=== PATIENT | female | born 2000 | race American Indian/Alaskan Native ===

== ENCOUNTER 2020-09-23 02:30 | Emergency (ER) | payer MEDICAID, SELFPAY ==
--- NOTE | 2020-09-23 02:38 | ED_ITS ---
HPI - Allergic Reaction General Chief complaint: Allergic Reaction Stated complaint: Allergic reaction Time Seen by Provider: 09/23/20 02:37 Source: patient Mode of arrival: ambulatory Limitations: no limitations History of Present Illness HPI narrative: Patient with no history of allergic reactions noticed hives all over her face and upper body the last 1 hour getting worse feels lips tingling no difficulty in swallowing no shortness of breath complaint: allergic reaction, hives and facial swelling Onset (ago): hour(s) Symptoms: rash, itching and facial swelling Severity: moderate Treatment prior to arrival: none Related Data Previous Rx's Medication Instructions Recorded diphenhydramine HCl [Benadryl] 25 mg PO Q6H PRN #30 cap 09/23/20 epinephrine [EpiPen 2-Jorge] 0.3 mg IM Q20M PRN #2 ea 09/23/20 Allergies Allergy/AdvReac Type Severity Reaction Status Date / Time No Known Allergies Allergy Unverified 04/16/20 16:43 [No Known Allergies*] Review of Systems Review of Systems: Constitutional : No Weight loss, No Fever, No Chills ENT/Mouth : No sore throat, No Rhinorrhea Eyes: No Eye Pain, No Swelling Cardiovascular : No Chest Pain, no palpitations Respiratory : No Cough, No Sputum, no shortness of breath Gastrointestinal : no Nausea, No Vomiting, No Diarrhea, No abdominal Pain, no black stools Genitourinary : No Dysuria, No Urinary Frequency Musculoskeletal : No joint pain, No Myalgias, No Joint Swelling Skin : No Skin Lesions, No rash Neuro : No Weakness, No Numbness, No Dizziness, No Headache Psych : No Anxiety/Panic, No Depression Heme/Lymph: No Bruising, No Lymphadenopathy Endocrine : No Polyuria, No Polydipsia All other systems reviewed and are negative [facility] Social History Social History Alcohol intake: never Smoking Status: Never smoker Use of substances other than those prescribed or required for medical reasons: No Advance Directives: No Physical Exam Vital Signs: Vital Signs: Last Vital Signs Temp 97.9 F 09/23/20 02:51 Pulse 108 H 09/23/20 02:55 Resp 12 09/23/20 02:55 BP 108/43 L 09/23/20 02:55 Pulse Ox 100 09/23/20 02:55 Body Mass Index 27.4 Const: General: comfortable and no acute distress HENMT: Head: Yes normal to inspection Ears: hearing grossly normal bilaterally General nose exam: Normal external nose present Mouth: Normal oral and palatal mucosa present, lip normal, oropharynx normal, normal lip, no muffled voice and normal tongue Throat: No uvular edema Eyes: General: appearance normal, both eyes and all related structures Resp: Effort & Inspection: normal respiratory effort Auscultation: clear to auscultation bilaterally Cardio: Palpation: normal PMI Rate: regular rate Rhythm: regular rhythm Heart sounds: S1 normal heart sound present and S2 normal heart sound present Skin: Rashes: rashes noted (Hives on Face upper chest extremities) MDM - Allergic Reaction MDM Narrative Medical decision making narrative: Patient with severe allergic reaction from unknown agent responded to epinephrine and Decadron and Benadryl feeling much better now back to normal will discharge patient home on Benadryl and EpiPen adv ised to follow with PCP for allergy testing Differential Diagnosis Differential diagnosis: Likely anaphylaxis and allergic reaction Discharge Plan Discharge Clinical Impression: Allergic reaction Patient Disposition: Home, Self-Care Instructions: Allergies (ED) Additional Instructions: You had allergic reaction to unknown agent. Follow with PCP for allergy testing. Keep EpiPen with you Benadryl 1-2 tablet every 6 hours as needed for rash. Report to the ER if worsening of hives Prescriptions: New epinephrine [EpiPen 2-Jorge] 0.3 mg/0.3 mL auto-injector 0.3 mg IM Q20M PRN (Reason: anaphylaxis) Qty: 2 RF: 0 diphenhydramine HCl [Benadryl] 25 mg capsule 25 mg PO Q6H PRN (Reason: allergic reaction) Qty: 30 RF: 0 Stand Alone Forms: Work/School Release
[2020-09-23] MEDS: dexAMETHasone 2 MG TABLET 10 MG PO (02:46)
[2020-09-23] MEDS: EPINEPHrine 1 MG/ML VIAL 0.3 MG IM (02:47)
[2020-09-23] MEDS: diphenhydrAMINE HCL 25 MG TABLET 50 MG PO (02:47)
[2020-09-23 02:51] VITALS: BP 108/42; PULSE 97; RESP 19; TEMP 36.6; O2SAT 100; BMI 27.4
[2020-09-23 02:55] VITALS: BP 108/43; PULSE 108; RESP 12; O2SAT 100
== END 2020-09-23 04:49 | disposition home or self-care (01) ==
PROVIDERS: Emergency Provider Internal Medicine; PCP Pediatrics
DX: L50.0 Allergic urticaria (principal)
CPT/HCPCS: 96372; 99284; J0171; J8540; Q0163

== ENCOUNTER 2020-09-24 13:20 | Emergency (ER) | payer MEDICAID, SELFPAY ==
[2020-09-24 13:25] VITALS: BP 108/90; PULSE 95; RESP 16; TEMP 36.8; O2SAT 98; BMI 27.8
[2020-09-24 14:03] VITALS: PULSE 130; RESP 22; O2SAT 100
[2020-09-24 15:03] VITALS: PULSE 102; RESP 18; O2SAT 100
[2020-09-24 15:53] LABS: MANUAL DIFF FLAG NO
[2020-09-24 16:02] LABS: Basophils Percent Auto 0.2 % (0-2); Eosinophils Absolute Auto 0.1 X10*3/uL (0.0-0.4); Eosinophils Percent Auto 0.6 % (0-4); Hematocrit 37.9 % (37-47); Hemoglobin 12.3 g/dl (12.0-16.0); Imm Gran Abs Auto 0.02 X10*3/uL (0.00-0.03); Imm Gran Pct Auto 0.2 % (0.0-0.4); Lymphocytes Absolute Auto 2.6 X10*3/uL (1.2-4.9); Lymphocytes Percent Auto 27.8 % (20-40); Mean Corpuscular HGB Conc 32.5 g/dl (31.0-35.0); Mean Corpuscular Hemoglobin 27.4 pg (27.0-33.0); Mean Corpuscular Volume 84.4 fL (80-98); Mean Platelet Volume 11.9 fL (9.4-12.3); Monocytes Absolute Auto 0.5 X10*3/uL (0.1-1.2); Monocytes Percent Auto 5.6 % (2-11); Neutrophils Absolute Auto 6.2 X10*3/uL (2.0-8.3); Neutrophils Percent Auto 65.6 % (45-73); Platelet Count 210 X10*3/uL (160-400); Red Blood Count 4.49 X10*6/uL (4.20-5.50); Red Cell Distribution Width 14.8 % (11.0-16.0); White Blood Count 9.4 X10*3/uL (4.8-10.8)
[2020-09-24 16:20] LABS: Anion Gap 13 (12-20); Blood Urea Nitrogen 13 mg/dL (9-16); Calcium 8.9 mg/dL (8.4-10.2); Carbon Dioxide 23 mmol/L (22-29); Chloride 108 mmol/L (96-108); Creatinine Clr Calc Pharmacy 119.7; Estimated Glomerular Filt Rate > 60; Glucose Random 124 mg/dL (60-115); Potassium 3.5 mmol/L (3.3-5.1); Sodium 140 mmol/L (135-145)
--- NOTE | 2020-09-24 17:34 | ED.ALLEREA ---
HPI - Allergic Reaction General Chief complaint: Allergic Reaction Stated complaint: allergic reaction Time Seen by Provider: 09/24/20 17:27 Source: patient Mode of arrival: ambulatory Limitations: no limitations History of Present Illness HPI narrative: 19-year-old female who denies significant medical or surgical history rib presents today with complaint of allergic reaction states she was seen here about 36 hours ago at which time she developed hives after eating some [facility] fried chicken she was seen and treated emergency room with EpiPen and IV medication she got significantly better her rash resolved and today she had a feeling of having that rash again and she had chicken with breathing that she prepared and couple hours prior to arrival developed hives like rash again to her face around her neck and gradually spreading. Does report having slight sensation of scratches in back of throat otherwise no difficulty breathing, no cough or wheezing. There has been no recent travel, sick contacts, new medications, or ADL products. MD complaint: allergic reaction Onset (ago): day(s) Exposure: unknown and food (Possibly checking preparation) Symptoms: rash and itching Severity: severe Treatment prior to arrival: steroids (States on her previous visit she was given prednisone which she took this morning) Previous Allergic Reaction History: prior ED visit(s) Related Data Previous Rx's Medication Instructions Recorded diphenhydramine HCl [Benadryl] 25 mg PO Q6H PRN #30 cap 09/23/20 epinephrine [EpiPen 2-Jorge] 0.3 mg IM Q20M PRN #2 ea 09/23/20 prednisone 40 mg PO DAILY #10 tab 09/23/20 famotidine [Pepcid] 20 mg PO DAILY #14 tab 09/24/20 montelukast [Singulair] 10 mg PO BEDTIME #7 tab 09/24/20 Allergies Allergy/AdvReac Type Severity Reaction Status Date / Time No Known Allergies Allergy Unverified 04/16/20 16:43 [No Known Allergies*] Review of Systems Review of Systems: Constitutional: No Weight loss, No Fever, No Chills, No Night Sweats, No Fatigue, No Malaise ENT/Mouth: No Hearing loss, No Ear Pain, No Nasal Congestion, No Sinus Pain, No Hoarseness, No sore throat, No Rhinorrhea, No Swallowing Difficulty Eyes: No Eye Pain, No Swelling, No Redness, No Foreign Body, No Discharge, No Vision Changes Cardiovascular: No Chest Pain, No SOB, No Dyspnea on Exertion, No Orthopnea, No Edema, No Palpitations Respiratory: No Cough, No Sputum, No Wheezing, No Smoke Exposure, No Dyspnea Gastrointestinal: No Nausea, No Vomiting, No Diarrhea, No Constipation, No abdominal Pain, No Hematochezia, No Melena Genitourinary: no irregular bleeding, No Dysuria, No Urinary Frequency, No Hematuria, No Urinary Incontinence, No Urgency, No Flank Pain, No Urinary Flow Changes, No Hesitancy Musculoskeletal: No joint pain, No Myalgias, No Joint Swelling Skin: No Skin Lesions, as noted per HPI Neuro: No Weakness, No Numbness, No Paresthesias, No Loss of Consciousness, No Dizziness, No Headache Psych: No Anxiety/Panic, No Depression, No SI/HI/AH/VH, No Social Issues Heme/Lymph: No Bruising, No Bleeding,No Lymphadenopathy Endocrine: No Polyuria, No Polydipsia, No Temperature Intolerance Yes all other systems are reviewed and are negative [facility] Social History Social History Alcohol intake: never Smoking Status: Never smoker Smoked in Last 30 Days: No Use of substances other than those prescribed or required for medical reasons: No Advance Directives: No Advance Directives Information Provided: Yes Physical Exam Vital Signs: Vital Signs: Last Vital Signs Temp 98.2 F 09/24/20 13:25 Pulse 111 H 09/24/20 17:52 Resp 18 09/24/20 15:03 BP 105/60 09/24/20 17:52 Pulse Ox 100 09/24/20 15:03 Body Mass Index 27.8 Reviewed Const: Other: Appears uncomfortable as she feels itchy. General: cooperative; No acute distress or intoxicated appearing Nutritional Appearance: average body habitus Orientation/consciousness: patient oriented x3 HENMT: Other: There is no angioedema, posterior pharynx within normal limits. Head: Yes normal to inspection Ears: hearing grossly normal bilaterally Eyes: General: appearance normal, both eyes and all related structures Visual Ingram: normal visual ingram by confrontation Neck: Neck: Yes normal visual inspection, No positive Brudzinski's sign, No positive Kernig's sign and No tender Thyroid: Thyroid normal Chest: Chest palpation & inspection: normal inspection of the chest Resp: Effort & Inspection: normal respiratory effort Auscultation: clear to auscultation bilaterally Cardio: Jugular venous distension: no JVD Rhythm: regular rhythm Heart sounds: S1 normal heart sound present and S2 normal heart sound present GI: Inspection: Yes normal to inspection Percussion: Yes normal to percussion Auscultation: normal bowel sounds : General: Yes no CVA tenderness Back/Spine/Pelvis: Back: no CVA tenderness Skin: Other: There is no angioedema General skin exam: other (Diffuse hives to the cheeks, posterior scalp, neck and dispersed over torso) Rashes: rashes noted (Hives with welts) Neuro: General: patient oriented x3 Extrem: General: Yes normal to inspection Course Course Course Narrative: Hives with welts of unclear etiology could be related to check in with burning that she from [facility] and then subsequently made at home however significant high as well as requiring IV Benadryl and Pepcid as well as subq epipen. She was observed in the ED for 4 hours her hives fully resolves she has been resting comfortably. Eating chips and drinking soda. Unclear etiology of this hives she will continue taking prednisone and regular Benadryl will add on Pepcid. Will refer to grader tender she in fact has an appointment tomorrow at 10:00 with her primary care doctor. Proper use of EpiPen reviewed with her she does have EpiPen given to her on previous visit. Clear return instruction follow instructions provided. She feels comfortable plan. Stable for discharge. Consultations Consultation #1: Case discussed with attending Dr. Baker who evaluated patient at bedside with me In addition to treatment highlighted above recommend given her 1 dose of Decadron IV 10 mg and starting on Pepcid outpatient basis. MDM - Allergic Reaction Lab Data Result diagrams: 09/24/20 15:48 09/24/20 15:48 Labs: Lab Results 09/24/20 09/24/20 09/24/20 Range/Units 15:48 15:48 15:48 WBC 9.4 (4.8-10.8) X10*3/uL RBC 4.49 (4.20-5.50) X10*6/uL Hgb 12.3 (12.0-16.0) g/dl Hct 37.9 (37-47) % MCV 84.4 (80-98) fL MCH 27.4 (27.0-33.0) pg MCHC 32.5 (31.0-35.0) g/dl RDW 14.8 (11.0-16.0) % Plt Count 210 (160-400) X10*3/uL MPV 11.9 (9.4-12.3) fL Immature Gran % (Auto) 0.2 (0.0-0.4) % Neut % (Auto) 65.6 (45-73) % Lymph % (Auto) 27.8 (20-40) % [place] % (Auto) 5.6 (2-11) % Eos % (Auto) 0.6 (0-4) % Baso % (Auto) 0.2 (0-2) % Lymph # (Auto) 2.6 (1.2-4.9) X10*3/uL [place] # (Auto) 0.5 (0.1-1.2) X10*3/uL Eos # (Auto) 0.1 (0.0-0.4) X10*3/uL Baso # (Auto) 0.0 (0.0-0.2) X10*3/uL Abs Immat Gran (auto) 0.02 (0.00-0.03) X10*3/uL Absolute Neuts (auto) 6.2 (2.0-8.3) X10*3/uL Absolute Nucleated RBC 0.000 (0.0-0.012) X10*3/uL Nucleated RBC % (auto) 0.0 (0.0-0.2) /100WBC Hold Blue Top SEE NOTE Sodium 140 (135-145) mmol/L Potassium 3.5 (3.3-5.1) mmol/L Chloride 108 (96-108) mmol/L Carbon Dioxide 23 (22-29) mmol/L Anion Gap 13 (12-20) BUN 13 (9-16) mg/dL Creatinine 0.73 (0.5-1.4) mg/dL Estim Creat Clear Calc 119.7 Estimated GFR > 60 Random Glucose 124 H (60-115) mg/dL Calcium 8.9 (8.4-10.2) mg/dL Discharge Plan Discharge Clinical Impression: Allergic reaction Qualifiers: Encounter type: subsequent encounter Qualified Code(s): T78.40XD - Allergy, unspecified, subsequent encounter Patient Disposition: Home, Self-Care Instructions: Urticaria (ED) Additional Instructions: Keep a food log Do not try any new foods Avoid chicken with the previous perforation Continue take her prednisone Take Benadryl as previously prescribed Start taking Pepcid Use your EpiPen only as needed emergencies if you have any worsening or use instructions as reviewed you. Return to emergency room right away if there is any concerns or worsening symptoms Follow with primary doctor as scheduled tomorrow at 10:00 Thank you Prescriptions: New famotidine [Pepcid] 20 mg tablet 20 mg PO DAILY Qty: 14 RF: 0 montelukast [Singulair] 10 mg tablet 10 mg PO BEDTIME Qty: 7 RF: 0 No Action epinephrine [EpiPen 2-Jorge] 0.3 mg/0.3 mL auto-injector 0.3 mg IM Q20M PRN (Reason: anaphylaxis) Qty: 2 RF: 0 diphenhydramine HCl [Benadryl] 25 mg capsule 25 mg PO Q6H PRN (Reason: allergic reaction) Qty: 30 RF: 0 prednisone 20 mg tablet 40 mg PO DAILY Qty: 10 RF: 0 Referrals: Shayne Christina MD [Primary Care Provider] - 1 day Stand Alone Forms: Work/School Release
[2020-09-24 17:52] VITALS: BP 105/60; PULSE 111
[2020-09-24] MEDS: 0.9 % Sodium Chloride 1,000 ML 999 ML IV (17:52)
[2020-09-24] MEDS: Famotidine/PF 20 MG/2 ML VIAL IVPUSH (17:52)
[2020-09-24] MEDS: EPINEPHrine 1 MG/ML VIAL 0.3 MG SUBCUT (17:52)
[2020-09-24] MEDS: diphenhydrAMINE HCL 50 MG/ML VIAL IVPUSH (17:52)
== END 2020-09-24 20:38 | disposition home or self-care (01) ==
PROVIDERS: Emergency Provider Internal Medicine; PCP Pediatrics
DX: T78.40XD Allergy, unspecified, subsequent encounter (principal); L50.9 Urticaria, unspecified; X58.XXXD Exposure to other specified factors, subsequent encounter; J45.909 Unspecified asthma, uncomplicated
CPT/HCPCS: 36415; 80048; 85025; 96360; 96372; 96374; 96375; 99284; 99285; J0171; J1100; J1200

== ENCOUNTER 2020-09-26 11:15 | Emergency (ER) | payer MEDICAID, SELFPAY ==
[2020-09-26 11:20] VITALS: BP 110/78; PULSE 95; RESP 18; TEMP 36.8; O2SAT 95; BMI 28.8
--- NOTE | 2020-09-26 13:04 | ED_ITS ---
HPI - Allergic Reaction General Chief complaint: Allergic Reaction Stated complaint: Rash Time Seen by Provider: 09/26/20 12:43 History of Present Illness HPI narrative: Patient presents complaining of hives to face neck and chest and upper back, she has been here twice before over the last week with similar complaint she has been treated with EpiPen which she used last night as the hives are very itchy but it did not help, from prior visit she is already taking prednisone 50 mg once a day as well as Benadryl 3 times a day but the last time she took the Benadryl was last night, she says it makes her drowsy and does not like, she has no difficulty breathing no shortness of breath no throat swell Related Data Previous Rx's Medication Instructions Recorded diphenhydramine HCl [Benadryl] 25 mg PO Q6H PRN #30 cap 09/23/20 epinephrine [EpiPen 2-Jorge] 0.3 mg IM Q20M PRN #2 ea 09/23/20 prednisone 40 mg PO DAILY #10 tab 09/23/20 famotidine [Pepcid] 20 mg PO DAILY #14 tab 09/24/20 montelukast [Singulair] 10 mg PO BEDTIME #7 tab 09/24/20 cetirizine 10 mg PO DAILY PRN #14 cap 09/26/20 hydroxyzine HCl 25 mg PO TID PRN #20 tab 09/26/20 Allergies Allergy/AdvReac Type Severity Reaction Status Date / Time No Known Allergies Allergy Unverified 04/16/20 16:43 [No Known Allergies*] Review of Systems Review of Systems: Positive for itchy hives Negative is fever chills dizziness weakness, no swelling in the throat no difficulty breathing or swallowing, no chest pain no shortness of breath, no nausea no vomiting, no pain, no numbness or weakness Yes all other systems are reviewed and are negative PMFSH Past Medical History Source: nursing notes reviewed Medical History (Updated 09/26/20 @ 14:09 by PATRICIA Lu) Asthma Social History Social History Alcohol intake: never Smoking Status: Never smoker Advance Directives: No Advance Directives Information Provided: No Physical Exam Vital Signs: Vital Signs: Last Vital Signs Temp 98.3 F 09/26/20 11:20 Pulse 90 09/26/20 13:57 Resp 16 09/26/20 13:57 BP 98/51 L 09/26/20 13:57 Pulse Ox 100 09/26/20 13:57 Body Mass Index 28.8 General appearance no acute distress cooperative, a and O x3 The facial exam there multiple order cardial lesions on the cheeks forehead scalp neck The eyes are not red, no discharge The pharynx is clear without swelling of mucosa or tongue or uvula, mucous membranes are moist, patient is managing secretions, voice is normal The neck is supple The chest is clear to auscultation with full symmetric equal breath sounds The heart rate and rhythm regular no murmur Abdomen soft nontender Skin there is order cardial rash on the face neck chest and upper back Neuro no focal deficit Course Course Course Narrative: ER course patient complains of recurrent hives, she is already currently in the midst of treatment with Benadryl at home which was last used over 12 hours ago, prednisone 50 mg a day which she has several days left, Pepcid 20 mg twice a day, and she used her EpiPen last night for the hives but it did not reduce the hives She came here with hives on face chest and neck and was given some IV Benadryl and Claritin tablet in addition the hives on the face and neck improved, but upon leaving she noticed that were fresh hives developing on her abdomen She had no difficulty breathing or swallowing there is no swelling in her throat and she was discharged with the addition of a daily cetirizine and possibility of trying hydroxyzine in place of Benadryl and she already has a referral from her primary doctor to an nuclear engineering technician Discharge Plan Discharge Clinical Impression: Urticaria Patient Disposition: Home, Self-Care Additional Instructions: Your hives have so far been resistant to treatment and keep coming back We are adding a daily non drowsy antihistamine, which is cetirizine, As an alternative to Benadryl you can try the medication hydroxyzine, but it may also cause drowsiness You can try 25 mg which may help with itch and rash and at night you can take 50 mg but it will usually make people drowsy, and you can decide if it works better for you than the Benadryl USE EITHER HYDROXYZINE OR BENADRYL BUT DO NOT USE BOTH TOGETHER Follow with her nuclear engineering technician Return any time to the ER for any worse condition or any concerns Prescriptions: New cetirizine 10 mg capsule 10 mg PO DAILY PRN (Reason: allergy symptoms) Qty: 14 RF: 0 hydroxyzine HCl 25 mg tablet 25 mg PO TID PRN (Reason: itching) Qty: 20 RF: 0 No Action epinephrine [EpiPen 2-Jorge] 0.3 mg/0.3 mL auto-injector 0.3 mg IM Q20M PRN (Reason: anaphylaxis) Qty: 2 RF: 0 diphenhydramine HCl [Benadryl] 25 mg capsule 25 mg PO Q6H PRN (Reason: allergic reaction) Qty: 30 RF: 0 prednisone 20 mg tablet 40 mg PO DAILY Qty: 10 RF: 0 famotidine [Pepcid] 20 mg tablet 20 mg PO DAILY Qty: 14 RF: 0 montelukast [Singulair] 10 mg tablet 10 mg PO BEDTIME Qty: 7 RF: 0 Stand Alone Forms: Work/School Release Interventions: ED Discharge Assessment Last Done: 09/26/20 14:42 Discharge Date/Time: 09/26/20 14:43
[2020-09-26] MEDS: diphenhydrAMINE HCL 50 MG/ML VIAL IVPUSH (13:30)
[2020-09-26] MEDS: Loratadine 10 MG TABLET PO (13:30)
[2020-09-26 13:57] VITALS: BP 98/51; PULSE 90; RESP 16; O2SAT 100
== END 2020-09-26 14:43 | disposition home or self-care (01) ==
PROVIDERS: Emergency Provider Emergency Medicine Emergency Medical Services; PCP Pediatrics
DX: L50.9 Urticaria, unspecified (principal); J45.909 Unspecified asthma, uncomplicated
CPT/HCPCS: 96374; 99284; J1200

== ENCOUNTER 2022-07-09 13:31 | Emergency (ER) | payer MEDICAID, SELFPAY ==
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
[2022-07-09 13:36] VITALS: BP 107/68; PULSE 66; RESP 18; O2SAT 99; BMI 32.8
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
[2022-07-09 15:07] LABS: UPreg QC Valid YES; Urine Pregnancy NEGATIVE (NEGATIVE)
== END 2022-07-09 16:30 | disposition home or self-care (01) ==
PROVIDERS: Nurse Practitioner Family; Emergency Provider Emergency Medicine
DX: Z04.1 Encounter for examination and observation following transport accident (principal); M25.561 Pain in right knee; R51.9 Headache, unspecified
CPT/HCPCS: 70450; 73562; 81025; 99282; 99284

== ENCOUNTER 2024-04-22 02:45 | Emergency (ER) | payer MEDICAID, SELFPAY ==
--- NOTE | ~2024-04-22 | XR_ITS ---
EXAMINATION: XR CHEST CLINICAL INFORMATION: Cough. COMPARISON: March 13, 2018. TECHNIQUE: Frontal view of the chest was obtained. FINDINGS: No significant abnormality is noted involving the heart, lungs, mediastinum, bony thorax or soft tissues. XR/XR chest 1V IMPRESSION: Unremarkable examination. Electronically signed by: Juan Jose Rosales MD 04/22/2024 03:36 AM EDT
[2024-04-22 02:56] VITALS: BP 116/55; PULSE 84; RESP 18; TEMP 37.1; O2SAT 99; BMI 38.6
--- NOTE | 2024-04-22 02:59 | ED.URI ---
HPI - URI/Sore Throat General Chief Complaint: Upper Respiratory Symptoms Stated Complaint: cough/can't sleep from coughing Time Seen by Provider: 04/22/24 02:59 Source: patient Mode of arrival: ambulatory Limitations: no limitations History of Present Illness ED Provider: loulou HANDY Narrative: Patient's history of asthma been sick for last 1 week coughing with mucopurulent phlegm no fever no chills feels chest tight patient does not get sick very often in the past Related Data Previous Rx's ?Medication ?Instructions ?Recorded diphenhydramine HCl 25 mg capsule 25 mg PO Q6H PRN allergic reaction 09/23/20 (Benadryl) #30 caps epinephrine 0.3 mg/0.3 mL 0.3 mg (0.3 mL) IM Q20M PRN 09/23/20 injection, auto-injector (EpiPen anaphylaxis #2 ea 2-Jorge) prednisone 20 mg tablet 40 mg (2 x 20 mg) PO DAILY #10 tabs 09/23/20 famotidine 20 mg tablet (Pepcid) 20 mg PO DAILY #14 tabs 09/24/20 montelukast 10 mg tablet 10 mg PO BEDTIME #7 tabs 09/24/20 (Singulair) cetirizine 10 mg capsule 10 mg PO DAILY PRN allergy 09/26/20 symptoms #14 caps hydroxyzine HCl 25 mg tablet 25 mg PO TID PRN itching #20 tabs 09/26/20 naproxen 500 mg tablet 500 mg PO BID PRN pain #30 tabs 07/09/22 albuterol sulfate 90 mcg/actuation 2 puff inhalation Q6H PRN 04/22/24 aerosol inhaler shortness of breath or wheezing #8.5 grams benzonatate 200 mg capsule 200 mg PO TID PRN cough #20 caps 04/22/24 cefuroxime axetil 500 mg tablet 500 mg PO BID 7 days #14 tabs 04/22/24 prednisone 20 mg tablet 40 mg (2 x 20 mg) PO DAILY #10 tabs 04/22/24 Allergies Allergy/AdvReac Type Severity Reaction Status Date / Time No Known Allergies Allergy Unverified 04/22/24 02:56 [No Known Allergies*] Review of Systems Review of Systems: Yes all other systems are reviewed and are negative PMFSH Past Medical History Medical History Asthma Social History Social History Alcohol intake: never Smoked in Last 30 Days: No Use of substances other than those prescribed or required for medical reasons: No Advance Directives: No Advance Directives Information Provided: Yes Patient : No Physical Exam Vital Signs: Vital Signs: Last Vital Signs Temp 97.9 F 04/22/24 05:23 Pulse 102 H 04/22/24 05:23 Resp 18 04/22/24 05:23 BP 102/55 L 04/22/24 05:23 Pulse Ox 99 04/22/24 05:23 O2 Del Method Room Air 04/22/24 05:19 BMI result Body Mass Index 38.6 Appearance: Alert. Oriented X3. No acute distress. Eyes: PERRLA, No Nystagmus ENT: Pharynx normal. Oral Mucosa moist Neck: Normal inspection. Neck supple. CVS: Normal heart rate and rhythm. Pulses normal. Respiratory: No respiratory distress. Equal air entry bilateral, bilateral prolonged expiration frequent cough Abdomen: Soft and nontender. Bowel sounds are present, no mass palpable, no CVA tenderness Skin: Skin warm and dry. Normal skin color. Normal skin turgor. Extremities: No lower extremity edema. No calf tenderness Neuro: Oriented X 3. Medications Administered Discontinued Medications Generic Name Dose Route Start Last Admin Trade Name Freq PRN Reason Stop Dose Admin Cefuroxime Axetil 500 mg 04/22/24 03:11 04/22/24 03:34 Cefuroxime Axetil 500 Mg Tablet PO 04/22/24 03:12 500 mg ONCE ONE Administration Albuterol Sulfate 2.5 mg/ 0 mg 04/22/24 03:13 04/22/24 04:14 Albuterol/Ipratropium 3 ml INHALE 04/22/24 03:14 1 dose ONCE ONE Administration Prednisone 40 mg 04/22/24 03:11 04/22/24 03:34 Prednisone 20 Mg Tablet PO 04/22/24 03:12 40 mg ONCE ONE Administration Medical Decision Making Medical Decision Making MDM Narrative: Bronchitis/pneumonia/COVID Differential Diagnosis Differential Diagnoses: The differential diagnosis associated with the presentation includes Lab Data MDM Lab Attestation statement: I reviewed the patient's lab results. Labs: Lab Results 04/22/24 Range/Units 03:21 COVID-19 (JACKELYN) Negative (Negative) COVID-19 Clin Com See Note Independent Interpretation I performed an independent interpretation of an: Plain X-Ray Radiology Impression Discussion of test interpretation with radiology: I have reviewed the radiologist's reading. Discharge Plan Discharge Clinical Impression: Bronchitis Patient Disposition: Home, Self-Care Instructions: Acute Bronchitis (ED) Additional Instructions: Take inhaler and antibiotics as prescribed Prednisone as prescribed Follow with PCP if not better Prescriptions: New prednisone 20 mg tablet 40 mg PO DAILY Qty: 10 0RF cefuroxime axetil 500 mg tablet 500 mg PO BID 7 Days Qty: 14 0RF albuterol sulfate 90 mcg/actuation HFA aerosol inhaler 2 puff inhalation Q6H PRN (Reason: shortness of breath or wheezing) Qty: 8.5 0RF benzonatate 200 mg capsule 200 mg PO TID PRN (Reason: cough) Qty: 20 0RF No Action epinephrine [EpiPen 2-Jorge] 0.3 mg/0.3 mL auto-injector 0.3 mg IM Q20M PRN (Reason: anaphylaxis) Qty: 2 0RF Rx Instructions: for 3 doses diphenhydramine HCl [Benadryl] 25 mg capsule 25 mg PO Q6H PRN (Reason: allergic reaction) Qty: 30 0RF prednisone 20 mg tablet 40 mg PO DAILY Qty: 10 0RF famotidine [Pepcid] 20 mg tablet 20 mg PO DAILY Qty: 14 0RF montelukast [Singulair] 10 mg tablet 10 mg PO BEDTIME Qty: 7 0RF cetirizine 10 mg capsule 10 mg PO DAILY PRN (Reason: allergy symptoms) Qty: 14 0RF hydroxyzine HCl 25 mg tablet 25 mg PO TID PRN (Reason: itching) Qty: 20 0RF naproxen 500 mg tablet 500 mg PO BID PRN (Reason: pain) Qty: 30 0RF Stand Alone Forms: Work/School Release Interventions: ED Discharge Assessment Last Done: 04/22/24 05:23 Discharge Date/Time: 04/22/24 05:26 Print Language: Lithuanian
--- OUTSIDE RECORDS SUMMARY | 2024-04-22 03:02 | XMS_ITS | Continuity of Care Document ---
[facility] Address [address] [address]- Care Team Providers Care Assistive Technology Trainer Name Role Phone Jihan Sierra NP Primary Care Physician Encounter [facility] Date(s): 07/21/23 - 08/20/23 [facility] [address] [address]- Allergies, Adverse Reactions, Alerts No Known Allergies Immunizations Given and Recorded Vaccine Date Status Refusal Reason tetanus/diphtheria/pertussis, acel(Tdap) 07/20/23 Given tetanus/diphtheria/pertussis, acel(Tdap) 11/13/19 Given tetanus/diphtheria/pertussis, acel(Tdap) 04/29/10 Recorded [id number] 12y+ bivalent booster vax 08/10/22 Recorded SARS-CoV-2 (COVID-19) mRNA BNT-162b2 vac 12/19/20 Recorded SARS-CoV-2 (COVID-19) mRNA BNT-162b2 vac 11/27/20 Recorded influenza virus vaccine, inactivated 08/09/19 Give n influenza virus vaccine, inactivated 10/13/15 Amandeep rded influenza virus vaccine, inactivated 04/29/10 Amandeep rded influenza virus vaccine, inactivated 04/23/07 Amandeep rded influenza virus vaccine, inactivated 08/13/02 Amandeep rded influenza virus vaccine, inactivated 07/09/02 Amandeep rded influenza virus vaccine, inactivated 06/15/01 Amandeep rded tetanus-diphtheria toxoids (Td) 04/12/17 Recorded Meningococcal Conjugate Vaccine 12/30/14 Recorded Hepatitis A Pediatric Vaccine 12/30/14 Recorded Hepatitis A Pediatric Vaccine 04/29/10 Recorded Human Papillomavirus Vaccine 12/28/12 Recorded Human Papillomavirus Vaccine 04/29/10 Recorded Human Papillomavirus Vaccine 01/29/09 Recorded Varicella Virus Vaccine 01/29/09 Recorded Varicella Virus Vaccine 03/28/00 Recorded Poliovirus Vaccine, Inactivated 04/08/03 Recorded Poliovirus Vaccine, Inactivated 12/24/99 Recorded Poliovirus Vaccine, Inactivated 04/08/99 Recorded Poliovirus Vaccine, Inactivated 02/04/99 Recorded Measles/Mumps/Rubella Virus Vaccine 04/08/03 Recor ded Measles/Mumps/Rubella Virus Vaccine 12/24/99 Recor ded diphtheria/tetanus/pertussis, acel(DTaP) 04/08/03 Recorded diphtheria/tetanus/pertussis, acel(DTaP) 03/28/00 Recorded diphtheria/tetanus/pertussis, acel(DTaP) 05/27/99 Recorded diphtheria/tetanus/pertussis, acel(DTaP) 04/08/99 Recorded diphtheria/tetanus/pertussis, acel(DTaP) 02/04/99 Recorded hepatitis B pediatric vaccine 09/23/99 Recorded hepatitis B pediatric vaccine 01/07/99 Recorded hepatitis B pediatric vaccine 98 Recorded Medications acetaminophen/butalbital/caffeine 325 mg-50 mg-40 mg oral tablet 1 tablet, By Mouth, Every 4 hours, PRN NEEDED FOR MIGRAINE HEADACHES, # 30 tablet, 0 Refills, Maintenance, 07/20/23 20:15:00 EST, [id number], 5, TAKE 1 TABLET BY MOUTH EVERY 4 HOURS NEEDEDFOR MIGRAINE HEADACHES, 162, cm, 07/20/23 11:32:00... Start Date: 07/20/23 Status: Ordered escitalopram 10 mg oral tablet 1 tablet, By Mouth, Daily, # 30 tablet, 0 Refills, Maintenance, 08/17/23 16:18:00 EST, [id number], 162, cm, 08/03/23 11:00:00 EST, Height, 97.63, kg, 08/03/23 11:00:00 EST, Dry Weight Start Date: 08/17/23 Status: Ordered Flovent HFA 44 mcg/inh inhalation aerosol See Instructions, INHALE 2 PUFFS TWICE A DAY, # 10.6 each, 0 Refills, Maintenance, 07/12/23 18:32:00 EST, [id number], 162, cm, 05/25/23 11:20:00 EDT, Height, 91.4, kg, 05/25/23 11:20:00 EDT, DryWeight Start Date: 07/12/23 Status: Ordered Pepcid 20 mg oral tablet 1 tablet = 20 mg, By Mouth, 2 times a day, PRN Dyspepsia, 0 Refills, Maintenance, 03/14/23 12:00:00EDT, Partial fill upon patient request if the prescription is for a schedule II opioid drug. Start Date: 03/14/23 Status: Ordered PNV Plus oral tablet 1 tablet, By Mouth, Daily, # 90 tablet, 1 Refills, Maintenance, 05/20/23 13:08:00 EDT, [id number], Partial fill upon patient request if the prescription is for a schedule II opioid drug., 1 tablet By Mouth Daily, 162, cm, 03/29/23 13:33:00 EDT... Start Date: 05/20/23 Status: Ordered Protonix 40 mg oral delayed release tablet 1 tablet = 40 mg, By Mouth, Daily, # 30 tablet, 2 Refills, Maintenance, 08/03/23 11:32:00 EST, [facility] Tablet, 162, cm, 08/03/23 11:00:00 EST, Height, 97.63, kg, 08/03/23 11:00:00 EST, Dry Weight Start Date: 08/03/23 Status: Ordered Problem List Condition Confirmation Course Effective Dates Status Health St atus Informant Asthma 1 Confirmed Active GERD (gastroesophageal reflux disease) Confirmed Active History of recurrent UTIs 2, 3 Confirmed Active Low-lying placenta Confirmed Active Migraine with aura Confirmed Active Depression with anxiety Confirmed Active Obesity in Confirmed Active Persistent cough Confirmed Active Confirmed Active 1Albuterol prn (acts up mainly in winter time). 2None in current as of yet per pt. 3Most recent uti couple months ago , cannot remember when. Seen in ED. Social History Social History Type Response Smoking Status Never (less than 100 in lifetime); Tobacco user in household: Yes entered on: 06/21/19 Sex Patient Care team information Care Team Personnel Name: Jihan Sierra NP Position: Reference Physician Member Role: PCP Address: Address: [address] [place] [address]- Care Team Related Persons Name: BING CARTER Address: home [address] [place] [address] Name: ROSALVA CLAIRE Address: [address] Address: home [address] [address] Name: SANTO CLAIRE Address: [address] [place] [address] Name: VALENTE WANG
--- OUTSIDE RECORDS SUMMARY | 2024-04-22 03:02 | XMS_ITS | Continuity of Care Document ---
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 Name Role Phone Jihan Sierra NP Primary Care Physician [phone] [facility] Date[facility]): 11[facility]07[facility]23 - 12/07/23 [facility] [address] [address] Allergies, Adverse Reactions, Alerts No Known Allergies Immunizations Given and Recorded Vaccine Date Status Refusal Reason tetanus/diphtheria/pertussis, acel(Tdap) 07/20/23 Given tetanus/diphtheria/pertussis, acel(Tdap) 11/13/19 Given tetanus/diphtheria/pertussis, acel(Tdap) 04/29/10 Recorded [id number] 12y+ bivalent booster vax 08/10/22 Recorded SARS-CoV-2 [...] hepatitis B pediatric vaccine 98 Recorded Medications albuterol CFC free 90 mcg/inh inhalation aerosol 180 mcg, 2, puffs, Inhalation, Every 4 hours, PRN, # 6.7 Gm, Refills 2, Tot. Refills 2, Maintenance, 10/16/23 9:28:00 EDT, Inhaler, Route to Pharmacy Electronically, [id number], [facility]/pharmacy #[id number], 163, cm, 10/16/23 9:08:00 E... Start Date: 10/16/23 Status: Ordered escitalopram 10 mg oral tablet 1 tablet = 10 mg, By Mouth, Daily, # 30 tablet, 5 Refills, Maintenance, 11/27/23 16:39:00 EDT, Tablet, [facility]/pharmacy #[id number], Partial fill upon patient request if the prescription is for a schedule II opioid drug., 163, cm, 10/16/23 9:08:00 EDT, Height,... Start Date: 11/27/23 Status: Ordered Flovent HFA 44 mcg/inh inhalation aerosol See Instructions, INHALE 2 PUFFS TWICE A DAY, # 10.6 each, 0 Refills, Maintenance, 07/12/23 18:32:00 EST, [id number], 162, cm, 05/25/23 11:20:00 EDT, Height, 91.4, kg, 05/25/23 11:20:00 EDT, DryWeight Start Date: 07/12/23 Status: Ordered multivitamin, Multivitamins oral tablet, chewable 1 tablet, By Mouth, Daily, # 30 tablet, 3 Refills, Maintenance, 10/16/23 9:30:00 EDT, Chew Tablet, [id number], Partial fill upon patient request if the prescription is for a schedule II opioid drug., 1 tablet By Mouth Daily, 163, cm, 10/16/23... Start Date: 10/16/23 Status: Ordered PNV Plus oral tablet 1 tablet, By Mouth, Daily, # 90 tablet, 1 Refills, Maintenance, 10/16/23 9:29:00 EDT, [id number], Partial fill upon patient request if the prescription is for a schedule II opioid drug., 1 tablet By Mouth Daily, 163, cm, 10/16/23 9:08:00 EDT,... Start Date: 10/16/23 Status: Ordered Ventolin HFA 108 mcg/inh inhalation aerosol with adapter 2 puffs, Inhalation, 4 times a day, PRN NEEDED FOR WHEEZING, # 18 each, 2 Refills, Maintenance, 10/16/23 9:28:00 EDT, [id number], 163, cm, 10/16/23 9:08:00 EDT, Height, 100.3, kg, 247:58:00 EDT, Dry Weight Start Date: 10/16/23 Status: Ordered Problem List Condition Confirmation Course Effective Dates Status Health St atus Informant Asthma 1 Confirmed Active GERD (gastroesophageal reflux disease) Confirmed Active History of recurrent UTIs 2, 3 Confirmed Active Migraine with aura Confirmed Active Depression with anxiety Confirmed Active Nexplanon insertion Confirmed 10/15/23 Active Persistent cough Confirmed Active Severe obesity (BMI 35.0-39.9) with comorbidity Confirmed Active 1Albuterol prn (acts up mainly [...] Reference Physician Member Role: PCP Address: Address: [address] [place] [address]- Care Team Related Persons Name: BING CARTER Address: home [address] [place] [address] Name: ROSALVA CLAIRE Address: [address] Address: [address] [address] [place] Name: ALEXANDER CLAIRE Address: [address] Address: home [address] [place] [address] [place] Name: SANTO CLAIRE Address: home [address] [place] [address] Name: VALENTE WANG
--- OUTSIDE RECORDS SUMMARY | 2024-04-22 03:02 | XMS_ITS | Continuity of Care Document ---
Author Organization [facility] Address [address] [address]- Care Team Providers Care Ferryboat Pilot Name Role Phone Jihan Sierra NP Primary Care Physician [phone] [facility]counter [facility] Date(s): 11/07/23 - 12/07/23 [facility] [address] [address] Allergies, Adverse Reactions, Alerts No Known Allergies Immunizations Given and Recorded Vaccine Date Status Refusal Reason tetanus/diphtheria/pertussis, acel(Tdap) 07/20/23 Given tetanus/diphtheria/pertussis, acel(Tdap) 11/13/19 Given tetanus/diphtheria/pertussis, acel(Tdap) 04/29/10 Recorded [id number] 12y+ bivalent booster vax 08/10/22 Recorded SARS-CoV-2 [...] 9:28:00 EDT, Inhaler, Route to Pharmacy Electronically, [id number], [facility]/pharmacy #[id number], 163, cm, 10/16/23 9:08:00 E... Start Date: 10/16/23 Status: Ordered escitalopram 10 mg oral tablet 1 tablet = 10 mg, By Mouth, Daily, # 30 tablet, 5 Refills, Maintenance, 11/27/23 16:39:00 EDT, Tablet, [facility]/pharmacy #[id number], Partial fill upon patient request if the prescription is for a schedule II opioid drug., 163, cm, 10/16/23 9:08:00 EDT, Height,... Start Date: 11/27/23 Status: Ordered Flovent HFA 44 mcg/inh inhalation aerosol See Instructions, INHALE 2 PUFFS TWICE A DAY, # 10.6 each, 0 Refills, Maintenance, 07/12/23 18:32:00 EST, [id number], 162, cm, 05/25/23 11:20:00 EDT, Height, 91.4, [...] Reference Physician Member Role: PCP Address: Address: [address] [place] [address]- Care Team Related Persons Name: BING CARTER Address: home [address] [place] [address] Name: ROSALVA CLAIRE Address: [address] Address: [address] [address] [place] Name: ALEXANDER CLAIRE Address: [address] Address: home [address] [place] [address] [place] Name: SANTO CLAIRE Address: [address] [place] [address] Name: VALENTE WANG
--- OUTSIDE RECORDS SUMMARY | 2024-04-22 03:02 | XMS_ITS | Continuity of Care Document ---
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 Mechanic Name Role Phone Sanford YIP, Shayne Hall Primary Care Physician Encounter [facility] Date(s): 02/10/20 - 03/11/20 [facility] [address] [address] [place] Allergies, Adverse Reactions, Alerts Substance Reaction Severity Status NKA Active Immunizations Given and Recorded Vaccine Date Status Refusal Reason tetanus/diphtheria/pertussis, acel(Tdap) 11/13/19 Given influenza virus vaccine, inactivated 08/09/19 Give n Medications acetaminophen/butalbital/caffeine 325 mg-50 mg-40 mg oral tablet 1 tablet, By Mouth, Every 4 hours, May repeat dose in 4 hours if needed. Do not exceed 2 tabs in 24hours., # 15 tablet, 2 Refills, Maintenance, 02/06/20 13:40:00 EDT, [facility]/pharmacy #[id number], 1 tablet ByMouth Every 4 hours,Instr:May repeat dose in 4 hour... Start Date: 02/06/20 Status: Ordered Aerochamber See Instructions, # 1 kit, Refills 0, Tot. Refills 0, Maintenance, To use with flovent, 12/02/19 0:59:00 EDT, Supply, 163, cm, 11/27/19 15:36:00 EDT, Height, 78.1, kg, 11/13/19 16:13:00 EDT, Dry Weight Start Date: 12/02/19 Status: Ordered albuterol CFC free 90 mcg/inh inhalation aerosol 1, puffs, Inhalation, 4 times a day, PRN, # 2 each, Refills 4, Tot. Refills 4, Maintenance, 11/25/19 11:34:00 EDT, Aerosol, Route to Pharmacy Electronically, [id number], [facility]/pharmacy #[id number], 163, cm, 11/13/19 16:13:00 EDT, Hei... Start Date: 11/25/19 Stop Date: 04/23/20 Status: Ordered ferrous sulfate 325 mg oral tablet 1 tablet = 325 mg, By Mouth, Daily, # 30 tablet, 2 Refills, Maintenance, 11/14/19 13:10:00 EDT, [facility]/pharmacy #[id number], 163, cm, 11/13/19 16:13:00 EDT, Height, 78.1, kg, 11/13/19 16:13:00 EDT, Dry Weight Start Date: 11/14/19 Stop Date: 02/12/20 Status: Ordered Flovent HFA 110 mcg/inh inhalation aerosol 2 puffs, Inhalation, 2 times a day, # 12 Gm, 1 Refills, Maintenance, 12/02/19 0:58:00 EDT, Aerosol,[facility][id number], 163, cm, 11/27/19 15:36:00 EDT, Height, 78.1, kg, 11/13/19 16:13:00 EDT, Dry Weight Start Date: 12/02/19 Stop Date: 12/16/19 Status: Ordered ibuprofen 200 mg oral tablet 400 mg, 2, tablet, By Mouth, Every 4 hours, PRN, # 100 tablet, Refills 0, Tot. Refills 0, Maintenance, for pain, 01/31/20 10:59:00 EDT, Route to Pharmacy Electronically, [facility]/pharmacy #[id number], 163, cm, 01/31/20 0:18:00 EDT, Height, 81.4, kg, 01/29/20 8:5... Start Date: 01/31/20 Status: Ordered lanolin topical - ointment See Instructions, PRN as needed for dry skin, 1 application Topically to bilateral nipples after ., # 60 Gm, 0 Refills, Maintenance, 02/05/20 12:20:00 EDT, Ointment, [facility]/pharmacy #[id number], 1 application Topically to bilateral nipples after b... Start Date: 02/05/20 Status: Ordered Methergine 0.2 mg oral tablet 1 tablet = 0.2 mg, By Mouth, 3 times a day, for 3 days, # 9 tablet, 0 Refills, Acute 03/13/20 14:05:00 EDT, 03/10/20 14:05:00 EDT, Tablet, [facility]/pharmacy #[id number], 163, cm, 03/10/20 13:34:00 EDT, Height, 75.02, kg, 03/10/20 13:34:00 EDT, Dry Weight Start Date: 03/10/20 Stop Date: 03/13/20 Status: Ordered Mirena 52 mg intrauterine device See Instructions, 1 each Once, # 1 each, 0 Refills, Soft Stop, 03/10/20 14:06:00 EDT, [facility], 163, cm, 03/10/20 13:34:00 EDT, Height, 75.02, kg, 03/10/20 13:34:00 EDT, Dry Weight Start Date: 03/10/20 Status: Ordered ParaGard intrauterine device See Instructions, bring to cook apprentice appointment for insertion, # 1 each, 0 Refills, Maintenance, 02/17/20 14:03:00 EDT, [facility], bring to cook apprentice appointment for insertion, 163, cm, 01/31/20 0:18:00 EDT, Height, 81.4, kg, 01/29/20 8... Start Date: 02/17/20 Status: Ordered AD oral tablet 1 tablet, By Mouth, Daily, # 90 tablet, 0 Refills, Maintenance, 12/10/19 17:10:00 EDT, Tablet, [facility]/pharmacy #[id number], 1 tablet By Mouth Daily, 163, cm, 11/27/19 15:36:00 EDT, Height, 78.1, kg, 11/13/19 16:13:00 EDT, Dry Weight Start Date: 12/10/19 Status: Ordered Problem List Condition Effective Dates Status Health Status Inform ant Asthma(Confirmed) 1 Active COVID-19 virus infection(Confirmed) 11/22/19 Active History of depression(Confirmed) 2 Active History of recurrent UTIs(Confirmed) 3 Active Migraine(Confirmed) 4, 5 Active 1Albuterol prn (acts up mainly in winter time). 2As child, saw therapist (no meds) but improved/went away. Now in feeling down and a little depressed. 3Most recent uti couple months ago , cannot remember when. Seen in ED. 4says she has a neurologist in [place] for migraines. 5Taking fioricet prn for this, reports typically about 1-2x/week. 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 Referred to neuro but unable to see d/t insurance issues, so was just seeing pcp for this for now. Social History Social History Type Response Smoking Status Never (less than 100 in lifetime); Tobacco user in household: Yes entered on: 06/21/19 Sex
--- OUTSIDE RECORDS SUMMARY | 2024-04-22 03:02 | XMS_ITS | Continuity of Care Document ---
Author Organization [facility] Address [address] [facility], [address] [address]- Care Team Providers Care Lining Stamper Name Role Phone Rigo DICKSON, Jihan Primary Care Physician [phone] Encounter [facility] Date(s): 11/27/23 - 03/09/24 [facility] [address] [facility], [address] [place] [address]- Attending Physician: Kurt Harrington MD Referring Physician: Lloyd Jones CNM Allergies, Adverse Reactions, Alerts No Known Allergies Immunizations Given and Recorded Vaccine Date Status Refusal Reason tetanus/diphtheria/pertussis, acel(Tdap) 07/20/23 Given tetanus/diphtheria/pertussis, acel(Tdap) 11/13/19 Given tetanus/diphtheria/pertussis, acel(Tdap) 04/29/10 Recorded [id number] 12y+ bivalent booster vax 08/10/22 Recorded SARS-CoV-2 [...] acetaminophen/butalbital/caffeine 325 mg-50 mg-40 mg oral tablet 20 each, 0 Refill(s), TAKE 1 TABLET BY MOUTH EVERY 4 HOURS NEEDED, 0 Refills, 12/11/23 11:35:00 EDT, Partial fill upon patient request if the prescription is for a schedule II opioid drug. Start Date: 12/11/23 Status: Ordered albuterol CFC free 90 mcg/inh inhalation aerosol 180 mcg, 2, puffs, Inhalation, Every 4 hours, PRN, # 6.7 Gm, Refills 2, Tot. Refills 2, Maintenance, 10/16/23 9:28:00 EDT, Inhaler, Route to Pharmacy Electronically, [id number], [facility]/pharmacy #[id number], 163, cm, 10/16/23 9:08:00 E... Start Date: 10/16/23 Status: Ordered escitalopram 10 mg oral tablet 1.5 tablet = 15 mg, By Mouth, Daily, # 45 tablet, 3 Refills, Maintenance, 12/11/23 11:36:00 EDT, Tablet, [id number], Partial fill upon patient request if the prescription is for a schedule IIopioid drug., 163, cm, 12/11/23 11:34:00 EDT, Heigh... Start Date: 12/11/23 Status: Ordered Flovent HFA 44 mcg/inh inhalation aerosol See Instructions, INHALE 2 PUFFS TWICE A DAY, # 10.6 each, 0 Refills, Maintenance, 07/12/23 18:32:00 EST, [facility], 162, cm, 05/25/23 11:20:00 EDT, Height, 91.4, [...] cm, 10/16/23 9:08:00 EDT, Height, 100.3, kg, :58:00 EDT, Dry Weight Start Date: 10/16/23 Status: [...] Reference Physician Member Role: PCP Address: Address: [address] [place] [address]- Care Team Related Persons Name: BING CARTER Address: home [address] [place] [address] Name: ROSALVA CLAIRE Address: [address] Address: [address] [address] [place] Name: ALEXANDER CLAIRE Address: [address] Address: [address] [place] [address] [place] Name: SANTO CLAIRE Address: [address] [place] [address] Name: VALENTE WANG
--- OUTSIDE RECORDS SUMMARY | 2024-04-22 03:02 | XMS_ITS | Continuity of Care Document ---
Author Organization [facility] Address [address] [place] [address]- Care Team Providers Care Automotive Product Engineer Name Role Phone Jihan Sierra NP Primary Care Physician [phone] [facility]counter [facility] Date(s): 11/06/23 - 12/06/23 [facility] [address] [place] [address]- Allergies, Adverse Reactions, Alerts No Known Allergies Immunizations Given and Recorded Vaccine Date Status Refusal Reason tetanus/diphtheria/pertussis, acel(Tdap) 07/20/23 Given tetanus/diphtheria/pertussis, acel(Tdap) 11/13/19 Given tetanus/diphtheria/pertussis, acel(Tdap) 04/29/10 Recorded [id number] 12y+ bivalent booster vax 08/10/22 Recorded SARS-CoV-2 [...] Pediatric Vaccine 04/29/10 Recorded Human Papillomavirus Vaccine 5/31/13 Recorded Human Papillomavirus Vaccine 04/29/10 Recorded Human [...] tablet, By Mouth, Every 4 hours, PRN as needed, # 30 tablet, 0 Refills, Acute 12/07/23 14:15:00 EDT, 11/07/23 14:14:00 EDT, Tablet, [facility]/pharmacy #[id number], Partial fill upon patient request if the prescription is for a schedule II opioid drug., 1 tablet... Start Date: 11/07/23 Stop Date: 12/07/23 Status: Ordered albuterol CFC free 90 mcg/inh inhalation aerosol 180 mcg, 2, puffs, Inhalation, Every 4 hours, PRN, # 6.7 Gm, Refills 2, Tot. Refills 2, Maintenance, 10/16/23 9:28:00 EDT, Inhaler, Route to Pharmacy Electronically, [id number], [facility]/pharmacy #[id number], 163, cm, 10/16/23 9:08:00 E... Start Date: 10/16/23 Status: Ordered escitalopram 10 mg oral tablet 1 tablet = 10 mg, By Mouth, Daily, # 30 tablet, 5 Refills, Maintenance, 11/27/23 16:39:00 EDT, Tablet, [id number], Partial fill upon patient request if the prescription is for a schedule II opioid drug., 163, cm, 10/16/23 9:08:00 EDT, Height,... Start Date: 11/27/23 Status: Ordered Flovent HFA 44 mcg/inh inhalation aerosol See Instructions, INHALE 2 PUFFS TWICE A DAY, # 10.6 each, 0 Refills, Maintenance, 07/12/23 18:32:00 EST, [facility], 162, cm, 05/25/23 11:20:00 EDT, Height, 91.4, [...] Reference Physician Member Role: PCP Address: Address: [address] [place] [address]- Care Team Related Persons Name: BING CARTER Address: home [address] [place] [address] Name: ROSALVA CLAIRE Address: [address] Address: [address] [address] [place] Name: ALEXANDER CLAIRE Address: [address] Address: home [address] [place] [address] [place] Name: SANTO CLAIRE Address: [address] [place] [address] Name: VALENTE WANG
--- OUTSIDE RECORDS SUMMARY | 2024-04-22 03:02 | XMS_ITS | Continuity of Care Document ---
Author Organization [facility] Address [address] [address]- Care Team Providers Care School Psychology Professor Name Role Phone Sanford YIP, Shayne Hall Primary Care Physician [place] [facility] [place] 12/22/22 - 01/28/23 [facility] [address] [address]- Attending Physician: Not on Staff, Attending MD Referring Physician: Conrad VALLEJO HVAC JOURNEYMAN, Yunior Fuller Allergies, Adverse Reactions, Alerts No Known Allergies [...] tablet, 2 Refills, Maintenance, 02/06/20 13:40:00 EDT, [facility]/pharmacy #[id number], 1 tablet ByMouth Every 4 hours,Instr:May repeat dose in 4 hour... Start Date: 02/06/20 Status: Ordered Aerochamber See Instructions, # 1 kit, Refills 0, Tot. Refills 0, Maintenance, To use with flovent, 12/02/19 0:59:00 EDT, Supply, 163, cm, 11/27/19 15:36:00 EDT, Height, 78.1, kg, 11/13/19 16:13:00 EDT, Dry Weight Start Date: 12/02/19 Status: Ordered albuterol CFC free 90 mcg/inh inhalation aerosol 2, puffs, Inhalation, 4 times a day, PRN, # 75 Gm, Refills 0, Maintenance, 12/23/22 19:49:00 EDT, Aerosol Start Date: 12/23/22 Status: Ordered fluconazole 150 mg oral tablet 1 tablet = 150 mg, By Mouth, Once, repeat dose if still having symptoms in 72 hours, # 2 tablet, 0 Refills, Soft Stop, 08/23/22 16:16:00 EST, Tablet, [id number], Partial fill upon patient request if the prescription is for a schedule II opioid... Start Date: 08/23/22 Status: Ordered PNV Select oral tablet 1 tablet, By Mouth, Daily, Please prescribe PNVs that are covered by pt's insurance., # 30 tablet, 11 Refills, Maintenance, 12/07/22 10:40:00 EDT, [id number], Partial fill upon patient request if the prescription is for a schedule II opioid drMilana. Start Date: 12/07/22 Stop Date: 12/02/23 Status: Ordered Multivitamins with Folic Acid 0.8 mg oral tablet 1 tablet, By Mouth, Daily, # 90 tablet, 3 Refills, Maintenance, 08/23/22 18:03:00 EST, [id number], Partial fill upon patient request if the prescription is for a schedule II opioid drug., 1 tablet By Mouth Daily, 163, cm, 08/23/22 15:44:00 EST... Start Date: 08/23/22 Status: Ordered Problem List Condition Confirmation Course Effective Dates Status Health St atus Informant Asthma 1 Confirmed Active History of depression 2 Confirmed Active History of recurrent UTIs 3 Confirmed Active Migraine 4, 5 Confirmed Active Obese class II Confirmed Active 1Albuterol prn (acts up mainly in winter time). 2As child, saw therapist (no meds) but improved/went away. Now in feeling down and a little depressed. 3Most recent uti couple months ago , cannot remember when. Seen in ED. 4says she has a neurologist in [place] for [place]ra[place]. 5Taking fioricet prn for this, [...] Care team information Care Team Personnel Name: Sanford YIP, Shayne Hall Position: [facility] Outreach Member Role: PCP Address: Address: [address] [place] [address]- Care Team Related Persons Name: BING CARTER Address: home [address] [place] [address] Name: ROSALVA CLAIRE Address: [address] Address: [address] [address] [place] Name: SANTO CLAIRE Address: home [address] [place] [address] Name: VALENTE WANG
--- OUTSIDE RECORDS SUMMARY | 2024-04-22 03:02 | XMS_ITS | Continuity of Care Document ---
Author Organization [facility] Address [address] [place] [address]- Care Team Providers Care Marker Hand Name Role Phone Sanford YIP, Shayne Hall Primary Care Physician En[facility] Date(s): 01/27/20 - 02/28/20 [facility] [address] [address]- [facility] Attending Physician: Not on Staff, Attending MD Referring Physician: Yennifer Cassidy CNM Allergies, Adverse Reactions, Alerts Substance Reaction Severity [...] tablet, 2 Refills, Maintenance, 02/06/20 13:40:00 EDT, [facility]/pharmacy #[id number], 1 tablet ByMouth Every 4 hours,Instr:May [...] 11:34:00 EDT, Aerosol, Route to Pharmacy Electronically, [id number], [facility]/pharmacy #[id number], 163, cm, 11/13/19 16:13:00 EDT, Hei... Start Date: 11/25/19 Stop Date: 04/23/20 Status: Ordered ferrous sulfate 325 mg oral tablet 1 tablet = 325 mg, By Mouth, Daily, # 30 tablet, 2 Refills, Maintenance, 11/14/19 13:10:00 EDT, [facility]/pharmacy #[id number], 163, cm, 11/13/19 16:13:00 EDT, Height, 78.1, kg, 11/13/19 16:13:00 EDT, Dry Weight Start Date: 11/14/19 Stop Date: 02/12/20 Status: Ordered Flovent HFA 110 mcg/inh inhalation aerosol 2 puffs, Inhalation, 2 times a day, # 12 Gm, 1 Refills, Maintenance, 12/02/19 0:58:00 EDT, Aerosol,[facility]/pharmacy #[id number], 163, cm, 11/27/19 15:36:00 EDT, Height, 78.1, kg, 11/13/19 16:13:00 EDT, Dry Weight Start Date: 12/02/19 Stop Date: 12/16/19 Status: Ordered ibuprofen 200 mg oral tablet 400 mg, 2, tablet, By Mouth, Every 4 hours, PRN, # 100 tablet, Refills 0, Tot. Refills 0, Maintenance, for pain, 01/31/20 10:59:00 EDT, Route to Pharmacy Electronically, [facility]/pharmacy #1, 163, cm, 01/31/20 0:18:00 EDT, Height, 81.4, kg, 01/29/20 8:5... Start Date: 01/31/20 Status: Ordered lanolin topical - ointment See Instructions, PRN as needed for dry skin, 1 application Topically to bilateral nipples after ., # 60 Gm, 0 Refills, Maintenance, 02/05/20 12:20:00 EDT, [facility]int[facility], [id number], 1 application Topically to bilateral nipples after b... Start Date: 02/05/20 Status: Ordered ParaGard intrauterine device See Instructions, bring to filters assembler appointment for insertion, # 1 each, 0 Refills, Maintenance, 02/17/20 14:03:00 EDT, [facility], bring to filters assembler appointment for insertion, 163, cm, 01/31/20 0:18:00 EDT, Height, 81.4, kg, 01/29/20 8... Start Date: 02/17/20 Status: Ordered AD oral tablet 1 tablet, By Mouth, Daily, # 90 tablet, 0 Refills, Maintenance, 12/10/19 17:10:00 EDT, Tablet, [id number], 1 tablet By Mouth Daily, 163, cm, [...] ED. 4says she has a neurologist in [place] for migraines. 5Taking fioricet prn for this, [...]
--- OUTSIDE RECORDS SUMMARY | 2024-04-22 03:02 | XMS_ITS | Continuity of Care Document ---
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 Name Role Phone Jihan Sierra NP Primary Care Physician Encounter [facility] Date(s): 05/24/23 - 06/23/23 [facility] [address] [address]- Allergies, Adverse Reactions, Alerts No Known Allergies Immunizations Given and Recorded Vaccine Date Status Refusal Reason [id number] 12y+ bivalent booster vax 08/10/22 Recorded SARS-CoV-2 (COVID-19) mRNA BNT-162b2 vac 12/19/20 Recorded SARS-CoV-2 (COVID-19) mRNA BNT-162b2 vac 11/27/20 Recorded tetanus/diphtheria/pertussis, acel(Tdap) 11/13/19 Given tetanus/diphtheria/pertussis, acel(Tdap) 04/29/10 Recorded influenza virus vaccine, inactivated 08/09/19 Give [...] Mouth, Every 4 hours, PRN as needed, To be used sparingly for migraine HAs, # 30 tablet, 0 Refills, Acute 12/21/23 11:08:00 EDT, 06/21/23 11:08:00 EST, Tablet, [facility]/pharmacy #[id number], Partial fill upon patient request if the prescription is f... Start Date: 06/21/23 Stop Date: 12/21/23 Status: Ordered albuterol CFC free 90 mcg/inh inhalation aerosol 180 mcg, 2, puffs, Inhalation, 4 times a day, PRN, # 6.7 Gm, Refills 2, Tot. Refills 2, Maintenance, 04/03/23 13:59:00 EDT, Inhaler, Route to Pharmacy Electronically, [id number], [facility]/pharmacy #[id number], 162, cm, 03/29/23 13:33:00... Start Date: 04/03/23 Status: Ordered Benadryl 25 mg oral tablet 25 mg, By Mouth, Every 4 hours, # 24 tablet, 3 Refills, Maintenance Start Date: 03/02/23 Status: Ordered doxylamine 25 mg oral tablet 1 tablet = 25 mg, By Mouth, Daily, Take one tablet before bed. May take additional tablet in the morning if nausea still persistent, # 60 tablet, 8 Refills, Maintenance, 03/02/23 7:51:00 EDT, [facility]/pharmacy #[id number], Partial fill upon patient request if th... Start Date: 03/02/23 Status: Ordered escitalopram 5 mg oral tablet 1 tablet, By Mouth, Daily, INSTR:1 DAILY FOR TWO WEEKS AND THEN REASSESSMENT FOR DOSE ADJUSTMENT, #30 tablet, 0 Refills, Maintenance, 06/21/23 11:05:00 EST, [id number], 162, cm, 05/25/23 11:20:00 EDT, Height, 91.4, kg, 05/25/23 11:20:00 EDT, Dry... Start Date: 06/21/23 Status: Ordered Flovent HFA 44 mcg/inh inhalation aerosol 2 puffs, Inhalation, 2 times a day, # 10.6 each, 0 Refills, Maintenance, 06/21/23 11:06:00 EST[id number] 162, cm, 05/25/23 11:20:00 EDT, Height, 91.4, kg, 05/25/23 11:20:00 EDT, Dry Weight Start Date: 06/21/23 Status: Ordered ondansetron 8 mg oral tablet 1 tablet = 8 mg, By Mouth, 3 times a day, # 30 tablet, 5 Refills, Maintenance, 03/09/23 19:12:00 EDT, Tablet, [facility]/pharmacy #[id number], Partial fill upon patient request if the prescription is for a schedule II opioid drug., 162, cm, 03/07/23 18:07:00 EDT,... Start Date: 03/09/23 Status: Ordered pantoprazole 40 mg oral delayed release tablet 1 tablet, By Mouth, 2 times a day, # 180 tablet, 1 Refills, Maintenance, 05/29/23 10:30:00 EDT, 162, cm, 05/25/23 11:20:00 EDT, Height, 91.4, kg, 05/25/23 11:20:00 EDT, Dry Weight Start Date: 05/29/23 Status: Ordered Pepcid 20 mg oral tablet 1 tablet = 20 mg, By Mouth, 2 times a day, PRN Dyspepsia, 0 Refills, Maintenance, 03/14/23 12:00:00EDT, Partial fill upon patient request if the prescription is for a schedule II opioid drug. Start Date: 03/14/23 Status: Ordered PNV Plus oral tablet 1 tablet, By Mouth, Daily, # 90 tablet, 1 Refills, Maintenance, 05/20/23 13:08:00 EDT, [facility]/pharmacy#[id number], Partial fill upon patient request if the prescription is for a schedule II opioid drug., 1 tablet By Mouth Daily, 162, cm, 03/29/23 13:33:00 EDT... Start Date: 05/20/23 Status: Ordered PNV Select oral tablet 1 tablet, By Mouth, Daily, Please prescribe PNVs that are covered by pt's insurance., # 30 tablet, 11 Refills, Maintenance, 12/07/22 10:40:00 EDT, [facility]/pharmacy #[id number], Partial fill upon patient request if the prescription is for a schedule II opioid . Start Date: 12/07/22 Stop Date: 12/02/23 Status: Ordered Reglan 10 mg oral tablet 1 tablet = 10 mg, By Mouth, 3 times a day, PRN Nausea & Vomiting, Do NOT take at same time as Phenergan 30 minutes before meals and at bedtime, # 12 tablet, 5 Refills, Maintenance, 03/02/23 7:51:00 EDT, [id number], Partial fill upon patient r... Start Date: 03/02/23 Status: Ordered Problem List Condition Confirmation Course Effective Dates Status [facility] Informant Asthma 1 Confirmed Active History of recurrent UTIs 2, 3 Confirmed Active Hyperemesis gravidarum Confirmed Active Low-lying placenta Confirmed Active Migraine with aura Confirmed Active Depression with anxiety Confirmed Active Obesity in Confirmed Active Confirmed Active 1Albuterol prn (acts [...] Reference Physician Member Role: PCP Address: Address: [address] [place] [id number]- [place] Care Team Related Persons Name: BING CARTER Address: home [address] [place] [address] Name: ROSALVA CLAIRE Address: [id number] Address: home [address] [address] Name: SANTO CLAIRE Address: [address] [place] [address] Name: VALENTE WANG
--- OUTSIDE RECORDS SUMMARY | 2024-04-22 03:02 | XMS_ITS | Continuity of Care Document ---
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 Name Role Phone Shayne Christina MD Primary Care Physician Encounter [facility] [place] Date(s): 11/06/19 - 11/13/19 [facility] [address] [address]- [facility] Attending Physician: Naila Guevara MD Referring Physician: Shayne Christina MD Allergies, Adverse Reactions, Alerts Substance Reaction Severity Status NKA Active Immunizations Given and Recorded Vaccine Date Status Refusal Reason tetanus/diphtheria/pertussis, acel(Tdap) 11/13/19 Given influenza virus vaccine, inactivated 08/09/19 Give n Medications acetaminophen/butalbital/caffeine 325 mg-50 mg-40 mg oral tablet 1 tablet, By Mouth, 2 times a day, PRN Migraine Headache, 325/40/50 take no more than twice per dayas needed for migraines, # 30 tablet, 1 Refills, Maintenance, 11/13/19 15:33:00 EDT, [id number], 1 tablet By Mouth 2 times a day,PRN:Migraine H... Start Date: 11/13/19 Status: Ordered Multivitamin, By Mouth, 0 Refills, Maintenance, 11/01/19 14:35:00 EDT Start Date: 11/01/19 Status: Ordered oseltamivir 30 mg oral capsule 1 capsule = 30 mg, By Mouth, 2 times a day, take with 75mg capsule for total dose of 105mg 2x per day, # 10 capsule, 0 Refills, Maintenance, 10/07/19 23:26:00 EDT, Capsule, [id number], 163, cm, 10/04/19 16:43:00 EST, Height Start Date: 10/07/19 Status: Ordered 19 ([employer]ationwide) oral tablet, chewable 1 tablet, By Mouth, Daily, # 60 tablet, 5 Refills, Maintenance, 11/06/19 16:09:00 EDT, [id number], 1 tablet By Mouth Daily, 163, cm, 10/04/19 16:43:00 EST, Height Start Date: 11/06/19 Status: Ordered ProAir HFA 90 mcg/inh inhalation aerosol with adapter 2, puffs, Inhalation, 4 times a day, Refills 0, Maintenance, 06/26/19 14:13:29 EST Start Date: 06/26/19 Status: Ordered Problem List Condition Effective Dates Status Health Status Inform ant Asthma(Confirmed) 1 Active History of depression(Confirmed) 2 Active History of recurrent UTIs(Confirmed) 3 Active Migraine(Confirmed) 4, 5 Active 1Albuterol prn (acts up mainly in winter time). 2As child, saw therapist (no meds) but improved/went away. Now in feeling down and a little depressed. 3Most recent uti couple months ago , cannot remember when. Seen in ED. 4says she has a neurologist in [place] for migraines. 5Taking fioricet prn for this, reports typically about 1-2x/week. 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 Referred to neuro but unable to see d/t insurance issues, so was just seeing pcp for this for now. Vital Signs Most recent to oldest [Reference Range]: 1 Height 163 cm (11/06/19 5:40 PM) Weight 76.81 kg (11/06/19 5:40 PM) Body Mass Index [18.5-24.99] 28.91 *H* (11/06/19 5:40 PM) Dry Weight 76.81 kg (11/06/19 5:40 PM) Weight Obtained Via Standing scale (11/06/19 5:40 PM) Dry Weight Obtained Via Standing scale (11/06/19 5:40 PM) Social History Social History Type Response Smoking Status Never (less than 100 in lifetime); Tobacco user in household: Yes entered on: 06/21/19 Sex
--- OUTSIDE RECORDS SUMMARY | 2024-04-22 03:02 | XMS_ITS | Continuity of Care Document ---
Author Organization [facility] ter Address [address] [place] [id number] Care Team Providers Care Sand Hauler Name Role Phone Jihan Sierra NP Primary Care Physician [phone] Encounter [facility] Date(s): 10/14/23 - 10/16/[address] [id number] Discharge Disposition: A-D/C Home Attending Physician: Adry France DO Admitting Physician: Adry France DO Referring Physician: Adry France DO Allergies, Adverse Reactions, Alerts No Known Allergies Immunizations Given and Recorded Vaccine Date Status Refusal Reason tetanus/diphtheria/pertussis, acel(Tdap) 07/20/23 Given tetanus/diphtheria/pertussis, acel(Tdap) 11/13/19 Given tetanus/diphtheria/pertussis, acel(Tdap) 04/29/10 Recorded [id number] 12y+ bivalent booster vax 08/10/22 Recorded SARS-CoV-2 [...] hepatitis B pediatric vaccine 98 Recorded Medications acetaminophen 325 mg oral tablet 650 mg, By Mouth, Every 4 hours, PRN, (1-3), may give 325mg per patient preference and re-dose [id number] within 4 hours, if needed. Patient should only receive a total of 650mg of Acetaminophen every 4 hours., # 30 tablet, Refills 0, Tot. Refills 0... Start Date: 10/16/23 Status: Ordered acetaminophen 500 mg oral tablet 2 tablet = 1,000 mg, By Mouth, Every 6 hours, PRN Pain , Moderate, for 10 days, not to exceed 4000 mg/day including Fioricet (acetaminophen, butalbitol, caffeine), # 50 tablet, 0 Refills, Acute 10/25/23 13:07:00 EDT, 10/15/23 13:07:00 EDT, Tablet, CV... Start Date: 10/15/23 Stop Date: 10/25/23 Status: Ordered Acetaminophen/Butalbital/Caffeine Tablet 2 tablet, Tablet, By Mouth, Every 4 hours, PRN for Headache, Routine, 10/14/23 5:07:00 EDT Notes: acetaminophen/butalbital/caffeine 325 mg-50 mg-40 mg oral tablet Start Date: 10/14/23 Stop Date: 10/16/23 Status: Discontinued albuterol CFC free 90 mcg/inh inhalation aerosol 180 mcg, 2, puffs, Inhalation, Every 4 hours, PRN, # 6.7 Gm, Refills 2, Tot. Refills 2, Maintenance, 10/16/23 9:28:00 EDT, Inhaler, Route to Pharmacy Electronically, [id number], [facility]/pharmacy #[id number], 163, cm, 10/16/23 9:08:00 E... Start Date: 10/16/23 Status: Ordered escitalopram 10 mg oral tablet 1 tablet, By Mouth, Daily, # 30 tablet, 0 Refills, Maintenance, 10/16/23 9:28:00 EDT, [facility]/pharmacy #[id number], 163, cm, 10/16/23 9:08:00 EDT, Height, 100.3, kg, 10/14/23 7:58:00 EDT, Dry Weight Start Date: 10/16/23 Status: Ordered Flovent HFA 44 mcg/inh inhalation aerosol See Instructions, INHALE 2 PUFFS TWICE A DAY, # 10.6 each, 0 Refills, Maintenance, 07/12/23 18:32:00 EST, [id number], 162, cm, 05/25/23 11:20:00 EDT, Height, 91.4, kg, 05/25/23 11:20:00 EDT, DryWeight Start Date: 07/12/23 Status: Ordered ibuprofen 800 mg oral tablet 800 mg, 1, tablet, By Mouth, 4 times a day, for 7 days, # 28 tablet, Refills 0, Tot. Refills 0, Acute 10/23/23 9:29:00 EDT, 10/16/23 9:29:00 EDT, Route to Pharmacy Electronically, [facility]/pharmacy #[id number],Partial fill upon patient request if the prescripti... Start Date: 10/16/23 Stop Date: 10/23/23 Status: Ordered multivitamin, Multivitamins oral tablet, chewable [...] 9:08:00 EDT,... Start Date: 10/16/23 Status: Ordered Protonix 40 mg oral delayed release tablet 1 tablet = 40 mg, By Mouth, Daily, # 30 tablet, 2 Refills, Maintenance, 10/16/23 9:30:00 EDT, EC Tablet, 163, cm, 10/16/23 9:08:00 EDT, Height, 100.3, kg, 10/14/23 7:58:00 EDT, Dry Weight Start Date: 10/16/23 Status: Ordered Ventolin HFA [...] anxiety Confirmed Active Obesity in Confirmed Active Nexplanon insertion Confirmed 10/15/23 Active Persistent cough Confirmed Active Confirmed Active 1Albuterol prn (acts up mainly in winter time). 2None in current as of yet per pt. 3Most recent uti couple months ago , cannot remember when. Seen in ED. Vital Signs Most recent to oldest [Reference Range]: 1 2 3 Height 163 cm (10/16/23 8:55 AM) 163 cm (10/16/23 12:02 AM) 163 cm (10/15/23 4:09 PM) Weight 100.3 kg (10/14/23 7:58 AM) 100.3 kg (10/14/23 4:00 AM) Oxygen Saturation [94-100 %] 99 % (10/16/23 8:55 AM) 96 % (10/16/23 12:02 AM) 100 % (10/15/23 8:30 AM) Pulse Rate [55-90 bpm] 98 bpm *H* (10/16/23 8:55 AM) 94 bpm *H* (10/16/23 12:02 AM) 90 bpm (10/15/23 5:18 PM) Body Mass Index [18.5-24.99 kg/m2] 37.75 kg/m2 *>HHI* (10/14/23 7:58 AM) Blood Pressure [90-138/55-84 mm Hg] 123/68mm Hg (10/16/23 8:55 AM) 114/66mm Hg (10/16/23 12:02 AM) 102/62mm Hg (10/15/23 5:18 PM) Respiratory Rate [16-30 br/min] 18 br/min (10/16/23 8:55 AM) 18 br/min (10/16/23 8:50 AM) 19 br/min (10/16/23 12:02 AM) Temperature [96.8-100.4 DegF] 97.9 DegF (10/16/23 8:55 AM) 97.7 DegF (10/16/23 12:02 AM) 97.9 DegF (10/15/23 4:09 PM) Mode of Delivery (Oxygen) Room air (10/16/23 12:02 AM) Room air (10/14/23 7:58 AM) Room air (10/14/23 4:13 AM) Blood pressure sites Arm, left (10/16/23 8:55 AM) Arm, right (10/15/23 4:09 PM) Arm, right (10/15/23 8:30 AM) Temperature Route Oral (10/16/23 8:55 AM) Oral (10/16/23 12:02 AM) Oral (10/15/23 4:09 PM) Dry Weight 100.3 kg (10/14/23 7:58 AM) 100.3 kg (10/14/23 4:00 AM) Weight Obtained Via Standing scale (10/14/23 4:00 AM) Dry Weight Obtained Via Standing scale (10/14/23 4:00 AM) Social History Social History Type Response Smoking Status Never (less than 100 in lifetime); Tobacco user in household: Yes entered on: 06/21/19 Sex History and physical note * Yesenia Corral CNM: PERFORM Event Display: History and Physical Hospital Authored Date: [id number] Patient: ??RUSTY DIEZ ? Age:??22 Years?Sex:??Female?:??2000?? OB Reason for Admission OB Reason for Admission Reason for admission: Labor LMP/EGA/KELLY Gestational Age (EGA) and KELLY? * Note: EGA calculated as of 10/14/2023 ?? KELLY:??10/10/2023?EGA*:??40 weeks 4 days ? History?(1,0,1,1)?Method:??Ultrasound??(02/15/2023) History of Present Illness Rusty??presents to [facility] this morning with reports of feeling a pop and gushing fluid from vagina ever since. Has been having irregular contractions for a few days, but these picked up this evening and have been worsening since her water broke. Fluid is greenish with a little blood in it. Baby is moving well. Having a baby boy. Planning epidural in labor.?? Review of Systems Constitutional??- neg Resp??- Neg Cardio??- Neg Urinary??- no dysuria, frequency, odor, hematuria Shank Taper??- no vaginal discharge, no itching, no odor, no lesions,?? GI??- no nausea, diarrhea, vomiting, pain Neuro??- neg, no headaches Psych??- neg OB-+LOF, +FM, no bleeding, +contractions Physical Exam Vitals & Measurements T:??97.9?F?? HR:??90??(Monitored)?? RR:??18?? BP:??125/72?? SpO2:??100%?? WT:??100.3??kg?Constitutional Appearance:??Normal affect.??No acute distress. Respiratory:??WNL, clear to auscultation Cardiovascular:??WNL, RRR, no murmurs auscultated?? Abdomen/GI:??Normal Exam.?Gravid, soft ?Not Tender.?No Masses.?? Skin:??Normal exam.?? Neurological/Psychiatric:??Normal Exam ?Orientation: Time, Place, Person.?Affect: Normal.? OB/Pelvic Exam? presentation:??Vertex ?Confirmed by vaginal exam ? Est Weight: 3400g ?Pelvis size: WNL, adequate ?Pelvic Exm: WNL ?Vulva: WNL, no lesions ?Vagina: WNL, no lesions, no discharge ?Cervix: WNL ?Uterus: WNL ?cervical dilation/effacement/station: 5/80/-2 ?cervical position:??mid ?cervical consistency:??soft ?membrane status: SROM ?pooling: + ?Ferning: + ?nitrizine: + ?Fundal height:?Wet prep: N/A ? NST ?Baseline: 120 ?Variability:moderate ?Accels: Present ?Decels: Absent ?Contractions irregular, 2 in 10, moderate ?Category 1 ?Reactive NST?? 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 GERD (gastroesophageal reflux disease) (K21.9):??On protonix 40mg PO daily Home dose ordered on admission ?? Depression with anxiety (F41.8):??On escitalopram 10mg daily Home dose ordered on admission ?? Asthma (J45.909):??prn albuterol inhaler ordered Cautious use of hemabate ?? Normal labor (O80):?? at term, presenting in early labor s/p SROM GBS- Cat 1 FHR tracing with early decelerations Michaela 2 in 10 Reassuring maternal/ status Plan: Admit to L&D, IV, labs. Intermittent EFM. Epidural for pain relief prn per patient preference. Expectant management. Reassess in 2-3hrs, sooner prn. PGY notified of admission ?? Thin meconium stained amniotic fluid (P96.83):??Plan for NICU presence at Patient & partner aware ?? OB History History?(1,0,1,1)? # 1 ?Baby 1 ?Outcome Date:??01/29/2020?Outcome or Result:??Vaginal ?Gest Age:??39 weeks 6 days ? Outcome:??Live ? Sex:??Female?Wt:?3119 g ? Complications:??None ?Anesthesia Type:??Epidural ?Álvaro Labor:??5 hr 43 min ?Hospital:??[facility] ?? # 2 ?Baby 1 ?Outcome Date:??12/28/2022?Outcome or Result:??Spontaneous with D&C ?Gest Age:??-- ? Outcome:? Sex:??-- Labs Labs Labs & Tests Antibody Screen: Negative (03/16/23) Chlamydia Trachomatis Amplified Probe: NEGATIVE (09/20/23) Creatinine-Blood: 0.6 mg/dL (02/28/23) Glucose 50 Gm, +60 Minutes: 106 mg/dL (07/20/23) Hct:??34.7 %??Low (07/20/23) Hepatitis B Surface Antigen: NEGATIVE (03/16/23) Hepatitis C Ab: NEGATIVE (03/16/23) Hgb:??11.6 Gm/dL??Low (07/20/23) HIV 4th Generation Ab-Ag Result: NEGATIVE (03/16/23) RPR Titer Result: NOT INDICATED (07/20/23) Rubella IgG Ab: POSITIVE (03/16/23) Syphilis Screen by JAMI: NEGATIVE (07/20/23) Urine Culture: Urine Culture (09/25/23) Problem List Active Active Problem List Asthma: (Medical) Albuterol prn (acts up mainly in winter time). Depression with anxiety: (Medical) GERD (gastroesophageal reflux disease): (Medical) History of recurrent UTIs: (Medical) Most recent uti couple months ago , cannot remember when. ??Seen in ED. None in current as of yet per pt. Migraine with aura: (Medical) Obesity in : (Medical) Persistent cough: (Medical) : (Obstetric) (01/28/23) : (Medical) Procedure/Surgical History No qualifying data available. Home Medications Acetaminophen/Butalbital/Caffeine: 1 tablet, By Mouth, Every 4 hours, PRN ( NEEDED FOR MIGRAINE HEADACHES) Albuterol: 2 puffs, Inhalation, 4 times a day, PRN ( NEEDED FOR WHEEZING) Escitalopram: 1 tablet, By Mouth, Daily Fluticasone: See Instructions, INHALE 2 PUFFS TWICE A DAY Multivitamin, : 1 tablet, By Mouth, Daily Pantoprazole: 40 mg = 1 tablet, By Mouth, Daily Allergies NKA Social History Alcohol Use: Never. Electronic Cigarette/Vaping Electronic Cigarette Use: Never. Substance Abuse Use: Past. Type: Marijuana. Other: Stopped with .. Tobacco Use: Never (less than 100 in lifetime). Tobacco user in household: Yes. Family History Mother: Anemia; GI tract disease monitoring status Father: Unknown Sister: Cancer of colon; Cancer of stomach Mat. Grandmother: Diabetes mellitus type II; Heart disease Sister: Colitis Plan OB Plan Circumcision Plan: Before discharge (10/14/23) Contraceptives: Nexplanon (10/14/23) Infant Feeding Plan: Breast milk & Formula (10/14/23) Labor Coping Mechanisms: Epidural (10/14/23) Patient Requests: Having a boy - MateoUnsure about coping, had epidural with last and she had a good experience w/ itNexplanon in hospital (10/14/23) Hospital Progress note * Tongue RN, Bernice: PERFORM, SIGN, VERIFY Event Display: Progress Note Hospital Authored Date: [id number] Patient: RUSTY DIEZ Age: 22 years Sex: Female : 2000 Associated Diagnoses: None Author: Bernice Hernández RN Findings Pt OB stable. Lung sounds clear. Funds firm below umbilicus. Bleeding mild. Voiding without difficulty. BM on 10/13. Breast feeding well. Reviewed plan of care with pt and fob. All questions answered.Will continue to monitor. Discharge Information Case Management Discharge Plan : Case Management Discharge Plan Data 10/10/2023 3:33 EDT Discharge Level of Care at Discharge Home/[facility] * Natalee Llanos CNM: PERFORM Event Display: Progress Note Hospital Authored Date: [id number] Patient: ??RUSTY DIEZ ? Age:??22 Years?Sex:??Female?:??2000?? Subjective Rusty is doing well this morning. With her partner in the room, just had breakfast. Just heard partner has 3 month's leave!?? Ambulating, tolerating PO, voiding. Pain well controlled. Bleeding is min to moderate. Feels she is doing well on current antidepressant dose; this experience is different from her daughter, at which time she was depressed during and after .?? , but also giving formula-- feels baby becomes too frantic/screaming while waiting to latch. Excellent teachback about how to compress the breast for a deep latch, states it works! Butnot feeling confident. Committed to as 3 yo daughter has allergies.?? Review of Systems General: No fevers or chills Neuro: No headache, changes in vision CV: No chest pain Pulmonary: no shortness of breath GI: No N/V. : Lochia??< menses Ext: No swelling, or redness of the legs Physical Exam Vitals & Measurements T:??97.9?F?? HR:??98??(Peripheral)?? RR:??18?? BP:??123/68?? SpO2:??99%?? HT:??163??cm?? WT:??100.3??kg?? BMI:??37.75?? General: Awake, alert HEENT: Within normal limits Breast: Not engorged, nipples intact and everted Abdomen: Fundus is firm??@ umbilicus -1 Perineum: Intact, no erythema, no edema Ext: No edema of bilateral lower ext. Assessment/Plan Migraine with aura (G43.109):?? Has fioriciet scripts; explained 4000 mg max dose daily between tyelnol analgesia and fioricet if used for migraine ?? GERD (gastroesophageal reflux disease) (K21.9):?? On protonix. Reinforced potential effect (bleeding) of NSAID. Pt will use sparingly. ?? Depression with anxiety (F41.8):?? Mood stable on escitalopram ?? Asthma (J45.909):?? Mild, intermittent. No inhalers use since delivery ?? Insertion of Nexplanon (Z30.017):?? Uncomplicated insertion Information given to patient ?? care following vaginal delivery (Z39.2): Meeting milestones Nursing with belen formula supplementation. Teaching and encouragement provided; also discussed with this morning. Will have WIC homevisiting LC as well. contraception: Nexplanon in place, sore today, no problems. Warnings reviewed, written and verbal,??including pp depression Ready for discharge ?? OB Summary : 3 . Baby A - Weight: 3.644 kg Baby A - Date, Time of : 10/14/23 15:58:00 Baby A - Gender: Male Baby A - Complications: Meconium stained fluid EGA at Documented Date, Time: 40W 4D Weight at Delivery Baby A - Delivery Type: Vaginal OB History History?(1,0,1,1)? # 1 ?Baby 1 ?Outcome Date:??01/29/2020?Outcome or Result:??Vaginal ?Gest Age:??39 weeks 6 days ? Outcome:??Live ? Sex:??Female?Wt:?3119 g ? Complications:??None ?Anesthesia Type:??Epidural ?Álvaro Labor:??5 hr 43 min ?Hospital:??[facility] ?? # 2 ?Baby 1 ?Outcome Date:??12/28/2022?Outcome or Result:??Spontaneous with D&C ?Gest Age:??-- ? Outcome:? Sex:??-- Active Problem List Active Problem List Asthma: (Medical) Albuterol prn (acts up mainly in winter time). Depression with anxiety: (Medical) GERD (gastroesophageal reflux disease): (Medical) History of recurrent UTIs: (Medical) Most recent uti couple months ago , cannot remember when. ??Seen in ED. None in current as of yet per pt. Migraine with aura: (Medical) Nexplanon insertion: (Medical) (10/15/23) Obesity in : (Medical) Persistent cough: (Medical) : (Obstetric) (01/28/23) : (Medical) Home Medications Acetaminophen: 1,000 mg = 2 tablet, By Mouth, Every 6 hours, PRN (Pain , Moderate), not to exceed 4000 mg/day including ??Fioricet (acetaminophen, butalbitol, caffeine) Acetaminophen: 650 mg, By Mouth, Every 4 hours, PRN (Pain , Mild), (1-3), may give 325mg per patient preference and re-dose with 325mg within 4 hours, if needed. ?? Patient should only receive a total of 650mg of Acetaminophen every 4 hours. Albuterol: 180 mcg = 2 puffs, Inhalation, Every 4 hours, PRN (Wheezing/Shortness of Breath) Albuterol: 2 puffs, Inhalation, 4 times a day, PRN ( NEEDED FOR WHEEZING) Escitalopram: 1 tablet, By Mouth, Daily Fluticasone: See Instructions, INHALE 2 PUFFS TWICE A DAY Ibuprofen: 800 mg = 1 tablet, By Mouth, 4 times a day Multivitamin, : 1 tablet, By Mouth, Daily Multivitamin, : 1 tablet, By Mouth, Daily Pantoprazole: 40 mg = 1 tablet, By Mouth, Daily Medications Medications (9) Active SCHEDULED: (3) Escitalopram 10 mg Tablet (escitalopram 10 mg oral tablet) ??10 mg, By Mouth, Daily Multivitamin Tablet ( Multivitamin Tablet) ??1 tablet, By Mouth, Daily Pantoprazole 40 mg EC Tablet (Protonix 40 mg oral delayed release tablet) ??40 mg, By Mouth, Daily CONTINUOUS: (2) Lactated Ringers (1000 mL) Cont IV 1,000 mL (LR 1,000 mL) ??1,000 mL, IV Infusion, 125 mL/hr Oxytocin 30 units / 500 mL IV Premix 30 units (Oxytocin 30 units in 500 mL Premix IV 30 units) ??30units 500 mL, IV Infusion, 2 mL/hr PRN: (4) Acetaminophen 325 mg Tablet (Acetaminophen Tablet) ??650 mg, By Mouth, Every 4 hours Acetaminophen/Butalbital/Caffeine Tablet ??2 tablet, By Mouth, Every 4 hours Albuterol 90mcg/Inhalation Inhaler HFA (albuterol CFC free 90 mcg/inh inhalation aerosol) ??180 mcg2 puffs, Inhalation, Every 4 hours Ibuprofen 800 mg Tablet (Ibuprofen Tablet) ??800 mg, By Mouth, Every 8 hours * Nory Green CNM: PERFORM Event Display: Progress Note Hospital Authored Date: Patient: ??RUSTY DIEZ ? Age:??22 Years?Sex:??Female?:??2000?? Subjective Pt is doing well this morning. PP pain well controlled with tylenol and??ibuprofen, would like prescriptions of home use Tolerating PO, No N/V. Voiding with no difficulty. + Passing flatus Ambulating without difficult Breast feeding, and this is going well.?? This baby had easy and immed latch, with was not the experience with her daughter Contraception plan: Nexplanon prior to disch.?? Partner considering vasectomy, urology info given Home support: has preps and supports. Review of Systems Constitutional:??No fever or chills HEENT:??No blurred vision or changes in vision Cardiovascular:??No chest pain Respiratory:??No shortness of breath.?? No inhaler use since delivery Gastrointestinal:??No nausea or vomiting, no abdominal pain, endorses cramping which is more significant with . EQUINE BREEDER: No vaginal pain Neurologic:??No headache?? Physical Exam Vitals & Measurements T:??98.1?F?? HR:??72??(Peripheral)?? RR:??18?? BP:??106/61?? SpO2:??100%?? HT:??163??cm?? WT:??100.3??kg?? BMI:??37.75?? affect: normal, no acute distress Alert and oriented x 3 breasts: soft, nipples intact bilaterally Fundus: midline, firm @ U-1 perineum: no swelling, no echy Lochia: scant rubra LE: trace edema, non tender?? Assessment/Plan Migraine with aura (G43.109):??Has fioriciet scripts; explained 4000 mg max dose daily between tyelnol analgesia and fioricet if used for migraine ?? GERD (gastroesophageal reflux disease) (K21.9):??On protonix. Explained potential effect of NSAID. Pt will use sparingly, one week script of ibuprofen sent ?? Depression with anxiety (F41.8):??mood stable on escitalopram ? Asthma (J45.909):??mild, intermittent. No inhalers use since delivery ?? Insertion of Nexplanon (Z30.017):??Uncomplicated insertion Information given to patient ?? care following vaginal delivery (Z39.2):??Normal involution disch tomorrow Scripts for ibuprofen and tylenol sent to pt pharmacy ?? OB Summary : 3 . Baby A - Weight: 3.644 kg Baby A - Date, Time of : 10/14/23 15:58:00 Baby A - Gender: Male Baby A - Complications: Meconium stained fluid EGA at Documented Date, Time: 40W 4D Weight at Delivery Baby A - Delivery Type: Vaginal OB History History?(1,0,1,1)? # 1 ?Baby 1 ?Outcome Date:??01/29/2020?Outcome or Result:??Vaginal ?Gest Age:??39 weeks 6 days ? Outcome:??Live ? Sex:??Female?Wt:?3119 g ? Complications:??None ?Anesthesia Type:??Epidural ?Álvaro Labor:??5 hr 43 min ?Hospital:??[facility] ?? # 2 ?Baby 1 ?Outcome Date:??12/28/2022?Outcome or Result:??Spontaneous with D&C ?Gest Age:??-- ? Outcome:? Sex:??-- Active Problem List Active Problem List Asthma: (Medical) Albuterol prn (acts up mainly in winter time). Depression with anxiety: (Medical) GERD (gastroesophageal reflux disease): (Medical) History of recurrent UTIs: (Medical) Most recent uti couple months ago , cannot remember when. ??Seen in ED. None in current as of yet per pt. Migraine with aura: (Medical) Nexplanon insertion: (Medical) (10/15/23) Obesity in : (Medical) Persistent cough: (Medical) : (Obstetric) (01/28/23) : (Medical) Home Medications Acetaminophen: 1,000 mg = 2 tablet, By Mouth, Every 6 hours, PRN (Pain , Moderate), not to exceed 4000 mg/day including ??Fioricet (acetaminophen, butalbitol, caffeine) Acetaminophen/Butalbital/Caffeine: 1 tablet, By Mouth, Every 4 hours, PRN ( NEEDED FOR MIGRAINE HEADACHES) Albuterol: 2 puffs, Inhalation, 4 times a day, PRN ( NEEDED FOR WHEEZING) Escitalopram: 1 tablet, By Mouth, Daily Fluticasone: See Instructions, INHALE 2 PUFFS TWICE A DAY Ibuprofen: 800 mg = 1 tablet, By Mouth, 4 times a day Multivitamin, : 1 tablet, By Mouth, Daily Pantoprazole: 40 mg = 1 tablet, By Mouth, Daily Medications Medications (10) Active SCHEDULED: (4) Escitalopram 10 mg Tablet (escitalopram 10 mg oral tablet) ??10 mg, By Mouth, Daily Etonogestrel 68 mg Implant (Nexplanon 68mg SQ Implant) ??68 mg 1 each, Intradermal, inbound call center agent to Procedure Multivitamin Tablet ( Multivitamin Tablet) ??1 tablet, By Mouth, Daily Pantoprazole 40 mg EC Tablet (Protonix 40 mg oral delayed release tablet) ??40 mg, By Mouth, Daily CONTINUOUS: (2) Lactated Ringers (1000 mL) Cont IV 1,000 mL (LR 1,000 mL) ??1,000 mL, IV Infusion, 125 mL/hr Oxytocin 30 units / 500 mL IV Premix 30 units (Oxytocin 30 units in 500 mL Premix IV 30 units) ??30units 500 mL, IV Infusion, 2 mL/hr PRN: (4) Acetaminophen 325 mg Tablet (Acetaminophen Tablet) ??650 mg, By Mouth, Every 4 hours Acetaminophen/Butalbital/Caffeine Tablet ??2 tablet, By Mouth, Every 4 hours Albuterol 90mcg/Inhalation Inhaler HFA (albuterol CFC free 90 mcg/inh inhalation aerosol) ??180 mcg2 puffs, Inhalation, Every 4 hours Ibuprofen 800 mg Tablet (Ibuprofen Tablet) ??800 mg, By Mouth, Every 8 hours Note * Bibiana Guevara: PERFORM Event Display: Care Team Progress Note Authored Date: Patient: ??RUSTY DIEZ ? Age:??22 Years?Sex:??Female?:??2000?? Subjective same day follow up visit for feeding assistance Assessment/Plan assisted with feed on left breast- Rusty has been using her right side more than her left and her right nipple has a positional bruise- toddler visiting and snuggled into right side of bed- positioned 2 pillows to support baby weight- education on baby hunger cues- pointed out tongue coming out of mouth- easier to feed when catching early hunger cues vs waiting until baby is crying and frantic at breast. encouraged doing sts and offering at 2 hours vs three but to pay attention to Savage's cues. Baby easily latched in FB- rolled blanket to support hand- encouraged keeping baby tucked in close and nose touching nipple. baby fed for >15 minutes with deep nutritive sucks and swallows noted. baby unlatched himself and nipple was stimulated and round. reviewed hand expression and application of lanolin cream. offered baby other side in CC- baby was sleepy- hands loose/ arms loose- assisted with application of lanolin after HE on sore side as well. gave Rusty ice packs as she is feeling very heavy in her breasts- she works at [employer] and plans to stop and get the reusable ice packs on her way home today as she is already feeling uncomfortable. she reports feeling more comfortable with understanding his cues and the positioning. She feels very dedicated to . Encouraged discontinuing formula use at this time as supplementing will sabotage her start and stimulation. Baby is the best pump for managing engorgement and she is feeling much more comfortable in her left breast since the feed. she understands that she can use the pump to relive pressure but not to completely empty the breast during the first two weeks- just manage her comfort. all resources reiterated forcontinued support post dc as she is getting ready to go home. OB Summary : 3 . Baby A - Weight: 3.644 kg Baby A - Date, Time of : 10/14/23 15:58:00 Baby A - Gender: Male Baby A - Complications: Meconium stained fluid EGA at Documented Date, Time: 40W 4D Weight at Delivery Baby A - Delivery Type: Vaginal OB History History?(1,0,1,1)? # 1 ?Baby 1 ?Outcome Date:??01/29/2020?Outcome or Result:??Vaginal ?Gest Age:??39 weeks 6 days ? Outcome:??Live ? Sex:??Female?Wt:?3119 g ? Complications:??None ?Anesthesia Type:??Epidural ?Álvaro Labor:??5 hr 43 min ?Hospital:??[facility] ?? # 2 ?Baby 1 ?Outcome Date:??12/28/2022?Outcome or Result:??Spontaneous with D&C ?Gest Age:??-- ? Outcome:? Sex:??-- Active Problem List Active Problem List Asthma: (Medical) Albuterol prn (acts up mainly in winter time). Depression with anxiety: (Medical) GERD (gastroesophageal reflux disease): (Medical) History of recurrent UTIs: (Medical) Most recent uti couple months ago , cannot remember when. ??Seen in ED. None in current as of yet per pt. Migraine with aura: (Medical) Nexplanon insertion: (Medical) (10/15/23) Obesity in : (Medical) Persistent cough: (Medical) : (Obstetric) (01/28/23) : (Medical) Home Medications Acetaminophen: 1,000 mg = 2 tablet, By Mouth, Every 6 hours, PRN (Pain , Moderate), not to exceed 4000 mg/day including ??Fioricet (acetaminophen, butalbitol, caffeine) Acetaminophen: 650 mg, By Mouth, Every 4 hours, PRN (Pain , Mild), (1-3), may give 325mg per patient preference and re-dose with 325mg within 4 hours, if needed. ?? Patient should only receive a total of 650mg of Acetaminophen every 4 hours. Albuterol: 180 mcg = 2 puffs, Inhalation, Every 4 hours, PRN (Wheezing/Shortness of Breath) Albuterol: 2 puffs, Inhalation, 4 times a day, PRN ( NEEDED FOR WHEEZING) Escitalopram: 1 tablet, By Mouth, Daily Fluticasone: See Instructions, INHALE 2 PUFFS TWICE A DAY Ibuprofen: 800 mg = 1 tablet, By Mouth, 4 times a day Multivitamin, : 1 tablet, By Mouth, Daily Multivitamin, : 1 tablet, By Mouth, Daily Pantoprazole: 40 mg = 1 tablet, By Mouth, Daily Medications Medications (9) Active SCHEDULED: (3) Escitalopram 10 mg Tablet (escitalopram 10 mg oral tablet) ??10 mg, By Mouth, Daily Multivitamin Tablet ( Multivitamin Tablet) ??1 tablet, By Mouth, Daily Pantoprazole 40 mg EC Tablet (Protonix 40 mg oral delayed release tablet) ??40 mg, By Mouth, Daily CONTINUOUS: (2) Lactated Ringers (1000 mL) Cont IV 1,000 mL (LR 1,000 mL) ??1,000 mL, IV Infusion, 125 mL/hr Oxytocin 30 units / 500 mL IV Premix 30 units (Oxytocin 30 units in 500 mL Premix IV 30 units) ??30units 500 mL, IV Infusion, 2 mL/hr PRN: (4) Acetaminophen 325 mg Tablet (Acetaminophen Tablet) ??650 mg, By Mouth, Every 4 hours Acetaminophen/Butalbital/Caffeine Tablet ??2 tablet, By Mouth, Every 4 hours Albuterol 90mcg/Inhalation Inhaler HFA (albuterol CFC free 90 mcg/inh inhalation aerosol) ??180 mcg2 puffs, Inhalation, Every 4 hours Ibuprofen 800 mg Tablet (Ibuprofen Tablet) ??800 mg, By Mouth, Every 8 hours * Bibiana Guevara: PERFORM Event Display: Care Team Progress Note Authored Date: Patient: ??RUSTY DIEZ ? Age:??22 Years?Sex:??Female?:??2000?? Subjective cart rounds day??2 assessment for assistance follow up visit weight loss 5.4% Patient??little previous experience Patient?? obtained personal pump Assessment/Plan Rusty only nursed baby 2x in the night and last 3 feeds were formula. she had a hard time conveying the supplementation amount - she got nervous and gave formula when baby was awake more and fussyat the breast. education on giving a tiny amount of formula to calm baby if desired and have him finish feed at breast to ensure proper stimulation. Rusty reports feeling sanchez in her breasts- today- no sign of engorgement observed. reviewed engorgement recommendations as she may begin experiencing this tonight into tomorrow. positional bruising observed on nipple on right side. Mother reports that she is aware that baby did slide to just the nipple and it felt wrong vs how it felt yesterday. reviewed sore nipple care Sore nipple care provided to mother including: Applying colostrum/milk at end of feeding Air drying nipples Use of Lanolin cream Deep asymmetric latch Breaking oral??suction at end of feeding to prevent further soreness ?will return for next feed to assess. OB Summary : 3 . Baby A - Weight: 3.644 kg Baby A - Date, Time of : 10/14/23 15:58:00 Baby A - Gender: Male Baby A - Complications: Meconium stained fluid EGA at Documented Date, Time: 40W 4D Weight at Delivery Baby A - Delivery Type: Vaginal OB History History?(1,0,1,1)? # 1 ?Baby 1 ?Outcome Date:??01/29/2020?Outcome or Result:??Vaginal ?Gest Age:??39 weeks 6 days ? Outcome:??Live ? Sex:??Female?Wt:?3119 g ? Complications:??None ?Anesthesia Type:??Epidural ?Álvaro Labor:??5 hr 43 min ?Hospital:??[facility] ?? # 2 ?Baby 1 ?Outcome Date:??12/28/2022?Outcome or Result:??Spontaneous with D&C ?Gest Age:??-- ? Outcome:? Sex:??-- Active Problem List Active Problem List Asthma: (Medical) Albuterol prn (acts up mainly in winter time). Depression with anxiety: (Medical) GERD (gastroesophageal reflux disease): (Medical) History of recurrent UTIs: (Medical) Most recent uti couple months ago , cannot remember when. ??Seen in ED. None in current as of yet per pt. Migraine with aura: (Medical) Nexplanon insertion: (Medical) (10/15/23) Obesity in : (Medical) Persistent cough: (Medical) : (Obstetric) (01/28/23) : (Medical) Home Medications Acetaminophen: 1,000 mg = 2 tablet, By Mouth, Every 6 hours, PRN (Pain , Moderate), not to exceed 4000 mg/day including ??Fioricet (acetaminophen, butalbitol, caffeine) Acetaminophen: 650 mg, By Mouth, Every 4 hours, PRN (Pain , Mild), (1-3), may give 325mg per patient preference and re-dose with 325mg within 4 hours, if needed. ?? Patient should only receive a total of 650mg of Acetaminophen every 4 hours. Albuterol: 180 mcg = 2 puffs, Inhalation, Every 4 hours, PRN (Wheezing/Shortness of Breath) Albuterol: 2 puffs, Inhalation, 4 times a day, PRN ( NEEDED FOR WHEEZING) Escitalopram: 1 tablet, By Mouth, Daily Fluticasone: See Instructions, INHALE 2 PUFFS TWICE A DAY Ibuprofen: 800 mg = 1 tablet, By Mouth, 4 times a day Multivitamin, : 1 tablet, By Mouth, Daily Multivitamin, : 1 tablet, By Mouth, Daily Pantoprazole: 40 mg = 1 tablet, By Mouth, Daily Medications Medications (9) Active SCHEDULED: (3) Escitalopram 10 mg Tablet (escitalopram 10 mg oral tablet) ??10 mg, By Mouth, Daily Multivitamin Tablet ( Multivitamin Tablet) ??1 tablet, By Mouth, Daily Pantoprazole 40 mg EC Tablet (Protonix 40 mg oral delayed release tablet) ??40 mg, By Mouth, Daily CONTINUOUS: (2) Lactated Ringers (1000 mL) Cont IV 1,000 mL (LR 1,000 mL) ??1,000 mL, IV Infusion, 125 mL/hr Oxytocin 30 units / 500 mL IV Premix 30 units (Oxytocin 30 units in 500 mL Premix IV 30 units) ??30units 500 mL, IV Infusion, 2 mL/hr PRN: (4) Acetaminophen 325 mg Tablet (Acetaminophen Tablet) ??650 mg, By Mouth, Every 4 hours Acetaminophen/Butalbital/Caffeine Tablet ??2 tablet, By Mouth, Every 4 hours Albuterol 90mcg/Inhalation Inhaler HFA (albuterol CFC free 90 mcg/inh inhalation aerosol) ??180 mcg2 puffs, Inhalation, Every 4 hours Ibuprofen 800 mg Tablet (Ibuprofen Tablet) ??800 mg, By Mouth, Every 8 hours * Tongue Benrice HONEYCUTT: PERFORM Event Display: Discharge/Transfer Note Hospital Authored Date: [id number] Nursing Discharge Note Entered On: 10/16/2023 13:46 EDT Performed On: 10/16/2023 13:45 EDT by Bernice Hernández RN Nursing Discharge Note 2 Discharge Time : 10/16/2023 13:45 EDT Discharge Level of Care at Discharge : Home/Usp/Foster Care Patient Left Unit Via : Ambulatory Patient Accompanied Off Unit with : Significant other DC Instructions Provided & Signed by Pt : Yes Patient Understands D/C Instructions : Yes Patient Instructions Discharge Signed : Yes Did Pt have Specialty Bed or Wound Vac : No Bernice Hernández RN - 10/16/2023 13:45 EDT * Natalee Llanos CNM: PERFORM Event Display: Discharge/Transfer Note Hospital Authored Date: [id number] Patient: ??RUSTY DIEZ ? Age:??22 Years?Sex:??Female?:??2000?? Admit Date Admission Date: 10/14/2023 Discharge Date 10/16/23 OB Reason for Admission OB Reason for Admission Reason for admission: Labor OBN Hospital Course Rusty was admitted 10/13 with SROM and onset of spontaneous labor. She received an epidural for pain management and progressed to vaginal delivery of her son, Crow, later that day. Following delivery, third stage proceeded without incident. Perineum intact. with some formula supplem entation. On PP day 2 she was physically and emotionally stable and requested discharge home with her family. Objective/Physical Exam on Day of Discharge Vitals & Measurements T:??97.9?F?? HR:??98??(Peripheral)?? RR:??18?? BP:??123/68?? SpO2:??99%?? HT:??163??cm?? WT:??100.3??kg?? BMI:??37.75?? Assessment/Plan/Discharge Diagnosis Migraine with aura (G43.109):?? Has fioriciet scripts; explained 4000 mg max dose daily between tyelnol analgesia and fioricet if used for migraine ?? GERD (gastroesophageal reflux disease) (K21.9):?? On protonix. Reinforced potential effect (bleeding) of NSAID. Pt will use sparingly. ?? Depression with anxiety (F41.8):?? Mood stable on escitalopram ?? Asthma (J45.909):?? Mild, intermittent. No inhalers use since delivery ?? Insertion of Nexplanon (Z30.017):?? Uncomplicated insertion Information given to patient ?? care following vaginal delivery (Z39.2):?? Meeting milestones Nursing with belen formula supplementation. Teaching and encouragement provided; also discussed with this morning. Will have WIC homevisiting LC as well. contraception: Nexplanon in place, sore today, no problems. Warnings reviewed, written and verbal,??including pp depression Ready for discharge ?? Future Appointments Monday. 2023 3:50 PM EDT ?? With: Cierra Gibson CNM Where: [facility] [employer] [address] [place] [id number]- Status: Pending Delivery Summary Delivery Summary Maternal Information ??Labor Information ?Baby A ?Labor Onset Methods: ??Spontaneous ??Delivery Information ?Gestational Age at Delivery: ??40W 4D ?Anesthesia OB: ??Epidural ??10/14/23 18:40:22, Epidural ??10/14/23 08:14:21, Epidural ??10/14/23 07:53:49 ?Obstetrical Laceration: ??Perineum intact ?Blood Loss(ml): ??600 mL ? Baby A ??Delivery Information ?Delivery Type: ??Vaginal ?Date, Time of : ??10/14/23 15:58:00 ? Position: ??Supine ?Foot of bed removed: ??No ?Delayed Cord Clamping: ??Yes ?Placenta Delivery Date/Time: ??10/14/23 16:13:00 ?Placenta Delivery Method: ??Assisted ?Placenta Appearance: ??Normal ?Placenta to Pathology: ??No ??Care Team ?Delivery CNM: ??Cierra Gibson CNM ?clarifier #1: ??Mattie RN, Aisha ?clarifier #2: ??Myah HONEYCUTT, Liz ?Seismic Interpreter: ??Oskar Tirado MD ?Anesthesiology Attending: ??Shi Cale YIP ?Other Delivery Clinicians: ??Will Joy ?Time NICU Team Called: ??10/14/23 15:55:00 ??Labor Information ?ROM Date, Time: ??10/14/23 02:55:00 ?ROM to Delivery Total Time: ??783 min ?3rd Stage, Length of Labor: ??15 min ? monitoring: ??External monitor ?? Information ? Outcome: ??Live ? Position: ??Occiput anterior ? Weight: ??3.644 kg ? Score 1 minute: ??8 ? Score 5 minute: ??9 ? Score 10 minute: ??9 ?Transferred To: ?? Care area with Family ?Umbilical Cord Description: ??3 vessel cord ? Complications: ??None ?Gender: ??Male ? Discharge Medications ???Acetaminophen (acetaminophen 325 mg oral tablet)???Acetaminophen (acetaminophen 500 mg oral tablet)???Albuterol (Ventolin HFA 108 mcg/inh inhalation aerosol with adapter)???Albuterol (albuterol CFC free 90 mcg/inh inhalation aerosol)???Escitalopram (escitalopram 10 mg oral tablet)???Fluticasone (Flovent HFA 44 mcg/inh inhalation aerosol)???Ibuprofen (ibuprofen 800 mg oral tablet)???Multivitamin, (PNV Plus oral tablet)???Multivitamin, (multivitamin, Multivitamins oral tablet, chewable)???Pantoprazole (Protonix 40 mg oral delayed release tablet) Stop taking these medications ???Acetaminophen/Butalbital/Caffeine (acetaminophen/butalbital/caffeine 325 mg-50 mg-40 mg oral tablet) Immunizations during Hospitalization Vaccine Date Status tetanus/diphtheria/pertussis, acel(Tdap) 07/20/2023 Given [id number] 12y+ bivalent booster vax 08/10/2022 Recorded SARS-CoV-2 (COVID-19) mRNA BNT-162b2 vac 12/19/2020 Recorded SARS-CoV-2 (COVID-19) mRNA BNT-162b2 vac 11/27/2020 Recorded tetanus/diphtheria/pertussis, acel(Tdap) 11/13/2019 Given influenza virus vaccine, inactivated 08/09/2019 Given tetanus-diphtheria toxoids (Td) 04/12/2017 Recorded influenza virus vaccine, inactivated 10/13/2015 Recorded Meningococcal Conjugate Vaccine 12/30/2014 Recorded Hepatitis A Pediatric Vaccine 12/30/2014 Recorded Human Papillomavirus Vaccine 12/28/2012 Recorded influenza virus vaccine, inactivated 04/29/2010 Recorded Human Papillomavirus Vaccine 04/29/2010 Recorded Hepatitis A Pediatric Vaccine 04/29/2010 Recorded tetanus/diphtheria/pertussis, acel(Tdap) 04/29/2010 Recorded Varicella Virus Vaccine 01/29/2009 Recorded Human Papillomavirus Vaccine 01/29/2009 Recorded influenza virus vaccine, inactivated 04/23/2007 Recorded Poliovirus Vaccine, Inactivated 04/08/2003 Recorded Measles/Mumps/Rubella Virus Vaccine 04/08/2003 Recorded diphtheria/tetanus/pertussis, acel(DTaP) 04/08/2003 Recorded influenza virus vaccine, inactivated 08/13/2002 Recorded influenza virus vaccine, inactivated 07/09/2002 Recorded influenza virus vaccine, inactivated 06/15/2001 Recorded Varicella Virus Vaccine 03/28/2000 Recorded diphtheria/tetanus/pertussis, acel(DTaP) 03/28/2000 Recorded Poliovirus Vaccine, Inactivated 12/24/1999 Recorded Measles/Mumps/Rubella Virus Vaccine 12/24/1999 Recorded hepatitis B pediatric vaccine 09/23/1999 Recorded diphtheria/tetanus/pertussis, acel(DTaP) 05/27/1999 Recorded Poliovirus Vaccine, Inactivated 04/08/1999 Recorded diphtheria/tetanus/pertussis, acel(DTaP) 04/08/1999 Recorded Poliovirus Vaccine, Inactivated 02/04/1999 Recorded diphtheria/tetanus/pertussis, acel(DTaP) 02/04/1999 Recorded hepatitis B pediatric vaccine 01/07/1999 Recorded hepatitis B pediatric vaccine 2000 Recorded Infant Feeding Method No Results * Tongue RN, Bernice: PERFORM Event Display: Patient Education/Instruction Authored Date: [id number] Inpatient Adult Discharge Instructions. [address] [address] Name: RUSTY DIEZ : 2000?? Visit: 10/14/2023 04:31?? Current Date: 10/16/2023 10:22 ?? Account: [id number]?? Inpatient Adult Discharge Instructions We would like to thank you for allowing us to assist you with your healthcare needs. The following includes patient education materials and information regarding your injury/illness. Our entire staffstrives to provide an excellent experience for our patients and their families. PLEASE ENSURE YOU FOLLOW-UP PER THE INSTRUCTIONS BELOW! ?? YOUR OPINION IS IMPORTANT TO US! Please complete the survey you may receive by mail or email. Your feedback will be used to make improvements to the healthcare experiences of our patients and their families. Surveys are administered by [employer] ?? If further treatment with your primary care physician or another doctor is recommended, it is important for you to keep the appointment. Call your primary care physician or return to the Emergency Department immediately if your condition worsens, fails to improve, or new symptoms develop. If you need to find a doctor, you can call [facility] Link for a referral at [phone] or toll free at [phone]) or log in to [email or web address].. ?? [facility], in keeping with [facility] guidance, no longer requires face masks for staff, patientsor visitors in most situations. Similiar to time spent indoors at other locations, there is the chance that you were exposed to repiratory viruses during your time with us (such as flu or COVID-19). If you develop symptoms concerning for a viral respiratory infection, please seek testing (and treatment if indicated) from your medical provider or home test kit. ?? You can view and manage your care through the patient portal or by using a health care dorian of your choosing. [employer] is a website that allows you to securely view your medical information including your hospital discharge summary, office visit summaries, medications and follow-up visits. You can also request appointments, renew medications, and request access to your medical information using a health care dorian of your choosing, or just ask a question. You can enroll at [email or web address] or register during your next office visit. You have been discharged from [facility], Patient Care Unit: [facility]??. If you have any questions regarding these instructions, including results of studies pending, afteryou leave, please call us and we will be happy to assist you 20/02. [facility] Your Care Team Attending Physician Adry France DO?? Consulting Providers Adry France DO?? Discharging Providers Natalee Llanos CNM Your Diagnosis Migraine with aura GERD (gastroesophageal reflux disease) Depression with anxiety Asthma Insertion of Nexplanon Normal labor care following vaginal delivery care following vaginal delivery Thin meconium stained amniotic fluid Tests Performed Below is a partial list of the tests performed during your hospitalization. You may have had other tests and procedures not included in this list. Please discuss all test results with your provider. CBC Type and Screen No tests performed during this visit.?? Primary Care Provider Jihan Sierra NP? Advance Directive Health Care Proxy on File Yes - Health Care Proxy Discharge Vitals Temperature: 97.9 DegF Height: 163 cm Pulse Rate:??98 bpm??High Weight: 100.3 kg Respiratory Rate: 18 br/min Body Mass Index:??37.75 kg/m2??Critical Systolic Blood Pressure: 123 mm Hg Body surface area: 2.13 Diastolic Blood Pressure: 68 mm Hg ?? Oxygen Saturation: 99 % ?? Studies Pending All studies ordered during this hospital stay have been completed unless listed below. Please discuss all pending results with your provider listed above in these instructions. ?? No incomplete studies found?? What to do next Instructions From Your Doctor ?? Orders? 10/16/23 9:26:00 EDT?? Instructions from your Care Team Discharge Care Instructions for the New Mom?? Please take a few moments to read through these helpful instructions before you leave the hospital.??Your nurse will be glad to answer any questions you may have. ??You can also find this and more information throughout the purple??Becoming a Family??booklet,??[facility]s New Beginnings Guide??and the?? Consultation Services Guide??given to you after the of your baby. ??You may also phone our nurses stations if you have further questions. ??[facility]???s: ??First Floor ([phone]), Second Floor ([phone]). ?? Please call your provider if you have any questions or concerns ??before your next appointment. For ongoing support??please?Like?us on our Facebook page?[facility]???s New Beginnings?and sign up for our email newsletter at??[email or web address]. ??News and information will be sent to you??until your baby???s third birthday. Instructions for the New Mother Activity:?? For the next 2 weeks at home?no heavy lifting, avoid unnecessary stair climbing, and no driving (especially if you are taking medicine that may make you sleepy or feel that you are sleep deprived). ?? For the next 4-6 weeks - no tampons, no douches, no sexual intercourse. Use your jeremy bottle to rinse your perineum until your vaginal flow stops. ??If you have stitches in your bottom, they generally dissolve within 7-10 days. ??Apply Tucks/witch lisseth pads until your soreness subsides. ??Use your bathroom at home every 3 to 4 hours, rinse, and change your pads. Warm showers feel great on achy muscles, sore backs and sore bottoms. Exercise: Walking is the best form of exercise. ??Wait until your follow up appointment with your provider in4-6 weeks before engaging in more strenuous activity. Diet: Drink plenty of fluids to avoid constipation and to help support your recovery. Eat plenty of iron rich foods such as red meat, iron fortified cereals like Total and Cream of Wheat, raisins, prunes, greens and spinach. ??These will help to build your blood count back up as all women lose some blood after delivery. ??Also add foods rich in Vitamin C such as strawberries, oranges, papayas, kale and chavez peppers. Continue to take your vitamins if you are . ??If you are not follow the instructions of your provider. ??If you were prescribed iron supplements such as ferrous sulfate, it is important to continue these until your doctor or general superintendent tells you to stop. Breast Care for Nursing Mothers: Wear a comfortable fitting, supportive nursing bra. ??An underwire bra is not recommended. Express drops of breast milk and rub over your nipples and areola (brown area) before and after each feeding to protect and heal sensitive skin and then air dry your nipples. ??If you are experiencing any soreness, you may purchase nipple cream such as TenderCare or Lansinoh. ??Use it in the following manner: ??finish your feeding or pumping session, self-express colostrum onto your nipple and air dry, apply the nipple cream to the nipple and areola. ??Use only small amounts for best results. If you are having difficulty getting the baby to latch onto the breast due to swelling of the areola, try applying pressure with your fingers for a couple of minutes above and below your nipple and walk your fingers outward softening the area and pushing the swelling away. ??This technique is knownas reverse pressure softening. ??For demonstrations of this and other techniques such as the [place] Hand Expression technique, please refer to the resources section of the Consultation Services Guide that you received from services.?? When your milk first comes in, usually within 3 to 5 days after delivery, you may experience engorgement. ??Your breasts may become swollen and very tender. ??Cold compresses work great to help with discomfort and reduce swelling. It will get better in a couple of days. ??Continue to nurse your baby frequently. ?? Call [facility]???s Consultation Service at [phone], press 1 to schedule an outpatient appointment or press 3??and a [employer] consultant will return your call that day or the next if you call after 3pm. Breast Care for Bottle Feeding Mothers: Engorgement may occur within the first week after delivery. ??Your breasts may become hard and verytender. ??A cool compress of cleaned raw green cabbage leaves applied to the breast and changed as leaves wilt has been proven helpful for many women. ??Ice packs or frozen bags of peas also work nicely to ease the discomfort. ??The soreness will only last a couple of days. Keep your back turned to the water while showering to decrease breast stimulation. Wear a snug fitting bra such as a sports bra. Pain Management: Cramping after is common and increases in strength with each baby you have. ??If you experience painful cramps, and have no allergies to acetaminophen (Tylenol) or ibuprofen (Motrin), you may continue to take these medications as you did in the hospital. ??Ibuprofen is also helpful with back aches following epidurals, perineal pain following a vaginal delivery, and moderate incisional pain after a section or a tubal ligation. ?? If you experience gas distention, especially after surgery, you may take an over the counter medication called simethicone. ??Take these chewable tablets 4 times a day as needed and directed on the package. ??Keep moving. ??Walking or rocking in a chair, will help to move the gas along. ??Elli tea made with heated elli dano (instead of water) and a tea bag, stirred to dissolve carbonation (bubbles) is a helpful drink to soothe a gassy stomach. Warning Signs of a Problem to Notify Your Doctor or Lead Welder of: Heavy vaginal bleeding?which is??soaking a pad every hour??with bright red blood. Passing blood clots the size of an egg or larger. An incision that is not healing. A temperature greater than or equal to 100.4 especially if accompanied by any of the following symptoms?painful, frequent urination; extreme back or flank pain; lower belly pain with a foul smell to your vaginal flow; a red hard hot area on your breast. ?? Severe headache that does not go away after taking acetaminophen or ibuprofen. ?? A headache that changes your vision, including seeing spots or blurring. Right sided upper abdominal pain along the rib cage area. Pain in your legs that is warm and tender to the touch. depression signs may include?loss of interest in your baby, weepiness, difficulty focusing, weight loss with no appetite, exhaustion, feeling overwhelmed or anxious, feelings??of despair, or thoughts of harming yourself or your baby. ??These symptoms are important and should be discussed with your doctor or general superintendent. depression may develop over a period of time and needs prompt medical attention. ??Do not suffer in silence. ??In both the??Becoming a Family??booklet and the??[facility]??New Beginnings Guide??there is a screening tool used to identify women at risk, called the Fleming Scale which you have taken in the office prior to delivery and again during your ho spital stay. ??Three to four weeks after your delivery, and before your check with your provider, take this test and share your results with your provider. ??Be sure to mention any score of 10 or more. ?? Many women, and even some partners, may experience the?baby blues?? . ??This is a state of feeling overwhelmed and weepy. ??Discomfort from childbirth, hormonal changes, exhaustion, changes to your body and lifestyle are a few of the things that contribute to the highs and lows new parents go through. ??Don???t be afraid to ask your partner or family and friends for some help at home so you can get some rest and a few minutes to yourself. ??The blues will quickly pass. Personal Safety: Every person has the right to feel safe at home and live free from physical or emotional harm. ??Ifyou have suffered mental or physical abuse at home, you are not alone. ??There is help. ??Please call HOTLINE or the [facility] Program at [phone].?? Scheduled Follow-Up Appointments Monday 3:50 PM EDT ?? With: Cierra Gibson CNM Where: [facility] [employer] [address] [place] [address]- Status: Pending You Need to Schedule the Following Appointments Follow Up with??Follow up, 6 weeks Why: Please follow up in 6 weeks for visit. Follow Up with??Follow up, 2 weeks Why: Please follow up via telehalth N Discharge Medications DIEZRUSTY Tirado :2000 Visit Date:10/14/2023 Medications: Please continue your medications until treatment is completed or stopped by your provider. Medications not listed below should be discontinued. Discuss any questions related to medications with your provider. What How Much When Instructions Next Dose New Acetaminophen (acetaminophen 325 mg oral tablet) 650 Milligram Oral Every 4 hours as needed for Pain , Mild (1-3), may give 325mg per patient preference and re-dose with 325mg within 4 hours, if needed. ?? Patient should only receive a total of 650mg of Acetaminophen every 4 hours. ?? Pickup at [facility]/pharmacy #2070 1 pm New Acetaminophen (acetaminophen 500 mg oral tablet) 2 tab(s) Oral Every 6 hours as needed for Pain , Moderate Duration: 10 Days not to exceed 4000 mg/ day including ??Fioricet (acetaminophen, butalbitol, caffeine) ?? [facility] New Ibuprofen (ibuprofen 800 mg oral tablet) 1 tab(s) Oral 4 times a day Duration: 7 Days [facility] pm Changed Albuterol (albuterol CFC free 90 mcg/ inh inhalation aerosol) 2 puff(s) Inhalation Every 4 hours as needed for Wheezing/Shortness of Breath [facility] Changed Albuterol (Ventolin HFA 108 mcg/ inh inhalation aerosol with adapter) 2 puff(s) Inhalation 4 times a day as needed for NEEDED FOR WHEEZING [facility] Changed Multivitamin, (multivitamin, Multivitamins oral tablet, chewable) 1 tab(s) Oral Daily [facility] Changed Multivitamin, (PNV Plus oral tablet) 1 tab(s) Oral Daily [facility] Unchanged Escitalopram (escitalopram 10 mg oral tablet) 1 tab(s) Oral Daily [facility] 9 am Unchanged Fluticasone (Flovent HFA 44 mcg/ inh inhalation aerosol) See instructions INHALE 2 PUFFS TWICE A DAY ?? Unchanged Pantoprazole (Protonix 40 mg oral delayed release tablet) 1 tab(s) Oral Daily [facility] 9 am Pharmacy Information [facility] #[id number]: [address] [place], [place] [phone] ?? What How Much When Comments Stop Taking Acetaminophen/ Butalbital/ Caffeine (acetaminophen/ butalbital/ caffeine 325 mg-50 mg-40 mg oral tablet) 1 tab(s) Oral Every 4 hours as needed for NEEDED FOR MIGRAINE HEADACHES Prescription Given During Visit Acetaminophen (acetaminophen 325 mg oral tablet) - 650 mg, By Mouth, Every 4 hours, # 30 tablet, 0 Refills, (1-3), may give 325mg per patient preference and re-dose with 325mg within 4 hours, if needed. ?? Patient should only receive a total of 650mg of Acetaminophen every 4 hours., [facility], [address] [place] [address] [phone]?? Acetaminophen (acetaminophen 500 mg oral tablet) - 2 tablet = 1,000 mg, By Mouth, Every 6 hours, # 50 tablet, 0 Refills, not to exceed 4000 mg/day including ??Fioricet (acetaminophen, butalbitol, caffeine), [facility], [address] [place] [address] [phone]?? Albuterol (Ventolin HFA 108 mcg/inh inhalation aerosol with adapter) - 2 puffs, Inhalation, 4 timesa day, # 18 each, 2 Refills, [facility], [address] [place] [address] [id number]?? Albuterol (albuterol CFC free 90 mcg/inh inhalation aerosol) - 2 puffs = 180 mcg, Inhalation, Every4 hours, # 6.7 Gm, 2 Refills, [facility], [address] [place] [address] [id number]?? Escitalopram (escitalopram 10 mg oral tablet) - 1 tablet, By Mouth, Daily, # 30 tablet, 0 Refills, [facility], [place] [address] [phone]?? Ibuprofen (ibuprofen 800 mg oral tablet) - 1 tablet = 800 mg, By Mouth, 4 times a day, # 28 tablet,0 Refills, [facility], [place] [address] [phone]?? Multivitamin, (multivitamin, Multivitamins oral tablet, chewable) - 1 tablet, By Mouth, Daily, # 30 tablet, 3 Refills, [facility], [address] [place] [address] [phone]?? Multivitamin, (PNV Plus oral tablet) - 1 tablet, By Mouth, Daily, # 90 tablet, 1 Refills, [facility]/pharmacy #2070, [address] [place] [address] [phone]?? Pantoprazole (Protonix 40 mg oral delayed release tablet) - 1 tablet = 40 mg, By Mouth, Daily, # 30tablet, 2 Refills, [facility]/pharmacy #207, [address] [place] [address] [phone]?? Laboratory Results Below is a partial list of the most recent Laboratory test results done prior to this discharge. You may have had other tests and procedures not included in this list. Please discuss all test resultswith your provider. CBC (10/14/2023) ???WBC - 10.4 k/mm3???RBC - 4.33 m/mm3???Hgb - 11.3 Gm/dL???Hct - 34.7 %???MCV - 80.1 femtoliters???MCH - 26.1 pg???MCHC - 32.6 g/dL???Platelet Count - 200 k/mm3???RDW-SD - 43.5 femtoliters???MPV - 11.6 femtoliters???Nucleated RBC (Automated) - 0.0 #/100 WBC'S???Abs. NRBC - 0.0 k/mm3 Type and Screen (10/14/2023) ???Blood Type - O Positive???Antibody Screen - Negative Allergies (NKA means No Known Allergies) NKA Problems Active Problems??(10) Asthma?? Depression with anxiety?? GERD (gastroesophageal reflux disease)?? History of recurrent UTIs?? Migraine with aura?? Nexplanon insertion?? Obesity in ?? Persistent cough? Education Materials Below is the list of Educational Leaflet Providered with your Discharge Instructions. Valuables and Belongings I fully understand and agree that [facility] accepts no responsibility for all my personal property including clothing, toilet articles, radios, jewelry, dentures, hearing aids, rings, money, or any other property that is in my possession or is brought to me after admission. I understand certain valuables may be placed in a hospital safe for a short period of time. I understand that the hospital is not liable for loss or damage due to accident, fire, or other natural occurrence while said property is in the safe. I accept full responsibility for any personal property that I keep with me, and will not hold the hospital responsible in case of loss or disappearance. I acknowledge that i have been encouraged to send valuables and belongings home. ?? Review of Valuable and Belonging List: With family Date for Pt to Sign Valuables/Belongings: 10/14/23 08:15:00 ?? Other Discharge Information ? Pulmonary Rehab Status?? Pulmonary Rehab Discharge Status?? Respiratory Rate: 18 br/min ? Common Emergency Awareness Tips IS IT A STROKE? Act FAST and Check for these signs: FACE Does the face look uneven? ARM Does one arm drift down? SPEECH Does their speech sound strange? TIME Call at any sign of stroke ?? Heart Attack Signs Chest discomfort: Most heart attacks involve discomfort in the center of the chest and lasts more than a few minutes, or goes away and comes back. It can feel like uncomfortable pressure, squeezing, fullness or pain. Discomfort in upper body: Symptoms can include pain or discomfort in one or both arms, back, neck, jaw or stomach. Shortness of breath: With or without discomfort. Other signs: Breaking out in a cold sweat, nausea, or lightheaded. Remember, MINUTES DO MATTER. If you experience any of these heart attack warning signs, call to get immediate medical attention! ?? Smoking can increase your chances of developing chronic health problems and can cause harmful effects to other family members in your house. If you smoke, you are strongly encouraged to quit. Please call [facility]ve Link at [phone] or [phone] ([phone]) or log in to [email or web address] for referrals to smoking cessation programs. ?? 632 Suicide & Crisis Lifeline is available 20/02 if you or someone you know needs to find a reason to keep living. By calling 812 you'll be connected to a skilled, trained counselor at a crisis center in your area. INPATIENT DISCHARGE INSTRUCTIONS SIGNATURE PAGE RUSTY DIEZ Location:[facility] Registration Date and Time:10/14/2023 04:31 EDT Primary Care Physician: Jihan Sierra NP, Attending Physician: Adry France DO, I RUSTY DIEZ, have received the above patient education materials/instructions and have verbalized understanding. If ambulance or transport services are being used I further acknowledge being given a choice of service. ?? If you need to contact me, please call me at this number: . Patient/Cashier Or Checker Stock Clerk Name: Patient/Cashier Or Checker Stock Clerk Signature: Relationship to Patient: Witness Name/Signature: Date: * Bernice Hernández RN: SIGN, PERFORM, SIGN, VERIFY Event Display: Patient Education Handout Authored Date: [id number] * Bibiana Guevara: PERFORM Event Display: Care Team Progress Note Authored Date: [id number] Patient: ??RUSTY DIEZ ? Age:??22 Years?Sex:??Female?:??2000?? Subjective cart rounds day??1 assessment for assistance Patient??no previous experience- exclusive pumping Feeding sheet adequately filled out- WN Patient obtained personal pump Feeding plan: breast and Formula Assessment/Plan Rusty??was unsuccessful in?? her daughter due to painful latch. She had her at the beginning of [facility] and did not get the support and feels that is the reason- she exclusively pumped and also found that slightly uncomfortable. She says she has sensitive nipples. She had just attempted to give 10ml of F before this visit because she is worried she doesn't have enough milk. Taught HE- large drops very easily expressed- she explained that she has been pumping every night since 37 weeks and saved the colostrum (the yellow milk) and discarded the milk when it turned white. Education on benefits of colostrum and using the frozen colostrum during these first few weeks. Assisted with a feeding- Right side/ FB hold- baby Savage easily latched- taught to look for wide mouth- nipple high in the mouth- how to roll out lips if discomfort felt. Rusty reports latch felt very good and she can see how the baby is enjoying the feeding. Baby nursed 15 minutes with deep nutritive sucksand swallows. all information given and resources for support post dc. DC planned tomorrow- mom knows she can page if she would like to be visited by again. Basic education discussed with mother/family including:? Positioning for optimal feeding Asymmetric latch technique Frequent breast stimulation for initiation and maintenance of milk supply Breast compressions during a feeding to offer stimulation to a sleepy baby Engorgement prevention and management (page 12 guide) How to know your baby is getting enough (page 14 guide) Trouble shooting guide (pg 26-27 guide) Reputable websites (pg 28 guide) support Zoom group Wednesdays at 1pm Hand expression When to use a breast pump Consultation reference guide given to mother with contact information for services and ongoing support as needed.?? OB Summary : 3 . Baby A - Weight: 3.644 kg Baby A - Date, Time of : 10/14/23 15:58:00 Baby A - Gender: Male Baby A - Complications: Meconium stained fluid EGA at Documented Date, Time: 40W 4D Weight at Delivery Baby A - Delivery Type: Vaginal OB History History?(1,0,1,1)? # 1 ?Baby 1 ?Outcome Date:??01/29/2020?Outcome or Result:??Vaginal ?Gest Age:??39 weeks 6 days ? Outcome:??Live ? Sex:??Female?Wt:?3119 g ? Complications:??None ?Anesthesia Type:??Epidural ?Álvaro Labor:??5 hr 43 min ?Hospital:??[facility] ?? # 2 ?Baby 1 ?Outcome Date:??12/28/2022?Outcome or Result:??Spontaneous with D&C ?Gest Age:??-- ? Outcome:? Sex:??-- Active Problem List Active Problem List Asthma: (Medical) Albuterol prn (acts up mainly in winter time). Depression with anxiety: (Medical) GERD (gastroesophageal reflux disease): (Medical) History of recurrent UTIs: (Medical) Most recent uti couple months ago , cannot remember when. ??Seen in ED. None in current as of yet per pt. Migraine with aura: (Medical) Obesity in : (Medical) Persistent cough: (Medical) : (Obstetric) (01/28/23) : (Medical) Home Medications Acetaminophen/Butalbital/Caffeine: 1 tablet, By Mouth, Every 4 hours, PRN ( NEEDED FOR MIGRAINE HEADACHES) Albuterol: 2 puffs, Inhalation, 4 times a day, PRN ( NEEDED FOR WHEEZING) Escitalopram: 1 tablet, By Mouth, Daily Fluticasone: See Instructions, INHALE 2 PUFFS TWICE A DAY Multivitamin, : 1 tablet, By Mouth, Daily Pantoprazole: 40 mg = 1 tablet, By Mouth, Daily Medications Medications (9) Active SCHEDULED: (3) Escitalopram 10 mg Tablet (escitalopram 10 mg oral tablet) ??10 mg, By Mouth, Daily Multivitamin Tablet ( Multivitamin Tablet) ??1 tablet, By Mouth, Daily Pantoprazole 40 mg EC Tablet (Protonix 40 mg oral delayed release tablet) ??40 mg, By Mouth, Daily CONTINUOUS: (2) Lactated Ringers (1000 mL) Cont IV 1,000 mL (LR 1,000 mL) ??1,000 mL, IV Infusion, 125 mL/hr Oxytocin 30 units / 500 mL IV Premix 30 units (Oxytocin 30 units in 500 mL Premix IV 30 units) ??30units 500 mL, IV Infusion, 2 mL/hr PRN: (4) Acetaminophen 325 mg Tablet (Acetaminophen Tablet) ??650 mg, By Mouth, Every 4 hours Acetaminophen/Butalbital/Caffeine Tablet ??2 tablet, By Mouth, Every 4 hours Albuterol 90mcg/Inhalation Inhaler HFA (albuterol CFC free 90 mcg/inh inhalation aerosol) ??180 mcg2 puffs, Inhalation, Every 4 hours Ibuprofen 800 mg Tablet (Ibuprofen Tablet) ??800 mg, By Mouth, Every 8 hours Patient Care team information Care Team Personnel Name: Jihan Sierra NP Position: Reference Physician Member Role: PCP Address: Address: [address] [place] [id number]- Name: Sabrina Kim RN Position: S OB RN Member Role: Patient Care Provider Name: Carol Shay LPN Position: S OB RN Member Role: OB RN Care Team Related Persons Name: MALIA CARTERLIAN Address: home [address] [place] [address] Name: ROSALVA CLAIRE Address: [address] Address: home [address] [address] [place] Name: SANTO CLAIRE Address: [address] [place] [address] Name: RUSTY DIEZ Address: [address] Address: home [address] [place] [address] [place] Name: VALENTE WANG
--- OUTSIDE RECORDS SUMMARY | 2024-04-22 03:02 | XMS_ITS | Continuity of Care Document ---
Author Organization [facility] Address Unknown Care Team Providers Care Certified Professional Ergonomist Name Role Phone [place] YIP, Shayne Hall Primary Care Physician Encounter [facility] Date(s): 01/14/22 - 02/13/22 [facility] Allergies, Adverse Reactions, Alerts No Known Allergies [...] tablet, 2 Refills, Maintenance, 02/06/20 13:40:00 EDT, [facility]/pharmacy #[id number], 1 tablet ByMouth Every [...] 11:34:00 EDT, Aerosol, Route to Pharmacy Electronically, [id number], [facility]/pharmacy #[id number], 163, cm, 11/13/19 16:13:00 EDT, Hei... Start Date: 11/25/19 Stop Date: 04/23/20 Status: Ordered Flovent HFA 110 mcg/inh inhalation aerosol 2 puffs, Inhalation, 2 times a day, # 12 Gm, 1 Refills, Maintenance, 12/02/19 0:58:00 EDT, Aerosol,[facility]/pharmacy #[id number], 163, cm, 11/27/19 15:36:00 EDT, Height, 78.1, kg, 11/13/19 16:13:00 EDT, Dry Weight Start Date: 12/02/19 Stop Date: 12/16/19 Status: Ordered fluconazole 150 mg oral tablet 1 tablet = 150 mg, By Mouth, Once, repeat dose if still having symptoms in 72 hours, # 2 tablet, 0 Refills, Soft Stop, 09/14/20 9:53:00 EST, Tablet, [facility]/pharmacy #[id number], Partial fill upon patient request if the prescription is for a schedule II opioid... Start Date: 09/14/20 Status: Ordered ibuprofen 200 mg oral tablet 400 mg, 2, tablet, By Mouth, Every 4 hours, PRN, # 100 tablet, Refills 0, Tot. Refills 0, Maintenance, for pain, 01/31/20 10:59:00 EDT, [id number], cm, 01/31/20 0:18:00 EDT, Height, 81.4, kg, 01/29/20 8:5... Start Date: 01/31/20 Status: Ordered Mirena 52 mg intrauterine device See Instructions, 1 each Once, # 1 each, 0 Refills, Soft Stop, 03/10/20 14:06:00 EDT, [facility], 163, cm, 03/10/20 13:34:00 EDT, Height, 75.02, kg, 03/10/20 13:34:00 EDT, Dry Weight Start Date: 03/10/20 Status: Ordered Zofran 4 mg oral tablet 1 tablet = 4 mg, By Mouth, Every 8 hours, PRN Vomiting, # 20 tablet, 0 Refills, Maintenance, 08/07/21 3:25:00 EST, Tablet, [id number], Partial fill upon patient request if the prescription isfor a schedule II opioid drug., 163, cm, 09/07/20 8... Start Date: 08/07/21 Status: Ordered Problem List Condition Effective Dates Status Health Status Inform ant Asthma(Confirmed) 1 Active History of depression(Confirmed) 2 Active History of recurrent UTIs(Confirmed) 3 Active Migraine(Confirmed) 4, 5 Active Obese class I(Confirmed) Active Encounter for insertion of m ciara IUD(Confirmed) 02/2020 Active Encounter for IUD insertion(Confirmed) 03/19/20 Active 1Albuterol prn (acts up mainly in winter time). 2As child, saw therapist (no meds) but improved/went away. Now in feeling down and a little depressed. 3Most recent uti couple months ago , cannot remember when. Seen in ED. 4says she has a neurologist in [place] for migraines. 5Taking fioricet prn for this, [...]
--- OUTSIDE RECORDS SUMMARY | 2024-04-22 03:02 | XMS_ITS | Continuity of Care Document ---
Author Organization [facility] ter Address [address] [place] [address]- Care Team Providers Care Assistant Kitchen Manager Name Role Phone Jihan Sierra NP Primary Care Physician [phone] Encounter [facility] Date(s): 03/08/23 - 04/19/[address] [address]- Attending Physician: Nory Green CNM Admitting Physician: Nory Green CNM Referring Physician: Nory Green CNM Allergies, Adverse Reactions, Alerts No Known Allergies Immunizations Given and Recorded Vaccine Date Status Refusal Reason [id number] 12y+ bivalent booster vax 08/10/22 Recorded SARS-CoV-2 [...] hepatitis B pediatric vaccine 98 Recorded Medications acetaminophen-butalbital 300 mg-50 mg oral tablet 1 tablet, By Mouth, Every 4 hours, PRN as needed, Use sparingly for breakthrough migraine pain, # 30 tablet, 0 Refills, Maintenance, 04/03/23 13:59:00 EDT, Tablet, [facility]/pharmacy #0373, Partial fill upon patient request if the prescription is for a sche... Start Date: 04/03/23 Status: Ordered albuterol CFC free 90 mcg/inh inhalation aerosol 180 mcg, 2, puffs, Inhalation, 4 times a day, PRN, # 6.7 Gm, Refills 2, Tot. Refills 2, Maintenance, 04/03/23 13:59:00 EDT, Inhaler, Route to Pharmacy Electronically, [id number], [facility]/pharmacy #0373, 162, cm, 03/29/23 13:33:00... Start [...] tablet, 8 Refills, Maintenance, 03/02/23 7:51:00 EDT, [facility]/pharmacy #0373, Partial fill upon patient request if th... Start Date: 03/02/23 Status: Ordered ondansetron 8 mg oral tablet 1 tablet = 8 mg, By Mouth, 3 times a day, # 30 tablet, 5 Refills, Maintenance, 03/09/23 19:12:00 EDT, Tablet, [facility]/pharmacy #[id number], Partial fill upon patient request if the prescription is for a schedule II opioid drug., 162, cm, 03/07/23 18:07:00 EDT,... Start Date: 03/09/23 Status: Ordered Pepcid 20 mg oral tablet 1 tablet = 20 mg, By Mouth, 2 times a day, PRN Dyspepsia, 0 Refills, Maintenance, 03/14/23 12:00:00EDT, Partial fill upon patient request if the prescription is for a schedule II opioid drug. Start Date: 03/14/23 Status: Ordered PNV Select oral tablet 1 tablet, By Mouth, Daily, Please prescribe PNVs that are covered by pt's insurance., # 30 tablet, 11 Refills, Maintenance, 12/07/22 10:40:00 EDT, [facility]/pharmacy #0373, Partial fill upon patient request if the prescription is for a schedule II opioid dr... Start Date: 12/07/22 Stop Date: 12/02/23 Status: [...] 3 Confirmed Active Hyperemesis gravidarum Confirmed Active Migraine with aura Confirmed Active Mild intermittent asthma Confirmed Active Depression with anxiety Confirmed Active [...] Reference Physician Member Role: PCP Address: Address: [address] [place] [address]- [place] Care Team Related Persons Name: BING CARTER Address: home [address] [place] [address] Name: ROSALVA CLAIRE Address: [address] Address: [address] [address] [place] Name: SANTO CLAIRE Address: home [address] [place] [address] Name: VALENTE WANG
--- OUTSIDE RECORDS SUMMARY | 2024-04-22 03:03 | XMS_ITS | Continuity of Care Document ---
Author Organization [facility] Address Unknown Care Team Providers Care Command And Control Name Role Phone Shayne Christina MD Primary Care Physician Encounter [facility] [id number] Date(s): 06/10/21 - 07/14/21 [facility] Attending Physician: Not on Staff, Attending Referring Physician: Shayne Christina MD Allergies, Adverse [...] 2 Refills, Maintenance, 02/06/20 13:40:00 EDT, [facility]/pharmacy #[id number], 1 tablet ByMouth Every 4 [...] 11:34:00 EDT, Aerosol, Route to Pharmacy Electronically, [id number], [facility]/pharmacy #[id number], 163, cm, 11/13/19 16:13:00 EDT, Hei... Start Date: 11/25/19 Stop Date: 04/23/20 Status: Ordered Flovent HFA 110 mcg/inh inhalation aerosol 2 puffs, Inhalation, 2 times a day, # 12 Gm, 1 Refills, Maintenance, 12/02/19 0:58:00 EDT, [id number] 163, cm, 11/27/19 15:36:00 EDT, Height, 78.1, kg, 11/13/19 16:13:00 EDT, Dry Weight Start Date: 12/02/19 Stop Date: 12/16/19 Status: Ordered fluconazole 150 mg oral tablet 1 tablet = 150 mg, By Mouth, Once, repeat dose if still having symptoms in 72 hours, # 2 tablet, 0 Refills, Soft Stop, 09/14/20 9:53:00 EST, Tablet, [facility]/pharmacy #[id number], Partial fill upon patient request if the prescription is for a schedule II opioid... Start Date: 09/14/20 Status: Ordered ibuprofen 200 mg oral tablet 400 mg, 2, tablet, By Mouth, Every 4 hours, PRN, # 100 tablet, Refills 0, Tot. Refills 0, Maintenance, for pain, 01/31/20 10:59:00 EDT, Route to Pharmacy Electronically, [facility]/pharmacy #[id number], 163, cm, 01/31/20 0:18:00 EDT, Height, 81.4, kg, 01/29/20 8:5... Start Date: 01/31/20 Status: Ordered Mirena 52 mg intrauterine device See Instructions, 1 each Once, # 1 each, 0 Refills, Soft Stop, 03/10/20 14:06:00 EDT, [facility], 163, cm, 03/10/20 13:34:00 EDT, Height, 75.02, kg, 03/10/20 13:34:00 EDT, Dry Weight Start Date: 03/10/20 Status: Ordered Problem List Condition Effective Dates Status Health Status Inform ant Asthma(Confirmed) 1 Active History of depression(Confirmed) 2 Active History of recurrent UTIs(Confirmed) 3 Active Migraine(Confirmed) 4, 5 Active Encounter for insertion of m ciara IUD(Confirmed) 02/2020 Active 1Albuterol prn (acts up mainly in winter time). 2As child, saw therapist (no meds) but improved/went away. Now in feeling down and a little depressed. 3Most recent uti couple months ago , cannot remember when. Seen in ED. 4says she has a neurologist in [place] for migraines. 5Taking fioricet prn for this, [...]
--- OUTSIDE RECORDS SUMMARY | 2024-04-22 03:03 | XMS_ITS | Continuity of Care Document ---
Author Organization [facility] Address [address] [address]- Care Team Providers Care Fruit Sprayer Name Role Phone Sanford YIP, Shayne Hall Primary Care Physician Encounter [facility] Date(s): 01/27/20 - 02/26/20 [facility] [address] [address]- [facility] Attending Physician: Not on Staff, Attending MD Referring Physician: Carol Flynn CNM Allergies, Adverse Reactions, Alerts Substance Reaction [...] tablet, 2 Refills, Maintenance, 02/06/20 13:40:00 EDT, [facility]/pharmacy #[id number], 1 tablet ByMouth Every [...] 11:34:00 EDT, Aerosol, Route to Pharmacy Electronically, [id number], [facility]/pharmacy #[id number], 163, cm, 11/13/19 16:13:00 EDT, Hei... Start Date: 11/25/19 Stop Date: 04/23/20 Status: Ordered ferrous sulfate 325 mg oral tablet 1 tablet = 325 mg, By Mouth, Daily, # 30 tablet, 2 Refills, Maintenance, 11/14/19 13:10:00 EDT, [facility]/pharmacy #1, 163, cm, 11/13/19 16:13:00 EDT, Height, 78.1, kg, 11/13/19 16:13:00 EDT, Dry Weight Start Date: 11/14/19 Stop Date: 02/12/20 Status: Ordered Flovent HFA 110 mcg/inh inhalation aerosol 2 puffs, Inhalation, 2 times a day, # 12 Gm, 1 Refills, Maintenance, 12/02/19 0:58:00 EDT, Aerosol,[facility]/pharmacy #[id number], 163, cm, 11/27/19 15:36:00 EDT, Height, 78.1, kg, 11/13/19 16:13:00 EDT, Dry Weight Start Date: 12/02/19 Stop Date: 12/16/19 Status: Ordered ibuprofen 200 mg oral tablet 400 mg, 2, tablet, By Mouth, Every 4 hours, PRN, # 100 tablet, Refills 0, Tot. Refills 0, Maintenance, for pain, 01/31/20 10:59:00 EDT, Route to Pharmacy Electronically, [facility]/pharmacy #[id number], 163, cm, 01/31/20 0:18:00 EDT, Height, 81.4, kg, 01/29/20 8:5... Start Date: 01/31/20 Status: Ordered lanolin topical - ointment See Instructions, PRN as needed for dry skin, 1 application Topically to bilateral nipples after ., # 60 Gm, 0 Refills, Maintenance, 02/05/20 12:20:00 EDT, Ointment, [facility]/pharmacy #[id number], 1 application Topically to bilateral nipples after b... Start Date: 02/05/20 Status: Ordered ParaGard intrauterine device See Instructions, bring to fire patroller appointment for insertion, # 1 each, 0 Refills, Maintenance, 02/17/20 14:03:00 EDT, [facility], bring to fire patroller appointment for insertion, 163, cm, 01/31/20 0:18:00 EDT, Height, 81.4, kg, 01/29/20 8... Start Date: 02/17/20 Status: Ordered AD oral tablet 1 tablet, By Mouth, Daily, # 90 tablet, 0 Refills, Maintenance, 12/10/19 17:10:00 EDT, Tablet, [facility]/pharmacy #[id number], 1 tablet By Mouth Daily, 163, cm, [...] ED. 4says she has a neurologist in [place] for migraines. 5Taking fioricet prn for this, [...]
--- OUTSIDE RECORDS SUMMARY | 2024-04-22 03:03 | XMS_ITS | Continuity of Care Document ---
Author Organization [facility] [employer] Address [address] [facility] [address], [address] [place] [address]- Care Team Providers Care Finish Mender Name Role Phone Sanford YIP, Shayne Hall Primary Care Physician Encounter [facility] Date(s): 09/12/19 - 09/22/19 [facility] [address] [place] [address]- Attending Physician: Seun Castaneda Admitting Physician: AdmSeun lane Referring Physician: AdmtrSeun Allergies, Adverse Reactions, Alerts Substance Reaction Severity Status NKA Active Immunizations Given and Recorded Vaccine Date Status Refusal Reason influenza virus vaccine, inactivated 08/09/19 Give n Medications acetaminophen/butalbital/caffeine 325 mg-50 mg-40 mg oral tablet 1 tablet, By Mouth, 2 times a day, PRN Migraine Headache, 325/40/50 take no more than twice per dayas needed for migraines, # 30 tablet, 1 Refills, Maintenance, 09/17/19 10:42:00 EST, [id number], 1 tablet By Mouth 2 times a day,PRN:Migraine H... Start Date: 09/17/19 Status: Ordered ProAir HFA 90 mcg/inh inhalation aerosol with adapter 2, puffs, Inhalation, 4 times a day, Refills 0, Maintenance, 06/26/19 14:13:29 EST Start Date: 06/26/19 Status: Ordered Zofran ODT 4 mg oral tablet, disintegrating 1 tablet = 4 mg, By Mouth, Every 12 hours, PRN as needed for nausea/vomiting, allow tablet to dissolve on tongue use sparingly, # 10 tablet, 0 Refills, Maintenance, 06/26/19 17:01:39 EST, DIS Tablet Start Date: 06/26/19 Stop Date: 07/06/19 Status: Ordered Problem List Condition Effective Dates [...] ED. 4says she has a neurologist in [place] for migraines. 5Taking fioricet prn for this, [...]
--- OUTSIDE RECORDS SUMMARY | 2024-04-22 03:03 | XMS_ITS | Continuity of Care Document ---
Author Organization [facility] Address [address] [address]- Care Team Providers Care Raking Machine Operator Name Role Phone Jihan Sierra NP Primary Care Physician [phone] Encounter [facility] Date(s): 05/25/23 - 07/21/23 [facility] [address] [address]- Attending Physician: Not on Staff, Attending MD Admitting Physician: Cierra Gibson CNM Referring Physician: Pamela Mckeon CNM Allergies, Adverse Reactions, Alerts No Known Allergies Immunizations Given and Recorded Vaccine Date Status Refusal Reason tetanus/diphtheria/pertussis, acel(Tdap) 07/20/23 Given tetanus/diphtheria/pertussis, acel(Tdap) 11/13/19 Given tetanus/diphtheria/pertussis, acel(Tdap) 04/29/10 Recorded [id number] 12y+ bivalent booster vax 08/10/22 Recorded SARS-CoV-2 [...] tablet, 0 Refills, Maintenance, 07/20/23 20:15:00 EST, [id number], 5, TAKE 1 TABLET BY MOUTH EVERY 4 HOURS NEEDEDFOR MIGRAINE HEADACHES, 162, cm, 07/20/23 11:32:00... Start Date: 07/20/23 Status: Ordered escitalopram 5 mg oral tablet 1 tablet, By Mouth, Daily, INSTR:1 DAILY FOR TWO WEEKS AND THEN REASSESSMENT FOR DOSE ADJUSTMENT, #30 tablet, 0 Refills, Maintenance, 06/21/23 11:05:00 EST, [facility], 162, cm, 05/25/23 11:20:00 EDT, Height, 91.4, kg, 05/25/23 11:20:00 EDT, Dry... Start Date: 06/21/23 Status: Ordered Flovent HFA 44 mcg/inh inhalation aerosol See Instructions, INHALE 2 PUFFS TWICE A DAY, # 10.6 each, 0 Refills, Maintenance, 07/12/23 18:32:00 EST, [facility], 162, cm, 05/25/23 11:20:00 EDT, Height, 91.4, kg, 05/25/23 11:20:00 EDT, DryWeight Start Date: 07/12/23 Status: Ordered Lexapro 10 mg oral tablet 1 tablet = 10 mg, By Mouth, Daily, # 30 tablet, 0 Refills, Maintenance, 07/20/23 11:35:00 EST, Tablet, [facility]/pharmacy #[id number], Partial fill upon patient request if the prescription is for a schedule II opioid drug., 162, cm, 07/20/23 11:32:00 EST, Height,... Start Date: 07/20/23 Stop Date: 08/19/23 Status: Ordered Pepcid 20 mg oral tablet 1 tablet = 20 mg, By Mouth, 2 times a day, PRN Dyspepsia, 0 Refills, Maintenance, 03/14/23 12:00:00EDT, Partial fill upon patient request if the prescription is for a schedule II opioid drug. Start Date: 03/14/23 Status: Ordered PNV Plus oral tablet 1 tablet, By Mouth, Daily, # 90 tablet, 1 Refills, Maintenance, 05/20/23 13:08:00 EDT, [facility]/pharmacy#0373, Partial fill upon patient request if the prescription is for a schedule II opioid drug., 1 tablet By Mouth Daily, 162, cm, 03/29/23 13:33:00 EDT... Start Date: 05/20/23 Status: Ordered Protonix 20 mg oral delayed release tablet 1 tablet = 20 mg, By Mouth, Daily, # 30 tablet, 2 Refills, Maintenance, 07/20/23 11:35:00 EST, CR Tablet, 162, cm, 07/20/23 11:32:00 EST, Height, 96.4, kg, 07/20/23 11:32:00 EST, Dry Weight Start Date: 07/20/23 Stop Date: 10/18/23 Status: Ordered Problem List Condition Confirmation Course [...] Reference Physician Member Role: PCP Address: Address: [address] [place] [address]- Care Team Related Persons Name: BING CARTER Address: home [address] [place] [address] Name: ROSALVA CLAIRE Address: [address] Address: [address] [address] Name: SANTO CLAIRE Address: home [address] [place] [address] Name: VALENTE WANG
--- OUTSIDE RECORDS SUMMARY | 2024-04-22 03:03 | XMS_ITS | Continuity of Care Document ---
Author Organization [facility] Address [address] [facility], [address] [place] [address]- Care Team Providers Care Learning And Development Intern Name Role Phone Rigo DICKSON, Jihan Primary Care Physician Encounter [facility] Date(s): 05/25/23 - 06/01/23 [facility] [address] [facility], [address]th [place] [address]- Attending Physician: Nelida Khoury MD Referring Physician: Ainsley Torres CNM Head Allergies, Adverse Reactions, Alerts No Known Allergies Immunizations Given and Recorded Vaccine Date Status Refusal Reason [id number] 12y+ bivalent booster vax 08/10/22 Recorded SARS-CoV-2 [...] B pediatric vaccine 98 Recorded Medications acetaminophen/butalbital/caffeine 300 mg-50 mg-40 mg oral capsule 1 capsule, By Mouth, Every 4 hours, PRN as needed, Use sparingly in for breakthrough migraine pain, # 30 capsule, 0 Refills, Maintenance, 05/25/23 17:54:00 EDT, Capsule, [facility]/pharmacy #[id number],Partial fill upon patient request if the prescripti... Start Date: 05/25/23 Status: Ordered albuterol CFC free 90 mcg/inh inhalation aerosol 180 mcg, 2, puffs, Inhalation, 4 times a day, PRN, # 6.7 Gm, Refills 2, Tot. Refills 2, Maintenance, 04/03/23 13:59:00 EDT, Inhaler, Route to Pharmacy Electronically, [id number], [facility]/pharmacy #[id number], 162, cm, 03/29/23 13:33:00... Start Date: [...] tablet, 8 Refills, Maintenance, 03/02/23 7:51:00 EDT, [id number], Partial fill upon patient request if th... Start Date: 03/02/23 Status: Ordered Flovent HFA 44 mcg/inh inhalation aerosol 2 puffs, Inhalation, 2 times a day, # 11 Gm, 0 Refills, Maintenance, 05/25/23 11:41:00 EDT, Aerosol, [id number], Partial fill upon patient request if the prescription is for a schedule II opioid drug., 162, cm, 05/25/23 11:20:00 EDT, Height, 9... Start Date: 05/25/23 Status: Ordered Lexapro 5 mg oral tablet 1 tablet = 5 mg, By Mouth, Daily, 1 daily for two weeks and then reassessment for dose adjustment, # 30 tablet, 0 Refills, Maintenance, 05/25/23 11:42:00 EDT, Tablet, [id number], Partial fillupon patient request if the prescription is for a s... Start Date: 05/25/23 Status: Ordered ondansetron 8 mg oral tablet 1 tablet = 8 mg, By Mouth, 3 times a day, # 30 tablet, 5 Refills, Maintenance, 03/09/23 19:12:00 EDT, Tablet, [id number], Partial fill upon patient request if the [...] in household: Yes entered on: 06/21/19 Sex Radiology * Event Display: PDC Detailed Anatomy Survey, Lvl 2 * Event Display: PDC Detailed Anatomy Survey, Lvl 2 Authored Date: [id number] OBSTETRICS REPORT PATIENT INFO: CMRN: [id number] BMRN: [id number] : [birth year] (22 yrs)(F) Name: RUSTY DIEZ Visit Date: 05/25/2023 10:49 am PERFORMED BY: Performed By: Jenna Pelletier RDMS Attending: Nelida Khoury MD Resident: ` Referred By: Ainsley Torres CNM Location: [address] INDICATIONS: M - BMI O99.21_ E66.01 Cervical length screening Z36.86 VITAL SIGNS: Weight (lb): 182 Height: 5'4 BMI: 31.24 EVALUATION: Num Of Fetuses: 1 Heart Rate(bpm): 141 Cardiac Activity: Present Presentation: Breech Placenta: Anterior Low-lying P. Cord Insertion: Normal Amniotic Fluid FRANCESCA FV: Within normal limits BIOMETRY: BPD: 47.3 mm G.Age: 20w 2d HC: 183.3 mm G.Age: 20w 5d AC: 152 mm G.Age: 20w 3d FL: 31.3 mm G.Age: 19w 5d HUM: 30.9 mm G.Age: 20w 2d CER: 21 mm G.Age: 20w 0d NFT: 4.8 mm LV: 5.7 mm CM: 6.4 mm CI: 68.1 % 70 - 86 FL/HC: 17.1 % 16.8 - 19.8 HC/AC: 1.21 1.09 - 1.39 FL/BPD: 66.2 % FL/AC: 20.6 % 20 - 24 Est. FW: 336 gm 0 lb 12 oz OB HISTORY: : 3 Term: 1 SAB: 1 Livin GESTATIONAL AGE: U/S Today: 20w 2d KELLY: 10/10/23 Best: 20w 2d Det. By: U/S Rani Goodrich KELLY: 10/10/23 (02/15/23) TARGETED ANATOMY: Central Nervous System Calvarium/Cranial V.: No anomalies seen Intracranial Floridalma: No anomalies seen Cavum: No anomalies seen Lateral Ventricles: No anomalies seen Choroid Plexus: No anomalies seen Cereb./Vermis: No anomalies seen Cisterna Magna: No anomalies seen Midline Falx: No anomalies seen Spine Cervical: No anomalies seen Thoracic: No anomalies seen Lumbar: No anomalies seen Sacral: No anomalies seen Head/Neck Lips: Intact upper lip Neck: No anomalies seen Nuchal Fold: No anomalies seen Palate: No anomalies seen Profile: No anomalies seen Orbits/Eyes: Both lenses seen Thorax Lungs: No anomalies seen 4 Chamber View: No anomalies seen Cardiac Rhythm: No anomalies seen Rt Outflow Tract: No anomalies seen Lt Outflow Tract: No anomalies seen Aortic Arch: No anomalies seen Ductal Arch: No anomalies seen SVC: No anomalies seen Cardiac Clifton: No anomalies seen Diaphragm: No anomalies seen 3 Vessel View: No anomalies seen IVC: No anomalies seen Abdomen Ventral Wall: No anomalies seen Cord Insertion: No anomalies seen (into placenta) Stomach: No anomalies seen Liver: No anomalies seen Lt Kidney: No anomalies seen Rt Kidney: No anomalies seen Bladder: No anomalies seen Bowel: No anomalies seen Extremities Lt Humerus: No anomalies seen Rt Humerus: No anomalies seen Lt Forearm: No anomalies seen Rt Forearm: No anomalies seen Lt Hand: No anomalies seen Rt Hand: No anomalies seen Lt Femur: No anomalies seen Rt Femur: No anomalies seen Lt Lower Leg: No anomalies seen Rt Lower Leg: No anomalies seen Lt Foot: No anomalies seen Rt Foot: No anomalies seen Other Umbilical Cord: 3-vessel Genitalia: Male CERVIX UTERUS ADNEXA: Cervix Length: 4.7 cm. Appears closed Left Ovary Appears normal Right Ovary Appears normal Cul De Sac No fluid seen Adnexa No anomalies noted Comment Vaginal scanning was done. COMMENTS: The detailed anatomy survey was unremarkable. The placenta is low-lying and 8.2mm from the internal os. Resolution is frequently seen in the 3rd trimester. delivery is recommended when the placental edge is <11 mm from the internal os. Conversely, if the distance is 11 mm or greater from the cervix a trial of labor can be attempted with increased surveillance for potential bleeding in labor. For placentas that are between 0-10 mm from the internal os, is recommended at 38 0/7 and 6/7 weeks. Delivery timing at 11 mm and greater is after 39 0/7 weeks in the absence of other indication for earlier delivery. RECOMMENDATIONS: Repeat placenta evaluation at 32 weeks. A transvaginal scan is recommended by [facility] guidelines in the setting of previous previa or low-lying placenta to ensure a vasa previa is not present, as this can be missed on abdominal imaging. Please schedule in the PDC so live scanning may be done with the [facility] if needed. Nelida Khoury MD Electronically Signed Final Report 05/25/2023 03:00 pm * Event Display: PDC Detailed Anatomy Survey, Lvl 2 Authored Date: Please click on pdf link to open report Patient Care team information Care Team Personnel Name: Jihan Sierra NP Position: Reference Physician Member Role: PCP Address: Address: [address] [place] [address]- Care Team Related Persons Name: BING CARTER Address: home [address] [place] [address] Name: ROSALVA CLAIRE Address: [address] Address: [address] Name: SANTO CLAIRE Address: home [address] [place] [address] Name: VALENTE WANG
--- OUTSIDE RECORDS SUMMARY | 2024-04-22 03:03 | XMS_ITS | Continuity of Care Document ---
Author Organization [facility] Address [address] [place] [address]- Care Team Providers Care Artificial Flowers Dyer Name Role Phone Shayne Christina MD Primary Care Physician Encounter [facility] Date(s): 07/23/19 - 07/23/[address] [address]- [facility] Attending Physician: Not on Staff, Attending MD Allergies, Adverse Reactions, Alerts Substance Reaction Severity Status NKA Active Medications ProAir HFA 90 mcg/inh inhalation aerosol with adapter 2, puffs, Inhalation, 4 times a day, Refills 0, Maintenance, 06/26/19 14:13:29 EST Start Date: 06/26/19 Status: Ordered promethazine 25 mg rectal suppository 1 supp = 25 mg, Rectally, Daily at bedtime, PRN as needed for nausea/vomiting, # 10 supp, 1 Refills, Maintenance, 06/26/19 17:02:26 EST, Suppository Start Date: 06/26/19 Stop Date: 07/16/19 Status: Ordered Unisom 25 mg oral tablet 1 tablet = 25 mg, By Mouth, Daily at bedtime, # 30 tablet, 0 Refills, Maintenance, 06/21/19 17:13:00 EST Start Date: 06/21/19 Status: Ordered Vitamin B6 25 mg oral tablet 1 tablet = 25 mg, By Mouth, 3 times a day, # 100 tablet, 0 Refills, Maintenance, 06/21/19 17:13:00 EST Start Date: 06/21/19 Status: Ordered Zofran ODT 4 mg oral [...] ED. 4says she has a neurologist in [place] for migraines. 5Taking fioricet prn for this, [...]
--- OUTSIDE RECORDS SUMMARY | 2024-04-22 03:03 | XMS_ITS | Continuity of Care Document ---
Author Organization [facility] Address [address] [place] [address]- Care Team Providers Care Cook'S Assistant Name Role Phone Jihan Sierra NP Primary Care Physician [phone] Encounter [facility] Date(s): 08/31/23 - 11/15/23 [facility] [address] [address] Attending Physician: Cierra Gibson CNM Admitting Physician: Cierra Gibson CNM Referring Physician: Lloyd Jones CNM Allergies, Adverse Reactions, Alerts No Known Allergies Immunizations Given and Recorded Vaccine Date Status Refusal Reason tetanus/diphtheria/pertussis, acel(Tdap) 07/20/23 Given tetanus/diphtheria/pertussis, acel(Tdap) 11/13/19 Given tetanus/diphtheria/pertussis, acel(Tdap) 04/29/10 Recorded [id number] 12y+ bivalent booster vax 08/10/22 Recorded SARS-CoV-2 [...] give 325mg per patient preference and re-dose [id number] within 4 hours, if needed. Patient should only receive a total of 650mg of Acetaminophen every 4 hours., # 30 tablet, Refills 0, Tot. Refills 0... Start Date: 10/16/23 Status: Ordered acetaminophen/butalbital/caffeine 325 mg-50 mg-40 mg oral tablet 1 tablet, By Mouth, Every 4 hours, PRN as needed, # 30 tablet, 0 Refills, Acute 12/07/23 14:15:00 EDT, 11/07/23 14:14:00 EDT, Tablet, [facility]/pharmacy #[id number], Partial fill upon patient request if the prescription is for a schedule II opioid drug., 1 tablet... Start Date: 11/07/23 Stop Date: 12/07/23 Status: Ordered albuterol CFC free 90 mcg/inh inhalation aerosol 180 mcg, 2, puffs, Inhalation, Every 4 hours, PRN, # 6.7 Gm, Refills 2, Tot. Refills 2, Maintenance, 10/16/23 9:28:00 EDT, Inhaler, Route to Pharmacy Electronically, [id number], [facility]/pharmacy #[id number], 163, cm, 10/16/23 9:08:00 E... Start Date: 10/16/23 Status: Ordered escitalopram 10 mg oral tablet 1 tablet, By Mouth, Daily, # 30 tablet, 0 Refills, Maintenance, 10/16/23 9:28:00 EDT, [facility]/pharmacy #207, 163, cm, 10/16/23 9:08:00 EDT, Height, 100.3, kg, 10/14/23 7:58:00 EDT, Dry Weight Start Date: 10/16/23 Status: Ordered Flovent HFA 44 mcg/inh inhalation aerosol See Instructions, INHALE 2 PUFFS TWICE A DAY, # 10.6 each, 0 Refills, Maintenance, 07/12/23 18:32:00 EST, [facility], 162, cm, 05/25/23 11:20:00 EDT, Height, 91.4, kg, 05/25/23 11:20:00 EDT, DryWeight Start Date: 07/12/23 Status: Ordered multivitamin, Multivitamins oral tablet, chewable 1 tablet, By Mouth, Daily, # 30 tablet, 3 Refills, Maintenance, 10/16/23 9:30:00 EDT, Chew Tablet, [facility]/pharmacy #[id number], Partial fill upon patient request if the prescription is for a schedule II opioid drug., 1 tablet By Mouth Daily, 163, cm, 10/16/23... Start Date: 10/16/23 Status: Ordered PNV Plus oral tablet 1 tablet, By Mouth, Daily, # 90 tablet, 1 Refills, Maintenance, 10/16/23 9:29:00 EDT, [facility]/pharmacy #[id number], Partial fill upon patient request if [...] Reference Physician Member Role: PCP Address: Address: [address] [place] [address]- Care Team Related Persons Name: BING CARTER Address: home [address] [place] [address] Name: ROSALVA CLAIRE Address: [address] Address: [address] [address] [place] Name: ALEXANDER CLAIRE Address: [address] Address: home [address] [place] [address] [place] Name: SANTO CLAIRE Address: home [address] [place] [address] Name: VALENTE WANG
--- OUTSIDE RECORDS SUMMARY | 2024-04-22 03:03 | XMS_ITS | Continuity of Care Document ---
Author Organization [facility] ter Address [address] [place] [address]- Care Team Providers Care Customer Technical Services Manager Name Role Phone Jhian Sierra NP Primary Care Physician [phone] Encounter [facility] [place] Date(s): 03/08/23 - 04/22/[address] [address]- Attending Physician: Nory Green CNM Admitting Physician: Nory Green CNM Referring Physician: Nory Green CNM Allergies, Adverse Reactions, Alerts No Known Allergies Immunizations Given and Recorded Vaccine Date Status Refusal Reason [id number] 12y+ bivalent booster vax 08/10/22 Recorded SARS-CoV-2 [...] 0 Refills, Maintenance, 04/03/23 13:59:00 EDT, Tablet, [facility]/pharmacy #[id number], Partial fill upon patient request if the prescription is for a sche... Start Date: 04/03/23 Status: Ordered albuterol CFC free 90 mcg/inh inhalation aerosol 180 mcg, 2, puffs, Inhalation, 4 times a day, PRN, # 6.7 Gm, Refills 2, Tot. Refills 2, Maintenance, 04/03/23 13:59:00 EDT, Inhaler, Route to Pharmacy Electronically, [id number], [facility]/pharmacy #[id number], 162, cm, 03/29/23 13:33:00... Start [...] tablet, 8 Refills, Maintenance, 03/02/23 7:51:00 EDT, [facility]/pharmacy #[id number], Partial fill upon patient request if th... Start Date: 03/02/23 Status: Ordered ondansetron 8 mg oral tablet 1 tablet = 8 mg, By Mouth, 3 times a day, # 30 tablet, 5 Refills, Maintenance, 03/09/23 19:12:00 EDT, Tablet, [facility]/pharmacy #[id number], Partial fill upon patient request if the [...] tablet, 11 Refills, Maintenance, 12/07/22 10:40:00 EDT, [facility]/pharmacy #[id number], Partial fill upon patient request [...] Reference Physician Member Role: PCP Address: Address: [address] [place] [address]- [place] Care Team Related Persons Name: BING CARTER Address: home [address] [place] [address] Name: ROSALVA CLAIRE Address: [id number] Address: [address] [address] [place] Name: SANTO CLAIRE Address: [address] [place] [address] Name: VALENTE WANG
--- OUTSIDE RECORDS SUMMARY | 2024-04-22 03:03 | XMS_ITS | Continuity of Care Document ---
Author Organization [facility] Address Unknown Care Team Providers Care Tape Calender Name Role Phone Sanford YIP, Shayne Hall Primary Care Physician [place] [facility] [place]/23/21 - 04/22/21 [facility] Allergies, Adverse Reactions, Alerts Substance Reaction Severity [...] tablet, 2 Refills, Maintenance, 02/06/20 13:40:00 EDT, [id number], 1 tablet ByMouth Every 4 hours,Instr:May [...] 11:34:00 EDT, Aerosol, Route to Pharmacy Electronically, [id number], [facility]/pharmacy #[id number], 163, cm, 11/13/19 16:13:00 EDT, Hei... Start Date: 11/25/19 Stop Date: 04/23/20 Status: Ordered Flovent HFA 110 mcg/inh inhalation aerosol 2 puffs, Inhalation, 2 times a day, # 12 Gm, 1 Refills, Maintenance, 12/02/19 0:58:00 EDT, Aerosol,[facility]/pharmacy #[id number], 163, cm, 11/27/19 15:36:00 EDT, Height, 78.1, kg, 11/13/19 16:13:00 EDT, Dry Weight Start Date: 12/02/19 Stop Date: 12/16/19 Status: Ordered fluconazole 150 mg oral tablet 1 tablet = 150 mg, By Mouth, Once, repeat dose if still having symptoms in 72 hours, # 2 tablet, 0 Refills, Soft Stop, 09/14/20 9:53:00 EST, Tablet, [facility]/pharmacy #[id number], Partial fill upon patient request if the prescription is for a schedule II opioid... Start Date: 09/14/20 Status: Ordered ibuprofen 200 mg oral tablet 400 mg, 2, tablet, By Mouth, Every 4 hours, PRN, # 100 tablet, Refills 0, Tot. Refills 0, Maintenance, for pain, 01/31/20 10:59:00 EDT, [id number] 163, cm, 01/31/20 0:18:00 EDT, Height, 81.4, kg, 01/29/20 8:5... Start Date: 01/31/20 Status: Ordered Mirena 52 mg intrauterine device See Instructions, 1 each Once, # 1 each, 0 Refills, Soft Stop, 03/10/20 14:06:00 EDT, [facility], 163, cm, 03/10/20 13:34:00 [...] ED. 4says she has a neurologist in [place] for migraines. 5Taking fioricet prn for this, [...]
--- OUTSIDE RECORDS SUMMARY | 2024-04-22 03:03 | XMS_ITS | Continuity of Care Document ---
Author Organization [facility] Address [address] [address]- Care Team Providers Care Sales Representative Business Courses Name Role Phone Jihan Sierra NP Primary Care Physician [phone] Encounter [facility] Date(s): 03/09/23 - 04/08/23 [facility] [address] [address]- Allergies, Adverse Reactions, Alerts No Known Allergies Immunizations Given and Recorded Vaccine Date Status Refusal Reason [id number] 12y+ bivalent booster vax 08/10/22 Recorded SARS-CoV-2 [...] 0 Refills, Maintenance, 04/03/23 13:59:00 EDT, Tablet, [facility]/pharmacy #[id number], Partial fill upon patient request if the prescription is for a sche... Start Date: 04/03/23 Status: Ordered albuterol CFC free 90 mcg/inh inhalation aerosol 180 mcg, 2, puffs, Inhalation, 4 times a day, PRN, # 6.7 Gm, Refills 2, Tot. Refills 2, Maintenance, 04/03/23 13:59:00 EDT, Inhaler, Route to Pharmacy Electronically, [id number], [facility]/pharmacy #[id number], 162, cm, 03/29/23 13:33:00... Start Date: [...] Refills, Maintenance, 03/09/23 19:12:00 EDT, Tablet, [id number], Partial fill upon patient request if the [...] Reference Physician Member Role: PCP Address: Address: [address] [place] [address]- [place] Care Team Related Persons Name: BING CARTER Address: home [address] [place] [address] Name: ROSALVA CLAIRE Address: Address: [address] [address] Name: SANTO CLAIRE Address: [address] [place] [address] Name: VALENTE WANG
--- OUTSIDE RECORDS SUMMARY | 2024-04-22 03:03 | XMS_ITS | Continuity of Care Document ---
Author Organization [facility] ter Address [address] [place] [address]- Care Team Providers Care Starter Mechanic Name Role Phone Sanford YIP, Shayne Hall Primary Care Physician [place] [facility] [place] - 08/07/[address] [address]- Encounter Diagnosis COVID-19(Final) - 08/07/21 Discharge Disposition: A-D/C Home Attending Physician: Antwan Slaughter MD Admitting Physician: Antwan Slaughter MD Referring Physician: Not on Staff, Referring MD Allergies, Adverse Reactions, Alerts Substance Reaction [...] tablet, 2 Refills, Maintenance, 02/06/20 13:40:00 EDT, [facility]/pharmacy #[id number], 1 tablet ByMouth Every 4 [...] 11:34:00 EDT, Aerosol, Route to Pharmacy Electronically, [id number], [id number] 163, cm, 11/13/19 16:13:00 EDT, Hei... Start Date: 11/25/19 Stop Date: 04/23/20 Status: Ordered Flovent HFA 110 mcg/inh inhalation aerosol 2 puffs, Inhalation, 2 times a day, # 12 Gm, 1 Refills, Maintenance, 12/02/19 0:58:00 EDT, [id number] 163, cm, 11/27/19 15:36:00 EDT, Height, 78.1, kg, 11/13/19 16:13:00 EDT, Dry Weight Start Date: 12/02/19 Stop Date: 12/16/19 Status: Ordered fluconazole 150 mg oral tablet 1 tablet = 150 mg, By Mouth, Once, repeat dose if still having symptoms in 72 hours, # 2 tablet, 0 Refills, Soft Stop, 09/14/20 9:53:00 EST, Tablet, [facility]/pharmacy #[id number], Partial fill upon patient request if the prescription is for a schedule II opioid... Start Date: 09/14/20 Status: Ordered ibuprofen 200 mg oral tablet 400 mg, 2, tablet, By Mouth, Every 4 hours, PRN, # 100 tablet, Refills 0, Tot. Refills 0, Maintenance, for pain, 01/31/20 10:59:00 EDT, Route to Pharmacy Electronically, [facility]/pharmacy #[id number], 163, cm, 01/31/20 0:18:00 EDT, Height, 81.4, kg, 01/29/20 8:5... Start Date: 01/31/20 Status: Ordered Mirena 52 mg intrauterine device See Instructions, 1 each Once, # 1 each, 0 Refills, Soft Stop, 03/10/20 14:06:00 EDT, [facility], 163, cm, 03/10/20 13:34:00 EDT, Height, 75.02, kg, 03/10/20 13:34:00 EDT, Dry Weight Start Date: 03/10/20 Status: Ordered Zofran 4 mg oral tablet 1 tablet = 4 mg, By Mouth, Every 8 hours, PRN Vomiting, # 20 tablet, 0 Refills, Maintenance, 08/07/21 3:25:00 EST, Tablet, [id number], Partial fill upon patient request if the [...] ED. 4says she has a neurologist in [place] for migraines. 5Taking fioricet prn for this, reports typically about 1-2x/week. 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 Referred to neuro but unable to see d/t insurance issues, so was just seeing pcp for this for now. Vital Signs Most recent to oldest [Reference Range]: 1 2 3 Oxygen Saturation [94-100 %] 99 % (08/07/21 3:38 AM) 99 % (08/07/21 1:22 AM) 96 % (08/06/21 10:54 PM) Pulse Rate [55-90 bpm] 108 bpm *H* (08/07/21 3:38 AM) 93 bpm *H* (08/07/21 1:22 AM) 109 bpm *H* (08/06/21 10:54 PM) Blood Pressure [90-138/55-84 mm Hg] 108/64mm Hg (08/07/21 3:38 AM) 103/49mm Hg (08/07/21 1:22 AM) 101/61mm Hg (08/06/21 10:54 PM) Respiratory Rate [16-30 br/min] 20 br/min (08/06/21 9:39 PM) Temperature [96.8-100.4 DegF] 98.2 DegF (08/07/21 3:38 AM) 98.3 DegF (08/07/21 1:22 AM) 99.2 DegF (08/06/21 10:54 PM) Mode of Delivery (Oxygen) Room air (08/07/21 3:38 AM) Room air (08/07/21 1:22 AM) Room air (08/06/21 10:54 PM) Blood pressure sites Arm, left (08/07/21 3:38 AM) Arm, right (08/07/21 1:22 AM) Arm, right (08/06/21 10:54 PM) Temperature Route Oral (08/07/21 3:38 AM) Oral (08/06/21 10:54 PM) Oral (08/06/21 9:39 PM) Social History Social History Type Response Smoking Status Never (less than 100 in lifetime); Tobacco user in household: Yes entered on: 06/21/19 Sex
--- OUTSIDE RECORDS SUMMARY | 2024-04-22 03:03 | XMS_ITS | Continuity of Care Document ---
Author Organization [facility] Address [address] [address]- Care Team Providers Care Key Carrier Name Role Phone Jihan Sierra NP Primary Care Physician [phone] Encounter [facility] Date(s): 03/31/23 - 04/30/23 [facility] [address] [address]- Allergies, Adverse Reactions, Alerts No Known Allergies Immunizations Given and Recorded Vaccine Date Status Refusal Reason [id number] 12y+ bivalent booster vax 08/10/22 Recorded SARS-CoV-2 [...] 0 Refills, Maintenance, 04/03/23 13:59:00 EDT, Tablet, [facility]/pharmacy #[id number], Partial fill upon patient request if the prescription is for a sche... Start Date: 04/03/23 Status: Ordered albuterol CFC free 90 mcg/inh inhalation aerosol 180 mcg, 2, puffs, Inhalation, 4 times a day, PRN, # 6.7 Gm, Refills 2, Tot. Refills 2, Maintenance, 04/03/23 13:59:00 EDT, Inhaler, Route to Pharmacy Electronically, [id number], [facility]/pharmacy #[id number], 162, cm, 03/29/23 13:33:00... Start Date: [...] Refills, Maintenance, 03/09/23 19:12:00 EDT, Tablet, [id number], Partial fill upon patient request if the [...] Reference Physician Member Role: PCP Address: Address: [address] [place] [address]- [place] Care Team Related Persons Name: BING CARTER Address: home [address] [place] [address] Name: ROSALVA CLAIRE Address: Address: [address] [address] Name: SANTO CLAIRE Address: [address] [place] [address] Name: VALENTE WANG
--- OUTSIDE RECORDS SUMMARY | 2024-04-22 03:03 | XMS_ITS | Continuity of Care Document ---
Author Organization [facility] Address [address] [place] [address]- Care Team Providers Care Break Up Worker Name Role Phone Sanford YIP, Shayne Hall Primary Care Physician Encounter [facility] [place] Date(s): 02/04/20 - 03/05/20 [facility] [address] [place] [address]- [facility] Allergies, Adverse Reactions, Alerts Substance Reaction Severity [...] 11:34:00 EDT, Aerosol, Route to Pharmacy Electronically, [id number], [facility]/pharmacy #1, 163, cm, 11/13/19 16:13:00 EDT, Hei... Start Date: 11/25/19 Stop Date: 04/23/20 Status: Ordered ferrous sulfate 325 mg oral tablet 1 tablet = 325 mg, By Mouth, Daily, # 30 tablet, 2 Refills, Maintenance, 11/14/19 13:10:00 EDT, [facility]/pharmacy #1, 163, cm, 11/13/19 16:13:00 EDT, Height, 78.1, kg, 11/13/19 16:13:00 EDT, Dry Weight Start Date: 11/14/19 Stop Date: 02/12/20 Status: Ordered Flovent HFA 110 mcg/inh inhalation aerosol 2 puffs, Inhalation, 2 times a day, # 12 Gm, 1 Refills, Maintenance, 12/02/19 0:58:00 EDT, Aerosol,[facility]/pharmacy #[id number], 163, cm, 11/27/19 15:36:00 EDT, Height, 78.1, kg, 11/13/19 16:13:00 EDT, Dry Weight Start Date: 12/02/19 Stop Date: 12/16/19 Status: Ordered ibuprofen 200 mg oral tablet 400 mg, 2, tablet, By Mouth, Every 4 hours, PRN, # 100 tablet, Refills 0, Tot. Refills 0, Maintenance, for pain, 01/31/20 10:59:00 EDT, Route to Pharmacy Electronically, [facility]/pharmacy #1, 163, cm, 01/31/20 0:18:00 EDT, Height, 81.4, kg, 01/29/20 8:5... Start Date: 01/31/20 Status: Ordered lanolin topical - ointment See Instructions, PRN as needed for dry skin, 1 application Topically to bilateral nipples after ., # 60 Gm, 0 Refills, Maintenance, 02/05/20 12:20:00 EDT, Ointment, [facility]/pharmacy #[id number], 1 application Topically to bilateral nipples after b... Start Date: 02/05/20 Status: Ordered ParaGard intrauterine device See Instructions, bring to director of digital marketing appointment for insertion, # 1 each, 0 Refills, Maintenance, 02/17/20 14:03:00 EDT, [facility], bring to director of digital marketing appointment for insertion, 163, cm, 01/31/20 0:18:00 EDT, Height, 81.4, kg, 01/29/20 8... Start Date: 02/17/20 Status: Ordered AD oral tablet 1 tablet, By Mouth, Daily, # 90 tablet, 0 Refills, Maintenance, 12/10/19 17:10:00 EDT, Tablet, [id number], 1 tablet By Mouth Daily, 163, [...] ED. 4says she has a neurologist in [place] for migraines. 5Taking fioricet prn for this, [...]
--- OUTSIDE RECORDS SUMMARY | 2024-04-22 03:03 | XMS_ITS | Continuity of Care Document ---
Author Organization [facility] [place] [address] Address [address] [place] [address]- Care Team Providers Care Clinical Medical Assistant Name Role Phone Jihan Sierra NP Primary Care Physician [phone] Encounter [facility] Date(s): 10/03/23 - 10/03/[address] [address] Discharge Disposition: A-D/C Home Attending Physician: Marion Alston MD Admitting Physician: Marion Alston MD Referring Physician: Marion Alston MD Allergies, Adverse Reactions, Alerts No Known Allergies Immunizations Given and Recorded Vaccine Date Status Refusal Reason tetanus/diphtheria/pertussis, acel(Tdap) 07/20/23 Given tetanus/diphtheria/pertussis, acel(Tdap) 11/13/19 Given tetanus/diphtheria/pertussis, acel(Tdap) 04/29/10 Recorded [id number] 12y+ bivalent booster vax 08/10/22 Recorded SARS-CoV-2 [...] HEADACHES, # 30 tablet, 0 Refills, Maintenance, 09/29/23 9:45:00 EST, [facility]/pharmacy #[id number], 1 tablet By Mouth Every 4 hours,PRN: NEEDED FOR MIGRAINE HEADACHES, 162, cm, 09/25/23 15:23:00 ES... Start Date: 09/29/23 Status: Ordered escitalopram 10 mg oral tablet 1 tablet, By Mouth, Daily, # 30 tablet, 0 Refills, Maintenance, 08/17/23 16:18:00 EST, [facility] STORE [id number], 162, cm, 08/03/23 11:00:00 EST, Height, 97.63, kg, 08/03/23 11:00:00 EST, Dry Weight Start Date: 08/17/23 Status: Ordered Flovent HFA 44 mcg/inh inhalation aerosol See Instructions, INHALE 2 PUFFS TWICE A DAY, # 10.6 each, 0 Refills, Maintenance, 07/12/23 18:32:00 EST, [id number], 162, cm, 05/25/23 11:20:00 EDT, Height, 91.4, kg, 05/25/23 11:20:00 EDT, DryWeight Start Date: 07/12/23 Status: Ordered PNV Plus oral tablet 1 tablet, By Mouth, Daily, # 90 tablet, 1 Refills, Maintenance, 05/20/23 13:08:00 EDT, [facility]/pharmacy#[id number], Partial fill upon patient request if [...] recent to oldest [Reference Range]: 1 2 Weight 99 kg (10/03/23 2:12 PM) 99 kg (10/03/23 2:10 PM) Oxygen Saturation [94-100 %] 99 % (10/03/23 2:39 PM) Blood Pressure [90-138/55-84 mm Hg] 113/ 64mm Hg (10/03/23 2:39 PM) Respiratory Rate [16-30 br/min] 18 br/mi n (10/03/23 2:39 PM) Temperature [96.8-100.4 DegF] 98.1 DegF (10/03/23 2:12 PM) 98.1 DegF (10/03/23 2:10 PM) Blood pressure sites Arm, left (10/03/23 2:39 PM) Temperature Route Oral (10/03/23 2:12 PM) Oral (10/03/23 2:10 PM) Dry Weight 99 kg (10/03/23 2:12 PM) 99 kg (10/03/23 2:10 PM) Weight Obtained Via Standing scale (10/03/23 2:12 PM) Standing scale (10/03/23 2:10 PM) Dry Weight Obtained Via Standing scale (10/03/23 2:10 PM) Social History Social History Type Response Smoking Status Never (less than 100 in lifetime); Tobacco user in household: Yes entered on: 06/21/19 Sex Note * Ana Layne RN: PERFORM Event Display: Discharge/Transfer Note Hospital Authored Date: [id number] Nursing Discharge Note Entered On: 10/03/2023 15:33 EST Performed On: 10/03/2023 15:33 EST by Ana Layne RN Nursing Discharge Note 2 Discharge Time : 10/03/2023 15:33 EST Discharge Level of Care at Discharge : Home/Custodial/Foster Care Patient Left Unit Via : Ambulatory Patient Accompanied Off Unit with : Significant other DC Instructions Provided & Signed by Pt : Yes Patient Understands D/C Instructions : Yes Patient Instructions Discharge Signed : Yes Did Pt have Specialty Bed or Wound Vac : No Ana Layne RN - 10/03/2023 15:33 EST * Ana Layne RN: PERFORM Event Display: Patient Education/Instruction Authored Date: [id number] Inpatient Adult Discharge Instructions. [address] [address] Name: RUSTY DEIZ : 2000?? Visit: 10/03/2023 13:56?? Current Date: 10/03/2023 15:22 ?? Account: [id number]?? Inpatient Adult Discharge Instructions We would like [...] and their families. Surveys are administered by [employer] ?? If further treatment with your primary care physician or another doctor is recommended, it is important for you to keep the appointment. Call your primary care physician or return to the Emergency Department immediately if your condition worsens, fails to improve, or new symptoms develop. If you need to find a doctor, you can call [facility] [employer] for a referral at [phone] or toll free at [phone]) or log in to [email or web address].. ?? [facility], in keeping with [facility] guidance, no longer requires face masks for [...] a health care dorian of your choosing. [employer] is a website that allows you to securely view your medical information including your hospital discharge summary, office visit summaries, medications and follow-up visits. You can also request appointments, renew medications, and request access to your medical information using a health care dorian of your choosing, or just ask a question. You can enroll at [email or web address] or register during your next office visit. You have been discharged from [facility], Patient Care Unit: [id number]??. If you have any questions regarding these instructions, including results of studies pending, afteryou leave, please call us and we will be happy to assist you 20/02. [facility] Your Care Team Attending Physician Marion Alston MD?? Consulting Providers Marion Alston MD?? Tests Performed Below is a partial list of the tests performed during your hospitalization. You may have had other tests and procedures not included in this list. Please discuss all test results with your provider. No tests performed during this visit.?? Primary Care Provider Jihan Sierra NP? Advance Directive Health Care Proxy on File Yes - Health Care Proxy Discharge Vitals Temperature: 98.1 DegF Weight: 99 kg Respiratory Rate: 18 br/min ?? Systolic Blood Pressure: 113 mm Hg ?? Diastolic Blood Pressure: 64 mm Hg ?? Oxygen Saturation: 99 % ?? Studies Pending All studies ordered during this hospital stay have been completed unless listed below. Please discuss all pending results with your provider listed above in these instructions. ?? No incomplete studies found?? What to do next Instructions From Your Doctor ?? Orders?? Scheduled Follow-Up Appointments Monday 3:50 PM EDT ?? With: Sosa Orona CNM Where: [facility] Non [address] [address]- Status: Pending Monday 3:50 PM EDT ?? With: Cierra Gibson CNM Where: [facility] Non [address] [address]- Status: Pending Discharge Medications RUSTY DIEZ :2000 Visit Date:10/03/2023 Medications: Please continue your medications until treatment is completed or stopped by your provider. Medications not listed below should be discontinued. Discuss any questions related to medications with your provider. What How Much When Instructions Next Dose Unchanged Acetaminophen/ Butalbital/ Caffeine (acetaminophen/ butalbital/ caffeine 325 mg-50 mg-40 mg oral tablet) 1 tab(s) Oral Every 4 hours as needed for NEEDED FOR MIGRAINE HEADACHES Unchanged Escitalopram (escitalopram 10 mg oral tablet) 1 tab(s) Oral Daily Unchanged Fluticasone (Flovent HFA 44 mcg/ inh inhalation aerosol) See instructions INHALE 2 PUFFS TWICE A DAY ?? Unchanged Multivitamin, (PNV Plus oral tablet) 1 tab(s) Oral Daily Unchanged Pantoprazole (Protonix 40 mg oral delayed release tablet) 1 tab(s) Oral Daily Prescription Given During Visit No new medications prescribed at time of discharge.?? Laboratory Results Below is a partial list of the most recent Laboratory test results done prior to this discharge. You may have had other tests and procedures not included in this list. Please discuss all test resultswith your provider. Allergies (NKA means No Known Allergies) NKA Problems Active Problems??(9) Asthma?? Depression with anxiety?? GERD (gastroesophageal reflux disease)?? History of recurrent UTIs?? Migraine with aura?? Obesity in ?? Persistent cough? Education Materials Below is the list of Educational Leaflet Providered with your Discharge Instructions. [employer] Patient Education - Kick Counts?? [employer] Patient Education - Recognizing Labor?? Valuables and Belongings I fully understand and agree that [facility] accepts no responsibility for all my personal [...] encouraged to send valuables and belongings home. ? Other Discharge Information ? Pulmonary Rehab Status?? [...] are strongly encouraged to quit. Please call [facility] [employer] Link at [phone] or [phone] ([phone]) or log in to [email or web address] for referrals to smoking cessation programs. ?? 290 Suicide & Crisis Lifeline is available 20/02 if you or someone you know needs to find a reason to keep living. By calling 496 you'll be connected to a skilled, trained counselor at a crisis center in your area. INPATIENT DISCHARGE INSTRUCTIONS SIGNATURE RUSTY CHU Location:[facility] Registration Date and Time:10/03/2023 13:56 EST Primary Care Physician: Jihan Sierra NP, Attending Physician: Marion Alston MD, I DIEZRUSTY, have received the above patient education materials/instructions and have verbalized understanding. If ambulance or transport services are being used I further acknowledge being given a choice of service. ?? If you need to contact me, please call me at this number: . Patient/Stationary Engineer Apprentice Name: Patient/Stationary Engineer Apprentice Signature: Relationship to Patient: Witness Name/Signature: Date: * Ana Layne RN: PERFORM Event Display: Patient Education Leaflets Authored Date: [id number] Kick Counts ?? [address] Kick Counts It???s normal to worry about your baby???s health. Generally, you will feel your baby start to movein your 2nd trimester at around 16 to 24 weeks. Getting to know the pattern of your baby's movements is one way to know what's normal for you and baby. This is called a kick count. Talk with your healthcare provider about kick counts and your specific situation. Always follow your provider's instructions. How to count kicks Here is just one way to do kick counts. Always follow your healthcare provider's instructions. Starting at 28 weeks, count your baby's movements daily. Time how long it takes you to feel 10 kicks, flutters, swishes, or rolls. Ideally, you want to feel at least 10 movements in 2 hours. You will likely feel 10 movements in less time than that. Here are tips for counting kicks: ??? Choose a time when the baby is active, such as after a meal.? Sit comfortably or lie on your side.? The first time the baby moves,??write down??the time.? Count each movement until the baby has moved?? 10??times. This can take from 20 minutes to 2??hours.? If you haven't felt 10 kicks by the end of the second hour, wait a few hours. Then try again. ??? Try to do it at the same time each day. ?? When to call your healthcare provider Follow your provider's instructions about when to call about your baby's movements. Don't hesitate to call if you have concerns. Call your healthcare provider?? right away??if: ??? You do a couple sets of kick counts during the day and your baby moves fewer than 10??times in??2??hours. ??? Your baby moves much less often than on the??days before. ??? You haven't felt your baby move all day. ?? Last Reviewed Date: 2022 ?? 5341-1291 [employer]. All rights reserved. This information is not intended as a substitute for professional medical care. Always follow your healthcare professional's instructions. ?? * Ana Layne RN: PERFORM Event Display: Patient Education Leaflets Authored Date: [id number] Recognizing Labor ?? [address] Recognizing Labor The beginning of labor is the beginning of . You???ll start to feel strong contractions. That???s when the muscles of your uterus tighten up to help push your baby out during . Yes, labor has likely started?? Signs of labor include: ??? Your contractions are getting stronger and more painful instead of weaker. You???ll likely feel them throughout your whole uterus. ??? Your contractions are regular. This means that you feel them about every 5 to 10 minutes. And they are getting closer together. ??? You have pink- colored or blood-streaked fluid from your vagina. ??? You feel that the baby has dropped lower in your pelvis? Your water breaks. It may be a gush or a slow trickle of clear fluid from your vagina. ?? No, it???s likely not real labor?? Signs of false labor include: ??? Your contractions aren???t regular or strong. ??? You feel the contractions only in your lower uterus. ??? Your contractions go away when you walk or change position. ??? Your contractions go away after drinking fluids. ?? When to call your healthcare provider Call your healthcare provider or clinic right away if you notice any of these signs: ??? Fluid fromyour vagina, with or without contractions. ??? Bleeding heavy enough that you need a sanitary pad. ??? You don???t feel your baby moving as much as before. ?? Note Contractions are timed by both of these measures: ??? The length of each contraction from its startto its finish. ??? How far apart the contractions are ???the time between the start of one contraction and the start of the next contraction. ?? Last Reviewed Date: 2022 ?? 9760-3949 [employer]. All rights reserved. This information is not intended as a substitute for professional medical care. Always follow your healthcare professional's instructions. ?? Patient Care team information Care Team Personnel Name: Jihan Sierra NP Position: Reference Physician Member Role: PCP Address: Address: [address] [place] [address]- Name: Ana Layne RN Position: [facility] OB RN Member Role: OB RN Care Team Related Persons Name: BING CARTER Address: home [address] [place] [address] Name: ROSALVA CLAIRE Address: [address] Address: home [address] [address] [place] Name: SANTO CLAIRE Address: home [address] [place] [address] Name: VALENTE WANG
--- OUTSIDE RECORDS SUMMARY | 2024-04-22 03:03 | XMS_ITS | Continuity of Care Document ---
[facility] Organization [facility] Address [address] [address]- Care Team Providers Care Tire Tester Name Role Phone Jihan Sierra NP Primary Care Physician Encounter [facility] Date(s): 08/18/23 - 09/17/23 [facility] [address] [address]- Allergies, Adverse Reactions, Alerts No Known Allergies Immunizations Given and Recorded Vaccine Date Status Refusal Reason tetanus/diphtheria/pertussis, acel(Tdap) 07/20/23 Given tetanus/diphtheria/pertussis, acel(Tdap) 11/13/19 Given tetanus/diphtheria/pertussis, acel(Tdap) 04/29/10 Recorded [id number] 12y+ bivalent booster vax 08/10/22 Recorded SARS-CoV-2 [...] HEADACHES, # 30 tablet, 0 Refills, Maintenance, 09/01/23 9:12:00 EST, [facility], 5, TAKE 1 TABLET BY MOUTH EVERY 4 HOURS NEEDED FOR MIGRAINE HEADACHES, 162, cm, 08/31/23 10:40:00 E... Start Date: 09/01/23 Status: Ordered clotrimazole 1% vaginal cream with applicator 1 application, Vaginally, Daily at bedtime, for 7 days, # 45 Gm, 0 Refills, Acute 09/22/23 23:09:00EST, 09/15/23 23:09:00 EST, Cream, [facility]/pharmacy #6363, Partial fill upon patient request if the prescription is for a schedule II opioid drug., 1 appli... Start Date: 09/15/23 Stop Date: 09/22/23 Status: Ordered escitalopram 10 mg oral tablet 1 tablet, By Mouth, Daily, # 30 tablet, 0 Refills, Maintenance, 08/17/23 16:18:00 EST, [facility], 162, cm, 08/03/23 11:00:00 EST, Height, 97.63, kg, 08/03/23 11:00:00 EST, Dry Weight Start Date: 08/17/23 Status: Ordered Flovent HFA 44 mcg/inh inhalation aerosol See Instructions, INHALE 2 PUFFS TWICE A DAY, # 10.6 each, 0 Refills, Maintenance, 07/12/23 18:32:00 EST, [facility], 162, cm, 05/25/23 11:20:00 EDT, Height, 91.4, [...] tablet, 1 Refills, Maintenance, 05/20/23 13:08:00 EDT, [facility]/pharmacy#0373, Partial fill upon patient request if [...] Physician Member Role: PCP Address: Address: [address] [place] [address]- Care Team Related Persons Name: BING CARTER Address: home [address] [place] [address] Name: ROSALVA CLAIRE Address: [address] Address: home [address] [address] [place] Name: SANTO CLAIRE Address: home [address] [place] [address] Name: VALENTE WANG
--- OUTSIDE RECORDS SUMMARY | 2024-04-22 03:03 | XMS_ITS | Continuity of Care Document ---
Author Organization [facility] Address [address] [place] [address]- Care Team Providers Care Parts Product Analyst Name Role Phone Shayne Christina MD Primary Care Physician Encounter [facility] [place] Date(s): 02/20/23 - 03/22/23 [facility] and [address] [email or web address]] Allergies, Adverse Reactions, Alerts No Known Allergies Immunizations Given and Recorded Vaccine Date Status Refusal Reason tetanus/diphtheria/pertussis, acel(Tdap) 11/13/19 Given influenza virus vaccine, inactivated 08/09/19 Give n Medications albuterol CFC free 90 mcg/inh inhalation aerosol 2, puffs, Inhalation, 4 times a day, PRN, # 75 Gm, Refills 0, Maintenance, 12/23/22 19:49:00 EDT, Aerosol Start Date: 12/23/22 Status: Ordered Benadryl 25 mg oral tablet 25 mg, By Mouth, Every 4 hours, # 24 tablet, 3 Refills, Maintenance Start Date: 03/02/23 Status: Ordered Butalbital PRN Headache, 0 Refills, Maintenance, 03/14/23 12:03:00 EDT, Partial fill upon patient request if the prescription is for a schedule II opioid drug. Start Date: 03/14/23 Status: Ordered doxylamine 25 mg oral tablet 1 tablet = 25 mg, By Mouth, Daily, Take one tablet before bed. May take additional tablet in the morning if nausea still persistent, # 60 tablet, 8 Refills, Maintenance, 03/02/23 7:51:00 EDT, [facility]/pharmacy #[id number], Partial fill upon patient request if th... Start Date: 03/02/23 Status: Ordered ondansetron 8 mg oral tablet 1 tablet = 8 mg, By Mouth, 3 times a day, # 30 tablet, 5 Refills, Maintenance, 03/09/23 19:12:00 EDT, Tablet, [facility]/pharmacy #[id number], Partial fill upon patient request if the [...] tablet, 11 Refills, Maintenance, 12/07/22 10:40:00 EDT, [facility]/pharmacy #[id number], Partial fill upon patient request if the prescription is for a schedule II opioid dr... Start Date: 12/07/22 Stop Date: 12/02/23 Status: Ordered promethazine 25 mg rectal suppository 1 supp = 25 mg, Rectally, Every 4 hours, PRN for nausea/vomiting, # 12 supp, 1 Refills, Maintenance, 02/18/23 0:41:00 EDT, Suppository, [facility]/pharmacy #[id number], Partial fill upon patient request if the prescription is for a schedule II opioid drug., 163, c... Start Date: 02/18/23 Status: Ordered promethazine 25 mg rectal suppository 1 supp = 25 mg, Rectally, Every 4 hours, PRN for nausea/vomiting, # 12 supp, 0 Refills, Maintenance, 02/20/23 21:40:00 EDT, Suppository, [facility]/pharmacy #[id number], Partial fill upon patient request if the prescription is for a schedule II opioid drug., 163,... Start Date: 02/20/23 Status: Ordered pyridoxine 25 mg oral tablet 1 tablet = 25 mg, By Mouth, 3 times a day, PRN Nausea & Vomiting, # 100 tablet, 8 Refills, Maintenance, 03/02/23 7:51:00 EDT, [facility]/pharmacy #[id number], Partial fill upon patient request if the prescription is for a schedule II opioid drug., 162, cm, 2... Start Date: 03/02/23 Status: Ordered Reglan 10 mg oral tablet 1 tablet = 10 mg, By Mouth, 3 times a day, PRN Nausea & Vomiting, Do NOT take at same time as Phenergan 30 minutes before meals and at bedtime, # 12 tablet, 5 Refills, Maintenance, 03/02/23 7:51:00 EDT, [facility]/pharmacy #[id number], Partial fill upon patient r... Start Date: 03/02/23 Status: Ordered Problem List Condition Confirmation Course Effective Dates Status Health St atus Informant Asthma 1 Confirmed Active History of depression 2, 3 Confirmed Active History of recurrent UTIs 4, 5 Confirmed Active Hyperemesis gravidarum Confirmed Active Migraine 6, 7 Confirmed Active BMI 37.0, pre- - obese Confirmed Active 1Albuterol prn (acts up mainly in winter time). 2Hx of PTSD, took sertraline in past but states I'm better now . 3As child, saw therapist (no meds) but improved/went away. Now in feeling down and a little depressed. 4None in current as of yet per pt. 5Most recent uti couple months ago , cannot remember when. Seen in ED. 6says she has a neurologist in [place] for migraines. 7Taking fioricet prn for this, reports typically about [...] Care team information Care Team Personnel Name: Shayne Christina MD Position: S Outreach Member Role: PCP Address: Address: [address] [place] [address]- Care Team Related Persons Name: RAULBING Address: home [address] [place] [address] Name: ROSALVA CLAIRE Address: [address] Address: [address] [address] Name: SANTO CLAIRE Address: [address] [place] [address] Name: VALENTE WANG
--- OUTSIDE RECORDS SUMMARY | 2024-04-22 03:03 | XMS_ITS | Continuity of Care Document ---
Author Organization [facility] [employer] Address [address] [place] [address], [address]t [place] [address]- Care Team Providers Care Telescope Operator Name Role Phone Shayne Christina MD Primary Care Physician [id number] Date[facility]s): [facility]22 - 03/01/23 [facility] [employer] [address] [facility], [address]th [place], [place] [address] Attending Physician: Nelida Khoury MD Referring Physician: Shayne Christina MD Allergies, Adverse Reactions, Alerts No Known [...] 24hours., # 15 tablet, 2 Refills, Maintenance, 02/21/23 14:04:00 EDT, [facility]/pharmacy #[id number], 1 tablet ByMouth Every 4 hours,Instr:May repeat dose in 4 hour... Start Date: 02/21/23 Status: Ordered albuterol CFC free 90 mcg/inh inhalation aerosol 2, puffs, Inhalation, 4 times a day, PRN, # 75 Gm, Refills 0, Maintenance, 12/23/22 19:49:00 EDT, Aerosol Start Date: 12/23/22 Status: Ordered doxylamine 25 mg oral tablet 1 tablet = 25 mg, By Mouth, Daily, Take one tablet before bed. May take additional tablet in the morning if nausea still persistent, # 60 tablet, 8 Refills, Maintenance, 02/13/23 9:10:00 EDT, [facility]/pharmacy #[id number], Partial fill upon patient request if th... Start Date: 02/13/23 Status: Ordered ondansetron 4 mg oral tablet, disintegrating 1 tablet = 4 mg, By Mouth, 2 times a day, PRN Nausea & Vomiting, # 12 tablet, 3 Refills, Maintenance, 02/13/23 9:10:00 EDT, Tablet, [facility]/pharmacy #[id number], Partial fill upon patient request if the prescription is for a schedule II opioid drug., 163, cm, 0... Start Date: 02/13/23 Status: Ordered PNV Select oral tablet 1 tablet, By Mouth, Daily, Please prescribe PNVs that are covered by pt's insurance., # 30 tablet, 11 Refills, Maintenance, 12/07/22 10:40:00 EDT, [facility]/pharmacy #[id number], Partial fill upon patient request if the prescription is for a schedule II opioid dr... Start Date: 12/07/22 Stop Date: 12/02/23 Status: Ordered promethazine 25 mg rectal suppository 1 supp = 25 mg, Rectally, Every 4 hours, PRN for nausea/vomiting, # 12 supp, 1 Refills, Maintenance, 02/18/23 0:41:00 EDT, Suppository, [facility]/pharmacy #[id number], Partial fill upon patient request if the prescription is for a schedule II opioid drug., 163, c... Start Date: 02/18/23 Status: Ordered promethazine 25 mg rectal suppository 1 supp = 25 mg, Rectally, Every 4 hours, PRN for nausea/vomiting, # 12 supp, 0 Refills, Maintenance, 02/20/23 21:40:00 EDT, Suppository, [facility]/pharmacy #[id number], Partial fill upon patient request if the prescription is for a schedule II opioid drug., 163,... Start Date: 02/20/23 Status: Ordered pyridoxine 25 mg oral tablet 1 tablet = 25 mg, By Mouth, 3 times a day, PRN Nausea & Vomiting, # 100 tablet, 8 Refills, Maintenance, 02/13/23 9:10:00 EDT, [facility]/pharmacy #[id number], Partial fill upon patient request if the prescription is for a schedule II opioid drug., 163, cm, 05/26/2... Start Date: 02/13/23 Status: Ordered Reglan 10 mg oral tablet 1 tablet = 10 mg, By Mouth, 3 times a day, PRN Nausea & Vomiting, Do NOT take at same time as Phenergan 30 minutes before meals and at bedtime, # 12 tablet, 5 Refills, Acute 03/14/23 0:44:00 EDT,02/18/23 0:43:00 EDT, [facility]/pharmacy #[id number], Partial fill... Start Date: 02/18/23 Stop Date: 03/14/23 Status: Ordered Problem List Condition Confirmation Course Effective Dates Status Health St atus Informant Asthma 1 Confirmed Active History of depression 2 Confirmed Active History of recurrent UTIs 3 Confirmed Active Hyperemesis gravidarum Confirmed Active Migraine 4, 5 Confirmed Active Nausea/vomiting in Confirmed Active Obese class I Confirmed Active Confirmed Active 1Albuterol prn (acts up mainly in winter time). 2As child, saw therapist (no meds) but improved/went away. Now in feeling down and a little depressed. 3Most recent uti couple months ago , cannot remember when. Seen in ED. 4says she has a neurologist in [place] for migraines. 5Taking fioricet prn for this, [...] Team Personnel Name: Shayne Christina MD Position: [facility] Outreach Member Role: PCP Address: Address: [address] [place] [address]- [place] Care Team Related Persons Name: BING CARTER Address: home [address] [place] [address] Name: ROSALVA CLAIRE Address: Address: [address] [address] [place] Name: SANTO CLAIRE Address: home [address] [place] [address] Name: VALENTE WANG
--- OUTSIDE RECORDS SUMMARY | 2024-04-22 03:03 | XMS_ITS | Continuity of Care Document ---
Author Organization [facility] Address Unknown Care Team Providers Care Director Business Systems Name Role Phone Shayne Christina MD Primary Care Physician Encounter [facility] Date(s): 06/14/21 - 07/14/21 [facility] Attending Physician: AdmSeun lane Admitting Physician: Admtr, Dieter8 Referring Physician: Admtr, Ar8 Allergies, Adverse Reactions, Alerts Substance Reaction Severity [...] tablet, 2 Refills, Maintenance, 02/06/20 13:40:00 EDT, [facility]/pharmacy #[id number], 1 tablet ByMouth Every 4 [...] 11:34:00 EDT, Aerosol, Route to Pharmacy Electronically, [id number], [facility]/pharmacy #[id number], 163, cm, 11/13/19 16:13:00 EDT, Hei... Start Date: 11/25/19 Stop Date: 04/23/20 Status: Ordered Flovent HFA 110 mcg/inh inhalation aerosol 2 puffs, Inhalation, 2 times a day, # 12 Gm, 1 Refills, Maintenance, 12/02/19 0:58:00 EDT, [id number] 163, cm, 11/27/19 15:36:00 EDT, Height, 78.1, kg, 11/13/19 16:13:00 EDT, Dry Weight Start Date: 12/02/19 Stop Date: 12/16/19 Status: Ordered fluconazole 150 mg oral tablet 1 tablet = 150 mg, By Mouth, Once, repeat dose if still having symptoms in 72 hours, # 2 tablet, 0 Refills, Soft Stop, 09/14/20 9:53:00 EST, Tablet, [facility]/pharmacy #[id number], Partial fill upon patient request if the prescription is for a schedule II opioid... Start Date: 09/14/20 Status: Ordered ibuprofen 200 mg oral tablet 400 mg, 2, tablet, By Mouth, Every 4 hours, PRN, # 100 tablet, Refills 0, Tot. Refills 0, Maintenance, for pain, 01/31/20 10:59:00 EDT, Route to Pharmacy Electronically, [facility]/pharmacy #1, 163, cm, 01/31/20 0:18:00 EDT, Height, 81.4, kg, 01/29/20 8:5... Start Date: 01/31/20 Status: Ordered Mirena 52 mg intrauterine device See Instructions, 1 each Once, # 1 each, 0 Refills, Soft Stop, 03/10/20 14:06:00 EDT, [facility], 163, cm, 03/10/20 13:34:00 EDT, [...] ED. 4says she has a neurologist in [place] for migraines. 5Taking fioricet prn for this, [...]
--- OUTSIDE RECORDS SUMMARY | 2024-04-22 03:03 | XMS_ITS | Continuity of Care Document ---
Author Organization [facility] Address [address] [place] [address]- Care Team Providers Care Medication Care Manager Name Role Phone Jihan Sierra NP Primary Care Physician [phone] Encounter [facility] Date(s): 12/28/23 - 01/27/24 [facility] [address] [address] Attending Physician: Seun Castaneda Admitting Physician: Seun Castaneda Referring Physician: AdmtrSeun Allergies, Adverse Reactions, Alerts No Known Allergies Immunizations Given and Recorded Vaccine Date Status Refusal Reason tetanus/diphtheria/pertussis, acel(Tdap) 07/20/23 Given tetanus/diphtheria/pertussis, acel(Tdap) 11/13/19 Given tetanus/diphtheria/pertussis, acel(Tdap) 04/29/10 Recorded [id number] 12y+ bivalent booster vax 08/10/22 Recorded SARS-CoV-2 [...] 9:28:00 EDT, Inhaler, Route to Pharmacy Electronically, [id number], [facility]/pharmacy #[id number], 163, cm, 10/16/23 9:08:00 [...] each, 0 Refills, Maintenance, 07/12/23 18:32:00 EST, [facility] STORE [id number], 162, cm, 05/25/23 11:20:00 EDT, Height, 91.4, [...] Reference Physician Member Role: PCP Address: Address: [address] [place] [address]- Care Team Related Persons Name: BING CARTER Address: home [address] [place] [address] Name: ROSALVA CLAIRE Address: [address] Address: [address] [address] [place] Name: ALEXANDER CLAIRE Address: [address] Address: home [address] [place] [address] [place] Name: SANTO CLAIRE Address: [address] [place] [address] Name: VALENTE WANG
--- OUTSIDE RECORDS SUMMARY | 2024-04-22 03:03 | XMS_ITS | Continuity of Care Document ---
Author Organization [facility] Address [address] [address]- Care Team Providers Care Detasseling Crew Supervisor Name Role Phone Shayne Christina MD Primary Care Physician Encounter [facility] Date(s): 11/13/19 - 01/09/20 [facility] [address] [address]- [facility] Attending Physician: Not on Staff, Attending MD Admitting Physician: Coty Acevedo MD Referring Physician: Yanely Haque CNM Allergies, Adverse Reactions, Alerts Substance Reaction Severity Status NKA Active Immunizations Given and Recorded Vaccine Date Status Refusal Reason tetanus/diphtheria/pertussis, acel(Tdap) 11/13/19 Given influenza virus vaccine, inactivated 08/09/19 Give n Medications acetaminophen/butalbital/caffeine 325 mg-50 mg-40 mg oral tablet See Instructions, TAKE 1 TABLET 2 TIMES A DAY, NEEDED :MIGRAINE TAKE NO MORE THAN TWICE PER DAY, # 30 tablet, 1 Refills, Acute, [facility] STORE [id number], 45, TAKE 1 TABLET 2 TIMES A DAY, NEEDED :MIGRAINE TAKE NO MORE THAN TWICE PER DAY, 163, cm, 11/27/19 1... Start Date: 12/17/19 Status: Ordered Aerochamber See Instructions, # 1 [...] 11:34:00 EDT, Aerosol, Route to Pharmacy Electronically, [id number], [facility]/pharmacy #[id number], 163, cm, 11/13/19 16:13:00 EDT, Hei... Start Date: 11/25/19 Stop Date: 04/23/20 Status: Ordered ferrous sulfate 325 mg oral tablet 1 tablet = 325 mg, By Mouth, Daily, # 30 tablet, 2 Refills, Maintenance, 11/14/19 13:10:00 EDT, [facility]/pharmacy #[id number], 163, cm, 11/13/19 16:13:00 EDT, Height, 78.1, kg, 11/13/19 16:13:00 EDT, Dry Weight Start Date: 11/14/19 Stop Date: 02/12/20 Status: Ordered Flovent HFA 110 mcg/inh inhalation aerosol 2 puffs, Inhalation, 2 times a day, # 12 Gm, 1 Refills, Maintenance, 12/02/19 0:58:00 EDT, Aerosol,[facility]/pharmacy #1, 163, cm, 11/27/19 15:36:00 EDT, Height, 78.1, kg, 11/13/19 16:13:00 EDT, Dry Weight Start Date: 12/02/19 Stop Date: 12/16/19 Status: Ordered Pepcid 20 mg oral tablet 1 tablet = 20 mg, By Mouth, Daily, # 30 tablet, 5 Refills, Maintenance, 12/25/19 14:05:00 EDT, Tablet, [facility]/pharmacy #[id number], 163, cm, 12/25/19 13:49:00 EDT, Height, 79, kg, 12/25/19 13:49:00 EDT, Dry Weight Start Date: 12/25/19 Status: Ordered AD oral tablet 1 tablet, By Mouth, Daily, # 90 tablet, 0 Refills, Maintenance, 12/10/19 17:10:00 EDT, Tablet, [facility]/pharmacy #207, 1 tablet By Mouth Daily, 163, cm, 11/27/19 15:36:00 EDT, Height, 78.1, kg, 11/13/19 16:13:00 EDT, Dry Weight Start Date: 12/10/19 Status: Ordered promethazine 25 mg rectal suppository 1 supp = 25 mg, Rectally, Daily at bedtime, PRN as needed for nausea/vomiting, # 12 supp, 1 Refills, Maintenance, 11/21/19 19:51:00 EDT, Suppository, [facility]/pharmacy #[id number], 163, cm, 11/13/19 16:13:00 EDT, Height, 78.1, kg, 11/13/19 16:13:00 EDT, Dry Weight Start Date: 11/21/19 Status: Ordered Zantac 150 oral tablet 1 tablet = 150 mg, By Mouth, Daily at bedtime, # 90 tablet, 0 Refills, Maintenance, 12/10/19 17:08:00 EDT, Tablet, [facility]/pharmacy #[id number], 163, cm, 11/27/19 15:36:00 EDT, Height, 78.1, kg, 11/13/19 16:13:00 EDT, Dry Weight Start Date: 12/10/19 Status: Ordered Zofran 4 mg oral tablet 1 tablet = 4 mg, By Mouth, Every 8 hours, PRN Nausea & Vomiting, # 10 tablet, 0 Refills, Maintenance, 12/02/19 0:55:00 EDT, Tablet, [facility]/pharmacy #[id number], 163, cm, 11/27/19 15:36:00 EDT, Height, 78.1, kg, 11/13/19 16:13:00 EDT, Dry Weight Start Date: 12/02/19 Stop Date: 12/05/19 Status: Ordered Problem List Condition Effective Dates [...] ED. 4says she has a neurologist in [place] for migraines. 5Taking fioricet prn for this, [...]
--- OUTSIDE RECORDS SUMMARY | 2024-04-22 03:03 | XMS_ITS | Continuity of Care Document ---
Author Organization [facility] Address [address] [place] [address]- Care Team Providers Care Customer Service Receptionist Name Role Phone Sanford YIP, Shayne Hall Primary Care Physician Encounter [facility] Date(s): 08/24/20 - 09/23/20 [facility] [address] [address]- Allergies, Adverse Reactions, Alerts Substance Reaction Severity [...] tablet, 2 Refills, Maintenance, 02/06/20 13:40:00 EDT, [facility]/pharmacy #[id number], 1 tablet ByMouth Every 4 hours,Instr:May [...] 11:34:00 EDT, Aerosol, Route to Pharmacy Electronically, [id number], [facility]/pharmacy #[id number], 163, cm, 11/13/19 16:13:00 EDT, Hei... Start Date: 11/25/19 Stop Date: 04/23/20 Status: Ordered Flovent HFA 110 mcg/inh inhalation aerosol 2 puffs, Inhalation, 2 times a day, # 12 Gm, 1 Refills, Maintenance, 12/02/19 0:58:00 EDT, [id number] 163, cm, 11/27/19 15:36:00 EDT, Height, 78.1, kg, 11/13/19 16:13:00 EDT, Dry Weight Start Date: 12/02/19 Stop Date: 12/16/19 Status: Ordered fluconazole 150 mg oral tablet 1 tablet = 150 mg, By Mouth, Once, repeat dose if still having symptoms in 72 hours, # 2 tablet, 0 Refills, Soft Stop, 09/14/20 9:53:00 EST, Tablet, [facility]/pharmacy #[id number], Partial fill upon patient request if the prescription is for a schedule II opioid... Start Date: 09/14/20 Status: Ordered ibuprofen 200 mg oral tablet 400 mg, 2, tablet, By Mouth, Every 4 hours, PRN, # 100 tablet, Refills 0, Tot. Refills 0, Maintenance, for pain, 01/31/20 10:59:00 EDT, Route to Pharmacy Electronically, [facility]/pharmacy #[id number], 163, cm, 01/31/20 0:18:00 EDT, Height, 81.4, kg, 01/29/20 8:5... Start Date: 01/31/20 Status: Ordered Mirena 52 mg intrauterine device See Instructions, 1 each Once, # 1 each, 0 Refills, Soft Stop, 03/10/20 14:06:00 EDT, [facility], 163, cm, 03/10/20 13:34:00 [...] ED. 4says she has a neurologist in [place] for migraines. 5Taking fioricet prn for this, [...]
--- OUTSIDE RECORDS SUMMARY | 2024-04-22 03:03 | XMS_ITS | Continuity of Care Document ---
Author Organization [facility] Address [address] [address]- Care Team Providers Care Head Sawyer Name Role Phone Shayne Christina MD Primary Care Physician Encounter [facility] Date(s): 08/23/22 - 09/22/22 [facility] [address] [address]- Attending Physician: Seun Castaneda Admitting Physician: Seun [...] tablet, 2 Refills, Maintenance, 02/06/20 13:40:00 EDT, [facility]/pharmacy #[id number], 1 tablet ByMouth Every 4 hours,Instr:May repeat dose in 4 hour... Start Date: 02/06/20 Status: Ordered Aerochamber See Instructions, # 1 kit, Refills 0, Tot. Refills 0, Maintenance, To use with flovent, 12/02/19 0:59:00 EDT, Supply, 163, cm, 11/27/19 15:36:00 EDT, Height, 78.1, kg, 11/13/19 16:13:00 EDT, Dry Weight Start Date: 12/02/19 Status: Ordered fluconazole 150 mg oral tablet 1 tablet = 150 mg, By Mouth, Once, repeat dose if still having symptoms in 72 hours, # 2 tablet, 0 Refills, Soft Stop, 08/23/22 16:16:00 EST, Tablet, [facility]/pharmacy #[id number], Partial fill upon patient request if the prescription is for a schedule II opioid... Start Date: 08/23/22 Status: Ordered Multivitamins with Folic Acid 0.8 mg oral tablet 1 tablet, By Mouth, Daily, # 90 tablet, 3 Refills, Maintenance, 08/23/22 18:03:00 EST, [facility]/pharmacy#0373, Partial fill upon patient [...] ED. 4says she has a neurologist in [place] for migraines. 5Taking fioricet prn for this, [...] Outreach Member Role: PCP Address: Address: [address] [place] [address]- Care Team Related Persons Name: RAULMALIABING Address: home [address] [place] [address] Name: ROSALVA CLAIRE Address: [address] Address: [address] [place] [address] Name: SANTO CLAIRE Address: home [address] [place] [address] Name: VALENTE WANG
--- OUTSIDE RECORDS SUMMARY | 2024-04-22 03:03 | XMS_ITS | Continuity of Care Document ---
Author Organization [facility] Address [address] [address]- Care Team Providers Care Deck And Hull Assembler Name Role Phone Shayne Christina MD Primary Care Physician [facility] Date(s): 04/30/20 - 05/30/20 [facility] [address] [address]- [facility] Attending Physician: Seun Castaneda Admitting Physician: Seun [...] tablet, 2 Refills, Maintenance, 02/06/20 13:40:00 EDT, [facility]/pharmacy #[id number], 1 tablet ByMouth Every [...] 11:34:00 EDT, Aerosol, Route to Pharmacy Electronically, [id number], [facility]/pharmacy #1, 163, cm, 11/13/19 16:13:00 EDT, Hei... Start Date: 11/25/19 Stop Date: 04/23/20 Status: Ordered ferrous sulfate 325 mg oral tablet 1 tablet = 325 mg, By Mouth, Daily, # 30 tablet, 2 Refills, Maintenance, 11/14/19 13:10:00 EDT, [facility]/pharmacy #[id number], 163, cm, 11/13/19 16:13:00 EDT, Height, 78.1, kg, 11/13/19 16:13:00 EDT, Dry Weight Start Date: 11/14/19 Stop Date: 02/12/20 Status: Ordered Flovent HFA 110 mcg/inh inhalation aerosol 2 puffs, Inhalation, 2 times a day, # 12 Gm, 1 Refills, Maintenance, 12/02/19 0:58:00 EDT, Aerosol,[facility]/pharmacy #[id number], 163, cm, 11/27/19 15:36:00 EDT, Height, 78.1, kg, 11/13/19 16:13:00 EDT, Dry Weight Start Date: 12/02/19 Stop Date: 12/16/19 Status: Ordered ibuprofen 200 mg oral tablet 400 mg, 2, tablet, By Mouth, Every 4 hours, PRN, # 100 tablet, Refills 0, Tot. Refills 0, Maintenance, for pain, 01/31/20 10:59:00 EDT, Route to Pharmacy Electronically, [facility]/pharmacy #1, 163, cm, 01/31/20 0:18:00 EDT, Height, 81.4, kg, 01/29/20 8:5... Start Date: 01/31/20 Status: Ordered lanolin topical - ointment See Instructions, PRN as needed for dry skin, 1 application Topically to bilateral nipples after ., # 60 Gm, 0 Refills, Maintenance, 02/05/20 12:20:00 EDT, Ointment, [facility]/pharmacy #[id number], 1 application Topically to bilateral nipples after b... Start Date: 02/05/20 Status: Ordered Mirena 52 mg intrauterine device See Instructions, 1 each Once, # 1 each, 0 Refills, Soft Stop, 03/10/20 14:06:00 EDT, [facility], 163, cm, 03/10/20 13:34:00 EDT, Height, 75.02, kg, 03/10/20 13:34:00 EDT, Dry Weight Start Date: 03/10/20 Status: Ordered ParaGard intrauterine device See Instructions, bring to modeling analyst appointment for insertion, # 1 each, 0 Refills, Maintenance, 02/17/20 14:03:00 EDT, [facility], bring to modeling analyst appointment for insertion, 163, cm, 01/31/20 0:18:00 EDT, Height, 81.4, kg, 01/29/20 8... Start Date: 02/17/20 Status: Ordered AD oral tablet 1 tablet, By Mouth, Daily, # 90 tablet, 0 Refills, Maintenance, 12/10/19 17:10:00 EDT, Tablet, [facility]/pharmacy #[id number], 1 tablet By Mouth Daily, 163, cm, [...] ED. 4says she has a neurologist in [place] for migraines. 5Taking fioricet prn for this, [...]
--- OUTSIDE RECORDS SUMMARY | 2024-04-22 03:03 | XMS_ITS | Continuity of Care Document ---
Author Organization [facility] Address [address] [address]- Care Team Providers Care Licensed Physical Therapy Assistant Name Role Phone Jihan Sierra NP Primary Care Physician Encounter [facility] Date(s): 03/30/23 - 05/12/23 [facility] [address] [address]- Attending Physician: Cierra Gibson CNM Admitting Physician: Cierra Gibson CNM Referring Physician: Brian VALLEJO, Ainsley Nina Head Allergies, Adverse Reactions, Alerts No Known Allergies Immunizations Given and Recorded Vaccine Date Status Refusal Reason [id number] 12y+ bivalent booster vax 08/10/22 Recorded SARS-CoV-2 [...] 0 Refills, Maintenance, 04/03/23 13:59:00 EDT, Tablet, [facility]/pharmacy #[id number], Partial fill upon patient request if the prescription is for a sche... Start Date: 04/03/23 Status: Ordered albuterol CFC free 90 mcg/inh inhalation aerosol 180 mcg, 2, puffs, Inhalation, 4 times a day, PRN, # 6.7 Gm, Refills 2, Tot. Refills 2, Maintenance, 04/03/23 13:59:00 EDT, Inhaler, Route to Pharmacy Electronically, [id number], [facility]/pharmacy #[id number], 162, cm, 03/29/23 13:33:00... Start [...] Refills, Maintenance, 03/09/23 19:12:00 EDT, Tablet, [id number], Partial fill upon patient request if the [...] Reference Physician Member Role: PCP Address: Address: [address] [place] [address]- Care Team Related Persons Name: BING CARTER Address: home [address] [place] [address] Name: ROSALVA CLAIRE Address: [address] Address: [address] [address] Name: SANTO CLAIRE Address: [address] [place] [address] Name: VALENTE WANG
--- OUTSIDE RECORDS SUMMARY | 2024-04-22 03:03 | XMS_ITS | Continuity of Care Document ---
Author Organization [facility] Address Unknown Care Team Providers Care Pool Finisher Name Role Phone Sanford YIP, Shayne Hall Primary Care Physician [place] [facility] [place]): 06/10/21 - 07/10/21 [facility] Allergies, Adverse Reactions, Alerts Substance Reaction Severity [...] 11:34:00 EDT, Aerosol, Route to Pharmacy Electronically, [id number], [facility]/pharmacy #[id number], 163, cm, 11/13/19 16:13:00 EDT, Hei... Start Date: 11/25/19 Stop Date: 04/23/20 Status: Ordered Flovent HFA 110 mcg/inh inhalation aerosol 2 puffs, Inhalation, 2 times a day, # 12 Gm, 1 Refills, Maintenance, 12/02/19 0:58:00 EDT, Aerosol,[facility]/pharmacy #[id number], 163, cm, 11/27/19 15:36:00 EDT, Height, 78.1, kg, 11/13/19 16:13:00 EDT, Dry Weight Start Date: 12/02/19 Stop Date: 12/16/19 Status: Ordered fluconazole 150 mg oral tablet 1 tablet = 150 mg, By Mouth, Once, repeat dose if still having symptoms in 72 hours, # 2 tablet, 0 Refills, Soft Stop, 09/14/20 9:53:00 EST, Tablet, [facility]/pharmacy #[id number], Partial fill upon patient request if the prescription is for a schedule II opioid... Start Date: 09/14/20 Status: Ordered ibuprofen 200 mg oral tablet 400 mg, 2, tablet, By Mouth, Every 4 hours, PRN, # 100 tablet, Refills 0, Tot. Refills 0, Maintenance, for pain, 01/31/20 10:59:00 EDT, [id number], cm, 01/31/20 0:18:00 EDT, Height, 81.4, kg, 01/29/20 8:5... Start Date: 01/31/20 Status: Ordered Mirena 52 mg intrauterine device See Instructions, 1 each Once, # 1 each, 0 Refills, Soft Stop, 03/10/20 14:06:00 EDT, [facility], 163, cm, 03/10/20 13:34:00 [...] ED. 4says she has a neurologist in [place] for migraines. 5Taking fioricet prn for this, [...]
--- OUTSIDE RECORDS SUMMARY | 2024-04-22 03:03 | XMS_ITS | Continuity of Care Document ---
Author Organization [facility] Address [address] [place] [address]- Care Team Providers Care Hotel Front Desk Clerk Name Role Phone Jihan Sierra NP Primary Care Physician En[place] [facility] [place] Date(s): 10/11/23 - 11/16/[address] [address]- Attending Physician: Ana Miranda DO Referring Physician: Yennifer Cassidy CNM Allergies, Adverse Reactions, Alerts No Known Allergies Immunizations Given and Recorded Vaccine Date Status Refusal Reason tetanus/diphtheria/pertussis, acel(Tdap) 07/20/23 Given tetanus/diphtheria/pertussis, acel(Tdap) 11/13/19 Given tetanus/diphtheria/pertussis, acel(Tdap) 04/29/10 Recorded [id number] 12y+ bivalent booster vax 08/10/22 Recorded SARS-CoV-2 [...] give 325mg per patient preference and re-dose [id number] within 4 hours, if needed. Patient should only receive a total of 650mg of Acetaminophen every 4 hours., # 30 tablet, Refills 0, Tot. Refills 0... Start Date: 10/16/23 Status: Ordered acetaminophen/butalbital/caffeine 325 mg-50 mg-40 mg oral tablet 1 tablet, By Mouth, Every 4 hours, PRN as needed, # 30 tablet, 0 Refills, Acute 12/07/23 14:15:00 EDT, 11/07/23 14:14:00 EDT, Tablet, [facility]/pharmacy #[id number], Partial fill upon patient request if the prescription is for a schedule II opioid drug., 1 tablet... Start Date: 11/07/23 Stop Date: 12/07/23 Status: Ordered albuterol CFC free 90 mcg/inh inhalation aerosol 180 mcg, 2, puffs, Inhalation, Every 4 hours, PRN, # 6.7 Gm, Refills 2, Tot. Refills 2, Maintenance, 10/16/23 9:28:00 EDT, Inhaler, Route to Pharmacy Electronically, [id number], [facility]/pharmacy #[id number], 163, cm, 10/16/23 9:08:00 E... Start Date: 10/16/23 Status: Ordered escitalopram 10 mg oral tablet 1 tablet, By Mouth, Daily, # 30 tablet, 0 Refills, Maintenance, 10/16/23 9:28:00 EDT, [facility]/pharmacy #[id number], 163, cm, 10/16/23 9:08:00 EDT, Height, 100.3, kg, 10/14/23 7:58:00 EDT, Dry Weight Start Date: 10/16/23 Status: Ordered Flovent HFA 44 mcg/inh inhalation aerosol See Instructions, INHALE 2 PUFFS TWICE A DAY, # 10.6 each, 0 Refills, Maintenance, 07/12/23 18:32:00 EST, [facility] STORE [id number], 162, cm, 05/25/23 11:20:00 EDT, Height, 91.4, kg, 05/25/23 11:20:00 EDT, DryWeight Start Date: 07/12/23 Status: Ordered multivitamin, Multivitamins oral tablet, chewable 1 tablet, By Mouth, Daily, # 30 tablet, 3 Refills, Maintenance, 10/16/23 9:30:00 EDT, Chew Tablet, [facility]/pharmacy #[id number], Partial fill upon patient request if the prescription is for a schedule II opioid drug., 1 tablet By Mouth Daily, 163, cm, 10/16/23... Start Date: 10/16/23 Status: Ordered PNV Plus oral tablet 1 tablet, By Mouth, Daily, # 90 tablet, 1 Refills, Maintenance, 10/16/23 9:29:00 EDT, [facility]/pharmacy #[id number], Partial fill upon patient request if [...] Reference Physician Member Role: PCP Address: Address: [address] [place] [address]- Care Team Related Persons Name: BING CARTER Address: home [address] [place] [address] Name: ROSALVA CLARIE Address: [address] Address: home [address] [address] [place] Name: ALEXANDER CLAIRE Address: [id number] Address: home [address] [place] [address] [place] Name: SANTO CLAIRE Address: home [address] [place] [address] Name: VALENTE WANG
--- OUTSIDE RECORDS SUMMARY | 2024-04-22 03:03 | XMS_ITS | Continuity of Care Document ---
Author Organization [facility] Address [address] [facility], [address] Floor, [address] [place] [address]- Care Team Providers Care Stenciling Machine Tender Name Role Phone Shayne Christina MD Primary Care Physician [place] [facility] [place] [id number] Date(s): 09/17/19 - 09/27/19 [facility] [address], [address], [address] [place] [address]- [facility] Attending Physician: Seun Castaneda Admitting Physician: AdmtrSeun Referring Physician: Admtr, Ar8 Allergies, Adverse Reactions, [...] 1 Refills, Maintenance, 09/17/19 10:42:00 EST, [id number], 1 tablet By Mouth 2 times a [...] ED. 4says she has a neurologist in [place] for migraines. 5Taking fioricet prn for this, [...]
--- OUTSIDE RECORDS SUMMARY | 2024-04-22 03:03 | XMS_ITS | Continuity of Care Document ---
Author Organization [facility] Address [address] [place] [address]- Care Team Providers Care Automatic Beading Lathe Operator Name Role Phone Jihan Sierra NP Primary Care Physician [phone] Encounter [facility] Date(s): 10/10/23 - 11/09/23 [facility] [address] [place] [address]- Allergies, Adverse Reactions, Alerts No Known Allergies Immunizations Given and Recorded Vaccine Date Status Refusal Reason tetanus/diphtheria/pertussis, acel(Tdap) 07/20/23 Given tetanus/diphtheria/pertussis, acel(Tdap) 11/13/19 Given tetanus/diphtheria/pertussis, acel(Tdap) 04/29/10 Recorded [id number] 12y+ bivalent booster vax 08/10/22 Recorded SARS-CoV-2 [...] give 325mg per patient preference and re-dose [id number] within 4 hours, if needed. Patient should only receive a total of 650mg of Acetaminophen every 4 hours., # 30 tablet, Refills 0, Tot. Refills 0... Start Date: 10/16/23 Status: Ordered acetaminophen/butalbital/caffeine 325 mg-50 mg-40 mg oral tablet 1 tablet, By Mouth, Every 4 hours, PRN as needed, # 30 tablet, 0 Refills, Acute 12/07/23 14:15:00 EDT, 11/07/23 14:14:00 EDT, Tablet, [facility]/pharmacy #[id number], Partial fill upon patient request if the prescription is for a schedule II opioid drug., 1 tablet... Start Date: 11/07/23 Stop Date: 12/07/23 Status: Ordered albuterol CFC free 90 mcg/inh inhalation aerosol 180 mcg, 2, puffs, Inhalation, Every 4 hours, PRN, # 6.7 Gm, Refills 2, Tot. Refills 2, Maintenance, 10/16/23 9:28:00 EDT, Inhaler, Route to Pharmacy Electronically, [id number], [facility]/pharmacy #[id number], 163, cm, 10/16/23 9:08:00 E... Start Date: 10/16/23 Status: Ordered escitalopram 10 mg oral tablet 1 tablet, By Mouth, Daily, # 30 tablet, 0 Refills, Maintenance, 10/16/23 9:28:00 EDT, [id number], 163, cm, 10/16/23 9:08:00 EDT, Height, 100.3, kg, 10/14/23 7:58:00 EDT, Dry Weight Start Date: 10/16/23 Status: Ordered Flovent HFA 44 mcg/inh inhalation aerosol See Instructions, INHALE 2 PUFFS TWICE A DAY, # 10.6 each, 0 Refills, Maintenance, 07/12/23 18:32:00 EST, [facility] STORE 62066, 162, cm, 05/25/23 11:20:00 EDT, Height, 91.4, kg, 05/25/23 11:20:00 EDT, DryWeight Start Date: 07/12/23 Status: Ordered multivitamin, Multivitamins oral tablet, chewable 1 tablet, By Mouth, Daily, # 30 tablet, 3 Refills, Maintenance, 10/16/23 9:30:00 EDT, Chew Tablet, [facility]/pharmacy #[id number], Partial fill upon patient request if [...] Physician Member Role: PCP Address: Address: [address] [place] [address]- Care Team Related Persons Name: BING CARTER Address: home [address] [place] [address] Name: ROSALVA CLAIRE Address: [address] Address: home [address] [address] [place] Name: ALEXANDER CLAIRE Address: [address] Address: home [address] [place] [address] [place] Name: SANTO CLAIRE Address: [address] [place] [address] Name: VALENTE WANG
--- OUTSIDE RECORDS SUMMARY | 2024-04-22 03:03 | XMS_ITS | Continuity of Care Document ---
Author Organization [facility] Address [address] [facility], [address] [address]- Care Team Providers Care Brass Wind Instrument Maker Name Role Phone Jihan Sierra NP Primary Care Physician [place] [facility] [place] 02/08/24 - 03/09/24 [facility] [address] [facility] [place], [place] [address] Attending Physician: AdmSeun lane Admitting Physician: AdmtrSeun Referring Physician: Admtr, Ar8 Allergies, Adverse Reactions, Alerts No Known Allergies Immunizations Given and Recorded Vaccine Date Status Refusal Reason tetanus/diphtheria/pertussis, acel(Tdap) 07/20/23 Given tetanus/diphtheria/pertussis, acel(Tdap) 11/13/19 Given tetanus/diphtheria/pertussis, acel(Tdap) 04/29/10 Recorded [id number] 12y+ bivalent booster vax 08/10/22 Recorded SARS-CoV-2 [...] 9:28:00 EDT, Inhaler, Route to Pharmacy Electronically, [id number], [facility]/pharmacy #[id number], 163, cm, 10/16/23 9:08:00 E... Start [...] Refills, Maintenance, 07/12/23 18:32:00 EST, [facility], 162, cm, 05/25/23 11:20:00 EDT, Height, 91.4, [...] Reference Physician Member Role: PCP Address: Address: [address] [place] [address]- Care Team Related Persons Name: RAUL BING Address: home [address] [place] [address] Name: ROSALVA CLAIRE Address: [address] Address: [address] [address] [place] Name: ALEXANDER CLAIRE Address: [address] Address: home [address] [place] [address] [place] Name: SANTO CLAIRE Address: [address] [place] [address] Name: VALENTE WANG
--- OUTSIDE RECORDS SUMMARY | 2024-04-22 03:03 | XMS_ITS | Continuity of Care Document ---
Author Organization [facility] Address [address] [address]- Care Team Providers Care Paper Sales Manager Name Role Phone Shayne Christina MD Primary Care Physician Encounter [facility] [place] Date(s): 12/07/22 - 02/03/23 [facility] [address] [address]- Attending Physician: Not on Staff, Attending MD Referring Physician: Shayne Christina MD Allergies, [...] tablet, 2 Refills, Maintenance, 02/06/20 13:40:00 EDT, [facility]/pharmacy #[id number], 1 tablet ByMouth Every [...] prescription is for a schedule II opioid drJúnior Start Date: 12/07/22 Stop Date: 12/02/23 Status: [...] ED. 4says she has a neurologist in [place] for migraines. 5Taking fioricet prn for this, [...] Personnel Name: Sanford YIP, Shayne Hall Position: [facility] Outreach Member Role: PCP Address: Address: [address] [place] [address]- Care Team Related Persons Name: BING CARTER Address: home [address] [place] [address] Name: ROSALVA CLAIRE Address: [address] Address: [address] [address] [place] Name: SANTO CLAIRE Address: [address] [place] [address] Name: VALENTE WANG
--- OUTSIDE RECORDS SUMMARY | 2024-04-22 03:03 | XMS_ITS | Continuity of Care Document ---
Author Organization [facility] ter Address [address] [place] [id number]- Care Team Providers Care Manufacturing Planner Name Role Phone Sanford YIP, Shayne Hall Primary Care Physician Encounter [facility] Date(s): 02/20/23 - 02/21/[address] [address] Discharge Disposition: A-D/C Home Attending Physician: Ion Gonzalez MD Admitting Physician: Ion Gonzalez MD Referring Physician: Ion Gonzalez MD Allergies, Adverse Reactions, Alerts No Known [...] tablet, 2 Refills, Maintenance, 02/21/23 14:04:00 EDT, [facility]/pharmacy #[id number], 1 tablet ByMouth Every 4 hours,Instr:May repeat [...] tablet, 8 Refills, Maintenance, 02/13/23 9:10:00 EDT, [facility]/pharmacy #[id number], Partial fill upon patient request if th... Start Date: 02/13/23 Status: Ordered ondansetron 4 mg oral tablet, disintegrating 1 tablet = 4 mg, By Mouth, 2 times a day, PRN Nausea & Vomiting, # 12 tablet, 3 Refills, Maintenance, 02/13/23 9:10:00 EDT, Tablet, [facility]/pharmacy #[id number], Partial fill upon patient request if the prescription is for a schedule II opioid drug., 163, cm, 0... Start Date: 02/13/23 Status: Ordered PNV Select oral tablet 1 tablet, By Mouth, Daily, Please prescribe PNVs that are covered by pt's insurance., # 30 tablet, 11 Refills, Maintenance, 12/07/22 10:40:00 EDT, [facility]/pharmacy #[id number], Partial fill upon patient request if the prescription is for a schedule II opioid dr... Start Date: 12/07/22 Stop Date: 12/02/23 Status: Ordered promethazine 25 mg rectal suppository 1 supp = 25 mg, Rectally, Every 4 hours, PRN for nausea/vomiting, # 12 supp, 1 Refills, Maintenance, 02/18/23 0:41:00 EDT, Suppository, [facility]/pharmacy #[id number], Partial fill upon patient request if the prescription is for a schedule II opioid drug., 163, c... Start Date: 02/18/23 Status: Ordered promethazine 25 mg rectal suppository 1 supp = 25 mg, Rectally, Every 4 hours, PRN for nausea/vomiting, # 12 supp, 0 Refills, Maintenance, 02/20/23 21:40:00 EDT, Suppository, [facility]/pharmacy #[id number], Partial fill upon patient request if the prescription is for a schedule II opioid drug., 163,... Start Date: 02/20/23 Status: Ordered pyridoxine 25 mg oral tablet 1 tablet = 25 mg, By Mouth, 3 times a day, PRN Nausea & Vomiting, # 100 tablet, 8 Refills, Maintenance, 02/13/23 9:10:00 EDT, [facility]/pharmacy #[id number], Partial fill upon patient request [...] Refills, Acute 03/14/23 0:44:00 EDT,02/18/23 0:43:00 EDT, [facility]/pharmacy #[id number], Partial fill... Start Date: 02/18/23 Stop Date: 03/14/23 Status: Ordered Tylenol 325 mg oral tablet 975 mg, Tablet, By Mouth, On Discharge, PRN for Pain , Moderate, Routine, 02/20/23 22:26:00 EDT Start Date: 02/20/23 Stop Date: 02/21/23 Status: Discontinued Problem List Condition Confirmation Course Effective Dates Status Health St atus Informant Asthma 1 Confirmed Active History of depression 2 Confirmed Active History of recurrent UTIs 3 Confirmed Active Migraine 4, 5 Confirmed Active Nausea/vomiting in Confirmed Active Obese class II Confirmed Active Confirmed Active 1Albuterol prn (acts up mainly in winter time). 2As child, saw therapist (no meds) but improved/went away. Now in feeling down and a little depressed. 3Most recent uti couple months ago , cannot remember when. Seen in ED. 4says she has a neurologist in [place] for migraines. 5Taking fioricet prn for this, reports typically about 1-2x/week. 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 Referred to neuro but unable to see d/t insurance issues, so was just seeing pcp for this for now. Vital Signs Most recent to oldest [Reference Range]: 1 2 Weight 94.1 kg (02/20/23 5:34 PM) Oxygen Saturation [94-100 %] 100 % (02/20/23 5:34 PM) Pulse Rate [55-90 bpm] 81 bpm (02/20/23 5:34 PM) Blood Pressure [90-138/55-84 mm Hg] 99/6 1mm Hg (02/20/23 5:34 PM) Respiratory Rate [16-30 br/min] 16 br/mi n (02/21/23 12:10 AM) 18 br/min (02/20/23 5:34 PM) Temperature [96.8-100.4 DegF] 98.1 DegF (02/20/23 5:34 PM) Mode of Delivery (Oxygen) Room air (02/20/23 5:34 PM) Blood pressure sites Arm, right (02/20/23 5:34 PM) Temperature Route Oral (02/20/23 5:34 PM) Weight Obtained Via Standing scale (02/20/23 5:34 PM) Social History Social History Type Response Smoking Status Never (less than 100 in lifetime); Tobacco user in household: Yes entered on: 06/21/19 Sex Note * Xuan Foster RN: PERFORM Event Display: Discharge/Transfer Note Hospital Authored Date: [id number] Nursing Discharge Note Entered On: 02/21/2023 0:52 EDT Performed On: 02/21/2023 0:51 EDT by Xuan Foster RN Nursing Discharge Note 2 Discharge Time : 02/21/2023 0:36 EDT Discharge Level of Care at Discharge : Home/Senior Care/Foster Care Patient Left Unit Via : Ambulatory Patient Accompanied Off Unit with : Significant other DC Instructions Provided & Signed by Pt : Yes Patient Understands D/C Instructions : Yes Verbalized Understanding of D/C Plan By : Patient Patient Instructions Discharge Signed : Yes Did Pt have Specialty Bed or Wound Vac : No Xuan Foster RN - 02/21/2023 0:51 EDT * Event Display: Discharge/Transfer Note Hospital Authored Date: * Xuan Foster RN: PERFORM Event Display: Patient Education/Instruction Authored Date: [id number] Inpatient Adult Discharge Instructions [address] [address] Name: RUSTY DIEZ : 2000 Visit: 02/20/2023 16:08:00 Current Date: 02/21/2023 00:18 Account: [id number] Inpatient Adult Discharge Instructions We would like [...] and their families. Surveys are administered by [employer] ?? If further treatment with your primary care physician or another doctor is recommended, it is important for you to keep the appointment. Call your primary care physician or return to the Emergency Department immediately if your condition worsens, fails to improve, or new symptoms develop. If you need to find a doctor, you can call [facility] for a referral at [phone] or toll free at [phone] or log in to [email or web address] ?? You can view and manage your care through the patient portal or by using a health care dorian of your choosing. [employer] is a website that allows you to securely view your medical information including your hospital discharge summary, office visit summaries, medications and follow-up visits. You can also request appointments, renew medications, and request access to your medical information using a health care dorian of your choosing, or just ask a question. You can enroll at [email or web address] or register during your next office visit. You have been discharged from [facility], Patient Care Unit: [id number]. If you have any questions regarding these instructions after you leave, please call us and we will be happy to assist you. [facility] Your Care Team Attending Physician Ion Gonzalez MD Tests Performed Below is a partial list of the tests performed during your hospitalization. You may have had other tests and procedures not included in this list. Please discuss all test results with your provider. Primary Care Provider Shayne Christina MD Advance Directive Health Care Proxy on File Yes - Health Care Proxy Discharge Vitals Temperature: 98.1 DegF Weight: 94.1 kg Pulse Rate: 81 bpm ?? Respiratory Rate: 16 br/min ?? Systolic Blood Pressure: 99 mm Hg ?? Diastolic Blood Pressure: 61 mm Hg ?? Oxygen Saturation: 100 % ?? Studies Pending All tests and labs ordered during this hospital stay have been completed unless listed below. Please discuss all pending results with your provider listed above in these instructions. ?? No incomplete studies found What to do next Instructions From Your Doctor Discharge Orders Scheduled Follow-Up Appointments Monday 1:10 PM EDT ?? With: Yesenia Corral CNM Where: [facility] [employer] ATT[employer] [employer] [address] [place] [address]- Status: Pending You Need to Schedule the Following Appointments Follow Up with??Yesenia Corral CNM Why: please keep all upcoming manager card appts Where: [address] [place] [address] [place] [address]- Discharge Medications RUSTY DIEZ :2000 Visit Date:02/20/2023 Medications: Please continue your medications until treatment is completed or stopped by your provider. Medications not listed below should be discontinued. Discuss any questions related to medications with your provider. What How Much When Instructions Next Dose Changed Promethazine (promethazine 25 mg rectal suppository) 1 suppository(ies) Per rectum Every 4 hours as needed for for nausea/vomiting Changed Promethazine (promethazine 25 mg rectal suppository) 1 suppository(ies) Per rectum Every 4 hours as needed for for nausea/vomiting Pickup at [facility]/pharmacy #[id number] Unchanged Acetaminophen/ Butalbital/ Caffeine (acetaminophen/ butalbital/ caffeine 325 mg-50 mg-40 mg oral tablet) 1 tab(s) Oral Every 4 hours May repeat dose in 4 hours if needed. Do not exceed 2 tabs in 24 hours. ?? Unchanged Albuterol (albuterol CFC free 90 mcg/ inh inhalation aerosol) 2 puff(s) Inhalation 4 times a day as needed for for wheezing Unchanged Doxylamine (doxylamine 25 mg oral tablet) 1 tab(s) Oral Daily Take one tablet before bed. May take additional tablet in the morning if nausea still persistent ?? Unchanged Metoclopramide (Reglan 10 mg oral tablet) 1 tab(s) Oral 3 times a day as needed for Nausea & Vomiting Do NOT take at same time as Phenergan 30 minutes before meals and at bedtime ?? Unchanged Multivitamin, (PNV Select oral tablet) 1 tab(s) Oral Daily Duration: 30 Days Please prescribe PNVs that are covered by pt's insurance. ?? Unchanged Ondansetron (ondansetron 4 mg oral tablet, disintegrating) 1 tab(s) Oral Twice a day as needed for Nausea & Vomiting Unchanged Pyridoxine (pyridoxine 25 mg oral tablet) 1 tab(s) Oral 3 times a day as needed for Nausea & Vomiting Pharmacy Information [facility]/pharmacy #[id number]: [address], [place] [id number] [phone] Test Results Below is a partial list of the most recent Laboratory test results done prior to this discharge. You may have had other tests and procedures not included in this list. Please discuss all test resultswith your provider. Allergies (NKA means No Known Allergies) NKA Problems Active Problems??(8) Asthma?? History of depression?? History of recurrent UTIs?? Migraine?? Nausea/vomiting in ?? Obese class II? Education Materials Below is the list of Educational Leaflet Providered with your Discharge Instructions. Nutrition During ?? Hyperemesis Gravidarum?? Adapting to : First Trimester?? Valuables and Belongings I fully understand and agree that [facility] accepts no responsibility for all my personal [...] Status?? Pulmonary Rehab Discharge Status?? Respiratory Rate: 16 br/min ? Common Emergency Awareness Tips IS [...] are strongly encouraged to quit. Please call [facility] at [phone] or [phone]) or log in to [email or web address] for referrals to smoking cessation programs. ?? 128 Suicide & Crisis Lifeline is available 20/02 if you or someone you know needs to find a reason to keep living. By calling 219 you'll be connected to a skilled, trained counselor at a crisis center in your area. INPATIENT DISCHARGE INSTRUCTIONS SIGNATURE RUSTY CHU Location:[facility] Registration Date and Time:02/20/2023 16:08 EDT Primary Care Physician: Sanford YIP, Shayne Hall, Attending Physician: Ion Gonzalez MD, Honey RUSTY DIEZ, have received the above patient education materials/instructions and have verbalized understanding. If ambulance or transport services are being used I further acknowledge being given a choice of service. ?? If you need to contact me, please call me at this number: . Patient/Automotive Worker Name: Patient/Automotive Worker Signature: Relationship to Patient: Witness Name/Signature: Date: * Xuan Foster RN: PERFORM Event Display: Patient Education Leaflets Authored Date: [id number] Nutrition During ?? [address] Nutrition During Having a healthy baby depends mostly on you. What you eat matters to your baby and your health. During , you will likely need about 300 more calories per day than??before you became . Each day, try to eat the number of servings listed here for each food group. In addition, cut downon salt and caffeine. Limit the amount of sweets and high-fat foods you eat.??Don???t smoke or drink alcohol. Important: See your healthcare provider as often as asked. If you have any questions, be sure to ask them. Fruits Vegetables Grains & Cereals* Fats & Oils 2 cups Examples of 1-cup??servings: 1 medium apple 1 medium orange 1 medium banana 1??cup chopped fruit 1 cup 100% fruit juice (pasteurized) 1/2 cup dried fruit 2-1/2 to 3 cups?? Examples of 1 servin??cups raw,??leafy greens 1??cup raw or cooked cut-up vegetables 1??cup 100% vegetable juice (pasteurized) 6 to 8 ounces Examples of 1-ounce servings: 1 slice bread 1/2 cup cooked rice 1/2 cup cooked cereal 1/2 cup pasta 1??ounce cold cereal 6 to 8 teaspoons Dairy Protein Fluids ?? 3 cups Examples of 1-cup servings: 1 cup milk 1 cup yogurt 1-1/2 ounces natural cheese 2 ounces processed cheese 5 to??6-1/2 ounces Examples of 1-ounce servings: 1 egg 1??ounce of lean meat, poultry, or fish 1/4 cup cooked??beans 1??tablespoon peanut butter 1/2 ounce nuts 8 or more 8-ounce glasses Examples: Water Mineral water Clear soups, broth ?? *Note: Choose whole grains whenever possible. Note:??Try to choose low-fat foods; stay away from soft cheeses and unpasteurized milk. Notes:??Don't eat raw or undercooked meats, eggs, seafood, fish, or shellfish.??Some types of fish, such as shark, swordfish, and kiki mackerel, should not be eaten during .??Don't eat hot dogs, lunch meats, or cold cuts unless heated to steaming just before being served.??Ask your healthcare provider about safe choices. supplements A supplement is a pill that you take daily during . It helps make sure you???re getting the right amount of certain nutrients that are important to your baby. Ask your healthcare provider to help you choose the best one for you. Important nutrients during include: ??? Folic acid.??It's best to start taking this supplement 1 month before you start trying to get . Folic acid helps prevent certain problems in your baby. During , you need to take 400 micrograms (mcg) of folic acid every day for the first 2 to 3 months after conception. After that, 600 mcg is needed for a growing baby and placenta. ??? Iron, calcium, and vitamin D.??You may also be advised to take these supplements during . They help keep you and your baby healthy. Take them at different times because calcium makes it hard for the body to absorb iron. Taking iron with orange juice helps to increase its absorption. ?? Last Reviewed Date: 2022 ?? [employer]. All rights reserved. This information is not intended as a substitute for professional medical care. Always follow your healthcare professional's instructions. ?? * Cristian HONEYCUTT, Xuan Wong: PERFORM Event Display: Patient Education Leaflets Authored Date: [id number] Hyperemesis Gravidarum ?? [id number] Hyperemesis Gravidarum Upset stomach (nausea) and vomiting are common in . It is often called morning sickness. But it can happen at any time of day. Severe nausea and vomiting that doesn???t let up is not normal.This is known as hyperemesis gravidarum. It may develop around the 5th week and last until the 16thweek of . In some women, it may last longer. It can cause too much fluid loss (dehydration). And it can cause weight loss. This can be dangerous for the mother and baby.?? Morning sickness may be caused by an increase in some hormone levels. It is not clear why it???s more severe in some people. It may be more likely if you are carrying twins or more. You may need sometests. These are to check for other health conditions that can cause severe nausea and vomiting. The focus of treatment for severe morning sickness is to: ??? Ease your symptoms ??? Prevent weight loss ??? Prevent too much fluid loss (dehydration) Follow the advice below carefully. If your symptoms don't get better with home care, you may need to stay in the hospital. In the hospital, you may get IV (intravenous) fluids and medicines. In very severe cases, you may need more time in the hospital. You may need IV nutrition or tube feeding. If you need these, your healthcare provider will tell you more. Home care Diet ??? Keep a list of the foods you eat and how they affect your symptoms. Don't eat foods that trigger your symptoms. ??? Eat??small meals often rather than 3 large meals. This can help keep your stomach from being empty. An empty stomach??can make nausea worse. ??? Choose foods that are high in carbohydrates. Eating foods high in protein may also help. Limit greasy or spicy foods. ??? Before getting out of bed in the morning, try eating crackers or dry toast. This may help settle your stomach. ??? Drink cold, clear liquids. Drink small amounts of liquids with electrolytes, such as sports drinks. Medicine If needed, your healthcare provider may prescribe medicines to help ease nausea and vomiting. Your provider may suggest vitamin B6 and elli. Don???t use any dfxe-bqy-ocdgjqo medicines or home remedies without talking with your provider first. ?? Follow-up care Follow up with your healthcare provider as advised. ?? When to get medical care Call your healthcare provider right away if you have any of these: ??? Dry mouth and extreme thirst??? Dark urine or small amounts of urine ??? Dizziness, weakness, or fainting ??? Vomiting that won???t stop ??? Inability to keep down liquids ??? Frequent diarrhea ??? Weight loss or no weight gainover a 2-week period ??? Severe constant pain in the lower right abdomen ??? Fever of 100.4??F (38??C) or higher, or as advised ?? Last Reviewed Date: 2021 ?? [employer]. All rights reserved. This information is not intended as a substitute for professional medical care. Always follow your healthcare professional's instructions. ?? * Cristian HONEYCUTT, Xuan Wong: PERFORM Event Display: Patient Education Leaflets Authored Date: [id number] Adapting to : First Trimester ?? [address] Adapting to : First Trimester As your body adjusts during your first trimester of , you may have to change or limit yourdaily activities. You???ll need more rest. You may also need to use the energy you have more wisely. Your changing body Almost every part of your body is affected as you adapt to . The uterus and cervix will start to soften right away. You may not look very during the first 3 months. But you are likely to have some common signs of early : ??? Nausea ??? Fatigue ??? Frequent urination ??? Mood swings ??? Bloating of the belly ??? Constipation ??? Heartburn ??? Missed or light periods (first trimester bleeding) ??? Nipple or breast tenderness and breast swelling ?? It???s not too late to start good habits What matters most is protecting your baby from this moment on. If you smoke, drink alcohol, or use drugs, now is the time to stop. If you need help, talk with your healthcare provider: ??? Smoking increases the risk of stillbirth??or having a npf-hflzk-fgrztc baby. If you smoke, quit now. ??? Alcohol and drugs have been linked with miscarriage, defects, intellectual disability, and low weight. Don't drink alcohol or take drugs. ?? Tips to relieve nausea During , nausea can happen at any time of the day, but it may be worse in the morning. To help prevent nausea: ??? Eat small, light meals at frequent intervals. ??? Drink fluids often. ??? Get up slowly. Eat a few unsalted crackers before you get out of bed. ??? Avoid smells that bother you. ??? Avoid spicy and fatty foods. ??? Eat an ice pop??in your favorite flavor. ??? Get plenty of rest. ??? Ask your healthcare provider about taking elli or vitamin B6 for nausea and vomiting. ???Talk with your healthcare provider if you take vitamins that upset your stomach. ?? Work concerns The end of the first trimester is a good time to discuss working during with your employer. Follow your healthcare provider???s advice if your job needs you to stand for a long time, work with hazardous tools, or even sit at a desk all day. Your workspace, workload, or scheduled hours mayneed to be adjusted. Perhaps you can change body postures more often or take an extra break. ?? Advice for travel Talk to your healthcare provider first, but the second trimester may be the best time for any travel. You may be advised to avoid certain trips while you???re . Food and water can be concernsin developing countries. Travel by car is a good choice, as you can stop, get out, and stretch. Bring snacks and water along. Fasten the lap belt below your belly, low over your hips. Also be sure to wear the shoulder harness. ?? Intimacy Unless your healthcare provider tells you to, there's no reason to stop having sex while you???re . You or your partner may notice changes in desire. Desire may be less in the first trimesterdue to nausea and fatigue. In the second trimester, sex may be very enjoyable. The third trimester can be a challenge comfort-kendall. Try different positions and see what???s best for you both. ?? How daily issues affect your health Many things in your daily life impact your health. This can include transportation, money problems,housing, access to food, and childcare attendant. If you can???t get to medical appointments, you may not receive the care you need. When money is tight, it may be difficult to pay for medicines. And living far from a grocery store can make it hard to buy healthy food. If you have concerns in any of these or other areas, talk with your healthcare team. They may know of local resources to assist you. Or they may have a staff person who can help. ?? Last Reviewed Date: 2022 ?? [id number] [employer]. All rights reserved. This information is not intended as a substitute for professional medical care. Always follow your healthcare professional's instructions. ?? Patient Care team information Care Team Personnel Name: Shayne Christina MD Position: [facility] Outreach Member Role: PCP Address: Address: [address] [place] [address]- Name: Xuan Foster RN Position: [facility] OB RN Member Role: OB RN Care Team Related Persons Name: BING CARTER Address: home [address] [place] [address] Name: ROSALVA CLAIRE Address: [id number] Address: home [address] [address] Name: SANTO CLAIRE Address: home [address] [place] [address] Name: VALENTE WANG
--- OUTSIDE RECORDS SUMMARY | 2024-04-22 03:04 | XMS_ITS | Continuity of Care Document ---
Author Organization [facility] Address [address] [address]- Care Team Providers Care Health Consultant Name Role Phone Sanford YIP, Shayne Hall Primary Care Physician Encounter [facility] Date(s): 12/22/22 - 01/29/23 [facility] [address] [address]- Attending Physician: Mirtha Dumont CNM Admitting Physician: Mirtha Dumont CNM Referring Physician: Conrad VALLEJO ONLINE MARKETING MANAGER, Yunior Fuller Allergies, Adverse Reactions, Alerts No [...] tablet, 2 Refills, Maintenance, 02/06/20 13:40:00 EDT, [facility]/pharmacy #[id number], 1 tablet ByMouth Every 4 [...] ED. 4says she has a neurologist in [facility] for migraines. 5Taking fioricet prn for this, [...] Personnel Name: Sanford YIP, Shayne Hall Position: [facility] Outreach Member Role: PCP Address: Address: [address] [place] [address]- [place] Care Team Related Persons Name: BING CARTER Address: home [address] [place] [address] Name: ROSALVA CLAIRE Address: [address] Address: home [address] [address] Name: SANTO CLAIRE Address: home [address] [place] [address] Name: VALENTE WANG
--- OUTSIDE RECORDS SUMMARY | 2024-04-22 03:04 | XMS_ITS | Continuity of Care Document ---
Author Organization [facility] Address [address] [address]- Care Team Providers Care Media Librarian Name Role Phone Jihan Sierra NP Primary Care Physician [phone] Encounter [facility] Date(s): 03/30/23 - 05/28/23 [facility] [address] [address]- Attending Physician: Not on Staff, Attending MD Referring Physician: Ainsley Torres CNM Head Allergies, Adverse Reactions, Alerts No Known Allergies Immunizations Given and Recorded Vaccine Date Status Refusal Reason [id number] 12y+ bivalent booster vax 08/10/22 Recorded SARS-CoV-2 [...] 0 Refills, Maintenance, 05/25/23 17:54:00 EDT, Capsule, [facility]/pharmacy #[id number],Partial fill upon patient request if the prescripti... Start Date: 05/25/23 Status: Ordered albuterol CFC free 90 mcg/inh inhalation aerosol 180 mcg, 2, puffs, Inhalation, 4 times a day, PRN, # 6.7 Gm, Refills 2, Tot. Refills 2, Maintenance, 04/03/23 13:59:00 EDT, Inhaler, Route to Pharmacy Electronically, [id number], [facility]/pharmacy #[id number], 162, cm, 03/29/23 13:33:00... Start [...] Refills, Maintenance, 03/09/23 19:12:00 EDT, Tablet, [id number], Partial fill upon patient request if the [...] tablet, 11 Refills, Maintenance, 12/07/22 10:40:00 EDT, [facility]/pharmacy #[id number], Partial fill upon patient [...] tablet, 5 Refills, Maintenance, 03/02/23 7:51:00 EDT, [facility]/pharmacy #[id number], Partial fill upon patient r... [...] Reference Physician Member Role: PCP Address: Address: [address] [place] [address]- Care Team Related Persons Name: BING CARTER Address: home [address] [place] [address] Name: ROSALVA CLAIRE Address: [address] Address: home [address] [address] Name: SANTO CLAIRE Address: home [address] [place] [address] Name: VALENTE WANG
--- OUTSIDE RECORDS SUMMARY | 2024-04-22 03:04 | XMS_ITS | Continuity of Care Document ---
Author Organization [facility] Address [address] [facility], [address]r d Floor, [address] [place] [address]- Care Team Providers Care Stock Manager Name Role Phone Sanford YIP, Shayne Hall Primary Care Physician Encounter [facility] Date(s): 02/06/20 - 03/07/20 [facility] [address], 3rd Floor, [address] [place] [address]- [facility] Allergies, Adverse Reactions, Alerts Substance Reaction [...] 11:34:00 EDT, Aerosol, Route to Pharmacy Electronically, [id number], [facility]/pharmacy #[id number], 163, cm, 11/13/19 16:13:00 EDT, Hei... Start Date: 11/25/19 Stop Date: 04/23/20 Status: Ordered ferrous sulfate 325 mg oral tablet 1 tablet = 325 mg, By Mouth, Daily, # 30 tablet, 2 Refills, Maintenance, 11/14/19 13:10:00 EDT, [facility]/pharmacy #[id number], 163, cm, 11/13/19 16:13:00 EDT, Height, 78.1, kg, 11/13/19 16:13:00 EDT, Dry Weight Start Date: 11/14/19 Stop Date: 02/12/20 Status: Ordered Flovent HFA 110 mcg/inh inhalation aerosol 2 puffs, Inhalation, 2 times a day, # 12 Gm, 1 Refills, Maintenance, 12/02/19 0:58:00 EDT, Aerosol,[facility]/pharmacy #[id number], 163, cm, 11/27/19 15:36:00 EDT, Height, 78.1, kg, 11/13/19 16:13:00 EDT, Dry Weight Start Date: 12/02/19 Stop Date: 12/16/19 Status: Ordered ibuprofen 200 mg oral tablet 400 mg, 2, tablet, By Mouth, Every 4 hours, PRN, # 100 tablet, Refills 0, Tot. Refills 0, Maintenance, for pain, 01/31/20 10:59:00 EDT, Route to Pharmacy Electronically, [facility]/pharmacy #[id number], 163, cm, 01/31/20 0:18:00 EDT, Height, 81.4, kg, 01/29/20 8:5... Start Date: 01/31/20 Status: Ordered lanolin topical - ointment See Instructions, PRN as needed for dry skin, 1 application Topically to bilateral nipples after ., # 60 Gm, 0 Refills, Maintenance, 02/05/20 12:20:00 EDT, Ointment, [facility]/pharmacy #[id number], 1 application Topically to bilateral nipples after b... Start Date: 02/05/20 Status: Ordered ParaGard intrauterine device See Instructions, bring to director of oncology appointment for insertion, # 1 each, 0 Refills, Maintenance, 02/17/20 14:03:00 EDT, [facility], bring to director of oncology appointment for insertion, 163, cm, 01/31/20 0:18:00 [...] ED. 4says she has a neurologist in [place] for migraines. 5Taking fioricet prn for this, [...]
--- OUTSIDE RECORDS SUMMARY | 2024-04-22 03:04 | XMS_ITS | Continuity of Care Document ---
Author Organization [facility] Address [address] [place] [address]- Care Team Providers Care Commercial Title Examiner Name Role Phone Jihan Sierra NP Primary Care Physician Encounter [facility] Date(s): 10/09/23 - 10/10/[address] [address]- Discharge Disposition: A-D/C Home Attending Physician: Lea Renteria MD Admitting Physician: Lea Renteria MD Referring Physician: Lea Renteria MD Allergies, Adverse Reactions, Alerts No Known Allergies Immunizations Given and Recorded Vaccine Date Status Refusal Reason tetanus/diphtheria/pertussis, acel(Tdap) 07/20/23 Given tetanus/diphtheria/pertussis, acel(Tdap) 11/13/19 Given tetanus/diphtheria/pertussis, acel(Tdap) 04/29/10 Recorded [id number] 12y+ bivalent booster vax 08/10/22 Recorded SARS-CoV-2 [...] tablet, 0 Refills, Maintenance, 09/29/23 9:45:00 EST, [facility]/pharmacy #[id number], 1 tablet By Mouth Every 4 hours,PRN: NEEDED FOR MIGRAINE HEADACHES, 162, cm, 09/25/23 15:23:00 ES... Start Date: 09/29/23 Status: Ordered escitalopram 10 mg oral tablet 1 tablet, By Mouth, Daily, # 30 tablet, 0 Refills, Maintenance, 08/17/23 16:18:00 EST, [facility] STORE [id number], 162, cm, 08/03/23 11:00:00 EST, Height, 97.63, kg, 08/03/23 11:00:00 EST, Dry Weight Start Date: 08/17/23 Status: Ordered Flovent HFA 44 mcg/inh inhalation aerosol See Instructions, INHALE 2 PUFFS TWICE A DAY, # 10.6 each, 0 Refills, Maintenance, 07/12/23 18:32:00 EST, [id number], 162, cm, 05/25/23 11:20:00 EDT, Height, 91.4, kg, 05/25/23 11:20:00 EDT, DryWeight Start Date: 07/12/23 Status: Ordered PNV Plus oral tablet 1 tablet, By Mouth, Daily, # 90 tablet, 1 Refills, Maintenance, 05/20/23 13:08:00 EDT, [facility]/pharmacy#[id number], Partial fill upon patient request if [...] Dry Weight Start Date: 08/03/23 Status: Ordered Ventolin HFA 108 mcg/inh inhalation aerosol with adapter 2 puffs, Inhalation, 4 times a day, PRN NEEDED FOR WHEEZING, # 18 each, 2 Refills, Maintenance, 10/09/23 9:40:00 EDT, [facility], 162, cm, 10/02/23 16:14:00 EST, Height, 99, kg, 10/03/23 14:12:00 EST, Dry Weight Start Date: 10/09/23 Status: Ordered Problem List Condition Confirmation Course [...] Most recent to oldest [Reference Range]: 1 Weight 100.6 kg (10/10/23 12:01 AM) Oxygen Saturation [94-100 %] 98 % (10/10/23 12:13 AM) Blood Pressure [90-138/55-84 mm Hg] 128/ 77mm Hg (10/10/23 12:13 AM) Temperature [96.8-100.4 DegF] 98.2 DegF (10/10/23 12:01 AM) Mode of Delivery (Oxygen) Room air (10/10/23 12:13 AM) Blood pressure sites Arm, right (10/10/23 12:13 AM) Temperature Route Oral (10/10/23 12:01 AM) Dry Weight 100.6 kg (10/10/23 12:01 AM) Weight Obtained Via Standing scale (10/10/23 12:01 AM) Dry Weight Obtained Via Standing scale (10/10/23 12:01 AM) Social History Social History Type Response Smoking Status Never (less than 100 in lifetime); Tobacco user in household: Yes entered on: 06/21/19 Sex Note * Xuan Foster RN: PERFORM Event Display: Discharge/Transfer Note Hospital Authored Date: [id number] Nursing Discharge Note Entered On: 10/10/2023 3:34 EDT Performed On: 10/10/2023 3:33 EDT by Xuan Foster RN Nursing Discharge Note 2 Discharge Time : 10/10/2023 3:30 EDT Discharge Level of Care at Discharge : Home/Detention/Foster Care Patient Left Unit Via : Ambulatory Patient Accompanied Off Unit with : Significant other DC Instructions Provided & Signed by Pt : Yes Patient Understands D/C Instructions : Yes Verbalized Understanding of D/C Plan By : Patient Patient Instructions Discharge Signed : Yes Did Pt have Specialty Bed or Wound Vac : No Xuan Foster RN - 10/10/2023 3:33 EDT * Event Display: Discharge/Transfer Note Hospital Authored Date: * Xuan Foster RN: PERFORM Event Display: Patient Education/Instruction Authored Date: [id number] Inpatient Adult Discharge Instructions. [address] [id number] Name: RUSTY DIEZ : 2000?? Visit: 10/09/2023 23:56?? Current Date: 10/10/2023 03:20 ?? Account: [id number]?? Inpatient Adult Discharge Instructions We would like [...] and their families. Surveys are administered by [employer]. ?? If further treatment with your primary care physician or another doctor is recommended, it is important for you to keep the appointment. Call your primary care physician or return to the Emergency Department immediately if your condition worsens, fails to improve, or new symptoms develop. If you need to find a doctor, you can call [facility] [employer] Link for a referral at [phone] or toll free at [phone]) or log in to [email or web address].. ?? [facility], in keeping with [facility] guidance, no longer requires face masks [...] a health care dorian of your choosing. [employer] is a website that allows you to securely view your medical information including your hospital discharge summary, office visit summaries, medications and follow-up visits. You can also request appointments, renew medications, and request access to your medical information using a health care dorian of your choosing, or just ask a question. You can enroll at [email or web address] or register during your next office visit. You have been discharged from [facility], Patient Care Unit: [id number]??. If you have any questions regarding these instructions, including results of studies pending, afteryou leave, please call us and we will be happy to assist you 20/02. [facility] Your Care Team Attending Physician Dexter YIP, Lea Story?? Consulting Providers Dexter YIP, Lea Story?? Tests Performed Below is a partial list of the tests performed during your hospitalization. You may have had other tests and procedures not included in this list. Please discuss all test results with your provider. No tests performed during this visit.?? Primary Care Provider Jihan Sierra NP? Advance Directive Health Care Proxy on File Yes - Health Care Proxy Discharge Vitals Temperature: 98.2 DegF Weight: 100.6 kg Systolic Blood Pressure: 128 mm Hg ?? Diastolic Blood Pressure: 77 mm Hg ?? Oxygen Saturation: 98 % ?? Studies Pending All studies ordered during this hospital stay have been completed unless listed below. Please discuss all pending results with your provider listed above in these instructions. ?? No incomplete studies found?? What to do next Instructions From Your Doctor ?? Orders?? Scheduled Follow-Up Appointments Monday. 2023 3:50 PM EDT ?? With: Cierra Gibson CNM Where: [facility] SIDING APPLICATOR [employer] [address] [place] [address]- Status: Pending You Need to Schedule the Following Appointments Follow Up with??Cierra Gibson CNM Why: please keep all upcoming oil well pumper appts Where: [address] [place] [address] Midwifery [place] [address]- Discharge Medications RUSTY DIEZ :2000 Visit Date:10/09/2023 Medications: Please continue your medications until treatment [...] needed for NEEDED FOR MIGRAINE HEADACHES Unchanged Albuterol (Ventolin HFA 108 mcg/ inh inhalation aerosol with adapter) 2 puff(s) Inhalation 4 times a day as needed for NEEDED FOR WHEEZING Unchanged Escitalopram (escitalopram 10 mg oral tablet) [...] Educational Leaflet Providered with your Discharge Instructions. [employer] Ignite Patient Education - Kick Counts?? [employer] Ignite Patient Education - How to Know You Are in Labor?? [employer] Ignite Patient Education - Comfort Tips During ?? [employer] Patient Education - Adapting to : Third Trimester?? Valuables and Belongings I fully understand and agree that [facility] accepts no responsibility for all my [...] to send valuables and belongings home. ? Common Emergency Awareness Tips IS IT [...] are strongly encouraged to quit. Please call [facility] [employer] Link at [phone] or [phone]) or log in to [email or web address] for referrals to smoking cessation programs. ?? 821 Suicide & Crisis Lifeline is available 20/02 if you or someone you know needs to find a reason to keep living. By calling 507 you'll be connected to a skilled, trained counselor at a crisis center in your area. INPATIENT DISCHARGE INSTRUCTIONS SIGNATURE RUSTY CHU Location:[facility] Registration Date and Time:10/09/2023 23:56 EDT Primary Care Physician: Jihan Sierra NP, Attending Physician: Dexter YIP, Lea Story, Honey RUSTY DIEZ, have received the above patient education materials/instructions and have verbalized understanding. If ambulance or transport services are being used I further acknowledge being given a choice of service. ?? If you need to contact me, please call me at this number: . Patient/Fisher Quahog Name: Patient/Fisher Quahog Signature: Relationship to Patient: Witness Name/Signature: Date: * Xuan Foster RN: PERFORM Event Display: Patient Education Leaflets Authored Date: [id number] Kick Counts ?? [address]702 Kick Counts It???s normal to worry about [...] day. ?? Last Reviewed Date: 2022 ?? 3250-3402 [employer]. All rights reserved. This information is not intended as a substitute for professional medical care. Always follow your healthcare professional's instructions. ?? * Xuna Foster RN R: PERFORM Event Display: Patient Education Leaflets Authored Date: [id number] How to Know You Are in Labor ?? How to Know You Are in Labor - Video Most women start to go into labor around the baby???s due date. This is typically around 40 weeks of . To view the video go to this web address: [email or web address] Or, scan this QR code with your smart phone Last Reviewed Date: 2019 ?? 2192-3257 [employer]. All rights reserved. This information is not intended as a substitute for professional medical care. Always follow your healthcare professional's instructions. ?? * Xuan Foster RN: PERFORM Event Display: Patient Education Leaflets Authored Date: [id number] Comfort Tips During ?? [address] Comfort Tips During can bring discomfort of different kinds. Below are tips for ways to feel better.??Talk with your??healthcare provider before using pain-relieving medicine at any time during your . First trimester tips Easing nausea ??? Get up slowly. Eat a few unsalted crackers before you get out of bed. ??? Stay away from smellsthat bother you. ??? Eat small,??bland, low-fat, high- protein meals at frequent intervals. ??? Sip on water, weak??tea, or clear soft drinks, like elli dano.??Eat ice chips. ??? Try taking vitamin B6. Coping with fatigue ??? Take catnaps when you can. ??? Get regular exercise. ??? Accept help from others. ??? Practice good sleep habits, like going to bed and getting up at the same time each day. Use your bed only forsleep and sex. Calming mood swings ??? Talk about your feelings with others, including other mothers. ??? Limit sugar, chocolate, and caffeine. ??? Eat a healthy diet. Don???t skip meals. ??? Get regular exercise. Soothing headaches ??? Get fresh air and exercise. ??? Relax and get enough rest. ??? Check with your healthcare provider before taking any pain medicines. ?? Second trimester tips ??? To limit ankle swelling, sit with your feet raised or wear support hose. ??? If you have pain in your groin and stomach??(round ligament pain), don't make sudden twisting movements with your body. ??? For leg cramps, flexing your foot often brings immediate relief. Also try massaging your calf in long, downward strokes, or stretching your legs before going to bed. Get enough exercise and wear shoes with flexible soles. Eat foods rich in calcium. ?? Third trimester tips Reducing heartburn ??? Eat small, light meals throughout the day rather than 3 large ones. ??? Sleep with your upper body raised 6 inches. Don???t lie down until 2 hours after you eat. ??? Don't eat greasy, fried, or spicy foods. ??? Don't have citrus fruits or juices. Treating constipation ??? Eat foods high in fiber, such as whole-grain foods, and fresh fruit and vegetables. ??? Drink plenty of water. ??? Get regular exercise. ??? Ask about your healthcare provider about medicines that have docusate or psyllium. Taking care of your breasts ??? Don't use harsh soaps or alcohol, which can make your skin too dry. ??? Wear nursing bras. Theyprovide more support than regular bras and can be used after if you breastfeed. Getting a good night???s sleep ??? Take a warm shower before bed. ??? Sleep on a firm mattress. ???Lie on your side with one leg crossed over the other. ??? Use pillows to support your arms, legs, and belly. ?? Last Reviewed Date: 2022 ?? 6379-1360 [employer]. All rights reserved. This information is not intended as a substitute for professional medical care. Always follow your healthcare professional's instructions. ?? Patient Care team information Care Team Personnel Name: Jihan Sierra NP Position: Reference Physician Member Role: PCP Address: Address: [address] [place] [address]- Name: Xuan Foster RN Position: S OB RN Member Role: OB RN Care Team Related Persons Name: BING CARTER Address: home [address] [place] [address] Name: ROSALVA CLAIRE Address: [address] Address: [address] [address] [place] Name: SANTO CLAIRE Address: home [address] [place] [address] Name: VALENTE WANG
--- OUTSIDE RECORDS SUMMARY | 2024-04-22 03:04 | XMS_ITS | Continuity of Care Document ---
Author Organization [facility] Address [address] [address]- Care Team Providers Care Stone And Plate Preparer Apprentice Name Role Phone Sanford YIP, Shayne Hall Primary Care Physician Encounter [facility] Date(s): 07/08/19 - 07/08/19 [facility] [address] [address]- [facility] Discharge Disposition: A-D/C Home Attending Physician: Coty Acevedo MD Admitting Physician: Not on Staff, Admitting MD Referring Physician: Ignacio VALLEJO, Christel Gamez Allergies, Adverse Reactions, Alerts Substance Reaction Severity [...] Refills, Maintenance, 06/21/19 17:13:00 EST Start Date: 11/22/19 Status: Ordered Zofran ODT 4 mg oral [...] History of recurrent UTIs(Confirmed) 3 Active Migraine(Confirmed) 4 Active 1Albuterol prn (acts up mainly in winter time). 2As child, saw therapist (no meds) but improved/went away. Now in feeling down and a little depressed. 3Most recent uti couple months ago , cannot remember when. Seen in ED. 4Taking fioricet prn for this, reports typically about 1-2x/week. 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 Referred to neuro but unable to see d/t insurance issues, so was just seeing pcp for this for now. Vital Signs Most recent to oldest [Reference Range]: 1 Height 163 cm (07/08/19 4:38 PM) Weight 68.96 kg (07/08/19 4:38 PM) Body Mass Index [18.5-24.99] 25.96 *H* (07/08/19 4:38 PM) Blood Pressure [90-138/55-84 mm Hg] 105/ 57mm Hg (07/08/19 4:38 PM) Blood pressure sites Arm, right (07/08/19 4:38 PM) Weight Obtained Via Standing scale (07/08/19 4:38 PM) Social History Social History Type Response Smoking Status Never (less than 100 in lifetime); Tobacco user in household: Yes entered on: 06/21/19 Sex
--- OUTSIDE RECORDS SUMMARY | 2024-04-22 03:04 | XMS_ITS | Continuity of Care Document ---
Author Organization [facility] Address [address] [address]- Care Team Providers Care Fringe Knotter Name Role Phone Jihan Sierra NP Primary Care Physician [phone] Encounter [facility] Date(s): 03/22/23 - 04/21/23 [facility] [address] [address]- Allergies, Adverse Reactions, Alerts No Known Allergies Immunizations Given and Recorded Vaccine Date Status Refusal Reason [id number] 12y+ bivalent booster vax 08/10/22 Recorded SARS-CoV-2 [...] Amandeep rded influenza virus vaccine, inactivated 06/15/01 Amadneep rded tetanus-diphtheria toxoids (Td) 04/12/17 Recorded Meningococcal [...] 0 Refills, Maintenance, 04/03/23 13:59:00 EDT, Tablet, [facility]/pharmacy #[id number], Partial fill upon patient request if the prescription is for a sche... Start Date: 04/03/23 Status: Ordered albuterol CFC free 90 mcg/inh inhalation aerosol 180 mcg, 2, puffs, Inhalation, 4 times a day, PRN, # 6.7 Gm, Refills 2, Tot. Refills 2, Maintenance, 04/03/23 13:59:00 EDT, Inhaler, Route to Pharmacy Electronically, [id number], [facility]/pharmacy #[id number], 162, cm, 03/29/23 13:33:00... Start [...] Refills, Maintenance, 03/09/23 19:12:00 EDT, Tablet, [id number], Partial fill upon patient request if the [...] Reference Physician Member Role: PCP Address: Address: [address] [place] [address]- Care Team Related Persons Name: BING CARTER Address: home [address] [place] [address] Name: ROSALVA CLAIRE Address: [address] Address: [address] [address] Name: SANTO CLAIRE Address: home [address] [place] [address] Name: VALENTE WANG
--- OUTSIDE RECORDS SUMMARY | 2024-04-22 03:04 | XMS_ITS | Continuity of Care Document ---
Author Organization [facility] Address [address] [address]- Care Team Providers Care Technical Marketing Consultant Name Role Phone Sanford YIP, Shayne Hall Primary Care Physician [facility] Date(s): 12/22/22 - 01/21/23 [facility] [address] [address]- Allergies, Adverse Reactions, Alerts No Known Allergies [...] tablet, 2 Refills, Maintenance, 02/06/20 13:40:00 EDT, [facility]/pharmacy #0373, 1 tablet ByMouth Every 4 hours,Instr:May [...] prescription is for a schedule II opioid Start Date: 12/07/22 Stop Date: 12/02/23 Status: [...] ED. 4says she has a neurologist in [place] for migraines. 5Taking fioricet prn for this, [...] Personnel Name: Sanford YIP, Shayne Hall Position: [facility] Outreach Member Role: PCP Address: Address: [address] [place] [address]- Care Team Related Persons Name: BING CARTER Address: [address] [place] [address] Name: ROSALVA CLAIRE Address: [address] Address: [address] [address] [place] Name: SANTO CLAIRE Address: home [address] [place] [address] Name: VALENTE WANG
--- OUTSIDE RECORDS SUMMARY | 2024-04-22 03:04 | XMS_ITS | Continuity of Care Document ---
Author Organization [facility] Address [address] [place] [address]- Care Team Providers Care Ultimate Hoops Referee Name Role Phone Jihan Sierra NP Primary Care Physician Encounter [facility] Date(s): 09/15/23 - 09/15/[address] [address] Discharge Disposition: A-D/C Home Attending Physician: Coty Acevedo MD Admitting Physician: Coty Acevedo MD Referring Physician: Coty Acevedo MD Allergies, Adverse Reactions, Alerts No Known Allergies Immunizations Given and Recorded Vaccine Date Status Refusal Reason tetanus/diphtheria/pertussis, acel(Tdap) 07/20/23 Given tetanus/diphtheria/pertussis, acel(Tdap) 11/13/19 Given tetanus/diphtheria/pertussis, acel(Tdap) 04/29/10 Recorded [id number] 12y+ bivalent booster vax 08/10/22 Recorded SARS-CoV-2 [...] tablet, 0 Refills, Maintenance, 09/01/23 9:12:00 EST, [facility], 5, TAKE 1 TABLET BY MOUTH EVERY 4 HOURS NEEDED FOR MIGRAINE HEADACHES, 162, cm, 08/31/23 10:40:00 E... Start Date: 09/01/23 Status: Ordered clotrimazole 1% vaginal cream with applicator 1 application, Vaginally, Daily at bedtime, for 7 days, # 45 Gm, 0 Refills, Acute 09/22/23 23:09:00EST, 09/15/23 23:09:00 EST, Cream, [facility]/pharmacy #2402, Partial fill upon patient request if the prescription is for a schedule II opioid drug., 1 appli... Start Date: 09/15/23 Stop Date: 09/22/23 Status: Ordered escitalopram 10 mg oral tablet 1 tablet, By Mouth, Daily, # 30 tablet, 0 Refills, Maintenance, 08/17/23 16:18:00 EST, [facility], 162, cm, 08/03/23 11:00:00 EST, Height, 97.63, kg, 08/03/23 11:00:00 EST, Dry Weight Start Date: 08/17/23 Status: Ordered Flovent HFA 44 mcg/inh inhalation aerosol See Instructions, INHALE 2 PUFFS TWICE A DAY, # 10.6 each, 0 Refills, Maintenance, 07/12/23 18:32:00 EST, [facility], 162, cm, 05/25/23 11:20:00 EDT, Height, 91.4, [...] tablet, 1 Refills, Maintenance, 05/20/23 13:08:00 EDT, [facility]/pharmacy#0373, Partial fill upon patient request if the [...] Most recent to oldest [Reference Range]: 1 Oxygen Saturation [94-100 %] 98 % (09/15/23 12:38 PM) Pulse Rate [55-90 bpm] 116 bpm *H* (09/15/23 12:38 PM) Blood Pressure [90-138/55-84 mm Hg] 128/ 55mm Hg (09/15/23 12:38 PM) Temperature [96.8-100.4 DegF] 97.7 DegF (09/15/23 12:38 PM) Blood pressure sites Arm, right (09/15/23 12:38 PM) Temperature Route Oral (09/15/23 12:38 PM) Dry Weight 98.2 kg (09/15/23 12:38 PM) Social History Social History Type Response Smoking Status Never (less than 100 in lifetime); Tobacco user in household: Yes entered on: 06/21/19 Sex Note * Pamela Patton RN: PERFORM Event Display: Discharge/Transfer Note Hospital Authored Date: [id number] Nursing Discharge Note Entered On: 09/15/2023 14:01 EST Performed On: 09/15/2023 14:00 EST by Pamela Patton RN Nursing Discharge Note 2 Discharge Time : 09/15/2023 14:00 EST Discharge Level of Care at Discharge : Home/Snf/Foster Care Patient Left Unit Via : Ambulatory Patient Accompanied Off Unit with : Other: self DC Instructions Provided & Signed by Pt : Yes Patient Understands D/C Instructions : Yes Patient Instructions Discharge Signed : Yes Did Pt have Specialty Bed or Wound Vac : No Pamela Patton RN - 09/15/2023 14:00 EST * Pamela Patton RN: PERFORM Event Display: Patient Education/Instruction Authored Date: [id number] Inpatient Adult Discharge Instructions. [address] [address] Name: RUSTY DIEZ : 2000?? Visit: 09/15/2023 12:13?? Current Date: 09/15/2023 13:57 ?? Account: [id number]?? Inpatient Adult Discharge Instructions We would like [...] and their families. Surveys are administered by [employer]. ?? If further treatment with your primary care physician or another doctor is recommended, it is important for you to keep the appointment. Call your primary care physician or return to the Emergency Department immediately if your condition worsens, fails to improve, or new symptoms develop. If you need to find a doctor, you can call [facility] for a referral at [phone] or toll free at [phone]) or log in to [email or web address].. ?? [facility], in keeping with [facility] guidance, no longer requires face masks [...] a health care dorian of your choosing. [employer] is a website that allows you to securely view your medical information including your hospital discharge summary, office visit summaries, medications and follow-up visits. You can also request appointments, renew medications, and request access to your medical information using a health care dorian of your choosing, or just ask a question. You can enroll at [email or web address] or register during your next office visit. You have been discharged from [facility], Patient Care Unit: [id number]??. If you have any questions regarding these instructions, including results of studies pending, afteryou leave, please call us and we will be happy to assist you 20/02. [facility] Your Care Team Attending Physician Coty Acevedo MD?? Consulting Providers Coty Acevedo MD?? Tests Performed Below is a partial list of the tests performed during your hospitalization. You may have had other tests and procedures not included in this list. Please discuss all test results with your provider. Group B Strep by PCR?-- Results Pending -- UA?-- Results Pending -- Vaginosis Vaginitis Panel (BV, CV/TV)?-- Results Pending -- You will be contacted within 72 hours with your results. Complete Urinalysis (UA)?? Group B Strep by PCR?? Hold Urine Culture?? Vaginosis Vaginitis Panel (BV, CV/TV)?? Primary Care Provider Jihan Sierra NP? Discharge Vitals Temperature: 97.7 DegF Pulse Rate:??116 bpm??High Systolic Blood Pressure: 128 mm Hg Diastolic Blood Pressure: 55 mm Hg Oxygen Saturation: 98 % Studies Pending All studies ordered during this hospital stay have been completed unless listed below. Please discuss all pending results with your provider listed above in these instructions. ?? Complete Urinalysis (UA)?? Group B Strep by PCR?? Hold Urine Culture?? Vaginosis Vaginitis Panel (BV, CV/TV)?? What to do next Instructions From Your Doctor ?? Orders?? Scheduled Follow-Up Appointments Monday 4:30 PM EST ?? With: Loree Salcedo CNM Where: [facility] UNIT EDUCATOR Non [address] [address]- Status: Pending Monday 2:50 PM EST ?? With: Carlota Raines CNM Where: [facility] UNIT EDUCATOR Non [address] [address]- Status: Pending Monday 3:50 PM EST ?? With: Ainsley Torres CNM Head Where: [facility] UNIT EDUCATOR Non [address] [address]- Status: Pending Monday 3:50 PM EDT ?? With: Sosa Orona CNM Where: [facility] UNIT EDUCATOR Non Global [address] [place] [address]- Status: Pending Monday 3:50 PM EDT ?? With: Arthur VALLEJO Cierra Hall Where: [facility] UNIT EDUCATOR Non Global [address] [place] [address]- Status: Pending You Need to Schedule the Following Appointments Follow Up with??Loree Salcedo CNM Why: keep next scheduled appointed Where: [address] [place] [address]'s Health [place] [address]- Discharge Medications RUSTY DIEZ :2000 Visit Date:09/15/2023 Medications: Please continue your medications until treatment [...] oral tablet) 1 tab(s) Oral Daily Unchanged Famotidine (Pepcid 20 mg oral tablet) 1 tab(s) Oral Twice a day as needed for Dyspepsia Unchanged Fluticasone (Flovent HFA 44 mcg/ inh [...] (gastroesophageal reflux disease)?? History of recurrent UTIs?? Low-lying placenta?? Migraine with aura?? Obesity in ?? Persistent cough? Education Materials Below is the list of Educational Leaflet Providered with your Discharge Instructions. [employer] Patient Education - Kick Counts?? [employer] Patient Education - Adapting to : Third Trimester?? [employer] Patient Education - Yeast Infection (Gaby Vaginal Infection)?? Valuables and Belongings I fully understand and agree that [facility] accepts no responsibility for all my personal [...] are strongly encouraged to quit. Please call [facility] at [phone] or [phone]) or log in to [email or web address] for referrals to smoking cessation programs. ?? 988 Suicide & Crisis Lifeline is available 20/02 if you or someone you know needs to find a reason to keep living. By calling 337 you'll be connected to a skilled, trained counselor at a crisis center in your area. INPATIENT DISCHARGE INSTRUCTIONS SIGNATURE RUSTY CHU Location:[facility] Registration Date and Time:09/15/2023 12:13 EST Primary Care Physician: Jihan Sierra NP, Attending Physician: Coty Acevedo MD, I RUSTY DIEZ, have received the above patient education materials/instructions and have verbalized understanding. If ambulance or transport services are being used I further acknowledge being given a choice of service. ?? If you need to contact me, please call me at this number: . 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 [address] Kick Counts It???s normal to worry about [...] day. ?? Last Reviewed Date: 2022 ?? [facility]. All rights reserved. This information is not intended as a substitute for professional medical care. Always follow your healthcare professional's instructions. ?? * Pamela Patton RN: PERFORM Event Display: Patient Education Leaflets Authored Date: [id number] Adapting to : Third Trimester ?? 12305 Adapting to : Third Trimester Although common during , some discomforts may seem worse in the final weeks. Simple lifestyle changes can help. Take care of yourself. And ask your partner to help out with small tasks. Limiting leg problems Ways to combat leg issues: ??? Wear support hose all day. ??? Don't wear snug shoes or clothes thatbind, such as tight pants and socks with elastic tops. ??? Sit with your feet and legs raised often. ?? Caring for your breasts Tips to follow include: ??? Wash with plain water. Don't use harsh soaps or rubbing alcohol. They may cause dryness. ??? Wear a nursing bra for extra support. It can also hide any leaks from your nipples. ?? Controlling hemorrhoids Ways to prevent hemorrhoids include: ??? Eat foods that are high in fiber. Also exercise and drink enough fluids. This will reduce constipation and hemorrhoids. ??? Sleep and nap on your side. This limits pressure on the veins??of your rectum. ??? Try not to stand or sit for long periods. ?? Controlling back pain As your body changes during , your back must work in new ways. Back pain has many causes. Physical changes in your body can strain your back and its supporting muscles. Also hormones increase during . This can affect how??your muscles and joints work together. All of these changescan lead to pain. Pain may be felt in the upper or lower back. Pain is also common in the pelvis. Some womenhave sciatica. This is pain caused by pressure on the sciatic nerve running down the back of the leg. Ice or heat may help. Your provider may advise massage therapy or a chiropractor. Sleep on your left side with a pillow between your knees. Use a brace or support device. Ask your provider for speci fic tips and exercises to help control your back pain. ?? Tips to help you rest Good rest and sleep will help you feel better. Here are some ideas: ??? Ask your partner to massageyour shoulders, neck, or back. ??? Limit the errands you do each day. ??? Lie down in the afternoonor after work for a few minutes. ??? Take a warm bath before you go to sleep. ??? Drink warm milk or teas without caffeine. ??? Don't drink coffee, black tea, and cola. ?? Stopping heartburn ??? Don't eat spicy, greasy, fried,??or acidic foods. ??? Eat small amounts more often. Eat slowly. ??? Wait 2 hours after eating before lying down. ??? Sleep with your upper body raised 6 inches. ?? Managing mood swings Ways to manage mood swings include: ??? Know that mood changes are normal. ??? Exercise often, but get plenty of rest. ??? Address any concerns and limit stress. Talking to your partner, other women,or your healthcare provider may help. ?? Dealing with urinary frequency Tips to deal with having to urinate often include: ??? Drink plenty of water all day. But if you drink a lot in the evening, you may have to get up more in the night. ??? Limit coffee, black tea, andcola. ?? How daily issues affect your health [...] who can help. ?? Last Reviewed Date: 2021 ?? 2219-6847 [employer]. All rights reserved. This information is not intended as a substitute for professional medical care. Always follow your healthcare professional's instructions. ?? * Pamela Patton RN: PERFORM Event Display: Patient Education Leaflets Authored Date: [id number] Yeast Infection (Gaby Vaginal Infection) ?? [id number] Yeast Infection (Gaby Vaginal Infection) You have a??Gaby??vaginal infection. This is also known as a yeast infection. It's most often caused by a type of yeast (fungus) called??Gaby.??Gaby??is normally found in the vagina. But if it increases in number, this can lead to infection and cause symptoms. Symptoms of a yeast infection can include: ??? Clumpy or thin, white discharge, which may look like cottage cheese ??? Itching or burning ??? Burning with urination Certain factors can make a yeast infection more likely. These can include: ??? Taking certain medicines, such as antibiotics or control pills ? Diabetes??? Weak immune system A yeast infection is most often treated with antifungal medicine. This may be given as a vaginal cream or pills you take by mouth. Treatment may last for about 1 to 7 days. Women with severe or recurrent infections may need longer courses of treatment. Home care ??? If you???re prescribed medicine, be sure to use it as directed. Finish??all??of the medicine, even if your symptoms go away.??Don???t try to treat yourself using hyqg-any-orrhrrk products without talking with your healthcare provider first. They will let you know if this is a good choice for you. ??? Ask your provider what steps you can take to help reduce your risk of having a yeast infection in the future. ?? Follow-up care Follow up with your healthcare provider, or as directed. ?? When to get medical advice Call your healthcare provider right away if any of the following occur: ??? You have a fever of 100.4??F (38??C)??or higher, or as directed by your provider. ??? Your symptoms get worse, or they don???t go away within a few days of starting treatment. ??? You have new pain in the lower belly or pelvic region. ??? You have side effects that bother you or a reaction to the cream or pills you???re prescribed. ??? You or any partners you have sex with have new symptoms, such??as a rash, joint pain,or sores. ?? Last Reviewed Date: 2022 ?? [employer]. All rights reserved. This information is not intended as a substitute for professional medical care. Always follow your healthcare professional's instructions. ?? Patient Care team information Care Team Personnel Name: Jihan Sierra NP Position: Reference Physician Member Role: PCP Address: Address: [address] [place] [address]- Care Team Related Persons Name: BING CARTER Address: home [address] [place] [address] Name: ROSALVA CLAIRE Address: [address] Address: [address] [address] [place] Name: SANTO CLAIRE Address: [address] [place] [address] Name: VALENTE WANG
--- OUTSIDE RECORDS SUMMARY | 2024-04-22 03:04 | XMS_ITS | Continuity of Care Document ---
Author Organization [facility] Address [address] [address]- Care Team Providers Care Gas Station Service Attendant Name Role Phone Jihan Sierra NP Primary Care Physician [phone] [facility]counter [facility] Date[facility]s): 05/25[facility]23 - [facility] [address] [address]- Allergies, Adverse Reactions, Alerts No Known Allergies Immunizations Given and Recorded Vaccine Date Status Refusal Reason [id number] 12y+ bivalent booster vax 08/10/22 Recorded SARS-CoV-2 [...] 12/21/23 11:08:00 EDT, 06/21/23 11:08:00 EST, Tablet, [facility]/pharmacy #4430, Partial fill upon patient request if the prescription is f... Start Date: 06/21/23 Stop Date: 12/21/23 Status: Ordered albuterol CFC free 90 mcg/inh inhalation aerosol 180 mcg, 2, puffs, Inhalation, 4 times a day, PRN, # 6.7 Gm, Refills 2, Tot. Refills 2, Maintenance, 04/03/23 13:59:00 EDT, Inhaler, Route to Pharmacy Electronically, [id number], [facility]/pharmacy #0373, 162, cm, 03/29/23 13:33:00... Start Date: [...] tablet, 8 Refills, Maintenance, 03/02/23 7:51:00 EDT, [facility]/pharmacy #0813, Partial fill upon patient request if th... Start Date: 03/02/23 Status: Ordered escitalopram 5 mg oral tablet 1 tablet, By Mouth, Daily, INSTR:1 DAILY FOR TWO WEEKS AND THEN REASSESSMENT FOR DOSE ADJUSTMENT, #30 tablet, 0 Refills, Maintenance, 06/21/23 11:05:00 EST, [facility], 162, cm, 05/25/23 11:20:00 EDT, Height, 91.4, kg, 05/25/23 11:20:00 EDT, Dry... Start Date: 06/21/23 Status: Ordered Flovent HFA 44 mcg/inh inhalation aerosol 2 puffs, Inhalation, 2 times a day, # 10.6 each, 0 Refills, Maintenance, 06/21/23 11:06:00 EST, [facility], 162, cm, 05/25/23 11:20:00 EDT, Height, 91.4, kg, 05/25/23 11:20:00 EDT, Dry Weight Start Date: 06/21/23 Status: Ordered ondansetron 8 mg oral tablet 1 tablet = 8 mg, By Mouth, 3 times a day, # 30 tablet, 5 Refills, Maintenance, 03/09/23 19:12:00 EDT, Tablet, [facility]/pharmacy #9571, Partial fill upon patient request if the [...] tablet, 1 Refills, Maintenance, 05/20/23 13:08:00 EDT, [facility]/pharmacy#0373, Partial fill upon patient request if the prescription is for a schedule II opioid drug., 1 tablet By Mouth Daily, 162, cm, 03/29/23 13:33:00 EDT... Start Date: 05/20/23 Status: Ordered PNV Select oral tablet 1 tablet, By Mouth, Daily, Please prescribe PNVs that are covered by pt's insurance., # 30 tablet, 11 Refills, Maintenance, 12/07/22 10:40:00 EDT, [facility]/pharmacy #0373, Partial fill upon patient request if [...] List Condition Confirmation Course Effective Dates Status [facility] Informant Asthma 1 Confirmed [...] Reference Physician Member Role: PCP Address: Address: [address] [place] [address]- [place] Care Team Related Persons Name: BING CARTER Address: [address] [place] [address] Name: ROSALVA CLAIRE Address: [address] Address: [address] [address] Name: SANTO CLAIRE Address: [address] [place] [address] Name: VALENTE WANG
--- OUTSIDE RECORDS SUMMARY | 2024-04-22 03:04 | XMS_ITS | Continuity of Care Document ---
Author Organization [facility] Address [address] [place] [address]- Care Team Providers Care Ambulance Paramedic Name Role Phone Shayne Christina MD Primary Care Physician Encounter [facility] Date(s): 09/07/20 - 10/07/20 [facility] [address] [address] Attending Physician: Seun Castaneda Admitting Physician: [...] Maintenance, 02/06/20 13:40:00 EDT, [facility]/pharmacy #0373, 1 tablet ByMouth Every 4 hours,Instr:May [...] 11:34:00 EDT, Aerosol, Route to Pharmacy Electronically, [id number], [facility] 163, cm, 11/13/19 16:13:00 EDT, Hei... Start Date: 11/25/19 Stop Date: 04/23/20 Status: Ordered Flovent HFA 110 mcg/inh inhalation aerosol 2 puffs, Inhalation, 2 times a day, # 12 Gm, 1 Refills, Maintenance, 12/02/19 0:58:00 EDT, [facility], 163, cm, 11/27/19 15:36:00 EDT, Height, 78.1, kg, 11/13/19 16:13:00 EDT, Dry Weight Start Date: 12/02/19 Stop Date: 12/16/19 Status: Ordered fluconazole 150 mg oral tablet 1 tablet = 150 mg, By Mouth, Once, repeat dose if still having symptoms in 72 hours, # 2 tablet, 0 Refills, Soft Stop, 09/14/20 9:53:00 EST, Tablet, [facility]/pharmacy #0373, Partial fill upon patient request if the prescription is for a schedule II opioid... Start Date: 09/14/20 Status: Ordered ibuprofen 200 mg oral tablet 400 mg, 2, tablet, By Mouth, Every 4 hours, PRN, # 100 tablet, Refills 0, Tot. Refills 0, Maintenance, for pain, 01/31/20 10:59:00 EDT, Route to Pharmacy Electronically, [facility]/pharmacy #2071, 163, cm, 01/31/20 0:18:00 EDT, Height, 81.4, kg, 01/29/20 8:5... Start Date: 01/31/20 Status: Ordered Mirena 52 mg intrauterine device See Instructions, 1 each Once, # 1 each, 0 Refills, Soft Stop, 03/10/20 14:06:00 EDT, [facility], 163, cm, 03/10/20 13:34:00 [...] ED. 4says she has a neurologist in [place] for migraines. 5Taking fioricet prn for this, [...]
--- OUTSIDE RECORDS SUMMARY | 2024-04-22 03:04 | XMS_ITS | Continuity of Care Document ---
Author Organization [facility] Address Unknown Care Team Providers Care Office Support Associate Name Role Phone Shayne Christina MD Primary Care Physician [place] [facility] [place] - 02/17/22 [facility] Attending Physician: Not on Staff, Attending Referring [...] tablet, 2 Refills, Maintenance, 02/06/20 13:40:00 EDT, [facility]/pharmacy #[id number], 1 tablet ByMouth Every [...] 11:34:00 EDT, Aerosol, Route to Pharmacy Electronically, [id number], [id number], 163, cm, 11/13/19 16:13:00 EDT, Hei... Start Date: 11/25/19 Stop Date: 04/23/20 Status: Ordered Flovent HFA 110 mcg/inh inhalation aerosol 2 puffs, Inhalation, 2 times a day, # 12 Gm, 1 Refills, Maintenance, 12/02/19 0:58:00 EDT, [id number], 163, cm, 11/27/19 15:36:00 EDT, Height, 78.1, kg, 11/13/19 16:13:00 EDT, Dry Weight Start Date: 12/02/19 Stop Date: 12/16/19 Status: Ordered fluconazole 150 mg oral tablet 1 tablet = 150 mg, By Mouth, Once, repeat dose if still having symptoms in 72 hours, # 2 tablet, 0 Refills, Soft Stop, 09/14/20 9:53:00 EST, Tablet, [facility]/pharmacy #[id number], Partial fill upon patient request if the prescription is for a schedule II opioid... Start Date: 09/14/20 Status: Ordered ibuprofen 200 mg oral tablet 400 mg, 2, tablet, By Mouth, Every 4 hours, PRN, # 100 tablet, Refills 0, Tot. Refills 0, Maintenance, for pain, 01/31/20 10:59:00 EDT, [facility] to Pharmacy Electronically, [id number], 163, cm, 01/31/20 0:18:00 EDT, Height, 81.4, kg, 01/29/20 8:5... Start Date: 01/31/20 Status: Ordered Mirena 52 mg intrauterine device See Instructions, 1 each Once, # 1 each, 0 Refills, Soft Stop, 03/10/20 14:06:00 EDT, [facility], 163, cm, 03/10/20 13:34:00 EDT, Height, 75.02, kg, 03/10/20 13:34:00 EDT, Dry Weight Start Date: 03/10/20 Status: Ordered Zofran 4 mg oral tablet 1 tablet = 4 mg, By Mouth, Every 8 hours, PRN Vomiting, # 20 tablet, 0 Refills, Maintenance, 08/07/21 3:25:00 EST, Tablet, [id number], Partial fill upon patient request if the [...] ED. 4says she has a neurologist in [place] for migraines. 5Taking fioricet prn for this, [...]
--- OUTSIDE RECORDS SUMMARY | 2024-04-22 03:04 | XMS_ITS | Continuity of Care Document ---
Author Organization [facility] Address [address] [address]- Care Team Providers Care Correctional Officer Captain Name Role Phone Sanford YIP, Shayne Hall Primary Care Physician [place] [facility] [place] - 08/26/22 [facility] [address] [id number] Allergies, Adverse Reactions, Alerts No Known [...] 2 Refills, Maintenance, 02/06/20 13:40:00 EDT, [facility]/pharmacy #[id number], 1 tablet ByMouth Every [...] II opioid... Start Date: 08/23/22 Status: Ordered metroNIDAZOLE 500 mg oral tablet 1 tablet = 500 mg, By Mouth, Every 12 hours, for 7 days, # 14 tablet, 0 Refills, Acute 08/30/22 16:16:00 EST, 08/23/22 16:16:00 EST, Tablet, [id number], Partial fill upon patient request if the prescription is for a schedule II opioid drug., 1... Start Date: 08/23/22 Stop Date: 08/30/22 Status: Ordered Multivitamins with Folic Acid 0.8 [...] ED. 4says she has a neurologist in [place] for migraines. 5Taking fioricet prn for this, [...] Team Personnel Name: Shayne Christina MD Position: [facility] Outreach Member Role: PCP Address: Address: [address] [place] [address]- [place] Care Team Related Persons Name: BING CARTER Address: home [address] [place] [address] Name: ROSALVA CLAIRE Address: [address] Address: home [address] [address] Name: SANTO CLAIRE Address: home [address] [place] [address] Name: VALENTE WANG
--- OUTSIDE RECORDS SUMMARY | 2024-04-22 03:04 | XMS_ITS | Continuity of Care Document ---
Author Organization [facility] Address [address] [place] [address]- Care Team Providers Care Carpenter Repair Name Role Phone Sanford YIP, Shayne Hall Primary Care Physician [place] [facility] [place](s): 03/07/23 - 03/08/[address] [address] Discharge Disposition: A-D/C Home Attending Physician: Zuleika Mcnally MD Admitting Physician: Zuleika Mcnally MD Referring Physician: Zuleika Mcnally MD Allergies, Adverse Reactions, Alerts No Known [...] tablet, 2 Refills, Maintenance, 02/21/23 14:04:00 EDT, [facility]/pharmacy #[id number], 1 tablet ByMouth Every 4 hours,Instr:May repeat [...] th... Start Date: 03/02/23 Status: Ordered ondansetron 4 mg oral tablet, disintegrating 1 tablet = 4 mg, By Mouth, 2 times a day, PRN Nausea & Vomiting, # 12 tablet, 3 Refills, Maintenance, 02/13/23 9:10:00 EDT, Tablet, [facility]/pharmacy #[id number], Partial fill upon patient request if the prescription is for a schedule II opioid drug., 163, cm, 0... Start Date: 02/13/23 Status: Ordered pantoprazole 40 mg oral delayed release tablet 1 tablet = 40 mg, By Mouth, 2 times a day, # 60 tablet, 3 Refills, Maintenance, 03/02/23 7:52:00 EDT, CR Tablet, 162, cm, 03/02/23 4:36:00 EDT, Height, 91.5, kg, 02/28/23 20:42:00 EDT, Dry Weight Start Date: 03/02/23 Status: Ordered PNV Select oral tablet 1 [...] 0 Refills, Maintenance, 02/20/23 21:40:00 EDT, Suppository, [id number], Partial fill upon patient request if [...] a schedule II opioid drug., 162, cm, ... Start Date: 03/02/23 Status: Ordered Reglan 10 [...] ED. 4says she has a neurologist in [place] for migraines. 5Taking fioricet prn for this, reports typically about 1-2x/week. 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 Referred to neuro but unable to see d/t insurance issues, so was just seeing pcp for this for now. Vital Signs Most recent to oldest [Reference Range]: 1 Weight 91.3 kg (03/07/23 10:21 PM) Oxygen Saturation [94-100 %] 100 % (03/07/23 10:21 PM) Pulse Rate [55-90 bpm] 63 bpm (03/07/23 10:21 PM) Blood Pressure [90-138/55-84 mm Hg] 114/ 63mm Hg (03/07/23 10:21 PM) Respiratory Rate [16-30 br/min] 18 br/mi n (03/07/23 10:21 PM) Temperature [96.8-100.4 DegF] 98.7 DegF (03/07/23 10:21 PM) Mode of Delivery (Oxygen) Room air (03/07/23 10:21 PM) Blood pressure sites Arm, right (03/07/23 10:21 PM) Temperature Route Oral (03/07/23 10:21 PM) Dry Weight 91.3 kg (03/07/23 10:21 PM) Weight Obtained Via Standing scale (03/07/23 10:21 PM) Dry Weight Obtained Via Standing scale (03/07/23 10:21 PM) Social History Social History Type Response Smoking Status Never (less than 100 in lifetime); Tobacco user in household: Yes entered on: 06/21/19 Sex Note * Christel Mosquera RN: PERFORM Event Display: Discharge/Transfer Note Hospital Authored Date: [id number] Nursing Discharge Note Entered On: 03/08/2023 6:43 EDT Performed On: 03/08/2023 6:43 EDT by Christel Mosquera RN Nursing Discharge Note 2 Discharge Time : 03/08/2023 6:43 EDT Discharge Level of Care at Discharge : Home/Intermediate/Foster Care Patient Left Unit Via : Ambulatory Patient Accompanied Off Unit with : Other: friend DC Instructions Provided & Signed by Pt : Yes Patient Understands D/C Instructions : Yes Patient Instructions Discharge Signed : Yes Did Pt have Specialty Bed or Wound Vac : No Christel Mosquera RN - 03/08/2023 6:43 EDT * Event Display: Discharge/Transfer Note Hospital Authored Date: [id number] * Christel Mosquera RN: PERFORM Event Display: Patient Education/Instruction Authored Date: [id number] Inpatient Adult Discharge Instructions [address] [id number] Name: RUSTY DIEZ : 2000 Visit: 03/07/2023 21:43:00 Current Date: 03/08/2023 06:29 Account: [id number] Inpatient Adult Discharge Instructions We would like [...] and their families. Surveys are administered by [employer]. ?? If further treatment with your primary care physician or another doctor is recommended, it is important for you to keep the appointment. Call your primary care physician or return to the Emergency Department immediately if your condition worsens, fails to improve, or new symptoms develop. If you need to find a doctor, you can call [facility] for a referral at [phone] or toll free at [phone]) or log in to [email or web address] ?? You can view and manage your care through the patient portal or by using a health care dorian of your choosing. [employer] is a website that allows you to securely view your medical information including your hospital discharge summary, office visit summaries, medications and follow-up visits. You can also request appointments, renew medications, and request access to your medical information using a health care dorian of your choosing, or just ask a question. You can enroll at [email or web address] or register during your next office visit. You have been discharged from [facility], Patient Care Unit: [id number]. If you have any questions regarding these instructions after you leave, please call us and we will be happy to assist you. [facility] Your Care Team Attending Physician Zuleika Mcnally MD Tests Performed Below is a partial list of the tests performed during your hospitalization. You may have had other tests and procedures not included in this list. Please discuss all test results with your provider. TSH with T4 Reflex (Adults Only) Primary Care Provider Shayne Christina MD Advance Directive Health Care Proxy on File Yes - Health Care Proxy Discharge Vitals Temperature: 98.7 DegF Weight: 91.3 kg Pulse Rate: 63 bpm ?? Respiratory Rate: 18 br/min ?? Systolic Blood Pressure: 114 mm Hg ?? Diastolic Blood Pressure: 63 mm Hg ?? Oxygen Saturation: 100 % ?? Studies Pending All tests and labs ordered during this hospital stay have been completed unless listed below. Please discuss all pending results with your provider listed above in these instructions. ?? No incomplete studies found What to do next Instructions From Your Doctor Discharge Orders Scheduled Follow-Up Appointments Monday 10:00 AM EDT ?? 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 Where: [facility] SLATE TRIMMER [address] [place] [address]- Status: Pending Monday 1:40 PM EDT ?? With: Ainsley Torres CNM Head Where: [facility] [place] [address]- Status: Pending You Need to Schedule the Following Appointments Follow Up with??[facility] Where: [address] [place] [address]- Discharge Medications RUSTY DIEZ :2000 Visit Date:03/07/2023 Medications: Please continue your medications until treatment [...] day as needed for for wheezing Unchanged DiphenhydrAMINE (Benadryl 25 mg oral tablet) 25 Milligram Oral Every 4 hours Unchanged Doxylamine (doxylamine 25 mg oral tablet) [...] as needed for Nausea & Vomiting Unchanged Pantoprazole (pantoprazole 40 mg oral delayed release tablet) 1 tab(s) Oral Twice a day Unchanged Promethazine (promethazine 25 mg rectal suppository) 1 suppository(ies) Per rectum Every 4 hours as needed for for nausea/vomiting Unchanged Promethazine (promethazine 25 mg rectal suppository) 1 suppository(ies) Per rectum Every 4 hours as needed for for nausea/vomiting Unchanged Pyridoxine (pyridoxine 25 mg oral tablet) 1 tab(s) Oral 3 times a day as needed for Nausea & Vomiting Test Results Below is a partial list of the most recent Laboratory test results done prior to this discharge. You may have had other tests and procedures not included in this list. Please discuss all test resultswith your provider. TSH with T4 Reflex (Adults Only) (03/08/2023) ???TSH - 1.83 uIU/mL Allergies (NKA means No Known Allergies) NKA Problems Active Problems??(9) Asthma?? History of depression?? History of recurrent UTIs?? Hyperemesis gravidarum?? Migraine?? Nausea/vomiting in ?? Obese class I? Education Materials Below is the list of Educational Leaflet Providered with your Discharge Instructions. Hyperemesis Gravidarum?? Adapting to : First Trimester?? Valuables and Belongings I fully understand and agree that [facility] accepts no responsibility for all my [...] are strongly encouraged to quit. Please call [facility] at [phone] or [phone] ([phone]) or log in to [email or web address] for referrals to smoking cessation programs. ?? 707 Suicide & Crisis Lifeline is available 20/02 if you or someone you know needs to find a reason to keep living. By calling 095 you'll be connected to a skilled, trained counselor at a crisis center in your area. INPATIENT DISCHARGE INSTRUCTIONS SIGNATURE RUSTY CHU Location:[facility] Registration Date and Time:03/07/2023 21:43 EDT Primary Care Physician: Sanford YIP, Shayne Hall, Attending Physician: Zuleika Mcnally MD, I RUSTY DIEZ, have received the above patient education materials/instructions and have verbalized understanding. If ambulance or transport services are being used I further acknowledge being given a choice of service. ?? If you need to contact me, please call me at this number: . Patient/Animal Behaviourist Name: Patient/Animal Behaviourist Signature: Relationship to Patient: Witness Name/Signature: Date: * Christel Mosquera RN: PERFORM, SIGN, VERIFY Event Display: Patient Education Handout Authored Date: * Christel Mosquera RN: PERFORM Event Display: Patient Education Leaflets Authored Date: Hyperemesis Gravidarum ?? [id number] Hyperemesis Gravidarum Upset stomach (nausea) and vomiting [...] vitamin B6 and elli. Don???t use any llms-wki-axaibgh medicines or home remedies without talking with [...] advised ?? Last Reviewed Date: 2021 ?? [id number] [employer]. All rights reserved. This information is not intended as a substitute for professional medical care. Always follow your healthcare professional's instructions. ?? * Christel Mosquera RN: PERFORM Event Display: Patient Education Leaflets Authored Date: [id number] Adapting to : First Trimester ?? [id number] Adapting to : First Trimester As your [...] increases the risk of stillbirth??or having a mfj-xfren-asseey baby. If you smoke, quit now. ??? [...] transportation, money problems,housing, access to food, and child day care teacher. If you can???t get to medical appointments, [...] help. ?? Last Reviewed Date: 2022 ?? [id number] [employer]. All rights reserved. This information is not intended as a substitute for professional medical care. Always follow your healthcare professional's instructions. ?? Patient Care team information Care Team Personnel Name: Shayne Christina MD Position: [facility] Outreach Member Role: PCP Address: Address: [address] [place] [address]- Care Team Related Persons Name: BING CARTER Address: home [address] [place] [address] Name: ROSALVA CLAIRE Address: [address] Address: home [address] [address] [place] Name: SANTO CLAIRE Address: [address] [place] [address] Name: VALENTE WANG
--- OUTSIDE RECORDS SUMMARY | 2024-04-22 03:04 | XMS_ITS | Continuity of Care Document ---
Author Organization [facility] Address [address] [place] [address]- Care Team Providers Care Medicaid Specialist Name Role Phone Sanford YIP, Shayne Hall Primary Care Physician Encounter [facility] [place] Date(s): 08/27/20 - 09/26/20 [facility] [address] [address]- Attending Physician: Seun Castaneda Admitting Physician: Seun [...] tablet, 2 Refills, Maintenance, 02/06/20 13:40:00 EDT, [facility]/pharmacy #[id number], 1 tablet ByMouth Every [...] 11:34:00 EDT, Aerosol, Route to Pharmacy Electronically, [id number], [facility]/pharmacy #[id number], 163, cm, 11/13/19 16:13:00 EDT, Hei... Start Date: 11/25/19 Stop Date: 04/23/20 Status: Ordered Flovent HFA 110 mcg/inh inhalation aerosol 2 puffs, Inhalation, 2 times a day, # 12 Gm, 1 Refills, Maintenance, 12/02/19 0:58:00 EDT, [id number], cm, 11/27/19 15:36:00 EDT, Height, 78.1, kg, 11/13/19 16:13:00 EDT, Dry Weight Start Date: 12/02/19 Stop Date: 12/16/19 Status: Ordered fluconazole 150 mg oral tablet 1 tablet = 150 mg, By Mouth, Once, repeat dose if still having symptoms in 72 hours, # 2 tablet, 0 Refills, Soft Stop, 09/14/20 9:53:00 EST, Tablet, [facility]/pharmacy #[id number], Partial fill upon patient request if the prescription is for a schedule II opioid... Start Date: 09/14/20 Status: Ordered ibuprofen 200 mg oral tablet 400 mg, 2, tablet, By Mouth, Every 4 hours, PRN, # 100 tablet, Refills 0, Tot. Refills 0, Maintenance, for pain, 01/31/20 10:59:00 EDT, Route to Pharmacy Electronically, [facility]/pharmacy #[id number], 163, cm, 01/31/20 0:18:00 EDT, Height, 81.4, kg, 01/29/20 8:5... Start Date: 01/31/20 Status: Ordered Mirena 52 mg intrauterine device See Instructions, 1 each Once, # 1 each, 0 Refills, Soft Stop, 03/10/20 14:06:00 EDT, [facility], 163, cm, 03/10/20 13:34:00 [...] ED. 4says she has a neurologist in [place] for migraines. 5Taking fioricet prn for this, [...]
--- OUTSIDE RECORDS SUMMARY | 2024-04-22 03:04 | XMS_ITS | Continuity of Care Document ---
Author Organization [facility] Address [address] [place] [address]- Care Team Providers Care Rate And Cost Analyst Name Role Phone Sanford YIP, Shayne Hall Primary Care Physician [place] [facility] [place] - 11/25/[address] [facility] [address] [address]- Allergies, Adverse Reactions, Alerts Substance Reaction Severity [...] 2 Refills, Maintenance, 02/06/20 13:40:00 EDT, [facility]/pharmacy #[id number], 1 tablet ByMouth Every [...] 11:34:00 EDT, Aerosol, Route to Pharmacy Electronically, [id number], [facility]/pharmacy #[id number], 163, cm, 11/13/19 16:13:00 [...] Refills, Soft Stop, 09/14/20 9:53:00 EST, Tablet, [facility]/pharmacy #[id number], Partial fill upon patient request if the prescription is for a schedule II opioid... Start Date: 09/14/20 Status: Ordered ibuprofen 200 mg oral tablet 400 mg, 2, tablet, By Mouth, Every 4 hours, PRN, # 100 tablet, Refills 0, Tot. Refills 0, Maintenance, for pain, 01/31/20 10:59:00 EDT, Route to Pharmacy Electronically, [facility]/pharmacy #[id number], 163, cm, 01/31/20 0:18:00 EDT, Height, 81.4, kg, 01/29/20 8:5... Start Date: 01/31/20 Status: Ordered Mirena 52 mg intrauterine device See Instructions, 1 each Once, # 1 each, 0 Refills, Soft Stop, 03/10/20 14:06:00 EDT, [facility], 163, cm, 03/10/20 13:34:00 EDT, [...] ED. 4says she has a neurologist in [place] for migraines. 5Taking fioricet prn for this, [...]
--- OUTSIDE RECORDS SUMMARY | 2024-04-22 03:04 | XMS_ITS | Continuity of Care Document ---
Author Organization [facility] Address [address] [address]- Care Team Providers Care Box Truck Owner Operator Name Role Phone Sanford YIP, Shayne Hall Primary Care Physician Encounter [facility] Date(s): 01/09/23 - 02/08/23 [facility] [address] [address]- Attending Physician: Seun Castaneda Admitting Physician: Seun [...] tablet, 2 Refills, Maintenance, 02/06/20 13:40:00 EDT, [facility]/pharmacy #[id number], 1 tablet ByMouth [...] ED. 4says she has a neurologist in [place] for migraines. 5Taking fioricet prn for this, [...] Team Personnel Name: Shayne Christina MD Position: [facility] Outreach Member Role: PCP Address: Address: [address] [place] [address]- Care Team Related Persons Name: BING CARTER Address: [address] [place] [address] Name: ROSALVA CLAIRE Address: [address] Address: [address] [address] [place] Name: SANTO CLAIRE Address: [address] [place] [address] Name: VALENTE WANG
--- OUTSIDE RECORDS SUMMARY | 2024-04-22 03:04 | XMS_ITS | Continuity of Care Document ---
Author Organization [facility] Address [address] [address]- Care Team Providers Care Customer Service Clerk Name Role Phone Shayne Christina MD Primary Care Physician En[place] [facility] [place] Date(s): 11/27/19 - 12/04/19 [facility] [address] [address]- [facility] Attending Physician: Naila Guevara MD Referring Physician: Yanely Haque CNM Allergies, [...] tablet, 1 Refills, Maintenance, 11/13/19 15:33:00 EDT, [facility]/pharmacy #[id number], 1 tablet By Mouth 2 times a day,PRN:Migraine H... Start Date: 11/13/19 Status: Ordered Aerochamber See Instructions, # 1 [...] 11:34:00 EDT, Aerosol, Route to Pharmacy Electronically, [id number], [facility]/pharmacy #[id number], 163, cm, 11/13/19 16:13:00 EDT, Hei... Start Date: 11/25/19 Stop Date: 04/23/20 Status: Ordered ferrous sulfate 325 mg oral tablet 1 tablet = 325 mg, By Mouth, Daily, # 30 tablet, 2 Refills, Maintenance, 11/14/19 13:10:00 EDT, [facility]/pharmacy #[id number], 163, cm, 11/13/19 16:13:00 EDT, Height, 78.1, kg, 11/13/19 16:13:00 EDT, Dry Weight Start Date: 11/14/19 Stop Date: 02/12/20 Status: Ordered Flovent HFA 110 mcg/inh inhalation aerosol 2 puffs, Inhalation, 2 times a day, # 12 Gm, 1 Refills, Maintenance, 12/02/19 0:58:00 EDT, Aerosol,[facility]/pharmacy #[id number], 163, cm, 11/27/19 15:36:00 EDT, Height, 78.1, kg, 11/13/19 16:13:00 EDT, Dry Weight Start Date: 12/02/19 Stop Date: 12/16/19 Status: Ordered Multivitamin, By Mouth, 0 Refills, Maintenance, 11/01/19 14:35:00 EDT Start Date: 11/01/19 Status: Ordered oseltamivir 30 mg oral capsule 1 capsule = 30 mg, By Mouth, 2 times a day, take with 75mg capsule for total dose of 105mg 2x per day, # 10 capsule, 0 Refills, Maintenance, 10/07/19 23:26:00 EDT, Capsule, [facility]/pharmacy #[id number], 163, cm, 10/04/19 16:43:00 EST, Height Start [...] 1 Refills, Maintenance, 11/21/19 19:51:00 EDT, Suppository, [id number], 163, cm, 11/13/19 16:13:00 EDT, Height, 78.1, kg, 11/13/19 16:13:00 EDT, Dry Weight Start Date: 11/21/19 Status: Ordered Zofran 4 mg oral tablet [...] ED. 4says she has a neurologist in [place] for migraines. 5Taking fioricet prn for this, reports typically about 1-2x/week. 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 Referred to neuro but unable to see d/t insurance issues, so was just seeing pcp for this for now. Vital Signs Most recent to oldest [Reference Range]: 1 Height 163 cm (11/27/19 3:36 PM) Social History Social History Type Response Smoking Status Never (less than 100 in lifetime); Tobacco user in household: Yes entered on: 06/21/19 Sex
--- OUTSIDE RECORDS SUMMARY | 2024-04-22 03:04 | XMS_ITS | Continuity of Care Document ---
Author Organization [facility] Address [address] [address]- Care Team Providers Care Dairy Husbandman Name Role Phone Jihan Sierra NP Primary Care Physician [facility]): [facility]23 - 07/21/23 [facility] [address] [address]- Allergies, Adverse Reactions, Alerts No Known Allergies Immunizations Given and Recorded Vaccine Date Status Refusal Reason tetanus/diphtheria/pertussis, acel(Tdap) 07/20/23 Given tetanus/diphtheria/pertussis, acel(Tdap) 11/13/19 Given tetanus/diphtheria/pertussis, acel(Tdap) 04/29/10 Recorded [id number] 12y+ bivalent booster vax 08/10/22 Recorded SARS-CoV-2 [...] tablet, 0 Refills, Maintenance, 07/20/23 20:15:00 EST, [email or web address] [id number], 5, TAKE 1 TABLET BY MOUTH EVERY 4 HOURS NEEDEDFOR MIGRAINE HEADACHES, 162, cm, 07/20/23 11:32:00... Start Date: 07/20/23 Status: Ordered escitalopram 5 mg oral tablet 1 tablet, By Mouth, Daily, INSTR:1 DAILY FOR TWO WEEKS AND THEN REASSESSMENT FOR DOSE ADJUSTMENT, #30 tablet, 0 Refills, Maintenance, 06/21/23 11:05:00 EST, [id number], 162, cm, 05/25/23 11:20:00 EDT, Height, 91.4, kg, 05/25/23 11:20:00 EDT, Dry... Start Date: 06/21/23 Status: Ordered Flovent HFA 44 mcg/inh inhalation aerosol See Instructions, INHALE 2 PUFFS TWICE A DAY, # 10.6 each, 0 Refills, Maintenance, 07/12/23 18:32:00 EST, [id number], 162, cm, 05/25/23 11:20:00 EDT, Height, 91.4, kg, 05/25/23 11:20:00 EDT, DryWeight Start Date: 07/12/23 Status: Ordered Lexapro 10 mg oral tablet 1 tablet = 10 mg, By Mouth, Daily, # 30 tablet, 0 Refills, Maintenance, 07/20/23 11:35:00 EST, Tablet, [facility]/pharmacy #[id number], Partial fill upon patient request if the [...] Physician Member Role: PCP Address: Address: [address] [place] [address]- [place] Care Team Related Persons Name: BING CARTER Address: home [address] [place] [address] Name: ROSALVA CLAIRE Address: Address: [address] [address] Name: SANTO CLAIRE Address: [address] [place] [address] Name: VALENTE WANG
--- OUTSIDE RECORDS SUMMARY | 2024-04-22 03:04 | XMS_ITS | Continuity of Care Document ---
Author Organization [facility] Address [address] [address]- Care Team Providers Care Geography Department Chair Name Role Phone Sanford YIP, Shayne Hall Primary Care Physician [facility] Date[facility]s): 12/23/22 - 01/22/23 [facility] [address] [place] [address]- Allergies, Adverse Reactions, Alerts No Known Allergies [...] tablet, 2 Refills, Maintenance, 02/06/20 13:40:00 EDT, [facility]/pharmacy #[id number], 1 tablet ByMouth Every 4 hours,Instr:May [...] ED. 4says she has a neurologist in [place] for migraines. 5Taking fioricet prn for this, [...] Personnel Name: Sanford YIP, Shayne Hall Position: [facility] Outreach Member Role: PCP Address: Address: [address] [place] [address]- Care Team Related Persons Name: BING CARTER Address: home [address] [place] [address] Name: ROSALVA CLAIRE Address: [address] Address: [address] [address] [place] Name: SANTO CLAIRE Address: home [address] [place] [address] Name: VALENTE WANG
--- OUTSIDE RECORDS SUMMARY | 2024-04-22 03:04 | XMS_ITS | Continuity of Care Document ---
Author Organization [facility] Address [address] [place] [address]- Care Team Providers Care Electroneurodiagnostic Technician Name Role Phone Shayne Christina MD Primary Care Physician [place] [facility] Date(s): 02/09/23 - 03/11/[address] [address]- Attending Physician: Seun Castaneda Admitting Physician: Seun [...] tablet, 8 Refills, Maintenance, 03/02/23 7:51:00 EDT, [facility]/pharmacy #[id number], Partial fill upon patient request if th... Start Date: 03/02/23 Status: Ordered ondansetron 8 mg oral tablet 1 tablet = 8 mg, By Mouth, 3 times a day, # 30 tablet, 5 Refills, Maintenance, 03/09/23 19:12:00 EDT, Tablet, [facility]/pharmacy #[id number], Partial fill upon patient request if the [...] tablet, 11 Refills, Maintenance, 12/07/22 10:40:00 EDT, [facility]/pharmacy #[id number], Partial fill upon patient request if the prescription is for a schedule II opioid dr... Start Date: 12/07/22 Stop Date: 12/02/23 Status: Ordered promethazine 25 mg rectal suppository 1 supp = 25 mg, Rectally, Every 4 hours, PRN for nausea/vomiting, # 12 supp, 1 Refills, Maintenance, 02/18/23 0:41:00 EDT, Suppository, [facility]/pharmacy #[id number], Partial fill upon patient request if the prescription is for a schedule II opioid drug., 163, c... Start Date: 02/18/23 Status: Ordered promethazine 25 mg rectal suppository 1 supp = 25 mg, Rectally, Every 4 hours, PRN for nausea/vomiting, # 12 supp, 0 Refills, Maintenance, 02/20/23 21:40:00 EDT, Suppository, [facility]/pharmacy #0511, Partial fill upon patient request if the prescription is for a schedule II opioid drug., 163,... Start Date: 02/20/23 Status: Ordered pyridoxine 25 mg oral tablet 1 tablet = 25 mg, By Mouth, 3 times a day, PRN Nausea & Vomiting, # 100 tablet, 8 Refills, Maintenance, 03/02/23 7:51:00 EDT, [facility]/pharmacy #[id number], Partial fill upon [...] tablet, 5 Refills, Maintenance, 03/02/23 7:51:00 EDT, [facility]/pharmacy #[id number], Partial fill upon [...] ED. 4says she has a neurologist in [place] for migraines. 5Taking fioricet prn for this, [...] Team Personnel Name: Shayne Christina MD Position: [facility] Outreach Member Role: PCP Address: Address: [address] [place] [address]- [place] Care Team Related Persons Name: BING CARTER Address: home [address] [place] [address] Name: ROSALVA CLAIRE Address: [address] Address: [address] [address] Name: SANTO CLAIRE Address: home [address] [place] [address] Name: VALENTE WANG
--- OUTSIDE RECORDS SUMMARY | 2024-04-22 03:04 | XMS_ITS | Continuity of Care Document ---
Author Organization [facility] Address [address] [address]- Care Team Providers Care Wood Flooring Specialist Name Role Phone Jihan Sierra NP Primary Care Physician [facility] Date[facility]s): 05/11/23 - 06/10/23 [facility] [address] [address]- Allergies, Adverse Reactions, Alerts No Known Allergies Immunizations Given and Recorded Vaccine Date Status Refusal Reason [id number] 12y+ bivalent booster vax 08/10/22 Recorded SARS-CoV-2 [...] 0 Refills, Maintenance, 05/25/23 17:54:00 EDT, Capsule, [facility]/pharmacy #[id number],Partial fill upon patient request if the prescripti... Start Date: 05/25/23 Status: Ordered albuterol CFC free 90 mcg/inh inhalation aerosol 180 mcg, 2, puffs, Inhalation, 4 times a day, PRN, # 6.7 Gm, Refills 2, Tot. Refills 2, Maintenance, 04/03/23 13:59:00 EDT, Inhaler, Route to Pharmacy Electronically, [id number], [facility]/pharmacy #[id number], 162, cm, 03/29/23 13:33:00... Start Date: [...] 5 Refills, Maintenance, 03/09/23 19:12:00 EDT, Tablet, [facility]/pharmacy #[id number], Partial fill upon patient request if the [...] Physician Member Role: PCP Address: Address: [address] [place] [address]- Care Team Related Persons Name: BING CARTER Address: home [address] [place] [address] Name: ROSALVA CLAIRE Address: [address] Address: [address] [address] [place] Name: SANTO CLAIRE Address: [address] [place] [address] Name: VALENTE WANG
--- OUTSIDE RECORDS SUMMARY | 2024-04-22 03:04 | XMS_ITS | Continuity of Care Document ---
Author Organization [facility] Address [address] [address]- Care Team Providers Care Staff Home Therapy Rn Name Role Phone Sanford YIP, Shayne Hall Primary Care Physician Encounter [facility] Date(s): 10/04/19 - 12/04/19 [facility] [address] [address]- [place] Attending Physician: Coty Acevedo MD Admitting Physician: Coty Acevedo MD Referring Physician: Anshul Nick CNM Allergies, Adverse Reactions, Alerts Substance Reaction [...] tablet, 1 Refills, Maintenance, 11/13/19 15:33:00 EDT, [facility]/pharmacy #[id number], 1 tablet By Mouth 2 times a [...] 11:34:00 EDT, Aerosol, Route to Pharmacy Electronically, [id number], [facility]/pharmacy #[id number], 163, cm, 11/13/19 16:13:00 EDT, Hei... Start Date: 11/25/19 Stop Date: 04/23/20 Status: Ordered ferrous sulfate 325 mg oral tablet 1 tablet = 325 mg, By Mouth, Daily, # 30 tablet, 2 Refills, Maintenance, 11/14/19 13:10:00 EDT, [facility]/pharmacy #[id number], 163, cm, 11/13/19 16:13:00 EDT, Height, 78.1, kg, 11/13/19 16:13:00 EDT, Dry Weight Start Date: 11/14/19 Stop Date: 02/12/20 Status: Ordered Flovent HFA 110 mcg/inh inhalation aerosol 2 puffs, Inhalation, 2 times a day, # 12 Gm, 1 Refills, Maintenance, 12/02/19 0:58:00 EDT, Aerosol,[facility]/pharmacy #[id number], 163, cm, 11/27/19 15:36:00 [...] 0 Refills, Maintenance, 10/07/19 23:26:00 EDT, Capsule, [facility]/pharmacy #[id number], 163, cm, 10/04/19 16:43:00 EST, Height [...] ED. 4says she has a neurologist in [place] for migraines. 5Taking fioricet prn for this, [...]
--- OUTSIDE RECORDS SUMMARY | 2024-04-22 03:05 | XMS_ITS | Continuity of Care Document ---
Author Organization [facility] Address [address] [facility], 3r d Floor, [address] [place] [address]- Care Team Providers Care Educational Advisor Name Role Phone Sanford YIP, Shayne Hall Primary Care Physician Encounter [facility] [place] Date(s): 02/03/20 - 03/04/20 [facility] [address], 3rd Floor, [address] [place] [address]- [facility] Allergies, Adverse Reactions, Alerts Substance Reaction Severity [...] 11:34:00 EDT, Aerosol, Route to Pharmacy Electronically, [id number], [facility]/pharmacy #[id number], 163, cm, 11/13/19 16:13:00 EDT, Hei... Start Date: 11/25/19 Stop Date: 04/23/20 Status: Ordered ferrous sulfate 325 mg oral tablet 1 tablet = 325 mg, By Mouth, Daily, # 30 tablet, 2 Refills, Maintenance, 11/14/19 13:10:00 EDT, [facility]/pharmacy #[id number], 163, cm, 11/13/19 16:13:00 EDT, Height, 78.1, kg, 11/13/19 16:13:00 EDT, Dry Weight Start Date: 11/14/19 Stop Date: 02/12/20 Status: Ordered Flovent HFA 110 mcg/inh inhalation aerosol 2 puffs, Inhalation, 2 times a day, # 12 Gm, 1 Refills, Maintenance, 12/02/19 0:58:00 EDT, Aerosol,[facility]/pharmacy #[id number], 163, cm, 11/27/19 15:36:00 EDT, Height, 78.1, kg, 11/13/19 16:13:00 EDT, Dry Weight Start Date: 12/02/19 Stop Date: 12/16/19 Status: Ordered ibuprofen 200 mg oral tablet 400 mg, 2, tablet, By Mouth, Every 4 hours, PRN, # 100 tablet, Refills 0, Tot. Refills 0, Maintenance, for pain, 01/31/20 10:59:00 EDT, Route to Pharmacy Electronically, [facility]/pharmacy #[id number], 163, cm, 01/31/20 0:18:00 EDT, Height, 81.4, kg, 01/29/20 8:5... Start Date: 01/31/20 Status: Ordered lanolin topical - ointment See Instructions, PRN as needed for dry skin, 1 application Topically to bilateral nipples after ., # 60 Gm, 0 Refills, Maintenance, 02/05/20 12:20:00 EDT, Ointment, [facility]/pharmacy #[id number], 1 application Topically to bilateral nipples after b... Start Date: 02/05/20 Status: Ordered ParaGard intrauterine device See Instructions, bring to customer engagement representative appointment for insertion, # 1 each, 0 Refills, Maintenance, 02/17/20 14:03:00 EDT, [facility], bring to customer engagement representative appointment for insertion, 163, cm, 01/31/20 0:18:00 [...] ED. 4says she has a neurologist in [place] for migraines. 5Taking fioricet prn for this, [...]
--- OUTSIDE RECORDS SUMMARY | 2024-04-22 03:05 | XMS_ITS | Continuity of Care Document ---
Author Organization [facility] Address [address] [address]- Care Team Providers Care Embedded Hardware Engineer Name Role Phone Sanford YIP, hSayne Hall Primary Care Physician [facility] Date[facility]s): 12/27/22 - 01/26/23 [facility] [address] [address]- Allergies, Adverse Reactions, Alerts No Known Allergies [...] tablet, 2 Refills, Maintenance, 02/06/20 13:40:00 EDT, [facility]/pharmacy #[id number], 1 tablet ByMouth Every 4 [...] ED. 4says she has a neurologist in [place] for migraines. 5Taking fioricet prn for this, [...] Personnel Name: Sanford YIP, Shayne Hall Position: [facility] Outreach Member Role: PCP Address: Address: [address] [place] [address]- Care Team Related Persons Name: BING CARTER Address: home [address] [place] [address] Name: ROSALVA CLAIRE Address: [address] Address: [address] [address] [place] Name: SANOT CLAIRE Address: [address] [place] [address] Name: VALENTE WANG
--- OUTSIDE RECORDS SUMMARY | 2024-04-22 03:05 | XMS_ITS | Continuity of Care Document ---
Author Organization [facility] Address [address] [place] [address], [address] [address]- Care Team Providers Care Home Health Travel Ot Name Role Phone Sanford YIP, Shayne Hall Primary Care Physician Encounter [facility] Date(s): 02/09/23 - 03/11/23 [facility] [address] [facility], [address] [place], [place] [address] Allergies, Adverse Reactions, Alerts No Known Allergies [...] 8 Refills, Maintenance, 03/02/23 7:51:00 EDT, [id number], Partial fill upon patient request if th... Start Date: 03/02/23 Status: Ordered ondansetron 8 mg oral tablet 1 tablet = 8 mg, By Mouth, 3 times a day, # 30 tablet, 5 Refills, Maintenance, 03/09/23 19:12:00 EDT, Tablet, [facility], Partial fill upon patient request if the [...] tablet, 11 Refills, Maintenance, 12/07/22 10:40:00 EDT, [facility]/pharmacy #0373, Partial fill upon patient request if the prescription is for a schedule II opioid dr... Start Date: 12/07/22 Stop Date: 12/02/23 Status: Ordered promethazine 25 mg rectal suppository 1 supp = 25 mg, Rectally, Every 4 hours, PRN for nausea/vomiting, # 12 supp, 1 Refills, Maintenance, 02/18/23 0:41:00 EDT, Suppository, [facility]/pharmacy #[id number], Partial fill upon patient request if the prescription is for a schedule II opioid drug., 163, c... Start Date: 02/18/23 Status: Ordered promethazine 25 mg rectal suppository 1 supp = 25 mg, Rectally, Every 4 hours, PRN for nausea/vomiting, # 12 supp, 0 Refills, Maintenance, 02/20/23 21:40:00 EDT, Suppository, [facility], Partial fill upon patient request if the [...] tablet, 5 Refills, Maintenance, 03/02/23 7:51:00 EDT, [facility]/pharmacy #1953, Partial fill upon patient r... Start Date: [...] ED. 4says she has a neurologist in [place] for migraines. 5Taking fioricet prn for this, [...] Personnel Name: Sanford YIP, Shayne Hall Position: S Outreach Member Role: PCP Address: Address: [address] [place] [address]- Care Team Related Persons Name: BING CARTER Address: home [address] [place] [address] Name: ROSALVA CLAIRE Address: [address] Address: [address] [place] [address] [place] Name: SANTO CLAIRE Address: home [address] [place] [address] Name: VALENTE WANG
--- OUTSIDE RECORDS SUMMARY | 2024-04-22 03:05 | XMS_ITS | Continuity of Care Document ---
Author Organization [facility] Address [address] [place] [address]- Care Team Providers Care Enroller Name Role Phone Shayne Christina MD Primary Care Physician Encounter [facility] Date(s): 12/01/19 - 12/02/[address] [address]- [facility] Discharge Disposition: A-D/C Home Attending Physician: Kayleen Silva MD Admitting Physician: Kayleen Silva MD Referring Physician: Kayleen Silva MD Allergies, Adverse Reactions, Alerts Substance Reaction [...] 1 Refills, Maintenance, 11/13/19 15:33:00 EDT, [id number], 1 tablet By Mouth 2 times a [...] 11:34:00 EDT, Aerosol, Route to Pharmacy Electronically, [id number], [facility]/pharmacy #[id number], 163, cm, 11/13/19 16:13:00 EDT, Hei... Start Date: 11/25/19 Stop Date: 04/23/20 Status: Ordered ferrous sulfate 325 mg oral tablet 1 tablet = 325 mg, By Mouth, Daily, # 30 tablet, 2 Refills, Maintenance, 11/14/19 13:10:00 EDT, [facility]/pharmacy #[id number], 163, cm, 11/13/19 16:13:00 EDT, Height, 78.1, kg, 11/13/19 16:13:00 EDT, Dry Weight Start Date: 11/14/19 Stop Date: 02/12/20 Status: Ordered Flovent HFA 110 mcg/inh inhalation aerosol 2 puffs, Inhalation, 2 times a day, # 12 Gm, 1 Refills, Maintenance, 12/02/19 0:58:00 EDT, Aerosol,[facility]/pharmacy #[id number], 163, cm, 11/27/19 15:36:00 EDT, [...] 0 Refills, Maintenance, 10/07/19 23:26:00 EDT, Capsule, [facility]/pharmacy #[id number], 163, cm, 10/04/19 16:43:00 EST, [...] ED. 4says she has a neurologist in [place] for migraines. 5Taking fioricet prn for this, reports typically about 1-2x/week. 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 Referred to neuro but unable to see d/t insurance issues, so was just seeing pcp for this for now. Vital Signs Most recent to oldest [Reference Range]: 1 Oxygen Saturation [94-100 %] 97 % (12/01/19 11:30 PM) Pulse Rate [55-90 bpm] 97 bpm *H* (12/01/19 11:30 PM) Blood Pressure [90-138/55-84 mm Hg] 107/ 67mm Hg (12/01/19 11:30 PM) Respiratory Rate [16-30 br/min] 18 br/mi n (12/01/19 11:30 PM) Temperature [96.8-100.4 DegF] 98.0 DegF (12/01/19 11:30 PM) Mode of Delivery (Oxygen) Room air (12/01/19 11:30 PM) Blood pressure sites Arm, right (12/01/19 11:30 PM) Temperature Route Oral (12/01/19 11:30 PM) Social History Social History Type Response Smoking Status Never (less than 100 in lifetime); Tobacco user in household: Yes entered on: 06/21/19 Sex
--- OUTSIDE RECORDS SUMMARY | 2024-04-22 03:05 | XMS_ITS | Continuity of Care Document ---
Author Organization [facility] ter Address [address] [place] [address]- Care Team Providers Care Molding Machine Tender Name Role Phone Rigo DICKSON, Jihan Primary Care Physician [facility] Date(s): 03/08/23 - 04/08/[address] [address] Attending Physician: Nory Green CNM Admitting Physician: Nory Green CNM Referring Physician: Nory Green CNM Allergies, Adverse Reactions, Alerts No Known Allergies Immunizations Given and Recorded Vaccine Date Status Refusal Reason [id number] 12y+ bivalent booster vax 08/10/22 Recorded SARS-CoV-2 [...] 0 Refills, Maintenance, 04/03/23 13:59:00 EDT, Tablet, [facility]/pharmacy #[id number], Partial fill upon patient request if the prescription is for a sche... Start Date: 04/03/23 Status: Ordered albuterol CFC free 90 mcg/inh inhalation aerosol 180 mcg, 2, puffs, Inhalation, 4 times a day, PRN, # 6.7 Gm, Refills 2, Tot. Refills 2, Maintenance, 04/03/23 13:59:00 EDT, Inhaler, Route to Pharmacy Electronically, [id number], [facility]/pharmacy #0373, 162, cm, 03/29/23 13:33:00... [...] Maintenance, 03/09/23 19:12:00 EDT, Tablet, [facility]/pharmacy #[id number], Partial fill upon patient request if the [...] Reference Physician Member Role: PCP Address: Address: [address] [place] [address]- Care Team Related Persons Name: BING CARTER Address: home [address] [place] [address] Name: ROSALVA CLAIRE Address: [address] Address: [address] [address] Name: SANTO CLAIRE Address: [address] [place] [address] Name: VALENTE WANG
--- OUTSIDE RECORDS SUMMARY | 2024-04-22 03:05 | XMS_ITS | Continuity of Care Document ---
Author Organization [facility] Address [address] [place] [address]- Care Team Providers Care C Developer Name Role Phone Shayne Christina MD Primary Care Physician Encounter [facility] Date(s): 10/26/20 - 11/27/20 [facility] [address] [address] Attending Physician: Yanely Haque CNM Admitting Physician: Yanely Haque CNM Referring Physician: Yanely Haque CNM Allergies, Adverse [...] 11:34:00 EDT, Aerosol, Route to Pharmacy Electronically, [id number], [facility]/pharmacy #[id number], 163, cm, 11/13/19 16:13:00 EDT, Hei... Start Date: 11/25/19 Stop Date: 04/23/20 Status: Ordered Flovent HFA 110 mcg/inh inhalation aerosol 2 puffs, Inhalation, 2 times a day, # 12 Gm, 1 Refills, Maintenance, 12/02/19 0:58:00 EDT, Aerosol,[facility]/pharmacy #[id number], 163, cm, 11/27/19 15:36:00 EDT, Height, 78.1, kg, 11/13/19 16:13:00 EDT, Dry Weight Start Date: 12/02/19 Stop Date: 12/16/19 Status: Ordered fluconazole 150 mg oral tablet 1 tablet = 150 mg, By Mouth, Once, repeat dose if still having symptoms in 72 hours, # 2 tablet, 0 Refills, Soft Stop, 09/14/20 9:53:00 EST, Tablet, [facility]/pharmacy #[id number], Partial fill upon patient request if the prescription is for a schedule II opioid... Start Date: 09/14/20 Status: Ordered ibuprofen 200 mg oral tablet 400 mg, 2, tablet, By Mouth, Every 4 hours, PRN, # 100 tablet, Refills 0, Tot. Refills 0, Maintenance, for pain, 01/31/20 10:59:00 EDT, Route to Pharmacy Electronically, [facility]/pharmacy #[id number], 163, cm, 01/31/20 0:18:00 EDT, Height, 81.4, kg, 01/29/20 8:5... Start Date: 01/31/20 Status: Ordered Mirena 52 mg intrauterine device See Instructions, 1 each Once, # 1 each, 0 Refills, Soft Stop, 03/10/20 14:06:00 EDT, [facility], 163, cm, 03/10/20 13:34:00 EDT, [...] ED. 4says she has a neurologist in [place] for migraines. 5Taking fioricet prn for this, [...]
--- OUTSIDE RECORDS SUMMARY | 2024-04-22 03:05 | XMS_ITS | Continuity of Care Document ---
Author Organization [facility] Address [address] [address]- Care Team Providers Care Plush Brusher Name Role Phone Sanford YIP, Shayne Hall Primary Care Physician [place] [facility] [place]s): 08/23/22 - 09/22/22 [facility] [address] [address] Allergies, Adverse Reactions, Alerts No [...] tablet, 2 Refills, Maintenance, 02/06/20 13:40:00 EDT, [facility]/pharmacy #[id number], 1 tablet ByMouth Every 4 [...] ED. 4says she has a neurologist [place] for [place]raines. 5Taking fioricet prn for this, [...] Outreach Member Role: PCP Address: Address: [address] [place] [address]- [place] Care Team Related Persons Name: BING CARTER Address: home [address] [place] [address] Name: ROSALVA CLAIRE Address: Address: [address] [address] Name: SANTO CLAIRE Address: [address] [place] [address] Name: VALENTE WANG
--- OUTSIDE RECORDS SUMMARY | 2024-04-22 03:05 | XMS_ITS | Continuity of Care Document ---
[facility] Organization [facility] Address [address] [place] [id number]- Care Team Providers Care Videogame Tester Name Role Phone Jihan Sierra NP Primary Care Physician [phone] Encounter [facility] Date(s): 09/15/23 - 10/15/23 [facility] [address] [address] Allergies, Adverse Reactions, Alerts No Known Allergies Immunizations Given and Recorded Vaccine Date Status Refusal Reason tetanus/diphtheria/pertussis, acel(Tdap) 07/20/23 Given tetanus/diphtheria/pertussis, acel(Tdap) 11/13/19 Given tetanus/diphtheria/pertussis, acel(Tdap) 04/29/10 Recorded [id number] 12y+ bivalent booster vax 08/10/22 Recorded SARS-CoV-2 [...] B pediatric vaccine 98 Recorded Medications acetaminophen 500 mg oral tablet 2 tablet = 1,000 mg, By Mouth, Every 6 hours, PRN Pain , Moderate, for 10 days, not to exceed 4000 mg/day including Fioricet (acetaminophen, butalbitol, caffeine), # 50 tablet, 0 Refills, Acute 10/25/23 13:07:00 EDT, 10/15/23 13:07:00 EDT, Tablet, CV... Start Date: 10/15/23 Stop Date: 10/25/23 Status: Ordered acetaminophen/butalbital/caffeine 325 mg-50 mg-40 mg oral tablet 1 tablet, By Mouth, Every 4 hours, PRN NEEDED FOR MIGRAINE HEADACHES, # 30 tablet, 0 Refills, Maintenance, 09/29/23 9:45:00 EST, [facility]/pharmacy #[id number], 1 tablet By Mouth Every 4 hours,PRN: NEEDED FOR MIGRAINE HEADACHES, 162, cm, 09/25/23 15:23:00 ES... Start Date: 09/29/23 Status: Ordered escitalopram 10 mg oral tablet 1 tablet, By Mouth, Daily, # 30 tablet, 0 Refills, Maintenance, 08/17/23 16:18:00 EST, [id number], 162, cm, 08/03/23 11:00:00 EST, Height, 97.63, kg, 08/03/23 11:00:00 EST, Dry Weight Start Date: 08/17/23 Status: Ordered Flovent HFA 44 mcg/inh inhalation aerosol See Instructions, INHALE 2 PUFFS TWICE A DAY, # 10.6 each, 0 Refills, Maintenance, 07/12/23 18:32:00 EST, [id number], 162, cm, 05/25/23 11:20:00 EDT, Height, 91.4, kg, 05/25/23 11:20:00 EDT, DryWeight Start Date: 07/12/23 Status: Ordered ibuprofen 800 mg oral tablet 800 mg, 1, tablet, By Mouth, 4 times a day, for 7 days, # 28 tablet, Refills 0, Tot. Refills 0, Acute 10/22/23 13:06:00 EDT, 10/15/23 13:06:00 EDT, Route to Pharmacy Electronically, [facility]/pharmacy #[id number], Partial fill upon patient request if the prescrip... Start Date: 10/15/23 Stop Date: 10/22/23 Status: Ordered PNV Plus oral tablet 1 tablet, By Mouth, Daily, # 90 tablet, 1 Refills, Maintenance, 05/20/23 13:08:00 EDT, [facility]/pharmacy#[id number], Partial fill upon patient request if the [...] Refills, Maintenance, 10/09/23 9:40:00 EDT, [id number], 162, cm, 10/02/23 16:14:00 EST, Height, 99, [...] Reference Physician Member Role: PCP Address: Address: [address] [place] [address]- Care Team Related Persons Name: BING CARTER Address: home [address] [place] [address] Name: ROSALVA CLAIRE Address: [id number] Address: home [address] [address] [place] Name: SANTO CLAIRE Address: home [address] [place] [address] Name: RUSTY DIEZ Address: [address] Address: home [address] [place] [address] [place] Name: VALENTE WANG
--- OUTSIDE RECORDS SUMMARY | 2024-04-22 03:05 | XMS_ITS | Continuity of Care Document ---
Author Organization [facility] Address [address] [place] [address]- Care Team Providers Care Stop Attacher Name Role Phone Sanford YIP, Shayne Hall Primary Care Physician [place] [facility](s): 02/17/23 - 03/19/[address] [address] Allergies, Adverse Reactions, Alerts No Known Allergies [...] tablet, 8 Refills, Maintenance, 03/02/23 7:51:00 EDT, [facility]/pharmacy #[id number], Partial fill upon patient request if th... Start Date: 03/02/23 Status: Ordered ondansetron 8 mg oral tablet 1 tablet = 8 mg, By Mouth, 3 times a day, # 30 tablet, 5 Refills, Maintenance, 03/09/23 19:12:00 EDT, Tablet, [facility]/pharmacy #[id number], Partial fill upon patient request if the [...] tablet, 11 Refills, Maintenance, 12/07/22 10:40:00 EDT, [facility]/pharmacy #[id number], Partial fill upon patient request if the prescription is for a schedule II opioid dr... Start Date: 12/07/22 Stop Date: 12/02/23 Status: Ordered promethazine 25 mg rectal suppository 1 supp = 25 mg, Rectally, Every 4 hours, PRN for nausea/vomiting, # 12 supp, 1 Refills, Maintenance, 02/18/23 0:41:00 EDT, Suppository, [facility]/pharmacy #[id number], Partial fill upon patient request if the prescription is for a schedule II opioid drug., 163, c... Start Date: 02/18/23 Status: Ordered promethazine 25 mg rectal suppository 1 supp = 25 mg, Rectally, Every 4 hours, PRN for nausea/vomiting, # 12 supp, 0 Refills, Maintenance, 02/20/23 21:40:00 EDT, Suppository, [facility]/pharmacy #[id number], Partial fill upon patient request if the prescription is for a schedule II opioid drug., 163,... Start Date: 02/20/23 Status: Ordered pyridoxine 25 mg oral tablet 1 tablet = 25 mg, By Mouth, 3 times a day, PRN Nausea & Vomiting, # 100 tablet, 8 Refills, Maintenance, 03/02/23 7:51:00 EDT, [facility]/pharmacy #[id number], Partial fill upon patient request [...] tablet, 5 Refills, Maintenance, 03/02/23 7:51:00 EDT, [facility]/pharmacy #[id number], Partial fill upon patient r... Start [...] ED. 6says she has a neurologist in [place] for migraines. 7Taking fioricet prn for this, [...] Outreach Member Role: PCP Address: Address: [address] [place] [address]- Care Team Related Persons Name: RAULMALIABING Address: home [address] [place] [address] Name: ROSALVA CLAIRE Address: [address] Address: home [address] [place] [address] Name: SANTO CLAIRE Address: home [address] [place] [address] Name: VALENTE WANG
--- OUTSIDE RECORDS SUMMARY | 2024-04-22 03:05 | XMS_ITS | Continuity of Care Document ---
Author Organization [facility] Address [address] [place] [address]- Care Team Providers Care Biofuels Plant Operations Engineer Name Role Phone Sanford YIP, Shayne Hall Primary Care Physician Encounter [facility] [place] [place] Date(s): 02/10/23 - 03/12/[address] [address] Allergies, Adverse Reactions, Alerts No Known [...] 8 Refills, Maintenance, 03/02/23 7:51:00 EDT, [id number], Partial fill upon patient request if th... Start Date: 03/02/23 Status: Ordered ondansetron 8 mg oral tablet 1 tablet = 8 mg, By Mouth, 3 times a day, # 30 tablet, 5 Refills, Maintenance, 03/09/23 19:12:00 EDT, Tablet, [id number], Partial fill upon patient request if the [...] tablet, 11 Refills, Maintenance, 12/07/22 10:40:00 EDT, [facility]/pharmacy #[id number], Partial fill upon patient request if the prescription is for a schedule II opioid dr... Start Date: 12/07/22 Stop Date: 12/02/23 Status: Ordered promethazine 25 mg rectal suppository 1 supp = 25 mg, Rectally, Every 4 hours, PRN for nausea/vomiting, # 12 supp, 1 Refills, Maintenance, 02/18/23 0:41:00 EDT, Suppository, [facility]/pharmacy #[id number], Partial fill upon patient request if the prescription is for a schedule II opioid drug., 163, c... Start Date: 02/18/23 Status: Ordered promethazine 25 mg rectal suppository 1 supp = 25 mg, Rectally, Every 4 hours, PRN for nausea/vomiting, # 12 supp, 0 Refills, Maintenance, 02/20/23 21:40:00 EDT, Suppository, [id number], Partial fill upon patient request if the [...] tablet, 5 Refills, Maintenance, 03/02/23 7:51:00 EDT, [facility]/pharmacy #[id number], Partial fill upon patient r... Start Date: [...] ED. 4says she has a neurologist in [place] for migraines. 5Taking fioricet prn for this, [...] Personnel Name: Sanford YIP, Shayne Hall Position: [facility] Outreach Member Role: PCP Address: Address: [address] [place] [address]- Care Team Related Persons Name: BING CARTER Address: home [address] [place] [address] Name: ROSALVA CLAIRE Address: [address] Address: home [address] [address] [place] Name: SANTO CLAIRE Address: [address] [place] [address] Name: VALENTE WANG
--- OUTSIDE RECORDS SUMMARY | 2024-04-22 03:05 | XMS_ITS | Continuity of Care Document ---
Author Organization [facility] ter Address [address] [place] [address]- Care Team Providers Care Cost Clerk Name Role Phone Shayne Christina MD Primary Care Physician Encounter [facility] Date(s): 02/28/23 - 03/02/[address] [address]- Discharge Disposition: A-D/C Home Attending Physician: Coty [...] tablet, 2 Refills, Maintenance, 02/21/23 14:04:00 EDT, [facility]pharmacy [facility][id number], 1 tablet ByMouth Every 4 hours,Instr:May repeat [...] tablet, 8 Refills, Maintenance, 03/02/23 7:51:00 EDT, [facility]/pharmacy #[id number], Partial fill upon patient request if th... Start Date: 03/02/23 Status: Ordered ondansetron 4 mg oral tablet, disintegrating 1 tablet = 4 mg, By Mouth, 2 times a day, PRN Nausea & Vomiting, # 12 tablet, 3 Refills, Maintenance, 02/13/23 9:10:00 EDT, Tablet, [facility]/pharmacy #[id number], Partial fill upon patient request if [...] tablet, 11 Refills, Maintenance, 12/07/22 10:40:00 EDT, [facility]/pharmacy #[id number], Partial fill upon patient request if the prescription is for a schedule II opioid dr... Start Date: 12/07/22 Stop Date: 12/02/23 Status: Ordered promethazine 25 mg rectal suppository 1 supp = 25 mg, Rectally, Every 4 hours, PRN for nausea/vomiting, # 12 supp, 1 Refills, Maintenance, 02/18/23 0:41:00 EDT, Suppository, [facility]/pharmacy #[id number], Partial fill upon patient request if [...] tablet, 5 Refills, Maintenance, 03/02/23 7:51:00 EDT, [facility]/pharmacy #[id number], Partial fill upon patient r... Start [...] ED. 4says she has a neurologist in [place] for migraines. 5Taking fioricet prn for this, reports typically about 1-2x/week. 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 Referred to neuro but unable to see d/t insurance issues, so was just seeing pcp for this for now. Vital Signs Most recent to oldest [Reference Range]: 1 2 3 Height 162 cm (03/02/23 9:08 AM) 162 cm (03/02/23 4:10 AM) 162 cm (03/02/23 12:21 AM) Weight 91.5 kg (02/28/23 8:42 PM) 92.0 kg (02/28/23 6:16 PM) Oxygen Saturation [94-100 %] 98 % (03/02/23 9:08 AM) 100 % (03/02/23 4:10 AM) 98 % (03/02/23 12:21 AM) Pulse Rate [55-90 bpm] 75 bpm (03/02/23 9:08 AM) 78 bpm (03/02/23 4:10 AM) 88 bpm (03/02/23 12:21 AM) Body Mass Index [18.5-24.99 kg/m2] 34.87 kg/m2 *>HHI* (02/28/23 8:42 PM) Blood Pressure [90-138/55-84 mm Hg] 103/60mm Hg (03/02/23 9:08 AM) 106/58mm Hg (03/02/23 4:10 AM) 103/56mm Hg (03/02/23 12:21 AM) Respiratory Rate [16-30 br/min] 18 br/min (03/02/23 9:08 AM) 19 br/min (03/02/23 4:10 AM) 20 br/min (03/02/23 12:21 AM) Temperature [96.8-100.4 DegF] 98.2 DegF (03/02/23 9:08 AM) 98.2 DegF (03/02/23 4:10 AM) 99.1 DegF (03/02/23 12:21 AM) Mode of Delivery (Oxygen) Room air (03/02/23 9:08 AM) Room air (03/02/23 4:10 AM) Room air (03/02/23 12:21 AM) Blood pressure sites Arm, right (03/02/23 4:10 AM) Arm, right (03/02/23 12:21 AM) Arm, right (03/01/23 8:16 PM) Temperature Route Oral (03/02/23 9:08 AM) Oral (03/02/23 4:10 AM) Oral (03/02/23 12:21 AM) Dry Weight 91.5 kg (02/28/23 8:42 PM) Weight Obtained Via Standing scale (02/28/23 6:16 PM) Social History Social History Type Response Smoking Status Never (less than 100 in lifetime); Tobacco user in household: Yes entered on: 06/21/19 Sex History and physical note * Julia VALLEJO, Mirtha Smith: PERFORM Event Display: History and Physical Hospital Authored Date: [id number] Patient: ??RUSTY DIEZ ? Age:??22 Years?Sex:??Female?:??2000?? OB Reason for Admission OB Reason for Admission Reason for admission: Nausea & Vomiting LMP/EGA/KELLY Gestational Age (EGA) and KELLY? * Note: EGA calculated as of 02/28/2023 ?? KELLY:??10/10/2023?EGA*:??8 weeks ? History?(1,0,1,1)?Method:??Ultrasound??(02/15/2023) History of Present Illness Rusty is a 22yo at 8w0d dated by [place] presenting [facility]??with on-going nausea and vomiting. This is her 4th time in [facility] with these symptoms. She has been unable to keep down any food or fluids, vomiting mutliple times daily.??She reports feeling weak, dizzy, and lightheaded. She is unable to automatic trimming sewer the shower, has to sit to wash herself, due to feeling weak. Reports her urine is darkbrown in color and she has little urine production. Last BM was today, soft, green, reports she hasbeen having diarrhea. She lives with her partner and daughter, no one else in the household has been sixk. ?? Prior [facility] visits: 02/13, treated with IV fluids and IV zofran. Rusty reports she felt better for 2 days, then symptoms returned. 02/18 - treated with IV zofran, which did not help. Treated with phenergan 25mg VT, which temporarily resolved symptoms 02/21 - treated with phernergan 25mg VT x 2 ?? Rx medication??trials: - vitamin B6 and unisom - vitamin B6, unisom, and reglan - zofran ODT - phenergan VT ?? None of these regimens have altered Neishaly's symptoms Review of Systems Constitutional??- weak, dizzy, lightheaded Heart - negative Lungs - negative Head/Neck - denies headache today, did report increase in migraines at a prior visit. Has a h/o of migraines that pre-dates the . Eye -negative, denies vision changes GI - as noted in HPI - as noted in HPI Musculoskeletal - generalized weakness ?? Physical Exam Vitals & Measurements T:??98.1?F?? HR:??107??(Peripheral)?? RR:??20?? BP:??116/64?? SpO2:??100%?? WT:??92.0??kg?? General: alert, oriented x 3, no apparent distress Lungs: CTA bilaterally Heart: RRR Abdomen: soft, generally tender to palpation due to emesis LE: 2+ patellar reflexes ?? Total weight loss: 12 lbs since documented weight in November 5 lb weight loss since 02/21 ?? Ketones: 2+ Assessment/Plan Hyperemesis gravidarum (O21.0):? Place IV D5LR 1000mL bolus then re-check ketones Consulted with Dr. Brito, PGI, recommended admission for medication and fluid management, Dr. Brito is in agreement. OB House team to evaluate patient and enter orders ?? OB History History?(1,0,1,1)? # 1 ?Baby 1 ?Outcome Date:??01/29/2020?Outcome or Result:??Vaginal ?Gest Age:??39 weeks 6 days ? Outcome:??Live ? Sex:??Female?Wt:?3119 g ? Complications:??None ?Álvaro Labor:??5 hr 43 min ?? # 2 ?Baby 1 ?Outcome Date:??12/28/2022?Outcome or Result:??Therapeutic , medical ?Gest Age:??-- ? Outcome:? Sex:??-- Labs Labs Labs & Tests ABO: O (12/28/22) Antibody Screen: Negative (12/28/22) Hct: 39.1 % (12/28/22) Hgb: 12.8 Gm/dL (12/28/22) RH Test Only: Positive (12/28/22) Problem List Active Active Problem List Asthma: (Medical) Albuterol prn (acts up mainly in winter time). History of depression: (Medical) As child, saw therapist (no meds) but improved/went away. ??Now inpregnancy feeling down and a little depressed. History of recurrent UTIs: (Medical) Most recent uti couple months ago , cannot remember when. ??Seen in ED. Migraine: (Medical) Taking fioricet prn for this, reports typically about 1- 2x/week. 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 ??Referred to neuro but unable to see d/t insurance issues, so was just seeing pcp for this for now. says she has a neurologist in [place] for migraines. Nausea/vomiting in : (Medical) Obese class I: (Medical) : (Obstetric) (01/28/22) : (Medical) Procedure/Surgical History No qualifying data available. Home Medications Acetaminophen/Butalbital/Caffeine: 1 tablet, By Mouth, Every 4 hours, May repeat dose in 4 hours ifneeded. Do not exceed 2 tabs in 24 hours. Albuterol: 2 puffs, Inhalation, 4 times a day, PRN (for wheezing) Doxylamine: 25 mg = 1 tablet, By Mouth, Daily, Take one tablet before bed. May take additional tablet in the morning if nausea still persistent Metoclopramide: 10 mg = 1 tablet, By Mouth, 3 times a day, PRN (Nausea & Vomiting), Do NOT takeat same time as Tinndlyom46 minutes before meals and at bedtime Multivitamin, : 1 tablet, By Mouth, Daily, Please prescribe PNVs that are covered by pt's insurance. Ondansetron: 4 mg = 1 tablet, By Mouth, 2 times a day, PRN (Nausea & Vomiting) Promethazine: 25 mg = 1 supp, Rectally, Every 4 hours, PRN (for nausea/vomiting) Promethazine: 25 mg = 1 supp, Rectally, Every 4 hours, PRN (for nausea/vomiting) Pyridoxine: 25 mg = 1 tablet, By Mouth, 3 times a day, PRN (Nausea & Vomiting) Allergies NKA Social History Alcohol Use: Never. Substance Abuse Use: Never. Tobacco Use: Never (less than 100 in lifetime). Tobacco user in household: Yes. Family History Mother: Anemia; GI tract disease monitoring status Father: Unknown Sister: Cancer of colon; Cancer of stomach Mat. Grandmother: Diabetes mellitus type II; Heart disease Sister: Colitis Plan No Data Found * Sydney Sy MD: PERFORM Event Display: History and Physical Hospital Authored Date: Patient assessed, unable to tolerate fluids with 2+ ketones. ?? Plan: - Continue D5LR - 50mg B6 IM x 1 - IV Zofran PRN - IV Pantoprazole (p) CBC, BMP ( ) Nutrition consult in the AM Hospital Progress note * Gilma Quintanilla LPN: PERFORM, SIGN, VERIFY Event Display: Progress Note Hospital Authored Date: Patient: RUSTY DIEZ Age: 22 years Sex: Female : 2000 Associated Diagnoses: None Author: Gilma Quintanilla LPN Findings Discharge instructions reviewed with patient, medication scripts to pickling grader at her pharmacy, followup appointments reviewed, all questions answered. Prn angio removed. Patient discharged to home at this time. * Gilma Quintanilla LPN: PERFORM, SIGN, VERIFY Event Display: Progress Note Hospital Authored Date: Patient: RUSTY DIEZ Age: 22 years Sex: Female : 2000 Associated Diagnoses: None Author: Gilma Quintanilla LPN Findings Patient resting in bed at this time, states she is planning on going home today. Denies and nausea or vomiting. Patient states she is voiding, will order breakfast tray later, taking po fluids. Will continue to monitor, denies any discomfort at this time. * Hannah Hinojosa RN: PERFORM, SIGN, VERIFY Event Display: Progress Note Hospital Authored Date: Patient: RUSTY DIEZ Age: 22 years Sex: Female : 2000 Associated Diagnoses: None Author: Hannah Hinojosa RN Findings Problem Related to Alteration in Fluid Electrolyte : Alteration in Fluid Electrolyte Func/new 03/01/2023 19:00 EDT Alteration Fluid Electrolytes Related to Fluid Volume Deficit, Other: hyperemesis Goals & Outcomes, Fluid/Electrolyte Vital signs, electrolytes & glucose levels will stabilize, Pt will maintain adequate GI/ function appropriate for pt, Pt will state importance of adhering to medication regime, Pt's weight will normalize Interventions, Fluid Electrolyte monitor dietary intake, monitor hydration status, Encourage oral intake of meals, snacks, supplements, Encourage oral intake/fluids as ordered BH Goals/Interventions,Fluid Electrolyte Yes Fluid Electrolyte, Problem Start 03/01/2023 19:30 Reviewed plan with, Fluid Electrolyte Patient Patient Progression, Fluid Electrolyte Plan Initiation . P#1. I/E: as per plan of care. Pt is resting and sleeping on and off throughout the night. Pt sts that has no c/o nausea and continues to increase PO intake. Pt medicated with Benadryl 25mg PO, Reglan 10mg PO and Protonix 40mg IVpush as ordered. Pt sts that is voiding without difficulty. NO reportsof loss of fluid, no cramping. Lungs clear bilat., bowel sounds +x4 quads. Pt sts that is voiding without difficulty. OOB as arelis and is ambulating in the room on own. Call chavez within reach. Pt is aware to call with any questions or concerns. Will continue to monitor. Note * Gilma Quintanilla LPN: PERFORM Event Display: Discharge/Transfer Note Hospital Authored Date: [id number] Nursing Discharge Note Entered On: 03/02/2023 12:19 EDT Performed On: 03/02/2023 12:19 EDT by Gilma Quintanilla LPN Nursing Discharge Note 2 Discharge Time : 03/02/2023 12:00 EDT Discharge Level of Care at Discharge : Home/Shelter/Foster Care Patient Left Unit Via : Ambulatory Patient Accompanied Off Unit with : Responsible adult DC Instructions Provided & Signed by Pt : Yes Patient Understands D/C Instructions : Yes Verbalized Understanding of D/C Plan By : Patient Patient Instructions Discharge Signed : Yes Did Pt have Specialty Bed or Wound Vac : No Gilma Quintanilla LPN - 03/02/2023 12:19 EDT * Etelvina Harris DO: PERFORM Event Display: Discharge/Transfer Note Hospital Authored Date: [id number] Patient: ??RUSTY DIEZ ? Age:??22 Years?Sex:??Female?:??2000?? Admit Date Admission Date: 02/28/2023 Discharge Date 03/02/2023 OB Reason for Admission OB Reason for Admission Reason for admission: Nausea & Vomiting [facility] [place] Rusty is a 22yo at 8w2d dated by U/S who is admitted for concern of hyperemesis gravidarum. She has had 4 visits to [facility] in the past 2 weeks with temporary relief experienced only with IV Zofran and no relief experienced from outpatient PO or VT meds. She has??experienced a??5 lb weight loss since 02/21. ?? Ketones 2+ on admission. Given weight loss and improvement experienced only with IV medication, patient was admitted for further management. ?? Vitals have been significant for BPs 81-89/45-47 with a normal heart rate. Her physical exam hasoverall been reassuring. Patient is no longer nauseous or vomiting, tolerating PO intake without problems for 24 hours now. Appropriate for discharge home at this time. Discussed return precautions. Objective/Physical Exam on Day of Discharge Vitals & Measurements T:??98.2?F?? HR:??75??(Peripheral)?? RR:??18?? BP:??103/60?? SpO2:??98%?? HT:??162??cm?? WT:??91.5??kg?? BMI:??34.87?? Constitutional: Normal affect, no acute distress, well-developed.?? Respirations: Normal exam, not labored.?? Abdomen/GI: Soft, non-tender, and non-distended, no guarding, no rebound tenderness.?? Extremities: No clubbing, cyanosis or edema present.?? Skin: No rash or jaundice. Normal for ethnicity.?? Neurological/Psychiatric: Appearance appropriate, mood and affect stable. Gynecologic:??No Bleeding Assessment/Plan/Discharge Diagnosis Assessment:??Rusty is a 22yo at 8w2d dated by U/S who is admitted for concern of hyperemesis gravidarum. She has had 4 visits to [facility] in the past 2 weeks with temporary relief experienced only with IV Zofran and no relief experienced from outpatient PO or VT meds. She has experienced a 5lb weight loss since 02/21. Ketones 2+ on admission. Given weight loss and improvement experienced only with IV medication, patient was admitted for further management. ?? Vitals have been significant for BPs 81-89/45-47 with a normal heart rate. Her physical exam has overall been reassuring. Patient is no longer nauseous or vomiting, tolerating PO intake without problems for 24 hours now. Appropriate for discharge home at this time. ?? Hyperemesis gravidarum (O21.0):? - (x) CBC, BMP, wnl - s/p 50mg B6 IM x 1 - s/p IV Zofran PRN -??s/p Pantoprazole - (x) s/p nutrition consult - (x) Discharge home on??following regimen: ?- PO Reglan and Benadryl, B6, Unisom, Promethazine suppository (advised to not take with Reglan), Pantoprazole - Follow up with BM - visits scheduled ?? Patient seen and plan discussed with Dr. Contreras, attending physician. Future Appointments Monday 5:50 PM EDT ?? With: Nory Green CNM Where: [facility] [place] [address]- Status: Pending Monday 10:00 AM EDT ?? Where: [facility] [place] [address]- Status: Pending Monday 1:00 PM EDT ?? Where: [facility] [employer] [address] [place] [address]- Status: Pending Monday 1:40 PM EDT ?? With: Brian VALLEJO, Ainslye Nina Head Where: [facility] [place] [address]- Status: Pending Delivery Summary Delivery Summary Maternal Information ? Discharge Medications ???Acetaminophen/Butalbital/Caffeine (acetaminophen/butalbital/caffeine 325 mg- 50 mg-40 mg oral tablet)???Albuterol (albuterol CFC free 90 mcg/inh inhalation aerosol)???DiphenhydrAMINE (Benadryl 25 mg oral tablet)???Doxylamine (doxylamine 25 mg oral tablet)???Metoclopramide (Reglan 10 mg oral tablet)???Multivitamin, (PNV Select oral tablet)???Ondansetron (ondansetron 4 mg oral tablet, disintegrating)???Pantoprazole (pantoprazole 40 mg oral delayed release tablet)???Promethazine (promethazine 25 mg rectal suppository)???Promethazine (promethazine 25 mg rectal suppository)???Pyridoxine(pyridoxine 25 mg oral tablet) Immunizations during Hospitalization Vaccine Date Status tetanus/diphtheria/pertussis, acel(Tdap) 11/13/2019 Given influenza virus vaccine, inactivated 08/09/2019 Given Feeding Method No Results Patient Instructions Discussed with patient methods of improving nausea in vomiting in including but not limited to: -To avoid an empty stomach and recommended keeping Gatorade and crackers at bedside for a snack early in the morning -To have small, frequent??meals, with protein, throughout the day -Vitamin B6/Unisom for prophylaxis -Reglan and Benadryl PRN -Pantoprazole PRN for acid reflux -Promethazine suppository - DO NOT USE WITH REGLAN AT THE SAME TIME -Recommended B-rome on [employer], a sucking candy, to assist with nausea * Ben YIP, Humaira Batista: PERFORM Event Display: Discharge/Transfer Note Hospital Authored Date: Provider Attestation I, Dr. Humaira Contreras, personally performed the services described in this documentation.?All medical record entries??made by the scribe were at my direction and in my presence. ??I havereviewed the chart and agree that the record reflects my personal performance and is accurate and complete. * Gilma Quintanilla LPN: PERFORM Event Display: Patient Education/Instruction Authored Date: Inpatient Adult Discharge Instructions [place] [id number] Name: RUSTY DIEZ : 2000 Visit: 02/28/2023 19:44:00 Current Date: 03/02/2023 11:27 Account: [id number] Inpatient Adult Discharge Instructions We would like [...] and their families. Surveys are administered by [employer] ?? If further treatment with your primary care physician or another doctor is recommended, it is important for you to keep the appointment. Call your primary care physician or return to the Emergency Department immediately if your condition worsens, fails to improve, or new symptoms develop. If you need to find a doctor, you can call [facility] for a referral at [phone] or toll free at [phone] or log in to [email or web address].. ?? You can view and manage your care through the patient portal or by using a health care dorian of your choosing. [employer] is a website that allows you to securely view your medical information including your hospital discharge summary, office visit summaries, medications and follow-up visits. You can also request appointments, renew medications, and request access to your medical information using a health care dorian of your choosing, or just ask a question. You can enroll at [email or web address] or register during your next office visit. You have been discharged from [facility], Patient Care Unit: [facility]. If you have any questions regarding these instructions after you leave, please call us and we will be happy to assist you. [facility] Your Care Team Attending Physician Carlos YIP, Ion; Kristina YIP, Coty Batista Discharging Providers Etelvina Harris DO Reason for Admission Nausea & Vomiting Your Diagnosis Hyperemesis gravidarum Tests Performed Below is a partial list of the tests performed during your hospitalization. You may have had other tests and procedures not included in this list. Please discuss all test results with your provider. Basic Metabolic Panel CBC w/ Differential Primary Care Provider Sanford YIP, Shayne Hall Advance Directive Health Care Proxy on File Yes - Health Care Proxy Discharge Vitals Temperature: 98.2 DegF Height: 162 cm Pulse Rate: 75 bpm Weight: 91.5 kg Respiratory Rate: 18 br/min Body Mass Index:??34.87 kg/m2??Critical Systolic Blood Pressure: 103 mm Hg Body surface area: 2.03 Diastolic Blood Pressure: 60 mm Hg ?? Oxygen Saturation: 98 % ?? Studies Pending All tests and labs ordered during this hospital stay have been completed unless listed below. Please discuss all pending results with your provider listed above in these instructions. ?? COVID-19 (2019 Novel Coronavirus) PCR What to do next Instructions From Your Doctor Discussed with patient methods of improving nausea in vomiting in including but not limited to: -To avoid an empty stomach and recommended keeping Gatorade and crackers at bedside for a snack early in the morning -To have small, frequent??meals, with protein, throughout the day -Vitamin B6/Unisom for prophylaxis -Reglan and Benadryl PRN -Pantoprazole PRN for acid reflux -Promethazine suppository - DO NOT USE WITH REGLAN AT THE SAME TIME -Recommended B- on [employer], a sucking candy, to assist with nausea Discharge Orders Scheduled Follow-Up Appointments Monday 5:50 PM EDT ?? With: Nory Green CNM Where: [facility] [place] [address]- Status: Pending Monday 10:00 AM EDT ?? Where: [facility] [place] [address]- Status: Pending Monday 1:00 PM EDT ?? Where: [facility] [employer] [address] [place] [address]- Status: Pending Monday 1:40 PM EDT ?? With: Brian VALLEJO, Ainsley Nina Head Where: [facility] [place] [address]- Status: Pending Discharge Medications RUSTY DIEZ :2000 Visit Date:02/28/2023 Medications: Please continue your medications until treatment is completed or stopped by your provider. Medications not listed below should be discontinued. Discuss any questions related to medications with your provider. What How Much When Instructions Next Dose New DiphenhydrAMINE (Benadryl 25 mg oral tablet) 25 Milligram Oral Every 4 hours Refills: 3 Printed Prescription New Pantoprazole (pantoprazole 40 mg oral delayed release tablet) 1 tab(s) Oral Twice a day Refills: 3 Pickup at [facility][id number] Unchanged Acetaminophen/ Butalbital/ Caffeine (acetaminophen/ butalbital/ caffeine [...] the morning if nausea still persistent ?? [id number] Unchanged Metoclopramide (Reglan 10 mg oral tablet) 1 tab(s) Oral 3 times a day as needed for Nausea & Vomiting Do NOT take at same time as Phenergan 30 minutes before meals and at bedtime ?? [facility] Unchanged Multivitamin, (PNV Select oral tablet) 1 tab(s) Oral Daily Duration: 30 Days Please prescribe PNVs that are covered by pt's insurance. ?? Unchanged Ondansetron (ondansetron 4 mg oral tablet, disintegrating) 1 tab(s) Oral Twice a day as needed for Nausea & Vomiting Unchanged Promethazine (promethazine 25 mg rectal suppository) 1 suppository(ies) Per rectum Every 4 hours as needed for for nausea/vomiting Unchanged Promethazine (promethazine 25 mg rectal suppository) 1 suppository(ies) Per rectum Every 4 hours as needed for for nausea/vomiting Unchanged Pyridoxine (pyridoxine 25 mg oral tablet) 1 tab(s) Oral 3 times a day as needed for Nausea & Vomiting [facility] Information [id number] [address] [place], [place] [phone] [id number] [address], [place] [phone] Test Results Below is a partial list of the most recent Laboratory test results done prior to this discharge. You may have had other tests and procedures not included in this list. Please discuss all test resultswith your provider. Est Creatinine Clearance - 123.69 mL/min (02/28/2023) Basic Metabolic Panel (02/28/2023) ???Sodium - 138 mmol/L???Potassium - 3.6 mmol/L???Chloride - 102 mmol/L???Bicarbonate Level - 23 mmol/L???Anion Gap - 13???Glucose Level - 78 mg/dL???BUN - 6 mg/dL???Creatinine-Blood - 0.6 mg/dL???Estimated GFR Creatinine - 131 ML/MIN/1.73 M2???Calcium - 9.7 mg/dL CBC w/ Differential (02/28/2023) ???WBC - 11.4 k/mm3???RBC - 4.61 m/mm3???Hgb - 13.6 Gm/dL???Hct - 39.6 %???MCV - 85.9 femtoliters???MCH - 29.5 pg???MCHC - 34.3 g/dL???Platelet Count - 199 k/mm3???RDW-SD - 38.1 femtoliters???MPV - 11.8 femtoliters???Nucleated RBC (Automated) - 0.0 #/100 WBC'S???Abs. NRBC - 0.0 k/mm3???Abs. Neut - 8.4 k/mm3???Abs. Lymph - 2.0 k/mm3???Abs. [place] - 0.8 k/mm3???Abs. Eo - 0.1 k/mm3???Abs. Baso - 0.0 k/mm3???Neut % - 73.5 %???Lymph % - 17.9 %???[place] % - 7.0 %???Eos % - 0.9 %???Baso % - 0.3 %???Imm Gran - 0.4 %???Abs. Imm Gran - 0.0 k/mm3 Allergies (NKA means No Known Allergies) NKA Problems Active Problems??(9) Asthma?? History of depression?? History of recurrent UTIs?? Hyperemesis gravidarum?? Migraine?? Nausea/vomiting in ?? Obese class I? Education Materials Below is the list of Educational Leaflet Providered with your Discharge Instructions. Hyperemesis Gravidarum?? Valuables and Belongings I fully understand and agree that [facility] accepts no responsibility for all my [...] are strongly encouraged to quit. Please call [facility] [employer] Link at [phone] or [phone] ([phone]) or log in to [email or web address] for referrals to smoking cessation programs. ?? 503 Suicide & Crisis Lifeline is available 20/02 if you or someone you know needs to find a reason to keep living. By calling 874 you'll be connected to a skilled, trained counselor at a crisis center in your area. INPATIENT DISCHARGE INSTRUCTIONS SIGNATURE RUSTY CHU Location:[facility] Registration Date and Time:02/28/2023 19:44 EDT Primary Care Physician: Sanford YIP, Shayne Hall, Attending Physician: Kristina YIP, Coty Batista, Ion Gonzalez MD, I RUSTY DIEZ, have received the above patient education materials/instructions and have verbalized understanding. If ambulance or transport services are being used I further acknowledge being given a choice of service. ?? If you need to contact me, please call me at this number: . Patient/Grave Cleaner Name: Patient/Grave Cleaner Signature: Relationship to Patient: Witness Name/Signature: Date: * Gilma Quintanilla LPN: PERFORM Event Display: Patient Education Leaflets Authored Date: [id number] Hyperemesis Gravidarum ?? [id number] Hyperemesis Gravidarum Upset stomach (nausea) and vomiting [...] vitamin B6 and elli. Don???t use any wpax-tem-knsowzd medicines or home remedies without talking with [...] advised ?? Last Reviewed Date: 2021 ?? [id number] [employer]. All rights reserved. This information is not intended as a substitute for professional medical care. Always follow your healthcare professional's instructions. ?? Patient Care team information Care Team Personnel Name: Shayne Christina MD Position: [facility] Outreach Member Role: PCP Address: Address: [address] [place] [address]- Name: Gilma Quintanilla LPN Position: [facility] OB RN Member Role: Patient Care Provider Name: Josiane Greer RN Position: [facility] OB RN Member Role: Patient Care Provider Care Team Related Persons Name: BING CARTER Address: home [address] [place] [address] Name: ROSALVA CLAIRE Address: [id number] Address: [address] [address] [place] Name: SANTO CLAIRE Address: [address] [place] [address] Name: VALENTE WANG
--- OUTSIDE RECORDS SUMMARY | 2024-04-22 03:05 | XMS_ITS | Continuity of Care Document ---
Author Organization [facility] Address [address] [place] [id number]- Care Team Providers Care Timber Feller Name Role Phone Shayne Christina MD Primary Care Physician Encounter [facility] Date(s): 10/28/20 - 11/27/20 [facility] [address] [address] Attending Physician: Seun Castaneda Admitting [...] tablet, 2 Refills, Maintenance, 02/06/20 13:40:00 EDT, [facility]/pharmacy #[id number], 1 tablet ByMouth Every 4 [...] 11:34:00 EDT, Aerosol, Route to Pharmacy Electronically, [id number], [id number], 163, cm, 11/13/19 16:13:00 EDT, Hei... Start Date: 11/25/19 Stop Date: 04/23/20 Status: Ordered Flovent HFA 110 mcg/inh inhalation aerosol 2 puffs, Inhalation, 2 times a day, # 12 Gm, 1 Refills, Maintenance, 12/02/19 0:58:00 EDT, Aerosol,[id number], 163, cm, 11/27/19 15:36:00 EDT, Height, 78.1, kg, 11/13/19 16:13:00 EDT, Dry Weight Start Date: 12/02/19 Stop Date: 12/16/19 Status: Ordered fluconazole 150 mg oral tablet 1 tablet = 150 mg, By Mouth, Once, repeat dose if still having symptoms in 72 hours, # 2 tablet, 0 Refills, Soft Stop, 09/14/20 9:53:00 EST, Tablet, [facility]/pharmacy #[id number], Partial fill upon patient request if the prescription is for a schedule II opioid... Start Date: 09/14/20 Status: Ordered ibuprofen 200 mg oral tablet 400 mg, 2, tablet, By Mouth, Every 4 hours, PRN, # 100 tablet, Refills 0, Tot. Refills 0, Maintenance, for pain, 01/31/20 10:59:00 EDT, Route to Pharmacy Electronically, [facility]/pharmacy #[id number], 163, cm, 01/31/20 0:18:00 EDT, Height, 81.4, kg, 01/29/20 8:5... Start Date: 01/31/20 Status: Ordered Mirena 52 mg intrauterine device See Instructions, 1 each Once, # 1 each, 0 Refills, Soft Stop, 03/10/20 14:06:00 EDT, [facility], 163, cm, 03/10/20 13:34:00 [...] ED. 4says she has a neurologist in [place] for migraines. 5Taking fioricet prn for this, [...]
--- OUTSIDE RECORDS SUMMARY | 2024-04-22 03:05 | XMS_ITS | Continuity of Care Document ---
Author Organization [facility] Address [address] [place] [address]- Care Team Providers Care Embedded Processor Name Role Phone Rigo DICKSON, Jihan Primary Care Physician [phone] Encounter [facility] Date(s): 10/03/23 - 11/02/[address] [address]- Allergies, Adverse Reactions, Alerts No Known Allergies Immunizations Given and Recorded Vaccine Date Status Refusal Reason tetanus/diphtheria/pertussis, acel(Tdap) 07/20/23 Given tetanus/diphtheria/pertussis, acel(Tdap) 11/13/19 Given tetanus/diphtheria/pertussis, acel(Tdap) 04/29/10 Recorded [id number] 12y+ bivalent booster vax 08/10/22 Recorded SARS-CoV-2 [...] give 325mg per patient preference and re-dose [id number] within 4 hours, if needed. Patient should only receive a total of 650mg of Acetaminophen every 4 hours., # 30 tablet, Refills 0, Tot. Refills 0... Start Date: 10/16/23 Status: Ordered albuterol CFC free 90 mcg/inh inhalation aerosol 180 mcg, 2, puffs, Inhalation, Every 4 hours, PRN, # 6.7 Gm, Refills 2, Tot. Refills 2, Maintenance, 10/16/23 9:28:00 EDT, Inhaler, Route to Pharmacy Electronically, [id number], [facility]/pharmacy #[id number], 163, cm, 10/16/23 9:08:00 E... Start Date: 10/16/23 Status: Ordered escitalopram 10 mg oral tablet 1 tablet, By Mouth, Daily, # 30 tablet, 0 Refills, Maintenance, 10/16/23 9:28:00 EDT, [facility]/pharmacy #[id number], 163, cm, 10/16/23 9:08:00 EDT, Height, 100.3, kg, 10/14/23 7:58:00 EDT, Dry Weight Start Date: 10/16/23 Status: Ordered Flovent HFA 44 mcg/inh inhalation aerosol See Instructions, INHALE 2 PUFFS TWICE A DAY, # 10.6 each, 0 Refills, Maintenance, 07/12/23 18:32:00 EST, [facility] [id number], 162, cm, 05/25/23 11:20:00 EDT, Height, 91.4, kg, 05/25/23 11:20:00 EDT, DryWeight Start Date: 07/12/23 Status: Ordered multivitamin, Multivitamins oral tablet, chewable 1 tablet, By Mouth, Daily, # 30 tablet, 3 Refills, Maintenance, 10/16/23 9:30:00 EDT, Chew Tablet, [facility]/pharmacy #[id number], Partial fill upon patient request if the prescription is for a schedule II opioid drug., 1 tablet By Mouth Daily, 163, cm, 10/16/23... Start Date: 10/16/23 Status: Ordered PNV Plus oral tablet 1 tablet, By Mouth, Daily, # 90 tablet, 1 Refills, Maintenance, 10/16/23 9:29:00 EDT, [facility]/pharmacy #[id number], Partial fill upon patient request if [...] Reference Physician Member Role: PCP Address: Address: [address] [place] [address]- Care Team Related Persons Name: BING CARTER Address: home [address] [place] [address] Name: ROSALVA CLAIRE Address: [address] Address: [address] [address] [place] Name: ALEXANDER CLAIRE Address: [address] Address: [address] [place] [address] [place] Name: SANTO CLAIRE Address: [address] [place] [address] Name: VALENTE WANG
--- OUTSIDE RECORDS SUMMARY | 2024-04-22 03:05 | XMS_ITS | Continuity of Care Document ---
Author Organization [facility] Address [address] [place] [address], [address] [place] [address]- Care Team Providers Care Geologic Technician Name Role Phone Sanford YIP, Shayne Hall Primary Care Physician Encounter [facility] Date(s): 09/12/19 - [facility] [address] [facility], [address] [place] [address]- Attending Physician: Darnell Thorne MD Referring Physician: Carol Flynn CNM Allergies, [...] tablet, 1 Refills, Maintenance, 09/17/19 10:42:00 EST, [facility]/pharmacy #[id number], 1 tablet By Mouth 2 times a [...] ED. 4says she has a neurologist in [place] for migraines. 5Taking fioricet prn for this, [...]
--- OUTSIDE RECORDS SUMMARY | 2024-04-22 03:05 | XMS_ITS | Continuity of Care Document ---
Author Organization [facility] ter Address [address] [place] [id number]- Care Team Providers Care Engineer Design And Construction Name Role Phone Sanford YIP, Shayne Hall Primary Care Physician Encounter [facility] Date(s): 02/17/23 - 02/18/[address] [address] Discharge Disposition: A-D/C Home Attending Physician: Coty [...] tablet, 2 Refills, Maintenance, 02/06/20 13:40:00 EDT, [facility]/pharmacy #0373, 1 tablet ByMouth Every 4 hours,Instr:May repeat dose in 4 hour... Start Date: 02/06/20 Status: Ordered albuterol CFC free 90 mcg/inh [...] tablet, 8 Refills, Maintenance, 02/13/23 9:10:00 EDT, [facility]/pharmacy #0373, Partial fill upon patient request if th... Start Date: 02/13/23 Status: Ordered ondansetron 4 mg oral tablet, disintegrating 1 tablet = 4 mg, By Mouth, 2 times a day, PRN Nausea & Vomiting, # 12 tablet, 3 Refills, Maintenance, 02/13/23 9:10:00 EDT, Tablet, [facility]/pharmacy #0373, Partial fill upon patient request if the prescription is for a schedule II opioid drug., 163, cm, 0... Start Date: 02/13/23 Status: Ordered PNV Select oral tablet 1 tablet, By Mouth, Daily, Please prescribe PNVs that are covered by pt's insurance., # 30 tablet, 11 Refills, Maintenance, 12/07/22 10:40:00 EDT[facility] Partial fill upon patient request if the prescription is for a schedule II opioid dr... Start Date: 12/07/22 Stop Date: 12/02/23 Status: Ordered promethazine 25 mg rectal suppository 1 supp = 25 mg, Rectally, Every 4 hours, PRN for nausea/vomiting, # 12 supp, 1 Refills, Maintenance, 02/18/23 0:41:00 EDT, Suppository, [facility]/pharmacy #0373, Partial fill upon patient request if the prescription is for a schedule II opioid drug., 163, c... Start Date: 02/18/23 Status: Ordered pyridoxine 25 mg oral tablet 1 tablet = 25 mg, By Mouth, 3 times a day, PRN Nausea & Vomiting, # 100 tablet, 8 Refills, Maintenance, 02/13/23 9:10:00 EDT, [facility]/pharmacy #0373, Partial fill upon patient request if the prescription is for a schedule II opioid drug., 163, cm, ... Start Date: 02/13/23 Status: Ordered Reglan 10 mg oral tablet 1 tablet = 10 mg, By Mouth, 3 times a day, PRN Nausea & Vomiting, Do NOT take at same time as Phenergan 30 minutes before meals and at bedtime, # 12 tablet, 5 Refills, Acute 03/14/23 0:44:00 EDT,02/18/23 0:43:00 EDT, [facility], Partial fill... Start Date: 02/18/23 Stop Date: [...] ED. 4says she has a neurologist in [place] for migraines. 5Taking fioricet prn for this, reports typically about 1-2x/week. 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 Referred to neuro but unable to see d/t insurance issues, so was just seeing pcp for this for now. Vital Signs Most recent to oldest [Reference Range]: 1 Weight 94.7 kg (02/17/23 7:57 PM) Oxygen Saturation [94-100 %] 100 % (02/17/23 7:57 PM) Pulse Rate [55-90 bpm] 76 bpm (02/17/23 7:57 PM) Blood Pressure [90-138/55-84 mm Hg] 117/ 65mm Hg (02/17/23 7:57 PM) Respiratory Rate [16-30 br/min] 17 br/mi n (02/17/23 7:57 PM) Temperature [96.8-100.4 DegF] 98.1 DegF (02/17/23 7:57 PM) Mode of Delivery (Oxygen) Room air (02/17/23 7:57 PM) Blood pressure sites Arm, right (02/17/23 7:57 PM) Temperature Route Oral (02/17/23 7:57 PM) Dry Weight 94.7 kg (02/17/23 7:57 PM) Weight Obtained Via Standing scale (02/17/23 7:57 PM) Dry Weight Obtained Via Standing scale (02/17/23 7:57 PM) Social History Social History Type Response Smoking Status Never (less than 100 in lifetime); Tobacco user in household: Yes entered on: 06/21/19 Sex Note * Christel Amos RN: PERFORM Event Display: Discharge/Transfer Note Hospital Authored Date: [id number] Nursing Discharge Note Entered On: 02/18/2023 2:40 EDT Performed On: 02/18/2023 2:39 EDT by Christel Amos RN Nursing Discharge Note 2 Discharge Time : 02/18/2023 2:33 EDT Discharge Level of Care at Discharge : Home/Intermediate/Foster Care Patient Left Unit Via : Ambulatory Patient Accompanied Off Unit with : Significant other DC Instructions Provided & Signed by Pt : Yes Patient Understands D/C Instructions : Yes Patient Instructions Discharge Signed : Yes Did Pt have Specialty Bed or Wound Vac : No Christel Amos RN - 02/18/2023 2:39 EDT * Christel Amos RN: PERFORM Event Display: Patient Education/Instruction Authored Date: [id number] Inpatient Adult Discharge Instructions [address] [address] Name: RUSTY DIEZ : 2000 Visit: 02/17/2023 19:52:00 Current Date: 02/18/2023 02:21 Account: [id number] Inpatient Adult Discharge Instructions We would like [...] and their families. Surveys are administered by [employer] ?? If further treatment with your primary care physician or another doctor is recommended, it is important for you to keep the appointment. Call your primary care physician or return to the Emergency Department immediately if your condition worsens, fails to improve, or new symptoms develop. If you need to find a doctor, you can call [facility] for a referral at [phone] or toll free at [phone]) or log in to [email or web address].. ?? You can view and manage your care through the patient portal or by using a health care dorian of your choosing. [employer] is a website that allows you to securely view your medical information including your hospital discharge summary, office visit summaries, medications and follow-up visits. You can also request appointments, renew medications, and request access to your medical information using a health care dorian of your choosing, or just ask a question. You can enroll at [email or web address] or register during your next office visit. You have been discharged from [facility], Patient Care Unit: WETU1. If you have any questions regarding these instructions after you leave, please call us and we will be happy to assist you. [facility] Your Care Team Attending Physician Kristina YIP, Coty Batista Reason for Admission PREG KELLY 09 22 24N V Your Diagnosis Nausea/vomiting in Tests Performed Below is a partial list of the tests performed during your hospitalization. You may have had other tests and procedures not included in this list. Please discuss all test results with your provider. Primary Care Provider Sanford YIP, Shayne Hall Advance Directive Health Care Proxy on File Yes - Health Care Proxy Discharge Vitals Temperature: 98.1 DegF Weight: 94.7 kg Pulse Rate: 76 bpm ?? Respiratory Rate: 17 br/min ?? Systolic Blood Pressure: 117 mm Hg ?? Diastolic Blood Pressure: 65 mm Hg ?? Oxygen Saturation: 100 % ?? Studies Pending All tests and labs ordered during this hospital stay have been completed unless listed below. Please discuss all pending results with your provider listed above in these instructions. ?? No incomplete studies found What to do next Instructions From Your Doctor Discharge Orders You Need to Schedule the Following Appointments Follow Up with??Antonina Morrow Where: [address] [facility] [place] [address]- [facility] (1) Follow Up with??Follow up, 1 to 2 Weeks Discharge Medications DIEZ, NEDORIS :2000 Visit Date:02/17/2023 Medications: Please continue your medications until treatment is completed or stopped by your provider. Medications not listed below should be discontinued. Discuss any questions related to medications with your provider. What How Much When Instructions Next Dose New Metoclopramide (Reglan 10 mg oral tablet) 1 tab(s) Oral 3 times a day as needed for Nausea & Vomiting Refills: 5 Do NOT take at same time as Phenergan 30 minutes before meals and at bedtime ?? Pickup at [facility]/pharmacy #0373 New Promethazine (promethazine 25 mg rectal suppository) 1 suppository(ies) Per rectum Every 4 hours as needed for for nausea/vomiting Refills: 1 Pickup at [facility]/pharmacy #0373 Unchanged Acetaminophen/ Butalbital/ Caffeine (acetaminophen/ butalbital/ caffeine [...] morning if nausea still persistent ?? Unchanged Multivitamin, (PNV Select oral tablet) [...] needed for Nausea & Vomiting Pharmacy Information [facility]/pharmacy #0373: [address] [place], [place] [id number] [phone] Test Results Below is a partial list [...] Educational Leaflet Providered with your Discharge Instructions. Common Discomforts During ?? Comfort Tips During ?? Adapting to : First Trimester?? Valuables and Belongings I fully understand and agree that [facility] accepts no responsibility for all my [...] Status?? Pulmonary Rehab Discharge Status?? Respiratory Rate: 17 br/min ? Common Emergency Awareness Tips IS [...] strongly encouraged to quit. Please call [facility] at [phone] or [phone] ([phone]) or log in to [email or web address] for referrals to smoking cessation programs. ?? 988 Suicide & Crisis Lifeline is available 20/02 if you or someone you know needs to find a reason to keep living. By calling 988 you'll be connected to a skilled, trained counselor at a crisis center in your area. INPATIENT DISCHARGE INSTRUCTIONS SIGNATURE PAGE RUSTY DIEZ Location:[facility] Registration Date and Time:02/17/2023 19:52 EDT Primary Care Physician: Sanford YIP, Shayne Hall, Attending Physician: Kristina YIP, Coty Batista, I RUSTY DIEZ, have received the above patient education materials/instructions and have verbalized understanding. If ambulance or transport services are being used I further acknowledge being given a choice of service. ?? If you need to contact me, please call me at this number: . Patient/Continuous Process Tanner Rotary Drum Name: Patient/Continuous Process Tanner Rotary Drum Signature: Relationship to Patient: Witness Name/Signature: Date: * Amos Christel HONEYCUTT: PERFORM, SIGN, VERIFY Event Display: Patient Education Handout Authored Date: [id number] Christel Iglesias RN: PERFORM Event Display: Patient Education Leaflets Authored Date: Common Discomforts During ?? [id number] Common Discomforts During Symptoms of discomfort due to vary from person to person. Below are some common discomforts. But each btncwl-th-cc may have different symptoms or none at all: ??? Nausea and vomiting. Abouthalf of all people have nausea and sometimes vomiting in the first trimester. This is alsocalled morning sickness. That's because symptoms are most severe in the morning. Some people may have nausea and vomiting throughout the .??Morning sickness may be due to the changes in hormone levels during . Morning sickness seems to be??made worse??by stress, traveling, and certain foods, like spicy or fatty foods. Eating small meals several times a day may help lessen the symptoms. A diet high in protein and complex carbohydrates (like whole-wheat bread, pasta, bananas, and green, leafy vegetables) may also help reduce the severity of the nausea. If vomiting is severe, causing you to lose fluids and weight, it may??be a sign of??a condition called hyperemesis gravidarum. Hyperemesis can lead to dehydration and may need a hospital stay for intravenous fluids and nutrition. Call your healthcare provider or nailer machine if you are having constant or severe nausea and vomiting. ??? Fatigue. As the body works overtime to provide a nourishing environment for the fetus, it is no wonder a person often feels tired. In the first trimester, their blood volume and other fluids increase as their body adjusts to the . Sometimes anemia is the underlying cause of the fatigue. Anemia is a drop in the ability of red blood cells to carry oxygen. It is often due to low iron levels. A simple blood test done at a visit will check for anemia. ??? Hemorrhoids. Hemorrhoids are common in late . That's because of the increased pressure on the rectum and perineum, the increased blood volume, and the increased likelihood of becoming constipated as the progresses. Preventing constipation and straining may help to prevent hemorrhoids. Always check with your healthcare provider or nailer machine before using any medicine to treat this condition.??? Varicose veins. Varicose veins???swollen, purple veins???are common in the legs and around the vaginal opening during late . In most cases, varicose veins are caused by the increased pressure on the legs and the pelvic veins. It is also caused by the increased blood volume. ??? Heartburn and indigestion. Heartburn and indigestion is caused by pressure on the intestines and stomach (which, in turn, pushes stomach contents back up into the esophagus). It can be prevented or reduced by eating smaller meals throughout the day and by not lying down shortly after eating. ??? Bleeding gums. Gums may become more spongy as blood flow increases during . This causes them to bleedeasily. A person should continue to take care of her teeth and gums and go to the dentist for regular checkups. This symptom usually disappears after . ??? Pica. Pica is a rare craving to eat substances other than food, like dirt, sherin, or coal. The craving may be a sign of a nutritional deficiency. ??? Swelling or fluid retention. Mild swelling is common during . But se molly swelling that??lasts may??be a sign of??preeclampsia (abnormal condition marked by high blood pressure). Lying on the left side, elevating the legs, and wearing support hose and comfortable shoes may help to relieve the swelling. Be sure to notify your??healthcare provider??or nailer machine about sudden swelling, especially in the hands or face, or rapid weight gain. ??? Skin changes. Because of changes in hormone levels, including hormones that stimulate pigmentation of the skin, brown, blotchypatches may??happen on the face, forehead, or cheeks. This is often called the mask of , or chloasma. It often disappears soon after delivery. Using sunscreen when outside can reduce the amount of darkening that happens.?? Pigmentation may also increase in the skin surrounding the nipples,called the areola. A dark line??also often appears down the middle of the stomach. Freckles may darken, and moles may grow. ??? Stretch garcias. Pinkish stretch garcias may appear on the stomach, breasts, thighs, or buttocks. Stretch garcias are generally caused by a rapid increase in weight. The garcias us mengy fade after . ??? Yeast infections. Due to hormone changes and increased vaginal discharge, also called leukorrhea, a person is more prone to yeast infections. Yeast infectionscause a thick, whitish discharge from the vagina and itching. Yeast infections are highly treatable. Always talk with your healthcare provider or nailer machine before taking any medicine for this condition.? Congested or bloody nose. During , the lining of the respiratory tract receives more blood, often making it more congested. This congestion can also cause stuffiness in the nose or nosebleeds. Small blood vessels in the nose are also easily damaged due to the increased blood volume, causing nosebleeds. ??? Constipation. Increased pressure from the on the rectum and intestines can interfere with digestion and bowel movements. Hormone changes may also slow down the food being processed by the body. Increasing fluids, exercising regularly, and increasing the fiber in your diet are some of the ways to prevent constipation. Always check with your healthcare provider or nailer machine before taking any medicine for this condition.? Backache. As a person's weight increases, their balance changes. Their center of gravity is pulled forward,??straining the back. Pelvic joints that begin to loosen in preparation for childbirth also contribute to this back strain. Correct posture and correct lifting methods throughout the can help reduce the strain on the back.??? Dizziness. Dizziness during is a common symptom. It may be caused by: o Low blood pressure due to the uterus compressing major arteries o Low blood sugar o Low iron o Quickly moving from a sitting position to a standing position o Dehydration To prevent injury from falling during episodes of dizziness, a person should stand up slowly and hold on to the nelson and other stable structures for support and balance. ??? Headaches. Hormonal changes may be the cause of headaches during , especially during the first trimester. Rest, correct nutrition, and adequate fluidintake may help??ease headache symptoms. Always talk with your healthcare provider or nailer machine??before taking any medicine for this condition. If you have a severe headache or a headache that does notgo away, call your healthcare provider. It may be a sign of preeclampsia.?? Last Reviewed Date: 2022 ?? The [employer]. All rights reserved. This information is not intended as a substitute for professional medical care. Always follow your healthcare professional's instructions. ?? * Christel Amos RN: PERFORM Event Display: Patient Education Leaflets Authored Date: [id number] Comfort Tips During ?? [address]247 Comfort Tips During can bring discomfort of [...] belly. ?? Last Reviewed Date: 2022 ?? [id number] [employer]. All rights reserved. This information is not intended as a substitute for professional medical care. Always follow your healthcare professional's instructions. ?? * Christel Amos RN: PERFORM Event Display: Patient Education Leaflets Authored Date: [id number] Adapting to : First Trimester ?? [address] Adapting to : First Trimester As your [...] increases the risk of stillbirth??or having a oip-vrvjz-ktgcbe baby. If you smoke, quit now. ??? [...] access to food, and child day care center worker. If you can???t get to medical appointments, [...] help. ?? Last Reviewed Date: 2022 ?? [id number] [employer]. All rights reserved. This information is not intended as a substitute for professional medical care. Always follow your healthcare professional's instructions. ?? Patient Care team information Care Team Personnel Name: Shayne Christina MD Position: [facility] Outreach Member Role: PCP Address: Address: [address] [place] [address]- Care Team Related Persons Name: BING CARTER Address: home [address] [place] [address] Name: ROSALVA CLAIRE Address: [address] Address: home [address] [address] Name: SANTO CLAIRE Address: home [address] [place] [address] Name: VALENTE WANG
--- OUTSIDE RECORDS SUMMARY | 2024-04-22 03:05 | XMS_ITS | Continuity of Care Document ---
Author Organization [facility] Address [address] [address]- Care Team Providers Care Bakery Chef Name Role Phone Jihan Sierra NP Primary Care Physician [phone] Encounter [facility] Date(s): 09/06/23 - 10/06/23 [facility] [address] [place] [address]- Allergies, Adverse Reactions, Alerts No Known Allergies Immunizations Given and Recorded Vaccine Date Status Refusal Reason tetanus/diphtheria/pertussis, acel(Tdap) 07/20/23 Given tetanus/diphtheria/pertussis, acel(Tdap) 11/13/19 Given tetanus/diphtheria/pertussis, acel(Tdap) 04/29/10 Recorded [id number] 12y+ bivalent booster vax 08/10/22 Recorded SARS-CoV-2 [...] tablet, 0 Refills, Maintenance, 09/29/23 9:45:00 EST, [facility]/pharmacy #[id number], 1 tablet By Mouth Every 4 hours,PRN: NEEDED FOR MIGRAINE HEADACHES, 162, cm, 09/25/23 15:23:00 ES... Start Date: 09/29/23 Status: Ordered escitalopram 10 mg oral tablet 1 tablet, By Mouth, Daily, # 30 tablet, 0 Refills, Maintenance, 08/17/23 16:18:00 EST, [facility], 162, cm, 08/03/23 11:00:00 EST, Height, 97.63, kg, 08/03/23 11:00:00 EST, Dry Weight Start Date: 08/17/23 Status: Ordered Flovent HFA 44 mcg/inh inhalation aerosol See Instructions, INHALE 2 PUFFS TWICE A DAY, # 10.6 each, 0 Refills, Maintenance, 07/12/23 18:32:00 EST, [id number], 162, cm, 05/25/23 11:20:00 EDT, Height, 91.4, [...] Reference Physician Member Role: PCP Address: Address: [address] [place] [address]- Care Team Related Persons Name: BING CARTER Address: home [address] [place] [address] Name: ROSALVA CLAIRE Address: Address: home [address] [address] Name: SANTO CLAIRE Address: [address] [place] [address] Name: VALETNE WANG
--- OUTSIDE RECORDS SUMMARY | 2024-04-22 03:05 | XMS_ITS | Continuity of Care Document ---
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 Start Date: 11/25/19 Stop Date: 04/23/20 Status: Ordered Flovent HFA 110 mcg/inh inhalation aerosol 2 puffs, Inhalation, 2 times a day, # 12 Gm, 1 Refills, Maintenance, 12/02/19 0:58:00 EDT, [id number] 163, cm, 11/27/19 15:36:00 EDT, Height, 78.1, kg, 11/13/19 16:13:00 EDT, Dry Weight Start Date: 12/02/19 Stop Date: 12/16/19 Status: Ordered fluconazole 150 mg oral tablet 1 tablet = 150 mg, By Mouth, Once, repeat dose if still having symptoms in 72 hours, # 2 tablet, 0 Refills, Soft Stop, 09/14/20 9:53:00 EST, Tablet, [facility]/pharmacy #0373, Partial fill upon patient request if the prescription is for a schedule II opioid... Start Date: 09/14/20 Status: Ordered ibuprofen 200 mg oral tablet 400 mg, 2, tablet, By Mouth, Every 4 hours, PRN, # 100 tablet, Refills 0, Tot. Refills 0, Maintenance, for pain, 01/31/20 10:59:00 EDT, Route to Pharmacy Electronically, [facility]/pharmacy #[id number], 163, cm, 01/31/20 0:18:00 EDT, Height, 81.4, kg, 01/29/20 8:5... Start Date: 01/31/20 Status: Ordered Mirena 52 mg intrauterine device See Instructions, 1 each Once, # 1 each, 0 Refills, Soft Stop, 03/10/20 14:06:00 EDT, [facility], 163, cm, 03/10/20 13:34:00 EDT, Height, 75.02, kg, 03/10/20 13:34:00 EDT, Dry Weight Start Date: 03/10/20 Status: Ordered Zofran 4 mg oral tablet 1 tablet = 4 mg, By Mouth, Every 8 hours, PRN Vomiting, # 20 tablet, 0 Refills, Maintenance, 08/07/21 3:25:00 EST, Tablet, [id number], Partial fill upon patient request if the [...] ED. 4says she has a neurologist in [place] for migraines. 5Taking fioricet prn for this, [...]
--- OUTSIDE RECORDS SUMMARY | 2024-04-22 03:05 | XMS_ITS | Continuity of Care Document ---
Author Organization [facility] Address [address] [address]- Care Team Providers Care Strategic Marketing Specialist Name Role Phone Jihan Sierra NP Primary Care Physician [phone] Encounter [facility] Date(s): 05/25/23 - 07/09/23 [facility] [address] [address]- Attending Physician: Not on Staff, Attending MD Referring Physician: Linda VALLEJO, Pamela Stacy Allergies, Adverse Reactions, Alerts No Known Allergies Immunizations Given and Recorded Vaccine Date Status Refusal Reason [id number] 12y+ bivalent booster vax 08/10/22 Recorded SARS-CoV-2 [...] 12/21/23 11:08:00 EDT, 06/21/23 11:08:00 EST, Tablet, [facility]/pharmacy #[id number], Partial fill upon patient request if the prescription is f... Start Date: 06/21/23 Stop Date: 12/21/23 Status: Ordered albuterol CFC free 90 mcg/inh inhalation aerosol 180 mcg, 2, puffs, Inhalation, 4 times a day, PRN, # 6.7 Gm, Refills 2, Tot. Refills 2, Maintenance, 04/03/23 13:59:00 EDT, Inhaler, Route to Pharmacy Electronically, [id number], [facility]/pharmacy #0373, 162, cm, 03/29/23 13:33:00... Start Date: [...] tablet, 8 Refills, Maintenance, 03/02/23 7:51:00 EDT, [facility]/pharmacy #8173, Partial fill upon patient request if th... Start Date: 03/02/23 Status: Ordered escitalopram 5 mg oral tablet 1 tablet, By Mouth, Daily, INSTR:1 DAILY FOR TWO WEEKS AND THEN REASSESSMENT FOR DOSE ADJUSTMENT, #30 tablet, 0 Refills, Maintenance, 06/21/23 11:05:00 EST, [facility], 162, cm, 05/25/23 11:20:00 EDT, Height, 91.4, kg, 05/25/23 11:20:00 EDT, Dry... Start Date: 06/21/23 Status: Ordered Flovent HFA 44 mcg/inh inhalation aerosol 2 puffs, Inhalation, 2 times a day, # 10.6 each, 0 Refills, Maintenance, 06/21/23 11:06:00 EST, [facility], 162, cm, 05/25/23 11:20:00 EDT, Height, 91.4, kg, 05/25/23 11:20:00 EDT, Dry Weight Start Date: 06/21/23 Status: Ordered ondansetron 8 mg oral tablet 1 tablet = 8 mg, By Mouth, 3 times a day, # 30 tablet, 5 Refills, Maintenance, 03/09/23 19:12:00 EDT, Tablet, [facility]/pharmacy #0921, Partial fill upon patient request if the [...] tablet, 1 Refills, Maintenance, 05/20/23 13:08:00 EDT, [facility]/pharmacy#0373, Partial fill upon patient request if the [...] Reference Physician Member Role: PCP Address: Address: [address] [place] [address]- [place] Care Team Related Persons Name: MALIA CARTERLIAN Address: home [address] [place] [address] Name: ROSALVA CLAIRE Address: [address] Address: [address] [address] [place] Name: SANTO CLAIRE Address: home [address] [place] [address] Name: VALENTE WANG
--- OUTSIDE RECORDS SUMMARY | 2024-04-22 03:05 | XMS_ITS | Continuity of Care Document ---
Author Organization [facility] [employer] [facility] Address [address] [facility], [address] [place] [address]- Care Team Providers Care Insurance Healthcare Consultant Name Role Phone Rigo DICKSON, Jihan Primary Care Physician [facility] Date(s): 03/29/23 - [facility] [employer] [facility] [address] [facility], [address] [place] [address]- Attending Physician: Nelida Khoury MD Referring Physician: Brian VALLEJO, Ainsley Nina Head Allergies, Adverse Reactions, Alerts No Known Allergies Immunizations Given and Recorded Vaccine Date Status Refusal Reason [id number] 12y+ bivalent booster vax 08/10/22 Recorded SARS-CoV-2 [...] 0 Refills, Maintenance, 04/03/23 13:59:00 EDT, Tablet, [facility]/pharmacy #0373, Partial fill upon patient request if the prescription is for a sche... Start Date: 04/03/23 Status: Ordered albuterol CFC free 90 mcg/inh inhalation aerosol 180 mcg, 2, puffs, Inhalation, 4 times a day, PRN, # 6.7 Gm, Refills 2, Tot. Refills 2, Maintenance, 04/03/23 13:59:00 EDT, Inhaler, Route to Pharmacy Electronically, [id number], [facility]/pharmacy #0373, 162, cm, 03/29/23 13:33:00... Start [...] Refills, Maintenance, 03/09/23 19:12:00 EDT, Tablet, [facility], Partial fill upon patient request if the [...] 06/21/19 Sex Radiology * Event Display: PDC Nuchal Transluscency * Event Display: PDC [employer]uch[employer] Authored Date: [id number] OBSTETRICS REPORT PATIENT INFO: CMRN: [id number] BMRN: [id number] : [birth year] (22 yrs)(F) Name: RUSTY DIEZ Visit Date: 03/29/2023 01:14 pm PERFORMED BY: Performed By: Kacey Johnson RDMS Attending: Vera Reeves MD Referred By: Ainsley Torres CNM Location: [address] INDICATIONS: First Trimester NT Screening Z36.82 EVALUATION: Num Of Fetuses: 1 Gest. Sac: Seen in the intrauterine cavity Yolk Sac: Not visualized Pole: Visualized Heart Rate(bpm): 155 Cardiac Activity: Present Presentation: Variable Placenta: Anterior Amniotic Fluid FRANCESCA FV: Within normal limits BIOMETRY: CRL: 64.1 mm G.Age: 12w 6d KELLY: 10/05/23 NT: 2.0 mm OB HISTORY: : 3 Term: 1 SAB: 1 Livin GESTATIONAL AGE: Best: 12w 1d Det. By: Lou Goodrich KELLY: 10/10/23 (02/15/23) ANATOMY: Choroid Plexus: SEEN Heart: SEEN Stomach: SEEN Abdominal Wall: SEEN Bladder: SEEN Upper Extremities: SEEN Lower Extremities: SEEN CERVIX UTERUS ADNEXA: Cervix Appears closed Adnexa Not well seen. COMMENTS: There is a live first trimester intrauterine gestation measuring appropriate for gestational age. The patient elected to do NIPT genetic screening at your office. Vera Reeves MD Electronically Signed Final Report 03/29/2023 02:12 pm * Event Display: PDC Nuchal [employer]uscency Authored Date: [id number] Please click on pdf link to open report Patient Care team information Care Team Personnel Name: Jihan Sierra NP Position: Reference Physician Member Role: PCP Address: Address: [address] [place] [address]- Care Team Related Persons Name: BING CARTER Address: home [address] [place] [address] Name: ROSALVA CLAIRE Address: [address] Address: [address] [address] [place] Name: SANTO CLAIRE Address: home [address] [place] [address] Name: VALENTE WANG
--- OUTSIDE RECORDS SUMMARY | 2024-04-22 03:05 | XMS_ITS | Continuity of Care Document ---
Author Organization [facility] Address [address] [place] [address]- Care Team Providers Care Offal Separator Name Role Phone Sanford YIP, Shayne Hall Primary Care Physician Encounter [facility] Date(s): 02/13/23 - 02/13/[address] [address] Discharge Disposition: A-D/C Home Attending Physician: Ana Miranda DO Admitting Physician: Ana Miranda DO Referring Physician: Ana Miranda DO Allergies, Adverse Reactions, Alerts No Known [...] Refills, Maintenance, 02/06/20 13:40:00 EDT, [facility]/pharmacy #[id number], 1 tablet ByMouth Every 4 hours,Instr:May [...] tablet, 8 Refills, Maintenance, 02/13/23 9:10:00 EDT, [facility], Partial fill upon patient request if th... Start Date: 02/13/23 Status: Ordered ondansetron 4 mg oral tablet, disintegrating 1 tablet = 4 mg, By Mouth, 2 times a day, PRN Nausea & Vomiting, # 12 tablet, 3 Refills, Maintenance, 02/13/23 9:10:00 EDT, Tablet, [facility], Partial fill upon [...] prescription is for a schedule II opioid drAdilene.. Start Date: 12/07/22 Stop Date: 12/02/23 Status: Ordered pyridoxine 25 mg oral tablet 1 tablet = 25 mg, By Mouth, 3 times a day, PRN Nausea & Vomiting, # 100 tablet, 8 Refills, Maintenance, 02/13/23 9:10:00 EDT, [id number], Partial fill upon patient request if the prescription is for a schedule II opioid drug., 163, cm, ... Start Date: 02/13/23 Status: Ordered Problem List Condition Confirmation Course [...] ED. 4says she has a neurologist in [place] for migraines. 5Taking fioricet prn for this, reports typically about 1-2x/week. 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 Referred to neuro but unable to see d/t insurance issues, so was just seeing pcp for this for now. Vital Signs Most recent to oldest [Reference Range]: 1 Weight 95.8 kg (02/13/23 7:32 AM) Oxygen Saturation [94-100 %] 100 % (02/13/23 7:32 AM) Pulse Rate [55-90 bpm] 87 bpm (02/13/23 7:32 AM) Blood Pressure [90-138/55-84 mm Hg] 111/ 59mm Hg (02/13/23 7:32 AM) Respiratory Rate [16-30 br/min] 18 br/mi n (02/13/23 7:32 AM) Temperature [96.8-100.4 DegF] 98.8 DegF (02/13/23 7:32 AM) Mode of Delivery (Oxygen) Room air (02/13/23 7:32 AM) Blood pressure sites Arm, right 1 (02/13/23 7:32 AM) Temperature Route Oral (02/13/23 7:32 AM) Dry Weight 95.8 kg (02/13/23 7:32 AM) Weight Obtained Via Standing scale (02/13/23 7:32 AM) Dry Weight Obtained Via Standing scale (02/13/23 7:32 AM) 1Result Comment: right upper arm measured 36cm Social History Social History Type Response Smoking Status Never (less than 100 in lifetime); Tobacco user in household: Yes entered on: 06/21/19 Sex Note * Sara Jones RN: PERFORM Event Display: Discharge/Transfer Note Hospital Authored Date: [id number] Nursing Discharge Note Entered On: 02/13/2023 11:42 EDT Performed On: 02/13/2023 11:41 EDT by Sara Jones RN Nursing Discharge Note 2 Discharge Time : 02/13/2023 11:41 EDT Discharge Level of Care at Discharge : Home/Retirement/Foster Care Patient Left Unit Via : Ambulatory Patient Accompanied Off Unit with : Responsible adult DC Instructions Provided & Signed by Pt : Yes Patient Understands D/C Instructions : Yes Patient Instructions Discharge Signed : Yes Did Pt have Specialty Bed or Wound Vac : No Sara Jones RN - 02/13/2023 11:41 EDT * Sara Jones RN: PERFORM Event Display: Patient Education/Instruction Authored Date: [id number] Inpatient Adult Discharge Instructions [address] [address] Name: RUSTY DIEZ : 2000 Visit: 02/13/2023 06:56:00 Current Date: 02/13/2023 11:39 Account: [id number] Inpatient Adult Discharge Instructions We would like [...] and their families. Surveys are administered by [employer] ?? If further treatment with your primary care physician or another doctor is recommended, it is important for you to keep the appointment. Call your primary care physician or return to the Emergency Department immediately if your condition worsens, fails to improve, or new symptoms develop. If you need to find a doctor, you can call [facility] for a referral at [phone] or toll free at [phone]) or log in to [email or web address].. ?? You can view and manage your care through the patient portal or by using a health care dorian of your choosing. [employer] is a website that allows you to securely view your medical information including your hospital discharge summary, office visit summaries, medications and follow-up visits. You can also request appointments, renew medications, and request access to your medical information using a health care dorian of your choosing, or just ask a question. You can enroll at [email or web address] or register during your next office visit. You have been discharged from [facility], Patient Care Unit: WETU1. If you have any questions regarding these instructions after you leave, please call us and we will be happy to assist you. [facility] Your Care Team Attending Physician Ana Miranda DO Your Diagnosis Nausea/vomiting in Tests Performed Below is a partial list of the tests performed during your hospitalization. You may have had other tests and procedures not included in this list. Please discuss all test results with your provider. Primary Care Provider Sanford YIP, Shayne Hall Advance Directive Health Care Proxy on File Yes - Health Care Proxy Discharge Vitals Temperature: 98.8 DegF Weight: 95.8 kg Pulse Rate: 87 bpm ?? Respiratory Rate: 18 br/min ?? Systolic Blood Pressure: 111 mm Hg ?? Diastolic Blood Pressure: 59 mm Hg ?? Oxygen Saturation: 100 % ?? Studies Pending All tests and labs ordered during this hospital stay have been completed unless listed below. Please discuss all pending results with your provider listed above in these instructions. ?? No incomplete studies found What to do next Instructions From Your Doctor Discharge Orders You Need to Schedule the Following Appointments Follow Up with??Ainsley Torres When:??Within 1-2 day: call to discuss follow up visit Where: [address] [place] [address] [facility] [place] [address] [facility] (1) Discharge Medications RUSTY DIEZ :2000 Visit Date:02/13/2023 Medications: Please continue your medications until treatment is completed or stopped by your provider. Medications not listed below should be discontinued. Discuss any questions related to medications with your provider. What How Much When Instructions Next Dose New Doxylamine (doxylamine 25 mg oral tablet) 1 tab(s) Oral Daily Refills: 8 Take one tablet before bed. May take additional tablet in the morning if nausea still persistent ?? Pickup at [facility]/pharmacy #0373 New Pyridoxine (pyridoxine 25 mg oral tablet) 1 tab(s) Oral 3 times a day as needed for Nausea & Vomiting Refills: 8 Pickup at [facility]/pharmacy #0373 Changed Ondansetron (ondansetron 4 mg oral tablet, disintegrating) 1 tab(s) Oral Twice a day as needed for Nausea & Vomiting Pickup at [facility]/pharmacy #0373 Unchanged Acetaminophen/ Butalbital/ Caffeine (acetaminophen/ butalbital/ caffeine 325 mg-50 mg-40 mg oral tablet) 1 tab(s) Oral Every 4 hours May repeat dose in 4 hours if needed. Do not exceed 2 tabs in 24 hours. ?? Unchanged Albuterol (albuterol CFC free 90 mcg/ inh inhalation aerosol) 2 puff(s) Inhalation 4 times a day as needed for for wheezing Unchanged Multivitamin, (PNV Select oral tablet) 1 tab(s) Oral Daily Duration: 30 Days Please prescribe PNVs that are covered by pt's insurance. ?? Pharmacy Information [facility]/pharmacy #0373: [address] [place], [place] [id number] [phone] Test Results Below is a partial list [...] Educational Leaflet Providered with your Discharge Instructions. Comfort Tips During ?? Adapting to : [...] are strongly encouraged to quit. Please call [facility] Link at [phone] or [phone]) or log in to [email or web address] for referrals to smoking cessation programs. ?? 270 Suicide & Crisis Lifeline is available 20/02 if you or someone you know needs to find a reason to keep living. By calling 615 you'll be connected to a skilled, trained counselor at a crisis center in your area. INPATIENT DISCHARGE INSTRUCTIONS SIGNATURE RUSTY CHU Location:[facility] Registration Date and Time:02/13/2023 06:56 EDT Primary Care Physician: Sanford YIP, Shayne Hall, Attending Physician: Ana Miranda DO, I RUSTY DIEZ, have received the above patient education materials/instructions and have verbalized understanding. If ambulance or transport services are being used I further acknowledge being given a choice of service. ?? If you need to contact me, please call me at this number: . Patient/Therapeutic Consultant Name: Patient/Therapeutic Consultant Signature: Relationship to Patient: Witness Name/Signature: Date: * Sara Jones RN: PERFORM, SIGN, VERIFY Event Display: Patient Education Handout Authored Date: [id number] * Sara Jones RN: PERFORM Event Display: Patient Education Leaflets Authored Date: [id number] Comfort Tips During ?? [address] Comfort Tips During can bring discomfort of [...] belly. ?? Last Reviewed Date: 2022 ?? 2361-0192 [employer]. All rights reserved. This information is not intended as a substitute for professional medical care. Always follow your healthcare professional's instructions. ?? * Sara Jones RN: PERFORM Event Display: Patient Education Leaflets Authored Date: [id number] Adapting to : First Trimester ?? [address] Adapting to : First Trimester As your [...] increases the risk of stillbirth??or having a ihy-hvvhn-vhemzp baby. If you smoke, quit now. ??? [...] transportation, money problems,housing, access to food, and special needs child caregiver. If you can???t get to medical appointments, [...] help. ?? Last Reviewed Date: 2022 ?? 9749-6259 [employer]. All rights reserved. This information is not intended as a substitute for professional medical care. Always follow your healthcare professional's instructions. ?? Patient Care team information Care Team Personnel Name: Shayne Christina MD Position: S Outreach Member Role: PCP Address: Address: [address] [place] [address]- [place] Name: Sara Jones RN Position: S OB RN Member Role: OB RN Care Team Related Persons Name: MALIA CARTERLIAN Address: home [address] [place] [address] Name: ROSALVA CLAIRE Address: [address] Address: home [address] [address] Name: SANTO CLAIRE Address: home [address] [place] [address] Name: VALENTE WANG
--- OUTSIDE RECORDS SUMMARY | 2024-04-22 03:05 | XMS_ITS | Continuity of Care Document ---
Author Organization [facility] Address [address] [place] [address], [address] [place] [address]- Care Team Providers Care Outside Parts Salesman Name Role Phone Sanford YIP, Shayne Hall Primary Care Physician Encounter [facility] Date(s): 07/23/19 - 07/30/19 [facility] [employer] [address] [facility], [address] [place] [address]- Attending Physician: Mati YIP, Darnell Mora Referring Physician: Ignacio VALLEJO, Christel Gamez Allergies, [...] ED. 4says she has a neurologist in [place] for migraines. 5Taking fioricet prn for this, [...]
--- OUTSIDE RECORDS SUMMARY | 2024-04-22 03:05 | XMS_ITS | Continuity of Care Document ---
Author Organization [facility] Address [address] [address]- Care Team Providers Care Steel Manager Name Role Phone Shayne Christina MD Primary Care Physician Encounter [facility] Date(s): 12/07/22 - 03/01/23 [facility] [address] [address]- Attending Physician: Mirtha Dumont CNM Admitting Physician: Mirtha Dumont CNM Referring Physician: Shayne Christina MD Allergies, Adverse [...] tablet, 2 Refills, Maintenance, 02/21/23 14:04:00 EDT, [facility]/pharmacy #8221, 1 tablet ByMouth Every 4 hours,Instr:May repeat [...] 3 Refills, Maintenance, 02/13/23 9:10:00 EDT, Tablet, [facility]/pharmacy #0373, Partial fill upon patient request if the prescription is for a schedule II opioid drug., 163, cm, 0... Start Date: 02/13/23 Status: Ordered PNV Select oral tablet 1 tablet, By Mouth, Daily, Please prescribe PNVs that are covered by pt's insurance., # 30 tablet, 11 Refills, Maintenance, 12/07/22 10:40:00 EDT, [facility]/pharmacy #0373, Partial fill upon patient request if the prescription is for a schedule II opioid dr... Start Date: 12/07/22 Stop Date: 12/02/23 Status: Ordered promethazine 25 mg rectal suppository 1 supp = 25 mg, Rectally, Every 4 hours, PRN for nausea/vomiting, # 12 supp, 1 Refills, Maintenance, 02/18/23 0:41:00 EDT, Suppository, [facility]/pharmacy #0373, Partial fill upon patient request if the prescription is for a schedule II opioid drug., 163, c... Start Date: 02/18/23 Status: Ordered promethazine 25 mg rectal suppository 1 supp = 25 mg, Rectally, Every 4 hours, PRN for nausea/vomiting, # 12 supp, 0 Refills, Maintenance, 02/20/23 21:40:00 EDT, Suppository, [facility]/pharmacy #9381, Partial fill upon patient request if the [...] Refills, Acute 03/14/23 0:44:00 EDT,02/18/23 0:43:00 EDT, [facility]/pharmacy #0263, Partial fill... Start Date: 02/18/23 Stop Date: [...] ED. 4says she has a neurologist in [place] for migraines. 5Taking fioricet prn for this, [...] Team Personnel Name: Shayne Christina MD Position: [facility] Outreach Member Role: PCP Address: Address: [address] [place] [address]- Care Team Related Persons Name: BING CARTER Address: home [address] [place] [address] Name: ROSALVA CLAIRE Address: [address] Address: [address] [address] Name: SANTO CLAIRE Address: home [address] [place] [address] Name: VALENTE WANG
--- OUTSIDE RECORDS SUMMARY | 2024-04-22 03:05 | XMS_ITS | Continuity of Care Document ---
Author Organization [facility] Address [address] [address]- Care Team Providers Care Mobile Electronics Installer Name Role Phone Jihan Sierra NP Primary Care Physician Encounter [facility] Date(s): 09/28/23 - 10/28/23 [facility] [address] [address]- Allergies, Adverse Reactions, Alerts No Known Allergies Immunizations Given and Recorded Vaccine Date Status Refusal Reason tetanus/diphtheria/pertussis, acel(Tdap) 07/20/23 Given tetanus/diphtheria/pertussis, acel(Tdap) 11/13/19 Given tetanus/diphtheria/pertussis, acel(Tdap) 04/29/10 Recorded [id number] 12y+ bivalent booster vax 08/10/22 Recorded SARS-CoV-2 [...] give 325mg per patient preference and re-dose [id number] within 4 hours, if needed. Patient should [...] 9:28:00 EDT, Inhaler, Route to Pharmacy Electronically, [id number], [facility]/pharmacy #2071, 163, cm, 10/16/23 9:08:00 E... Start Date: 10/16/23 Status: Ordered escitalopram 10 mg oral tablet 1 tablet, By Mouth, Daily, # 30 tablet, 0 Refills, Maintenance, 10/16/23 9:28:00 EDT, [facility]/pharmacy #2071, 163, cm, 10/16/23 9:08:00 EDT, Height, 100.3, kg, 10/14/23 7:58:00 EDT, Dry Weight Start Date: 10/16/23 Status: Ordered Flovent HFA 44 mcg/inh inhalation aerosol See Instructions, INHALE 2 PUFFS TWICE A DAY, # 10.6 each, 0 Refills, Maintenance, 07/12/23 18:32:00 EST, [facility], 162, cm, 05/25/23 11:20:00 EDT, Height, 91.4, kg, 05/25/23 11:20:00 EDT, DryWeight Start Date: 07/12/23 Status: Ordered multivitamin, Multivitamins oral tablet, chewable 1 tablet, By Mouth, Daily, # 30 tablet, 3 Refills, Maintenance, 10/16/23 9:30:00 EDT, Chew Tablet, [facility]/pharmacy #2071, Partial fill upon patient request if the prescription is for a schedule II opioid drug., 1 tablet By Mouth Daily, 163, cm, 10/16/23... Start Date: 10/16/23 Status: Ordered PNV Plus oral tablet 1 tablet, By Mouth, Daily, # 90 tablet, 1 Refills, Maintenance, 10/16/23 9:29:00 EDT, [facility]/pharmacy #2071, Partial fill upon patient request if [...] Reference Physician Member Role: PCP Address: Address: [address] [place] [address]- Care Team Related Persons Name: BING CARTER Address: home [address] [place] [address] Name: ROSALVA CLAIRE Address: [address] Address: [address] [address] [place] Name: ALEXANDER CLAIRE Address: [address] Address: home [address] [place] [address] [place] Name: SANTO CLAIRE Address: [address] [place] [address] Name: VALENTE WANG
--- OUTSIDE RECORDS SUMMARY | 2024-04-22 03:05 | XMS_ITS | Continuity of Care Document ---
Author Organization [facility] Address [address] [address]- Care Team Providers Care Pivot Maker Name Role Phone Jihan Sierra NP Primary Care Physician [facility] Date(s): 06/21/23 - 07/21/23 [facility] [address] [address]- Allergies, Adverse Reactions, Alerts No Known Allergies Immunizations Given and Recorded Vaccine Date Status Refusal Reason tetanus/diphtheria/pertussis, acel(Tdap) 07/20/23 Given tetanus/diphtheria/pertussis, acel(Tdap) 11/13/19 Given tetanus/diphtheria/pertussis, acel(Tdap) 04/29/10 Recorded [id number] 12y+ bivalent booster vax 08/10/22 Recorded SARS-CoV-2 [...] tablet, 0 Refills, Maintenance, 07/20/23 20:15:00 EST, [employer] [id number], 5, TAKE 1 TABLET BY MOUTH EVERY 4 HOURS NEEDEDFOR MIGRAINE HEADACHES, 162, cm, 07/20/23 11:32:00... Start Date: 07/20/23 Status: Ordered escitalopram 5 mg oral tablet 1 tablet, By Mouth, Daily, INSTR:1 DAILY FOR TWO WEEKS AND THEN REASSESSMENT FOR DOSE ADJUSTMENT, #30 tablet, 0 Refills, Maintenance, 06/21/23 11:05:00 EST, [id number], 162, cm, 05/25/23 11:20:00 EDT, Height, 91.4, kg, 05/25/23 11:20:00 EDT, Dry... Start Date: 06/21/23 Status: Ordered Flovent HFA 44 mcg/inh inhalation aerosol See Instructions, INHALE 2 PUFFS TWICE A DAY, # 10.6 each, 0 Refills, Maintenance, 07/12/23 18:32:00 EST, [id number], 162, cm, 05/25/23 11:20:00 EDT, Height, 91.4, kg, 05/25/23 11:20:00 EDT, DryWeight Start Date: 07/12/23 Status: Ordered Lexapro 10 mg oral tablet 1 tablet = 10 mg, By Mouth, Daily, # 30 tablet, 0 Refills, Maintenance, 07/20/23 11:35:00 EST, Tablet, [facility]/pharmacy #[id number], Partial fill upon patient request if the [...] Physician Member Role: PCP Address: Address: [address] [place] [address]- [place] Care Team Related Persons Name: BING CARTER Address: home [address] [place] [address] Name: ROSALVA CLAIRE Address: Address: [address] [address] Name: SANTO CLAIRE Address: [address] [place] [address] Name: VALENTE WANG
--- OUTSIDE RECORDS SUMMARY | 2024-04-22 03:05 | XMS_ITS | Continuity of Care Document ---
Author Organization [facility] Address Unknown Care Team Providers Care Suggestion Clerk Name Role Phone Sanford YIP, Shayne Hall Primary Care Physician En[facility] Date(s): 12/16/21 - 01/27/22 [facility] Attending Physician: Not on Staff, Attending MD Referring Physician: Carlota Hall CNM Allergies, Adverse Reactions, Alerts No Known [...] Refills, Maintenance, 02/06/20 13:40:00 EDT, [facility]/pharmacy #[id number], 1 tablet ByMouth Every [...] 11:34:00 EDT, Aerosol, Route to Pharmacy Electronically, [id number], [id number] 163, cm, 11/13/19 16:13:00 EDT, Hei... Start Date: 11/25/19 Stop Date: 04/23/20 Status: Ordered Flovent HFA 110 mcg/inh inhalation aerosol 2 puffs, Inhalation, 2 times a day, # 12 Gm, 1 Refills, Maintenance, 12/02/19 0:58:00 EDT, [id number] 163, cm, 11/27/19 15:36:00 EDT, Height, 78.1, kg, 11/13/19 16:13:00 EDT, Dry Weight Start Date: 12/02/19 Stop Date: 12/16/19 Status: Ordered fluconazole 150 mg oral tablet 1 tablet = 150 mg, By Mouth, Once, repeat dose if still having symptoms in 72 hours, # 2 tablet, 0 Refills, Soft Stop, 09/14/20 9:53:00 EST, Tablet, [facility]/pharmacy #[id number], Partial fill upon patient request if the prescription is for a schedule II opioid... Start Date: 09/14/20 Status: Ordered ibuprofen 200 mg oral tablet 400 mg, 2, tablet, By Mouth, Every 4 hours, PRN, # 100 tablet, Refills 0, Tot. Refills 0, Maintenance, for pain, 01/31/20 10:59:00 EDT, [facility]ically[id number] 163, cm, 01/31/20 0:18:00 EDT, Height, 81.4, kg, 01/29/20 8:5... Start Date: 01/31/20 Status: Ordered Mirena 52 mg intrauterine device See Instructions, 1 each Once, # 1 each, 0 Refills, Soft Stop, 03/10/20 14:06:00 EDT, [facility], 163, cm, 03/10/20 13:34:00 EDT, Height, 75.02, kg, 03/10/20 13:34:00 EDT, Dry Weight Start Date: 03/10/20 Status: Ordered Zofran 4 mg oral tablet 1 tablet = 4 mg, By Mouth, Every 8 hours, PRN Vomiting, # 20 tablet, 0 Refills, Maintenance, 08/07/21 3:25:00 EST, Tablet, [id number], Partial fill upon patient request if the [...] ED. 4says she has a neurologist in [place] for migraines. 5Taking fioricet prn for this, [...]
--- OUTSIDE RECORDS SUMMARY | 2024-04-22 03:05 | XMS_ITS | Continuity of Care Document ---
Author Organization [facility] Address [address] [place] [address]- Care Team Providers Care Real Estate Paralegal Name Role Phone Sanford YIP, Shayne Hall Primary Care Physician Encounter [facility] Date(s): 03/19/20 - 05/30/20 [facility] [address] [address]- [facility] Attending Physician: Not on Staff, Attending MD Admitting Physician: Coty Acevedo MD Referring Physician: Linda VALLEJO, Pamela Stacy Allergies, Adverse Reactions, Alerts Substance Reaction Severity [...] tablet, 2 Refills, Maintenance, 02/06/20 13:40:00 EDT, [facility]/pharmacy #[id number], 1 tablet ByMouth Every [...] 11:34:00 EDT, Aerosol, Route to Pharmacy Electronically, [id number], [facility]/pharmacy #[id number], 163, cm, 11/13/19 16:13:00 EDT, Hei... Start Date: 11/25/19 Stop Date: 04/23/20 Status: Ordered ferrous sulfate 325 mg oral tablet 1 tablet = 325 mg, By Mouth, Daily, # 30 tablet, 2 Refills, Maintenance, 11/14/19 13:10:00 EDT, [facility]/pharmacy #1, 163, cm, 11/13/19 16:13:00 EDT, Height, 78.1, kg, 11/13/19 16:13:00 EDT, Dry Weight Start Date: 11/14/19 Stop Date: 02/12/20 Status: Ordered Flovent HFA 110 mcg/inh inhalation aerosol 2 puffs, Inhalation, 2 times a day, # 12 Gm, 1 Refills, Maintenance, 12/02/19 0:58:00 EDT, Aerosol,[facility]/pharmacy #[id number], 163, cm, 11/27/19 15:36:00 EDT, Height, 78.1, kg, 11/13/19 16:13:00 EDT, Dry Weight Start Date: 12/02/19 Stop Date: 12/16/19 Status: Ordered ibuprofen 200 mg oral tablet 400 mg, 2, tablet, By Mouth, Every 4 hours, PRN, # 100 tablet, Refills 0, Tot. Refills 0, Maintenance, for pain, 01/31/20 10:59:00 EDT, Route to Pharmacy Electronically, [facility]/pharmacy #1, 163, cm, 01/31/20 0:18:00 EDT, Height, 81.4, kg, 01/29/20 8:5... Start Date: 01/31/20 Status: Ordered lanolin topical - ointment See Instructions, PRN as needed for dry skin, 1 application Topically to bilateral nipples after ., # 60 Gm, 0 Refills, Maintenance, 02/05/20 12:20:00 EDT, Ointment, [facility]/pharmacy #[id number], 1 application Topically to bilateral nipples after b... Start Date: 02/05/20 Status: Ordered Mirena 52 mg intrauterine device See Instructions, 1 each Once, # 1 each, 0 Refills, Soft Stop, 03/10/20 14:06:00 EDT, [facility], 163, cm, 03/10/20 13:34:00 EDT, Height, 75.02, kg, 03/10/20 13:34:00 EDT, Dry Weight Start Date: 03/10/20 Status: Ordered ParaGard intrauterine device See Instructions, bring to piercing machine operator appointment for insertion, # 1 each, 0 Refills, Maintenance, 02/17/20 14:03:00 EDT, [facility], bring to piercing machine operator appointment for insertion, 163, cm, 01/31/20 0:18:00 EDT, Height, 81.4, kg, 01/29/20 8... Start Date: 02/17/20 Status: Ordered AD oral tablet 1 tablet, By Mouth, Daily, # 90 tablet, 0 Refills, Maintenance, 12/10/19 17:10:00 EDT, Tablet, [facility]/pharmacy #[id number], 1 tablet By Mouth Daily, 163, cm, [...] ED. 4says she has a neurologist in [place] for migraines. 5Taking fioricet prn for this, [...]
--- OUTSIDE RECORDS SUMMARY | 2024-04-22 03:05 | XMS_ITS | Continuity of Care Document ---
Author Organization [facility] Address [address] [address]- Care Team Providers Care Apartment Property Manager Name Role Phone Jihan Sierra NP Primary Care Physician [phone] [facility]counter [facility] Date[facility]s): 09/29/23 - 10/29/23 [facility] [address] [address]- Allergies, Adverse Reactions, Alerts No Known Allergies Immunizations Given and Recorded Vaccine Date Status Refusal Reason tetanus/diphtheria/pertussis, acel(Tdap) 07/20/23 Given tetanus/diphtheria/pertussis, acel(Tdap) 11/13/19 Given tetanus/diphtheria/pertussis, acel(Tdap) 04/29/10 Recorded [id number] 12y+ bivalent booster vax 08/10/22 Recorded SARS-CoV-2 [...] give 325mg per patient preference and re-dose [id number] within 4 hours, if needed. Patient should [...] 9:28:00 EDT, Inhaler, Route to Pharmacy Electronically, [id number], [facility]/pharmacy #[id number], 163, cm, 10/16/23 9:08:00 E... Start Date: 10/16/23 Status: Ordered escitalopram 10 mg oral tablet 1 tablet, By Mouth, Daily, # 30 tablet, 0 Refills, Maintenance, 10/16/23 9:28:00 EDT, [facility]/pharmacy #[id number], 163, cm, 10/16/23 9:08:00 EDT, Height, 100.3, kg, 10/14/23 7:58:00 EDT, Dry Weight Start Date: 10/16/23 Status: Ordered Flovent HFA 44 mcg/inh inhalation aerosol See Instructions, INHALE 2 PUFFS TWICE A DAY, # 10.6 each, 0 Refills, Maintenance, 07/12/23 18:32:00 EST, [facility], 162, cm, 05/25/23 11:20:00 EDT, Height, 91.4, kg, 05/25/23 11:20:00 EDT, DryWeight Start Date: 07/12/23 Status: Ordered multivitamin, Multivitamins oral tablet, chewable 1 tablet, By Mouth, Daily, # 30 tablet, 3 Refills, Maintenance, 10/16/23 9:30:00 EDT, Chew Tablet, [facility]/pharmacy #[id number], Partial fill upon patient request if the prescription is for a schedule II opioid drug., 1 tablet By Mouth Daily, 163, cm, 10/16/23... Start Date: 10/16/23 Status: Ordered PNV Plus oral tablet 1 tablet, By Mouth, Daily, # 90 tablet, 1 Refills, Maintenance, 10/16/23 9:29:00 EDT, [facility]/pharmacy #[id number], Partial fill upon patient request [...] Physician Member Role: PCP Address: Address: [address] [place] [address]- Care Team Related Persons Name: BING CARTER Address: home [address] [place] [address] Name: ROSALVA CLAIRE Address: [address] Address: [address] [address] [place] Name: ALEXANDER CLAIRE Address: [address] Address: [address] [place] [address] [place] Name: SANOT CLAIRE Address: [address] [place] [address] Name: VALENTE WANG
--- OUTSIDE RECORDS SUMMARY | 2024-04-22 03:05 | XMS_ITS | Continuity of Care Document ---
Author Organization [facility] Address [address] [address]- Care Team Providers Care Bearing Maker Name Role Phone Shayne Christina MD Primary Care Physician Encounter [facility] Date(s): 01/30/23 - 03/01/23 [facility] [address] [address]- Attending Physician: Seun Castaneda Admitting Physician: Seun [...] tablet, 2 Refills, Maintenance, 02/21/23 14:04:00 EDT, [facility]/pharmacy #[id number], 1 tablet ByMouth Every 4 hours,Instr:May repeat [...] tablet, 8 Refills, Maintenance, 02/13/23 9:10:00 EDT, [facility]/pharmacy #[id number], Partial fill upon patient request if th... Start Date: 02/13/23 Status: Ordered ondansetron 4 mg oral tablet, disintegrating 1 tablet = 4 mg, By Mouth, 2 times a day, PRN Nausea & Vomiting, # 12 tablet, 3 Refills, Maintenance, 02/13/23 9:10:00 EDT, Tablet, [facility]/pharmacy #[id number], Partial fill upon patient request if the prescription is for a schedule II opioid drug., 163, cm, 0... Start Date: 02/13/23 Status: Ordered PNV Select oral tablet 1 tablet, By Mouth, Daily, Please prescribe PNVs that are covered by pt's insurance., # 30 tablet, 11 Refills, Maintenance, 12/07/22 10:40:00 EDT, [facility]/pharmacy #[id number], Partial fill upon patient request if the prescription is for a schedule II opioid dr... Start Date: 12/07/22 Stop Date: 12/02/23 Status: Ordered promethazine 25 mg rectal suppository 1 supp = 25 mg, Rectally, Every 4 hours, PRN for nausea/vomiting, # 12 supp, 1 Refills, Maintenance, 02/18/23 0:41:00 EDT, Suppository, [facility]/pharmacy #[id number], Partial fill upon patient request if the prescription is for a schedule II opioid drug., 163, c... Start Date: 02/18/23 Status: Ordered promethazine 25 mg rectal suppository 1 supp = 25 mg, Rectally, Every 4 hours, PRN for nausea/vomiting, # 12 supp, 0 Refills, Maintenance, 02/20/23 21:40:00 EDT, Suppository, [facility]/pharmacy #[id number], Partial fill upon patient request if the prescription is for a schedule II opioid drug., 163,... Start Date: 02/20/23 Status: Ordered pyridoxine 25 mg oral tablet 1 tablet = 25 mg, By Mouth, 3 times a day, PRN Nausea & Vomiting, # 100 tablet, 8 Refills, Maintenance, 02/13/23 9:10:00 EDT, [facility]/pharmacy #[id number], Partial fill upon patient request if [...] Refills, Acute 03/14/23 0:44:00 EDT,02/18/23 0:43:00 EDT, [facility]/pharmacy #[id number], Partial fill... Start Date: 02/18/23 Stop Date: [...] ED. 4says she has a neurologist in [place] for migraines. 5Taking fioricet prn for this, [...] Team Personnel Name: Shayne Christina MD Position: [facility] Outreach Member Role: PCP Address: Address: [address] [place] [address]- Care Team Related Persons Name: BING CARTER Address: home [address] [place] [address] Name: ROSALVA CLAIRE Address: [address] Address: [address] [address] [place] Name: SANTO CLAIRE Address: [address] [place] [address] Name: VALENTE WANG
--- OUTSIDE RECORDS SUMMARY | 2024-04-22 03:05 | XMS_ITS | Continuity of Care Document ---
Author Organization [facility] Address [address] [place] [address]- Care Team Providers Care Facing Machine Operator Name Role Phone Sanford YIP, Shayne Hall Primary Care Physician [place] [facility] [place] Date(s): 01/29/20 - 01/31/[address] [address]- [facility] Discharge Disposition: A-D/C Home Attending Physician: Ion Gonzalez MD Admitting Physician: Ion Gonzalez MD Referring Physician: Ion Gonzalez MD Allergies, Adverse Reactions, Alerts Substance Reaction Severity Status NKA Active Immunizations Given and Recorded Vaccine Date Status Refusal Reason tetanus/diphtheria/pertussis, acel(Tdap) 11/13/19 Given influenza virus vaccine, inactivated 08/09/19 Give n Medications Aerochamber See Instructions, # 1 kit, Refills [...] 11:34:00 EDT, Aerosol, Route to Pharmacy Electronically, [id number], [facility]/pharmacy #[id number], 163, cm, 11/13/19 16:13:00 EDT, Hei... Start Date: 11/25/19 Stop Date: 04/23/20 Status: Ordered ferrous sulfate 325 mg oral tablet 1 tablet = 325 mg, By Mouth, Daily, # 30 tablet, 2 Refills, Maintenance, 11/14/19 13:10:00 EDT, [facility]/pharmacy #[id number], 163, cm, 11/13/19 16:13:00 EDT, Height, 78.1, kg, 11/13/19 16:13:00 EDT, Dry Weight Start Date: 11/14/19 Stop Date: 02/12/20 Status: Ordered Flovent HFA 110 mcg/inh inhalation aerosol 2 puffs, Inhalation, 2 times a day, # 12 Gm, 1 Refills, Maintenance, 12/02/19 0:58:00 EDT, Aerosol,[facility]/pharmacy #[id number], 163, cm, 11/27/19 15:36:00 EDT, Height, 78.1, kg, 11/13/19 16:13:00 EDT, Dry Weight Start Date: 12/02/19 Stop Date: 12/16/19 Status: Ordered ibuprofen 200 mg oral tablet 400 mg, 2, tablet, By Mouth, Every 4 hours, PRN, # 100 tablet, Refills 0, Tot. Refills 0, Maintenance, for pain, 01/31/20 10:59:00 EDT, Route to Pharmacy Electronically, [facility]/pharmacy #[id number], 163, cm, 01/31/20 0:18:00 EDT, Height, 81.4, kg, 01/29/20 8:5... Start Date: 01/31/20 Status: Ordered AD oral tablet 1 tablet, By Mouth, Daily, # 90 tablet, 0 Refills, Maintenance, 12/10/19 17:10:00 EDT, Tablet, [facility]/pharmacy #[id number], 1 tablet By Mouth Daily, 163, cm, 11/27/19 15:36:00 EDT, Height, 78.1, kg, 11/13/19 16:13:00 EDT, Dry Weight Start Date: 12/10/19 Status: Ordered Tylenol 325 mg oral capsule 2 capsule = 650 mg, By Mouth, Every 4 hours, PRN Pain , Mild, # 90 capsule, 0 Refills, Maintenance,01/31/20 10:59:00 EDT, Capsule, [id number], 163, cm, 01/31/20 0:18:00 EDT, Height, 81.4, kg, 01/29/20 8:52:00 EDT, Dry Weight Start Date: 01/31/20 Status: Ordered Problem List Condition Effective Dates [...] ED. 4says she has a neurologist in [place] for migraines. 5Taking fioricet prn for this, reports typically about 1-2x/week. 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 Referred to neuro but unable to see d/t insurance issues, so was just seeing pcp for this for now. Vital Signs Most recent to oldest [Reference Range]: 1 2 3 Height 163 cm (01/31/20 12:00 AM) 163 cm (01/30/20 12:41 AM) 163 cm (01/29/20 8:00 PM) Weight 81.4 kg (01/29/20 8:14 AM) 81.4 kg (01/29/20 7:38 AM) Oxygen Saturation [94-100 %] 100 % (01/31/20 12:00 AM) 99 % (01/30/20 4:00 PM) 100 % (01/30/20 8:00 AM) Pulse Rate [55-90 bpm] 90 bpm (01/31/20 12:00 AM) 106 bpm *H* (01/30/20 4:00 PM) 75 bpm (01/30/20 8:00 AM) Body Mass Index [18.5-24.99] 30.64 *>HHI* (01/29/20 8:14 AM) Blood Pressure [90-138/55-84 mm Hg] 124/68mm Hg (01/31/20 12:00 AM) 114/71mm Hg (01/30/20 4:00 PM) 103/59mm Hg (01/30/20 8:00 AM) Respiratory Rate [16-30 br/min] 18 br/min (01/31/20 12:00 AM) 20 br/min (01/30/20 4:00 PM) 18 br/min (01/30/20 8:00 AM) Temperature [96.8-100.4 DegF] 97.8 DegF (01/31/20 9:05 AM) 97.9 DegF (01/31/20 12:00 AM) 97.5 DegF (01/30/20 4:00 PM) Mode of Delivery (Oxygen) Room air (01/31/20 12:00 AM) Room air (01/30/20 4:00 PM) Room air (01/30/20 8:00 AM) Blood pressure sites Arm, right (01/30/20 4:00 PM) Arm, left (01/29/20 10:40 AM) Arm, left (01/29/20 8:42 AM) Temperature Route Oral (01/31/20 9:05 AM) Oral (01/31/20 12:00 AM) Oral (01/30/20 4:00 PM) Dry Weight 81.4 kg (01/29/20 8:14 AM) Weight Obtained Via Standing scale (01/29/20 7:38 AM) Social History Social History Type Response Smoking Status Never (less than 100 in lifetime); Tobacco user in household: Yes entered on: 06/21/19 Sex
--- OUTSIDE RECORDS SUMMARY | 2024-04-22 03:05 | XMS_ITS | Continuity of Care Document ---
Author Organization [facility] Address [address] [place] [address]- Care Team Providers Care Call Center Manager Name Role Phone Sanford YIP, Shayne Hall Primary Care Physician [place] [facility] [place] Date(s): 08/24/20 - 09/26/20 [facility] [address] [address]- Attending Physician: Not on Staff, Attending MD Referring Physician: Nory Green CNM Allergies, Adverse Reactions, Alerts Substance Reaction [...] tablet, 2 Refills, Maintenance, 02/06/20 13:40:00 EDT, [facility]/pharmacy #[id number], 1 tablet ByMouth [...] 11:34:00 EDT, Aerosol, Route to Pharmacy Electronically, [id number], [facility]/pharmacy #[id number], 163, cm, 11/13/19 16:13:00 EDT, Hei... Start Date: 11/25/19 Stop Date: 04/23/20 Status: Ordered Flovent HFA 110 mcg/inh inhalation aerosol 2 puffs, Inhalation, 2 times a day, # 12 Gm, 1 Refills, Maintenance, 12/02/19 0:58:00 EDT, Aerosol,[facility]/pharmacy #[id number], 163, cm, 11/27/19 15:36:00 EDT, Height, 78.1, kg, 11/13/19 16:13:00 EDT, Dry Weight Start Date: 12/02/19 Stop Date: 12/16/19 Status: Ordered fluconazole 150 mg oral tablet 1 tablet = 150 mg, By Mouth, Once, repeat dose if still having symptoms in 72 hours, # 2 tablet, 0 Refills, Soft Stop, 09/14/20 9:53:00 EST, Tablet, [facility]/pharmacy #[id number], Partial fill upon patient request if the prescription is for a schedule II opioid... Start Date: 09/14/20 Status: Ordered ibuprofen 200 mg oral tablet 400 mg, 2, tablet, By Mouth, Every 4 hours, PRN, # 100 tablet, Refills 0, Tot. Refills 0, Maintenance, for pain, 01/31/20 10:59:00 EDT, Route to Pharmacy Electronically, [facility]/pharmacy #[id number], 163, cm, 01/31/20 [...] ED. 4says she has a neurologist in [place] for migraines. 5Taking fioricet prn for this, [...]
--- OUTSIDE RECORDS SUMMARY | 2024-04-22 03:05 | XMS_ITS | Continuity of Care Document ---
Author Organization [facility] Address [address] [place] [address], [address] [address]- Care Team Providers Care Pipe Wrapping Machine Operator Name Role Phone Sanford YIP, Shayne Hall Primary Care Physician En[facility] [place] Date(s): 12/06/22 - 01/05/23 [facility] [address] [facility], [address] [place] [address]- Allergies, Adverse Reactions, Alerts No Known Allergies [...] 2 Refills, Maintenance, 02/06/20 13:40:00 EDT, [facility]/pharmacy #[id number], 1 tablet ByMouth Every 4 hours,Instr:May [...] ED. 4says she has a neurologist in [place] for migraines. 5Taking fioricet prn for this, [...] Personnel Name: Sanford YIP, Shayne Hall Position: [facility] Outreach Member Role: PCP Address: Address: [address] [place] [address]- Care Team Related Persons Name: BING CARTER Address: home [address] [place] [address] Name: ROSALVA CLAIRE Address: [address] Address: [address] [address] Name: SANTO CLAIRE Address: [address] [place] [address] Name: VALENTE WANG
--- OUTSIDE RECORDS SUMMARY | 2024-04-22 03:05 | XMS_ITS | Continuity of Care Document ---
Author Organization [facility] Address [address] [address]- Care Team Providers Care Geriatric Care Manager Name Role Phone Shayne Christina MD Primary Care Physician En[facility] Date(s): 08/09/19 - 08/19/19 [facility] [address] [address]- [facility] Attending Physician: Seun Castaneda Admitting Physician: Seun Castaneda Referring Physician: AdmtrSeun Allergies, Adverse Reactions, Alerts Substance Reaction Severity Status NKA Active Immunizations Given and Recorded Vaccine Date Status Refusal Reason influenza virus vaccine, inactivated 08/09/19 Give n Medications Fioricet oral capsule 1 capsule, By Mouth, Every 4 hours, 0 Refills, Maintenance, 08/09/19 16:16:00 EST Start Date: 08/09/19 Status: Ordered ProAir HFA 90 mcg/inh inhalation [...] ED. 4says she has a neurologist in [place] for migraines. 5Taking fioricet prn for this, [...]
--- OUTSIDE RECORDS SUMMARY | 2024-04-22 03:05 | XMS_ITS | Continuity of Care Document ---
Author Organization [facility] Address [address] [facility], [address] [place] [address]- Care Team Providers Care Plywood Scarfer Tender Name Role Phone Sanford YIP, Shayne Hall Primary Care Physician [place] [facility] [place](s): 07/23/19 - 08/02/19 [facility] [address] [facility], [address] [place] [address]- Attending Physician: Seun Castaneda Admitting Physician: AdmSeun [...] ED. 4says she has a neurologist in [place] for migraines. 5Taking fioricet prn for this, [...]
--- OUTSIDE RECORDS SUMMARY | 2024-04-22 03:05 | XMS_ITS | Continuity of Care Document ---
Author Organization [facility] Address [address] [place] [id number]- Care Team Providers Care Welding Machine Operator Resistance Name Role Phone Sanford YIP, Shayne Hall Primary Care Physician [place] [facility] [place](s): 03/11/20 - 04/10/20 [facility] and [facility] [address] [address]- [place] Allergies, Adverse Reactions, Alerts Substance Reaction [...] 2 Refills, Maintenance, 02/06/20 13:40:00 EDT, [facility]/pharmacy #[id number], 1 tablet ByMouth Every 4 hours,Instr:May [...] 11:34:00 EDT, Aerosol, Route to Pharmacy Electronically, [id number], [facility]/pharmacy #[id number], 163, cm, 11/13/19 16:13:00 EDT, Hei... Start Date: 11/25/19 Stop Date: 04/23/20 Status: Ordered ferrous sulfate 325 mg oral tablet 1 tablet = 325 mg, By Mouth, Daily, # 30 tablet, 2 Refills, Maintenance, 11/14/19 13:10:00 EDT, [facility]/pharmacy #[id number], 163, cm, 11/13/19 16:13:00 EDT, Height, 78.1, kg, 11/13/19 16:13:00 EDT, Dry Weight Start Date: 11/14/19 Stop Date: 02/12/20 Status: Ordered Flovent HFA 110 mcg/inh inhalation aerosol 2 puffs, Inhalation, 2 times a day, # 12 Gm, 1 Refills, Maintenance, 12/02/19 0:58:00 EDT, Aerosol,[facility]/pharmacy #[id number], 163, cm, 11/27/19 15:36:00 EDT, Height, 78.1, kg, 11/13/19 16:13:00 EDT, Dry Weight Start Date: 12/02/19 Stop Date: 12/16/19 Status: Ordered ibuprofen 200 mg oral tablet 400 mg, 2, tablet, By Mouth, Every 4 hours, PRN, # 100 tablet, Refills 0, Tot. Refills 0, Maintenance, for pain, 01/31/20 10:59:00 EDT, Route to Pharmacy Electronically, [facility]/pharmacy #[id number], 163, cm, 01/31/20 0:18:00 EDT, Height, 81.4, kg, 01/29/20 8:5... Start Date: 01/31/20 Status: Ordered lanolin topical - ointment See Instructions, PRN as needed for dry skin, 1 application Topically to bilateral nipples after ., # 60 Gm, 0 Refills, Maintenance, 02/05/20 12:20:00 EDT, Ointment, [facility]/pharmacy #[id number], 1 application Topically to bilateral nipples after b... Start Date: 02/05/20 Status: Ordered Mirena 52 mg intrauterine device See Instructions, 1 each Once, # 1 each, 0 Refills, Soft Stop, 03/10/20 14:06:00 EDT, [facility], 163, cm, 03/10/20 13:34:00 EDT, Height, 75.02, kg, 03/10/20 13:34:00 EDT, Dry Weight Start Date: 03/10/20 Status: Ordered ParaGard intrauterine device See Instructions, bring to lower school spanish teacher appointment for insertion, # 1 each, 0 Refills, Maintenance, 02/17/20 14:03:00 EDT, [facility], bring to lower school spanish teacher appointment for insertion, 163, cm, 01/31/20 0:18:00 [...] ED. 4says she has a neurologist in [place] for migraines. 5Taking fioricet prn for this, [...]
--- OUTSIDE RECORDS SUMMARY | 2024-04-22 03:05 | XMS_ITS | Continuity of Care Document ---
Author Organization [facility] Address [address] [address]- Care Team Providers Care Skilled Nursing Facilities Professional Name Role Phone Sanford YIP, Shayne Hall Primary Care Physician En[place] [facility] [place](s[place] 12/10/19 - 12/17/19 [facility] and [facility] [address] [address]- [facility] Attending Physician: Mary Umaña MD Referring Physician: Antonina Morrow CNM Allergies, Adverse Reactions, Alerts Substance Reaction Severity Status NKA Active Immunizations Given and Recorded Vaccine Date Status Refusal Reason tetanus/diphtheria/pertussis, acel(Tdap) 11/13/19 Given influenza virus vaccine, inactivated 08/09/19 Give n Medications acetaminophen/butalbital/caffeine 325 mg-50 mg-40 mg oral tablet See Instructions, TAKE 1 TABLET 2 TIMES A DAY, NEEDED :MIGRAINE TAKE NO MORE THAN TWICE PER DAY, # 30 tablet, 1 Refills, Acute, [id number], 45, TAKE 1 TABLET 2 TIMES A [...] 11:34:00 EDT, Aerosol, Route to Pharmacy Electronically, [id number], [facility]/pharmacy #[id number], 163, cm, 11/13/19 16:13:00 EDT, Hei... Start Date: 11/25/19 Stop Date: 04/23/20 Status: Ordered ferrous sulfate 325 mg oral tablet 1 tablet = 325 mg, By Mouth, Daily, # 30 tablet, 2 Refills, Maintenance, 11/14/19 13:10:00 EDT, [facility]/pharmacy #[id number], 163, cm, 11/13/19 16:13:00 EDT, Height, 78.1, kg, 11/13/19 16:13:00 EDT, Dry Weight Start Date: 11/14/19 Stop Date: 02/12/20 Status: Ordered Flovent HFA 110 mcg/inh inhalation aerosol 2 puffs, Inhalation, 2 times a day, # 12 Gm, 1 Refills, Maintenance, 12/02/19 0:58:00 EDT, Aerosol,[facility]/pharmacy #[id number], 163, cm, 11/27/19 15:36:00 EDT, Height, 78.1, kg, 11/13/19 16:13:00 EDT, Dry Weight Start Date: 12/02/19 Stop Date: 12/16/19 Status: Ordered AD oral tablet 1 tablet, By Mouth, Daily, # 90 tablet, 0 Refills, Maintenance, 12/10/19 17:10:00 EDT, Tablet, [facility]/pharmacy #[id number], 1 tablet By Mouth Daily, 163, cm, 11/27/19 15:36:00 EDT, Height, 78.1, kg, 11/13/19 16:13:00 EDT, Dry Weight Start Date: 12/10/19 Status: Ordered promethazine 25 mg rectal suppository 1 supp = 25 mg, Rectally, Daily at bedtime, PRN as needed for nausea/vomiting, # 12 supp, 1 Refills, Maintenance, 11/21/19 19:51:00 EDT, Suppository, [facility]/pharmacy #[id number], 163, cm, 11/13/19 16:13:00 EDT, Height, 78.1, kg, 11/13/19 16:13:00 EDT, Dry Weight Start Date: 11/21/19 Status: Ordered Zantac 150 oral tablet 1 tablet = 150 mg, By Mouth, Daily at bedtime, # 90 tablet, 0 Refills, Maintenance, 12/10/19 17:08:00 EDT, Tablet, [id number], 163, cm, 11/27/19 15:36:00 EDT, Height, [...] ED. 4says she has a neurologist in [place] for migraines. 5Taking fioricet prn for this, [...]
--- OUTSIDE RECORDS SUMMARY | 2024-04-22 03:05 | XMS_ITS | Continuity of Care Document ---
Author Organization [facility] Address [address] [address]- Care Team Providers Care Rn Float Name Role Phone Sanford YIP, Shayne Hall Primary Care Physician Encounter [facility] [place] Date(s): 12/30/22 - 02/08/23 [facility] [address] [address]- Attending Physician: Not on Staff, Attending MD Referring Physician: Anshul Nick CNM Allergies, Adverse Reactions, Alerts No Known [...] tablet, 2 Refills, Maintenance, 02/06/20 13:40:00 EDT, [facility]/pharmacy #[id number], 1 tablet ByMouth Every [...] ED. 4says she has a neurologist in [place] for migraines. 5Taking fioricet prn for this, [...] Personnel Name: Sanford YIP, Shayne Hall Position: [facility] Outreach Member Role: PCP Address: Address: [address] [place] [address]- Care Team Related Persons Name: BING CARTER Address: [address] [place] [address] Name: ROSALVA CLAIRE Address: [address] Address: home [address] [address] [place] Name: SANTO CLAIRE Address: [address] [place] [address] Name: VALENTE WANG
[2024-04-22 03:09] VITALS: BP 110/50; PULSE 76; RESP 18; TEMP 37; O2SAT 99
[2024-04-22] MEDS: predniSONE 20 MG TABLET 40 MG PO (03:34)
[2024-04-22] MEDS: cefuroxime axetiL 500 MG TABLET PO (03:34)
[2024-04-22 03:42] LABS: COVID-19 Test Negative (Negative); IDNOW Serial# 152EDE1D
[2024-04-22] MEDS: Albuterol Sulfate 2.5 MG, Albuterol/Iprat 2.5/0.5MG 3 ML 3 ML INHALE (04:14)
[2024-04-22 04:16] VITALS: PULSE 71; RESP 18; O2SAT 99
[2024-04-22 05:19] VITALS: PULSE 102; O2SAT 99
[2024-04-22 05:23] VITALS: BP 102/55; PULSE 102; RESP 18; TEMP 36.6; O2SAT 99
== END 2024-04-22 05:26 | disposition home or self-care (01) ==
PROVIDERS: Emergency Provider Internal Medicine; PCP Registered Nurse
DX: J40 Bronchitis, not specified as acute or chronic (principal); R05.9 Cough, unspecified; Z11.52 Encounter for screening for COVID-19
CPT/HCPCS: 71045; 87635; 94640; 99285

== ENCOUNTER 2024-05-22 16:06 | Outpatient (REF) | payer MEDICAID, SELFPAY ==
[2024-05-22 18:34] LABS: CT PCR NOT DETECTED (Not Detect.); NG PCR NOT DETECTED (Not Detect.)
[2024-05-23 11:24] LABS: Bacterial Vaginosis PCR POSITIVE (Negative); Candida Group PCR DETECTED (Not Detect); Candida glab krusei PCR NOT DETECTED (Not Detect); Trichomonas vaginalis PCR NOT DETECTED (Not Detect)
== END 2024-05-22 16:07 | disposition home or self-care (01) ==
LOC: HO.HHCLNP 16:06
PROVIDERS: Visit Provider Advanced Practice Midwife
DX: L29.2 Pruritus vulvae (principal); Z11.3 Encounter for screening for infections with a predominantly sexual mode of transmission
CPT/HCPCS: 0352U; 87491; 87591

== ENCOUNTER 2024-05-29 01:18 | Emergency (ER) | payer MEDICAID, SELFPAY ==
--- NOTE | 2024-05-29 | ECG_ITS ---
Test Reason : CHEST PAIN Blood Pressure : / mmHG Vent. Rate : 079 BPM Atrial Rate : 079 BPM P-R Int : 130 ms QRS Dur : 102 ms QT Int : 394 ms P-R-T Axes : 033 025 029 degrees QTc Int : 451 ms Sinus rhythm with Premature supraventricular complexes Incomplete right bundle branch block Borderline ECG No previous ECGs available Referred By: Generic ED Physician Electronically Signed By:JOSE GRIGSBY
--- NOTE | ~2024-05-29 | XR_ITS ---
EXAMINATION: XR CHEST CLINICAL INFORMATION: Shortness of breath. Chest pain COMPARISON: Chest 04/22/2024. TECHNIQUE: Frontal view of the chest was obtained. FINDINGS: Normal appearance of the cardiomediastinal structures. No effusions or pneumothoraces. No focal pulmonary consolidation. Normal pattern of pulmonary vasculature. XR/XR chest 1V IMPRESSION: Normal chest. Electronically signed by: Elier Cronin MD 05/29/2024 03:40 AM EDT
[2024-05-29 01:28] VITALS: BP 110/66; PULSE 79; RESP 18; TEMP 36.4; O2SAT 99; BMI 29.5
[2024-05-29 01:40] LABS: Basophils Percent Auto 0.4 % (0-2); Eosinophils Absolute Auto 0.2 X10*3/uL (0.0-0.4); Eosinophils Percent Auto 2.4 % (0-4); Hematocrit 37.2 % (37.0-47.0); Hemoglobin 11.9 g/dl (12.0-16.0); Imm Gran Abs Auto 0.03 X10*3/uL (0.00-0.03); Imm Gran Pct Auto 0.4 % (0.0-0.4); Lymphocytes Absolute Auto 2.3 X10*3/uL (1.2-4.9); Lymphocytes Percent Auto 28.6 % (20-40); MANUAL DIFF FLAG NO; Mean Corpuscular Hemoglobin 26.7 pg (27.0-33.0); Mean Corpuscular Volume 83.4 fL (80.0-98.0); Monocytes Absolute Auto 0.7 X10*3/uL (0.1-1.2); Monocytes Percent Auto 9.1 % (2-11); Neutrophils Absolute Auto 4.7 x10*3/uL (2.0-8.3); Neutrophils Percent Auto 59.1 % (45-73); Platelet Count 231 X10*3/uL (160-400); Red Blood Count 4.46 X10*6/uL (4.20-5.50); Red Cell Distribution Width 15.6 % (11.0-16.0); White Blood Count 7.9 X10*3/uL (4.8-10.8)
--- NOTE | 2024-05-29 01:42 | MHC.EDTECH ---
Patient ekg taken and was read by Provider ,blood drawn and sent to lab ,Patient was brought back into room #1 ,change into hospital attire , and was hooked to to cardiovascular surgical tech ,call chavez within Pt reach .
--- NOTE | 2024-05-29 01:42 | ED.CHESTPAIN ---
HPI - Chest Pain General Chief Complaint: Chest Pain Stated Complaint: Chest Pain Time Seen by Provider: 05/29/24 01:37 Source: patient Mode of arrival: ambulatory Limitations: no limitations History of Present Illness ED Provider: Dr. Ragini Dinero HPI narrative: Patient comes in the emergency room complaining of couple of days of right-sided chest pain, stabbing in nature, but it is towards the back. Patient states it is worse with. Patient has been complaining of occasional cough, no fever or chills. Denies shortness of breath. Related Data Previous Rx's ?Medication ?Instructions ?Recorded diphenhydramine HCl 25 mg capsule 25 mg PO Q6H PRN allergic reaction 09/23/20 (Benadryl) #30 caps epinephrine 0.3 mg/0.3 mL 0.3 mg (0.3 mL) IM Q20M PRN 09/23/20 injection, auto-injector (EpiPen anaphylaxis #2 ea 2-Jorge) prednisone 20 mg tablet 40 mg (2 x 20 mg) PO DAILY #10 tabs 09/23/20 famotidine 20 mg tablet (Pepcid) 20 mg PO DAILY #14 tabs 09/24/20 montelukast 10 mg tablet 10 mg PO BEDTIME #7 tabs 09/24/20 (Singulair) cetirizine 10 mg capsule 10 mg PO DAILY PRN allergy 09/26/20 symptoms #14 caps hydroxyzine HCl 25 mg tablet 25 mg PO TID PRN itching #20 tabs 09/26/20 naproxen 500 mg tablet 500 mg PO BID PRN pain #30 tabs 07/09/22 albuterol sulfate 90 mcg/actuation 2 puff inhalation Q6H PRN 04/22/24 aerosol inhaler shortness of breath or wheezing #8.5 grams benzonatate 200 mg capsule 200 mg PO TID PRN cough #20 caps 04/22/24 cefuroxime axetil 500 mg tablet 500 mg PO BID 7 days #14 tabs 04/22/24 prednisone 20 mg tablet 40 mg (2 x 20 mg) PO DAILY #10 tabs 04/22/24 ibuprofen 600 mg tablet 600 mg PO TID PRN fever or pain 05/29/24 #20 tabs Allergies Allergy/AdvReac Type Severity Reaction Status Date / Time No Known Allergies Allergy Verified 05/29/24 01:30 [No Known Allergies*] Review of Systems Review of Systems: Constitutional : No Weight loss, No Fever, No Chills, No Night Sweats, No Fatigue, No Malaise ENT/Mouth : No Hearing loss, No Ear Pain, No Nasal Congestion, No Sinus Pain, No Hoarseness, No sore throat, No Rhinorrhea, No Swallowing Difficulty Eyes: No Eye Pain, No Swelling, No Redness, No Foreign Body, No Discharge, No Vision Changes Cardiovascular : chest pain, sharp. No SOB, No Dyspnea on Exertion, No Orthopnea, No Edema, No Palpitations Respiratory : No Cough, No Sputum, No Wheezing, No Smoke Exposure, No Dyspnea Gastrointestinal : No Nausea, No Vomiting, No Diarrhea, No Constipation, No abdominal Pain, No Hematochezia, No Melena Genitourinary : no irregular bleeding, No Dysuria, No Urinary Frequency, No Hematuria, No Urinary Incontinence, No Urgency, No Flank Pain, No Urinary Flow Changes, No Hesitancy Musculoskeletal : No joint pain, No Myalgias, No Joint Swelling Skin : No Skin Lesions, No rash Neuro : No Weakness, No Numbness, No Paresthesias, No Loss of Consciousness, No Dizziness, No Headache Psych : No Anxiety/Panic, No Depression, No SI/HI/AH/VH, No Social Issues, Heme/Lymph: No Bruising, No Bleeding,No Lymphadenopathy Endocrine : No Polyuria, No Polydipsia, No Temperature Intolerance COUNTS INCLUDE 234 BEDS AT THE [facility] Past Medical History Medical History Asthma Social History Social History Alcohol intake: never Advance Directives: No Do you have a plan to hurt others: No Plan Physical Exam Vital Signs: Vital Signs: Last Vital Signs Temp 97.6 F 05/29/24 01:28 Pulse 79 05/29/24 01:28 Resp 18 05/29/24 01:28 BP 110/66 05/29/24 01:28 Pulse Ox 99 05/29/24 01:28 O2 Del Method Room Air 05/29/24 01:28 BMI result Body Mass Index 29.5 Const: Other: Appearance: Alert. Oriented X3. No acute distress. Eyes: Pupils equal, round and reactive to light. ENT: Pharynx normal. Neck: Normal inspection. Neck supple. No lymph nodes noted. No crepitus CVS: Normal heart rate and rhythm. Pulses normal. Normal S1 and S2 Respiratory: No respiratory distress. Breath sounds normal. No Wheezing. No rales Abdomen: Soft and nontender. No rigidity. No distention. Musculoskeletal: Reproducible chest pain to palpation in sternal area Skin: Skin warm and dry. Normal skin color. Normal skin turgor. Extremities: No lower extremity edema. No Lacerations. No Rash Neuro: Oriented X 3. No motor deficit. No sensory deficit. Moving all extremities. No slurred speech. CN 2 through 12 grossly intact Psych: calm, cooperative, normal affect Medical Decision Making Medical Decision Making MDM Narrative: -of EKG, normal sinus rhythm, heart rate 79, no ST segment depression or elevation, incomplete right bundle branch block, no T-wave inversion, QTC 451 My interpretation of labs, normal hematology and chemistry, hCG negative, troponin negative -my interpretation of chest x-ray, no obvious abnormality, no infiltrates. Differential Diagnosis Differential Diagnoses: The differential diagnosis associated with the presentation includes (Pleurisy, costochondritis, pneumonia, viral illness) Admission/Observation Consideration of admission/observation: Escalation of care including admission/observation considered Lab Data [facility] Lab Attestation statement: I reviewed the patient's lab results. 05/29/24 01:36 05/29/24 01:36 Labs: Lab Results 05/29/24 Range/Units 01:36 WBC 7.9 (4.8-10.8) X10*3/uL RBC 4.46 (4.20-5.50) X10*6/uL Hgb 11.9 L (12.0-16.0) g/dl Hct 37.2 (37.0-47.0) % MCV 83.4 (80.0-98.0) fL MCH 26.7 L (27.0-33.0) pg MCHC 32.0 (31.0-35.0) g/dl RDW 15.6 (11.0-16.0) % Plt Count 231 (160-400) X10*3/uL MPV 11.0 (9.4-12.3) fL Immature Gran % (Auto) 0.4 (0.0-0.4) % Neut % (Auto) 59.1 (45-73) % Lymph % (Auto) 28.6 (20-40) % Cotton % (Auto) 9.1 (2-11) % Eos % (Auto) 2.4 (0-4) % Baso % (Auto) 0.4 (0-2) % Lymph # (Auto) 2.3 (1.2-4.9) X10*3/uL Cotton # (Auto) 0.7 (0.1-1.2) X10*3/uL Eos # (Auto) 0.2 (0.0-0.4) X10*3/uL Baso # (Auto) 0.0 (0.0-0.2) X10*3/uL Abs Immat Gran (auto) 0.03 (0.00-0.03) X10*3/uL Absolute Neuts (auto) 4.7 (2.0-8.3) x10*3/uL Absolute Nucleated RBC 0.000 (0.0-0.012) X10*3/uL Nucleated RBC % (auto) 0.0 (0.0-0.2) /100WBC Sodium 142 (135-145) mmol/L Potassium 4.1 (3.3-5.1) mmol/L Chloride 110 H (96-108) mmol/L Carbon Dioxide 23 (22-29) mmol/L Anion Gap 13 (12-20) BUN 10 (9-16) mg/dL Creatinine 0.82 (0.5-1.4) mg/dL Estim Creat Clear Calc 106.0 Estimated GFR > 60 Random Glucose 81 (60-115) mg/dL Calcium 9.7 D (8.4-10.2) mg/dL Troponin I High Sens < 2.7 (<3.5-17.0) ng/L Beta HCG, Quant < 2 mIU/mL Independent Interpretation I performed an independent interpretation of an: Plain X-Ray Radiology Impression Discussion of test interpretation with radiology: I have reviewed the radiologist's reading. Radiologist Impression: Normal appearance of the cardiomediastinal structures. No effusions or pneumothoraces. No focal pulmonary consolidation. Normal pattern of pulmonary vasculature. XR/XR chest 1V IMPRESSION: Normal chest. Critical Care Time Critical Care Time Critical Care Time: Yes Total Critical Care Time: 30 Attestation: I have personally provided critical care time. Time includes review of lab data, radiology results, discussion with consultants, and monitoring for potential decompensation. Intervention performed as documented. Discharge Plan Discharge Clinical Impression: Pleurisy Patient Disposition: Home, Self-Care Instructions: Pleurisy (ED) Additional Instructions: Please follow-up with your primary care physician tomorrow. If you have any worsening or new symptoms, please return to the emergency room or call 911 Prescriptions: New ibuprofen 600 mg tablet 600 mg PO TID PRN (Reason: fever or pain) Qty: 20 0RF No Action epinephrine [EpiPen 2-Jorge] 0.3 mg/0.3 mL auto-injector 0.3 mg IM Q20M PRN (Reason: anaphylaxis) Qty: 2 0RF Rx Instructions: for 3 doses diphenhydramine HCl [Benadryl] 25 mg capsule 25 mg PO Q6H PRN (Reason: allergic reaction) Qty: 30 0RF prednisone 20 mg tablet 40 mg PO DAILY Qty: 10 0RF famotidine [Pepcid] 20 mg tablet 20 mg PO DAILY Qty: 14 0RF montelukast [Singulair] 10 mg tablet 10 mg PO BEDTIME Qty: 7 0RF cetirizine 10 mg capsule 10 mg PO DAILY PRN (Reason: allergy symptoms) Qty: 14 0RF hydroxyzine HCl 25 mg tablet 25 mg PO TID PRN (Reason: itching) Qty: 20 0RF naproxen 500 mg tablet 500 mg PO BID PRN (Reason: pain) Qty: 30 0RF prednisone 20 mg tablet 40 mg PO DAILY Qty: 10 0RF cefuroxime axetil 500 mg tablet 500 mg PO BID 7 Days Qty: 14 0RF albuterol sulfate 90 mcg/actuation HFA aerosol inhaler 2 puff inhalation Q6H PRN (Reason: shortness of breath or wheezing) Qty: 8.5 0RF benzonatate 200 mg capsule 200 mg PO TID PRN (Reason: cough) Qty: 20 0RF Print Language: Namibian
[2024-05-29 01:52] LABS: Anion Gap 13 (12-20); Blood Urea Nitrogen 10 mg/dL (9-16); Calcium 9.7 mg/dL (8.4-10.2); Carbon Dioxide 23 mmol/L (22-29); Chloride 110 mmol/L (96-108); Estimated Glomerular Filt Rate > 60; Glucose Random 81 mg/dL (60-115); Potassium 4.1 mmol/L (3.3-5.1); Sodium 142 mmol/L (135-145)
[2024-05-29 02:01] LABS: Troponin-I High Sensitivity < 2.7 ng/L (<3.5-17.0)
[2024-05-29 02:10] LABS: HCG Quantitative < 2 mIU/mL
[2024-05-29 03:54] VITALS: BP 105/67; PULSE 67; RESP 13; TEMP 36.8; O2SAT 99
[2024-05-29 04:22] VITALS: BP 105/67; PULSE 67; RESP 13; TEMP 36.8; O2SAT 99
== END 2024-05-29 04:23 | disposition home or self-care (01) ==
PROVIDERS: Emergency Provider Emergency Medicine; PCP Registered Nurse
DX: R09.1 Pleurisy (principal); R07.9 Chest pain, unspecified; R06.02 Shortness of breath; Z79.899 Other long term (current) drug therapy
CPT/HCPCS: 36415; 71045; 80048; 84484; 84702; 85025; 93005; 99283; 99285

== ENCOUNTER → 2024-05-29 01:20 | Outpatient (BNV) | payer MEDICAID, SELFPAY | PROVIDERS: Emergency Provider Emergency Medicine; PCP Registered Nurse; Visit Provider Internal Medicine | DX: R07.9 Chest pain, unspecified (principal) | CPT/HCPCS: 93010 ==

== ENCOUNTER 2024-06-03 03:44 | Emergency (ER) | payer MEDICAID, SELFPAY ==
--- NOTE | 2024-06-03 | ECG_ITS ---
Test Reason : chest pain Blood Pressure : / mmHG Vent. Rate : 060 BPM Atrial Rate : 060 BPM P-R Int : 114 ms QRS Dur : 084 ms QT Int : 422 ms P-R-T Axes : 034 024 031 degrees QTc Int : 422 ms Sinus rhythm with Premature atrial complexes Otherwise normal ECG When compared with ECG of 29-MAY-2024 01:20, T wave amplitude has increased in Anterolateral leads Referred By: Generic ED Physician Electronically Signed By:PIERO CAMPA MD
--- NOTE | ~2024-06-03 | XR_ITS ---
EXAMINATION: XR CHEST CLINICAL INFORMATION: Chest pain COMPARISON: Chest radiograph 04/22/2024 TECHNIQUE: Frontal view of the chest was obtained. FINDINGS: This Normal appearance of the cardiomediastinal structures. No effusions or pneumothoraces. No pulmonary consolidation. Normal pattern of pulmonary vasculature. No focal pulmonary consolidation. No skeletal abnormalities identified. XR/XR chest 1V IMPRESSION: Normal chest. Lungs clear. Electronically signed by: Elier Cronin MD 06/03/2024 04:18 AM ABBEY
[2024-06-03 03:50] VITALS: BP 113/52; PULSE 53; RESP 16; TEMP 36.8; O2SAT 100; BMI 39.4
[2024-06-03 04:11] LABS: Basophils Percent Auto 0.6 % (0-2); Eosinophils Absolute Auto 0.2 X10*3/uL (0.0-0.4); Eosinophils Percent Auto 2.4 % (0-4); Hematocrit 36.6 % (37.0-47.0); Hemoglobin 11.7 g/dl (12.0-16.0); Imm Gran Abs Auto 0.02 X10*3/uL (0.00-0.03); Imm Gran Pct Auto 0.3 % (0.0-0.4); Lymphocytes Absolute Auto 1.6 X10*3/uL (1.2-4.9); Lymphocytes Percent Auto 23.2 % (20-40); MANUAL DIFF FLAG NO; Mean Corpuscular Hemoglobin 26.5 pg (27.0-33.0); Monocytes Absolute Auto 0.5 X10*3/uL (0.1-1.2); Monocytes Percent Auto 7.4 % (2-11); Neutrophils Absolute Auto 4.7 x10*3/uL (2.0-8.3); Neutrophils Percent Auto 66.1 % (45-73); Platelet Count 202 X10*3/uL (160-400); Red Blood Count 4.41 X10*6/uL (4.20-5.50); Red Cell Distribution Width 15.2 % (11.0-16.0); White Blood Count 7.1 X10*3/uL (4.8-10.8)
--- NOTE | 2024-06-03 04:12 | ED.CHESTPAIN ---
HPI - Chest Pain General Chief Complaint: Chest Pain Stated Complaint: Chest Pain Time Seen by Provider: 06/03/24 04:09 Source: patient Mode of arrival: ambulatory Limitations: no limitations History of Present Illness ED Provider: loulou HANDY narrative: Patient complaining of mid chest pain for last 4 days increases on palpation and movements localized mostly in the mid chest was seen here on 05/29 at as prescribed ibuprofen patient is still having the pain no prior history of cardiac disease Related Data Previous Rx's ?Medication ?Instructions ?Recorded diphenhydramine HCl 25 mg capsule 25 mg PO Q6H PRN allergic reaction 09/23/20 (Benadryl) #30 caps epinephrine 0.3 mg/0.3 mL 0.3 mg (0.3 mL) IM Q20M PRN 09/23/20 injection, auto-injector (EpiPen anaphylaxis #2 ea 2-Jorge) prednisone 20 mg tablet 40 mg (2 x 20 mg) PO DAILY #10 tabs 09/23/20 famotidine 20 mg tablet (Pepcid) 20 mg PO DAILY #14 tabs 09/24/20 montelukast 10 mg tablet 10 mg PO BEDTIME #7 tabs 09/24/20 (Singulair) cetirizine 10 mg capsule 10 mg PO DAILY PRN allergy 09/26/20 symptoms #14 caps hydroxyzine HCl 25 mg tablet 25 mg PO TID PRN itching #20 tabs 09/26/20 naproxen 500 mg tablet 500 mg PO BID PRN pain #30 tabs 07/09/22 albuterol sulfate 90 mcg/actuation 2 puff inhalation Q6H PRN 04/22/24 aerosol inhaler shortness of breath or wheezing #8.5 grams benzonatate 200 mg capsule 200 mg PO TID PRN cough #20 caps 04/22/24 cefuroxime axetil 500 mg tablet 500 mg PO BID 7 days #14 tabs 04/22/24 prednisone 20 mg tablet 40 mg (2 x 20 mg) PO DAILY #10 tabs 04/22/24 ibuprofen 600 mg tablet 600 mg PO TID PRN fever or pain 05/29/24 #20 tabs tramadol 50 mg tablet 50 mg PO Q6H PRN pain #20 tabs 06/03/24 Allergies Allergy/AdvReac Type Severity Reaction Status Date / Time No Known Allergies Allergy Verified 06/03/24 03:50 [No Known Allergies*] Review of Systems Review of Systems: Yes all other systems are reviewed and are negative [facility] Past Medical History Medical History Asthma Social History Social History Alcohol intake: never Advance Directives: No Advance Directives Information Provided: Yes Do you have a plan to hurt others: No Plan Physical Exam Vital Signs: Vital Signs: Last Vital Signs Temp 98.3 F 06/03/24 03:50 Pulse 53 06/03/24 03:50 Resp 16 06/03/24 03:50 BP 113/52 L 06/03/24 03:50 Pulse Ox 100 06/03/24 03:50 O2 Del Method Room Air 06/03/24 03:50 BMI result Body Mass Index 39.4 Appearance: Alert. Oriented X3. No acute distress. ENT: Pharynx normal. Oral Mucosa moist Neck: Normal inspection. Neck supple. CVS: Normal heart rate and rhythm. Pulses normal. Tender to touch right and left costochondral junction Respiratory: No respiratory distress. Equal air entry bilateral, no wheezing/rales/rhonchi Abdomen: Soft and nontender. Bowel sounds are present, no mass palpable, no CVA tenderness Skin: Skin warm and dry. Normal skin color. Normal skin turgor. Extremities: No lower extremity edema. No calf tenderness Neuro: Oriented X 3. No motor deficit. Medications Administered Discontinued Medications Generic Name Dose Route Start Last Admin Trade Name Freq PRN Reason Stop Dose Admin Oxycodone HCl 10 mg 06/03/24 04:15 06/03/24 04:22 Oxycodone Hcl Immed Release 5 Mg Tablet PO 06/03/24 04:16 10 mg ONCE ONE Administration Medical Decision Making Medical Decision Making [facility] Narrative: Patient has atypical chest pain clinically costochondritis labs are stable chest x-ray negative Differential Diagnosis Differential Diagnoses: The differential diagnosis associated with the presentation includes Lab Data [facility] Lab Attestation statement: I reviewed the patient's lab results. 06/03/24 04:07 06/03/24 04:07 Labs: Lab Results 06/03/24 Range/Units 04:07 WBC 7.1 (4.8-10.8) X10*3/uL RBC 4.41 (4.20-5.50) X10*6/uL Hgb 11.7 L (12.0-16.0) g/dl Hct 36.6 L (37.0-47.0) % MCV 83.0 (80.0-98.0) fL MCH 26.5 L (27.0-33.0) pg MCHC 32.0 (31.0-35.0) g/dl RDW 15.2 (11.0-16.0) % Plt Count 202 (160-400) X10*3/uL MPV 11.0 (9.4-12.3) fL Immature Gran % (Auto) 0.3 (0.0-0.4) % Neut % (Auto) 66.1 (45-73) % Lymph % (Auto) 23.2 (20-40) % [place] % (Auto) 7.4 (2-11) % Eos % (Auto) 2.4 (0-4) % Baso % (Auto) 0.6 (0-2) % Lymph # (Auto) 1.6 (1.2-4.9) X10*3/uL [place] # (Auto) 0.5 (0.1-1.2) X10*3/uL Eos # (Auto) 0.2 (0.0-0.4) X10*3/uL Baso # (Auto) 0.0 (0.0-0.2) X10*3/uL Abs Immat Gran (auto) 0.02 (0.00-0.03) X10*3/uL Absolute Neuts (auto) 4.7 (2.0-8.3) x10*3/uL Absolute Nucleated RBC 0.000 (0.0-0.012) X10*3/uL Nucleated RBC % (auto) 0.0 (0.0-0.2) /100WBC Sodium 139 (135-145) mmol/L Potassium 5.0 D (3.3-5.1) mmol/L Chloride 108 (96-108) mmol/L Carbon Dioxide 22 (22-29) mmol/L Anion Gap 14 (12-20) BUN 15 (9-16) mg/dL Creatinine 0.82 (0.5-1.4) mg/dL Estim Creat Clear Calc 123.3 Estimated GFR > 60 Random Glucose 113 (60-115) mg/dL Calcium 10.0 (8.4-10.2) mg/dL Total Bilirubin 0.3 (0.0-1.0) mg/dL AST 20 (5-31) U/L ALT 7 (0-31) U/L Alkaline Phosphatase 98 (39-117) U/L Troponin I High Sens < 2.7 (<3.5-17.0) ng/L Total Protein 7.0 (6.5-8.0) g/dL Albumin 3.8 (3.5-5.0) g/dL Independent Interpretation I performed an independent interpretation of an: EKG Interpretation: Normal sinus rhythm with heart rate of 60 beats per minute normal intervals normal axis PACs no acute STT wave changes no acute ischemia Discharge Plan Discharge Clinical Impression: Costalchondritis Patient Disposition: Home, Self-Care Instructions: Costochondritis (ED) Additional Instructions: Take pain medication as prescribed and follow with your PCP Prescriptions: New tramadol 50 mg tablet 50 mg PO Q6H PRN (Reason: pain) Qty: 20 0RF No Action epinephrine [EpiPen 2-Jorge] 0.3 mg/0.3 mL auto-injector 0.3 mg IM Q20M PRN (Reason: anaphylaxis) Qty: 2 0RF Rx Instructions: for 3 doses diphenhydramine HCl [Benadryl] 25 mg capsule 25 mg PO Q6H PRN (Reason: allergic reaction) Qty: 30 0RF prednisone 20 mg tablet 40 mg PO DAILY Qty: 10 0RF famotidine [Pepcid] 20 mg tablet 20 mg PO DAILY Qty: 14 0RF montelukast [Singulair] 10 mg tablet 10 mg PO BEDTIME Qty: 7 0RF cetirizine 10 mg capsule 10 mg PO DAILY PRN (Reason: allergy symptoms) Qty: 14 0RF hydroxyzine HCl 25 mg tablet 25 mg PO TID PRN (Reason: itching) Qty: 20 0RF naproxen 500 mg tablet 500 mg PO BID PRN (Reason: pain) Qty: 30 0RF ibuprofen 600 mg tablet 600 mg PO TID PRN (Reason: fever or pain) Qty: 20 0RF prednisone 20 mg tablet 40 mg PO DAILY Qty: 10 0RF cefuroxime axetil 500 mg tablet 500 mg PO BID 7 Days Qty: 14 0RF albuterol sulfate 90 mcg/actuation HFA aerosol inhaler 2 puff inhalation Q6H PRN (Reason: shortness of breath or wheezing) Qty: 8.5 0RF benzonatate 200 mg capsule 200 mg PO TID PRN (Reason: cough) Qty: 20 0RF Print Language: Swedish
[2024-06-03] MEDS: oxyCODONE HCl Immed Release 5 MG TABLET 10 MG PO (04:22)
[2024-06-03 04:26] LABS: Alanine Aminotransferase 7 U/L (0-31); Albumin Level 3.8 g/dL (3.5-5.0); Alkaline Phosphatase 98 U/L (39-117); Anion Gap 14 (12-20); Aspartate Amino Transferase 20 U/L (5-31); Bilirubin Total 0.3 mg/dL (0.0-1.0); Blood Urea Nitrogen 15 mg/dL (9-16); Carbon Dioxide 22 mmol/L (22-29); Chloride 108 mmol/L (96-108); Creatinine Clr Calc Pharmacy 123.3; Estimated Glomerular Filt Rate > 60; Glucose Random 113 mg/dL (60-115); Sodium 139 mmol/L (135-145)
[2024-06-03 04:31] LABS: Troponin-I High Sensitivity < 2.7 ng/L (<3.5-17.0)
[2024-06-03 05:03] VITALS: BP 90/53; PULSE 72; RESP 16; TEMP 36.9; O2SAT 99
[2024-06-03 06:12] VITALS: BP 97/49; PULSE 79; RESP 16; TEMP 36.6; O2SAT 98
[2024-06-03 06:15] VITALS: BP 97/49; PULSE 79; RESP 16; TEMP 36.6; O2SAT 98
== END 2024-06-03 06:16 | disposition home or self-care (01) ==
PROVIDERS: Emergency Provider Internal Medicine
DX: M94.0 Chondrocostal junction syndrome [Tietze] (principal); R07.9 Chest pain, unspecified; R00.2 Palpitations
CPT/HCPCS: 36415; 71045; 80053; 84484; 85025; 93005; 99283; 99285

== ENCOUNTER → 2024-06-03 03:46 | Outpatient (BNV) | payer MEDICAID, SELFPAY | PROVIDERS: Emergency Provider Internal Medicine; Visit Provider Internal Medicine Cardiovascular Disease | DX: R07.9 Chest pain, unspecified (principal) | CPT/HCPCS: 93010 ==

== ENCOUNTER 2024-07-01 03:18 | Emergency (ER) | payer MEDICAID, SELFPAY ==
[2024-07-01 03:22] VITALS: BP 114/74; PULSE 68; RESP 18; TEMP 36.6; O2SAT 100; BMI 33.0
--- NOTE | 2024-07-01 03:36 | ED_ITS ---
HPI - General Adult General Chief complaint: General Medical Stated complaint: chest inflammation, diff breathing Time Seen by Provider: 07/01/24 03:33 Source: patient Mode of arrival: ambulatory Limitations: no limitations History of Present Illness ED Provider: Dr. Ragini Dinero HPI narrative: Patient comes to the emergency room complaining of 2 to 3 weeks of what she reports as chest inflammation. Patient states it has been 2 weeks with the same symptoms. Patient was seen here on June 03, diagnosed with costochondritis, patient states that she is not having pain. Patient denies shortness of breath. Related Data Previous Rx's ?Medication ?Instructions ?Recorded diphenhydramine HCl 25 mg capsule 25 mg PO Q6H PRN allergic reaction 09/23/20 (Benadryl) #30 caps epinephrine 0.3 mg/0.3 mL 0.3 mg (0.3 mL) IM Q20M PRN 09/23/20 injection, auto-injector (EpiPen anaphylaxis #2 ea 2-Jorge) prednisone 20 mg tablet 40 mg (2 x 20 mg) PO DAILY #10 tabs 09/23/20 famotidine 20 mg tablet (Pepcid) 20 mg PO DAILY #14 tabs 09/24/20 montelukast 10 mg tablet 10 mg PO BEDTIME #7 tabs 09/24/20 (Singulair) cetirizine 10 mg capsule 10 mg PO DAILY PRN allergy 09/26/20 symptoms #14 caps hydroxyzine HCl 25 mg tablet 25 mg PO TID PRN itching #20 tabs 09/26/20 naproxen 500 mg tablet 500 mg PO BID PRN pain #30 tabs 07/09/22 albuterol sulfate 90 mcg/actuation 2 puff inhalation Q6H PRN 04/22/24 aerosol inhaler shortness of breath or wheezing #8.5 grams benzonatate 200 mg capsule 200 mg PO TID PRN cough #20 caps 04/22/24 cefuroxime axetil 500 mg tablet 500 mg PO BID 7 days #14 tabs 04/22/24 prednisone 20 mg tablet 40 mg (2 x 20 mg) PO DAILY #10 tabs 04/22/24 ibuprofen 600 mg tablet 600 mg PO TID PRN fever or pain 05/29/24 #20 tabs tramadol 50 mg tablet 50 mg PO Q6H PRN pain #20 tabs 06/03/24 Allergies Allergy/AdvReac Type Severity Reaction Status Date / Time No Known Allergies Allergy Verified 07/01/24 03:28 [No Known Allergies*] Review of Systems Review of Systems: Constitutional : No Weight loss, No Fever, No Chills, No Night Sweats, No Fatigue, No Malaise ENT/Mouth : No Hearing loss, No Ear Pain, No Nasal Congestion, No Sinus Pain, No Hoarseness, No sore throat, No Rhinorrhea, No Swallowing Difficulty Eyes: No Eye Pain, No Swelling, No Redness, No Foreign Body, No Discharge, No Vision Changes Cardiovascular : Complaining of chronic chest pain, denies shortness of breath, complaining of pain with inspiration Respiratory : No Cough, No Sputum, No Wheezing, No Smoke Exposure, No Dyspnea Gastrointestinal : No Nausea, No Vomiting, No Diarrhea, No Constipation, No abdominal Pain, No Hematochezia, No Melena Genitourinary : no irregular bleeding, No Dysuria, No Urinary Frequency, No Hematuria, No Urinary Incontinence, No Urgency, No Flank Pain, No Urinary Flow Changes, No Hesitancy Musculoskeletal : No joint pain, No Myalgias, No Joint Swelling Skin : No Skin Lesions, No rash Neuro : No Weakness, No Numbness, No Paresthesias, No Loss of Consciousness, No Dizziness, No Headache Psych : No Anxiety/Panic, No Depression, No SI/HI/AH/VH, No Social Issues, Heme/Lymph: No Bruising, No Bleeding,No Lymphadenopathy Endocrine : No Polyuria, No Polydipsia, No Temperature Intolerance [facility] Past Medical History Medical History Asthma Social History Social History Alcohol intake: never Physical Exam ED Vital Signs: Vital Signs - 24 hr 07/01/24 03:22 Temperature 97.8 F Pulse Rate 68 Respiratory Rate 18 Blood Pressure 114/74 Pulse Oximetry 100 Oxygen Delivery Method Room Air BMI result Body Mass Index 33.0 Const Other: Appearance: Alert. Oriented X3. No acute distress. Eyes: Pupils equal, round and reactive to light. ENT: Pharynx normal. Neck: Normal inspection. Neck supple. CVS: Refused Respiratory: Refused Abdomen: Refused Skin: Skin warm and dry. Normal skin color Extremities: Moves all extremities Neuro: Oriented X 3. No motor deficit. No sensory deficit. Moving all extremities. No slurred speech. CN 2 through 12 grossly intact Psych: calm, anxious Medical Decision Making Medical Decision Making MDM Narrative: Patient states that she has been having chest inflammation for 2-3 weeks. However, over 6 weeks ago, I saw the patient, diagnosed with pleurisy, then she came 1 more time, diagnosed with costochondritis. Labs and chest x-rays from both times were negative. Patient's vitals stable, blood pressure 114/74, heart rate 68, respirations 18, temperature 97.8 degrees, oxygen saturation 100% on room air I discussed with the patient that we will repeat labs, add new labs including D- dimer, serology testing, EKG, chest x-ray and likely we will do a CT scan. Patient states that she does not want any imaging done and does not want any lab work done. Refused physical exam, Patient states that she does not know why she came here and decided to leave Discharge Plan Discharge Clinical Impression: Chest pain Patient Disposition: Left W/O Completing Treatment Additional Instructions: Please follow-up with your primary care physician tomorrow. If you have any worsening or new symptoms, please return to the emergency room or call 911 Prescriptions: No Action epinephrine [EpiPen 2-Jorge] 0.3 mg/0.3 mL auto-injector 0.3 mg IM Q20M PRN (Reason: anaphylaxis) Qty: 2 0RF Rx Instructions: for 3 doses diphenhydramine HCl [Benadryl] 25 mg capsule 25 mg PO Q6H PRN (Reason: allergic reaction) Qty: 30 0RF prednisone 20 mg tablet 40 mg PO DAILY Qty: 10 0RF famotidine [Pepcid] 20 mg tablet 20 mg PO DAILY Qty: 14 0RF montelukast [Singulair] 10 mg tablet 10 mg PO BEDTIME Qty: 7 0RF cetirizine 10 mg capsule 10 mg PO DAILY PRN (Reason: allergy symptoms) Qty: 14 0RF hydroxyzine HCl 25 mg tablet 25 mg PO TID PRN (Reason: itching) Qty: 20 0RF naproxen 500 mg tablet 500 mg PO BID PRN (Reason: pain) Qty: 30 0RF ibuprofen 600 mg tablet 600 mg PO TID PRN (Reason: fever or pain) Qty: 20 0RF tramadol 50 mg tablet 50 mg PO Q6H PRN (Reason: pain) Qty: 20 0RF prednisone 20 mg tablet 40 mg PO DAILY Qty: 10 0RF cefuroxime axetil 500 mg tablet 500 mg PO BID 7 Days Qty: 14 0RF albuterol sulfate 90 mcg/actuation HFA aerosol inhaler 2 puff inhalation Q6H PRN (Reason: shortness of breath or wheezing) Qty: 8.5 0RF benzonatate 200 mg capsule 200 mg PO TID PRN (Reason: cough) Qty: 20 0RF Print Language: Nepali
== END 2024-07-01 04:07 | disposition left against medical advice (07) ==
PROVIDERS: Emergency Provider Emergency Medicine
DX: R07.9 Chest pain, unspecified (principal); J45.909 Unspecified asthma, uncomplicated
CPT/HCPCS: 99281

== ENCOUNTER 2024-07-09 00:47 | Emergency (ER) | payer MEDICAID, SELFPAY ==
--- NOTE | 2024-07-09 | ECG_ITS ---
Test Reason : cp Blood Pressure : / mmHG Vent. Rate : 077 BPM Atrial Rate : 077 BPM P-R Int : 138 ms QRS Dur : 096 ms QT Int : 402 ms P-R-T Axes : 039 027 057 degrees QTc Int : 454 ms Sinus rhythm with marked sinus arrhythmia Otherwise normal ECG When compared with ECG of 03-JUN-2024 03:46, Premature atrial complexes are no longer Present Nonspecific T wave abnormality now evident in Anterior leads Referred By: Generic ED Physician Electronically Signed By:PIERO CAMPA MD
--- NOTE | ~2024-07-09 | XR_ITS ---
EXAMINATION: XR CHEST CLINICAL INFORMATION: Shortness of breath COMPARISON: Chest radiograph 06/03/2024 TECHNIQUE: 2 views of the chest were obtained. FINDINGS: Normal appearance of the cardiomediastinal structures. Pleura normal pattern of pulmonary vasculature. No focal pulmonary consolidation. Multiple external artifacts overlie the thorax. No peribronchial wall thickening noted in no skeletal abnormalities visualized. XR/XR chest 2V IMPRESSION: Normal chest. Lungs clear. Electronically signed by: Elier Cronin MD 07/09/2024 02:32 AM ABBEY
[2024-07-09 00:58] VITALS: BP 114/55; BP 133/80; PULSE 69; PULSE 80; RESP 33; TEMP 36.5; O2SAT 100; O2SAT 99; BMI 33.0
--- NOTE | 2024-07-09 00:58 | PC.NURSE ---
PT comes from home via EMS with complaints of SOB, Cough and CP. CP is reproducible with cough. Lung sounds clear with the exception of LLL in which is is slightly diminished. IV placed by EMS in L wrist. 324mg of aspirin given en route. EKG completed, labs drawn. awaiting CXR and provider
--- NOTE | 2024-07-09 01:10 | PC.NURSE ---
Radiology at bedside.
[2024-07-09 01:17] LABS: MANUAL DIFF FLAG NO
[2024-07-09 01:18] LABS: Basophils Percent Auto 0.1 % (0-2); Eosinophils Absolute Auto 0.1 X10*3/uL (0.0-0.4); Eosinophils Percent Auto 1.1 % (0-4); Hematocrit 35.5 % (37.0-47.0); Hemoglobin 11.6 g/dl (12.0-16.0); Imm Gran Abs Auto 0.03 X10*3/uL (0.00-0.03); Imm Gran Pct Auto 0.3 % (0.0-0.4); Lymphocytes Absolute Auto 2.3 X10*3/uL (1.2-4.9); Lymphocytes Percent Auto 23.5 % (20-40); Mean Corpuscular HGB Conc 32.7 g/dl (31.0-35.0); Mean Corpuscular Hemoglobin 26.9 pg (27.0-33.0); Mean Corpuscular Volume 82.4 fL (80.0-98.0); Mean Platelet Volume 11.1 fL (9.4-12.3); Monocytes Absolute Auto 0.8 X10*3/uL (0.1-1.2); Monocytes Percent Auto 8.1 % (2-11); Neutrophils Absolute Auto 6.6 x10*3/uL (2.0-8.3); Neutrophils Percent Auto 66.9 % (45-73); Platelet Count 183 X10*3/uL (160-400); Red Blood Count 4.31 X10*6/uL (4.20-5.50); White Blood Count 9.9 X10*3/uL (4.8-10.8)
[2024-07-09 01:39] LABS: Troponin-I High Sensitivity < 2.7 ng/L (<3.5-17.0)
[2024-07-09 01:42] LABS: Albumin Level 3.7 g/dL (3.5-5.0); Anion Gap 13 (12-20); Aspartate Amino Transferase 81 U/L (5-31); Bilirubin Total 0.3 mg/dL (0.0-1.0); Blood Urea Nitrogen 18 mg/dL (9-16); Calcium 9.2 mg/dL (8.4-10.2); Carbon Dioxide 23 mmol/L (22-29); Chloride 106 mmol/L (96-108); Estimated Glomerular Filt Rate > 60; Glucose Random 141 mg/dL (60-115); Potassium 2.9 mmol/L (3.3-5.1); Sodium 139 mmol/L (135-145); Total Protein 6.5 g/dL (6.5-8.0)
--- NOTE | 2024-07-09 01:42 | PC.NURSE ---
rec'd critical lab potassium 2.9. provider aware
[2024-07-09 01:53] LABS: Influenza A PCR NEGATIVE (Negative); Influenza B PCR NEGATIVE (Negative); Resp Syncy Virus RNA Qual PCR NEGATIVE (Negative); SARS COV2 PCR INHOUSE NEGATIVE (Negative)
[2024-07-09] MEDS: Potassium Chloride/H20 10 MEQ/100 ML PIGGYBACK 100 MEQ IV ×2 (02:21→03:35)
[2024-07-09] MEDS: Potassium Chloride ER 20 MEQ TAB.ER.PRT 40 MEQ PO (02:21)
--- NOTE | 2024-07-09 02:35 | PC.NURSE ---
PT medicated as per SEP. PT reporting burning at IV site likely d/t potassium infusion. Requesting fluid order from provider. Awaiting new orders.
[2024-07-09] MEDS: 0.9 % Sodium Chloride 1,000 ML 999 ML IV (02:38)
--- NOTE | 2024-07-09 02:40 | PC.NURSE ---
IV fluids hung and infusing. PT notes burning at IV site has stopped. PT requested and provided crackers, sandwich and gingerale- ok'd by provider to give.
[2024-07-09 02:45] LABS: Alanine Aminotransferase 26 U/L (0-31); Alkaline Phosphatase 75 U/L (39-117)
[2024-07-09 03:07] VITALS: BP 110/66; PULSE 80; RESP 16; TEMP 36.5; O2SAT 99
--- NOTE | 2024-07-09 03:36 | PC.NURSE ---
report and handoff given to Danny Thompson RN.
[2024-07-09 05:42] VITALS: BP 104/64; PULSE 72; RESP 16; TEMP 36.5; O2SAT 97
--- NOTE | 2024-07-09 06:26 | ED.CHESTPAIN ---
HPI - Chest Pain General Chief Complaint: Chest Pain Stated Complaint: CP SOB A& O Bronchitis 2 mo. ago Time Seen by Provider: 07/09/24 06:26 Source: patient and EMS Mode of arrival: EMS Limitations: no limitations History of Present Illness ED Provider: Sánchez Wilson PA-C HPI narrative: 23 yo female with history of bronchitis 2 months ago with pleurisy who presents to the ER for evaluation of ongoing intermittent episodes of SOB, cough and chest pain. Last night she reports using her nebulizer and then having worsening central, nonradiating pains in the center of her chest. Described as sharp and tight. Worse with movement, deep breaths, and palpation of the chest wall. Her SOB improved. Overall her symptoms have improved since arrival. She received aspirin in the ambulance. No fevers, chills, N/V/D. She reports intermittent epigastric pains over the last few months as well. MD complaint: chest pain and other (sob) Pertinent past history: asthma Onset (ago): day(s) Timing of current episode: episodic Prior episodes: Yes Onset: during rest Pain location: substernal Pain radiation: none Severity: severe Quality: tightness and sharp Relieving factors: nothing Exacerbating factors: inspiration, palpation, movement and stress Associated symptoms: dyspnea and cough Treatment prior to arrival: aspirin Risk Factors Coronary artery disease risk factors: none Thoracic aortic dissection risk factors: none Related Data On Oral Contraceptives: No Previous Rx's ?Medication ?Instructions ?Recorded diphenhydramine HCl 25 mg capsule 25 mg PO Q6H PRN allergic reaction 09/23/20 (Benadryl) #30 caps epinephrine 0.3 mg/0.3 mL 0.3 mg (0.3 mL) IM Q20M PRN 09/23/20 injection, auto-injector (EpiPen anaphylaxis #2 ea 2-Jorge) prednisone 20 mg tablet 40 mg (2 x 20 mg) PO DAILY #10 tabs 09/23/20 famotidine 20 mg tablet (Pepcid) 20 mg PO DAILY #14 tabs 09/24/20 montelukast 10 mg tablet 10 mg PO BEDTIME #7 tabs 09/24/20 (Singulair) cetirizine 10 mg capsule 10 mg PO DAILY PRN allergy 09/26/20 symptoms #14 caps hydroxyzine HCl 25 mg tablet 25 mg PO TID PRN itching #20 tabs 09/26/20 naproxen 500 mg tablet 500 mg PO BID PRN pain #30 tabs 07/09/22 albuterol sulfate 90 mcg/actuation 2 puff inhalation Q6H PRN 04/22/24 aerosol inhaler shortness of breath or wheezing #8.5 grams benzonatate 200 mg capsule 200 mg PO TID PRN cough #20 caps 04/22/24 cefuroxime axetil 500 mg tablet 500 mg PO BID 7 days #14 tabs 04/22/24 prednisone 20 mg tablet 40 mg (2 x 20 mg) PO DAILY #10 tabs 04/22/24 ibuprofen 600 mg tablet 600 mg PO TID PRN fever or pain 05/29/24 #20 tabs tramadol 50 mg tablet 50 mg PO Q6H PRN pain #20 tabs 06/03/24 naproxen 500 mg tablet,delayed 500 mg PO BID #14 tabs 07/09/24 release Allergies Allergy/AdvReac Type Severity Reaction Status Date / Time No Known Allergies Allergy Verified 07/09/24 01:02 [No Known Allergies*] Review of Systems Review of Systems: Yes all other systems are reviewed and are negative [facility] Past Medical History Medical History Asthma Social History Social History Alcohol intake: never Smoked in Last 30 Days: No Use of substances other than those prescribed or required for medical reasons: Yes Substance Use Type: Marijuana Substance Use Frequency: Daily Last Used Substance: Hours (ago) Advance Directives: No Advance Directives Information Provided: Yes Do you have a plan to hurt others: No Plan Patient : No Physical Exam Vital Signs: Vital Signs: Last Vital Signs Temp 97.7 F 07/09/24 05:42 Pulse 72 07/09/24 05:42 Resp 16 07/09/24 05:42 BP 104/64 07/09/24 05:42 Pulse Ox 97 07/09/24 05:42 O2 Del Method Room Air 07/09/24 05:42 BMI result Body Mass Index 33.0 Appearance: Alert. Oriented X3. No acute distress. Head: normocephalic, atraumatic. Eyes: Pupils equal, round and reactive to light. ENT: Pharynx normal. No tonsillar swelling or exudate. Neck: Normal inspection. Neck supple. CVS: Normal heart rate and rhythm. Pulses normal. Respiratory: No respiratory distress. Breath sounds normal. Anterior chest wall tenderness Abdomen: Soft and nontender. +BS x4 Skin: Skin warm and dry. Normal skin color. Normal skin turgor. No rashes. Extremities: No lower extremity edema. No joint swelling. Neuro/psych: Oriented X 3.grossly normal, nonfocal. CN II-XII intact. Normal speech and cognition. Medications Administered Discontinued Medications Generic Name Dose Route Start Last Admin Trade Name Freq PRN Reason Stop Dose Admin Potassium Chloride 10 meq in 100 mls @ 100 mls/hr 07/09/24 02:00 07/09/24 04:46 Potassium Chloride/H20 IV 07/09/24 03:59 Infused Q1H JESSICA Infusion Sodium Chloride 1,000 mls @ 999 mls/hr 07/09/24 02:36 07/09/24 03:35 Ns IV 07/09/24 03:36 Infused .Q1H1M ONE Infusion Potassium Chloride 40 meq 07/09/24 01:47 07/09/24 02:21 Potassium Chloride Er 20 Meq Tab.Er.Prt PO 07/09/24 01:48 40 meq ONCE ONE Administration Medical Decision Making Medical Decision Making [facility] Narrative: 23 yo female with history of bronchitis and asthma presenting with chest pain, sob, nausea intermittently going on for the last 2-3 months since having bronchitis and pleurisy. VS on arrival with tachypnea, saturaing well on room air. no tachycardia. CXR, EKG and labs performed and are all reassuring. covid, flu and rsv are negative. given toradol in the IV with improvement in her pain. at this time there is low suspicion for acute cardiac process. low suspicion for PE anxiety likely playing a role as well. she is overall feeling better and is stable for discharge home. Differential Diagnosis Differential Diagnoses: The differential diagnosis associated with the presentation includes strep, covid, flu, rsv, other viral syndrome, pleurisy, bronchitis, pneumonia, low suspicion for ACS or PE Admission/Observation Consideration of admission/observation: Escalation of care including admission/observation considered Lab Data [facility] Lab Attestation statement: I reviewed the patient's lab results. hypokalemia, replaced po and iv mild anemia 07/09/24 01:12 07/09/24 01:12 Labs: Lab Results 07/09/24 Range/Units 01:12 WBC 9.9 (4.8-10.8) X10*3/uL RBC 4.31 (4.20-5.50) X10*6/uL Hgb 11.6 L (12.0-16.0) g/dl Hct 35.5 L (37.0-47.0) % MCV 82.4 (80.0-98.0) fL MCH 26.9 L (27.0-33.0) pg MCHC 32.7 (31.0-35.0) g/dl RDW 15.0 (11.0-16.0) % Plt Count 183 (160-400) X10*3/uL MPV 11.1 (9.4-12.3) fL Immature Gran % (Auto) 0.3 (0.0-0.4) % Neut % (Auto) 66.9 (45-73) % Lymph % (Auto) 23.5 (20-40) % Mineral % (Auto) 8.1 (2-11) % Eos % (Auto) 1.1 (0-4) % Baso % (Auto) 0.1 (0-2) % Lymph # (Auto) 2.3 (1.2-4.9) X10*3/uL Mineral # (Auto) 0.8 (0.1-1.2) X10*3/uL Eos # (Auto) 0.1 (0.0-0.4) X10*3/uL Baso # (Auto) 0.0 (0.0-0.2) X10*3/uL Abs Immat Gran (auto) 0.03 (0.00-0.03) X10*3/uL Absolute Neuts (auto) 6.6 (2.0-8.3) x10*3/uL Absolute Nucleated RBC 0.000 (0.0-0.012) X10*3/uL Nucleated RBC % (auto) 0.0 (0.0-0.2) /100WBC Sodium 139 (135-145) mmol/L Potassium 2.9 L* D (3.3-5.1) mmol/L Chloride 106 (96-108) mmol/L Carbon Dioxide 23 (22-29) mmol/L Anion Gap 13 (12-20) BUN 18 H (9-16) mg/dL Creatinine 0.85 (0.5-1.4) mg/dL Estim Creat Clear Calc 108.0 Estimated GFR > 60 Random Glucose 141 H (60-115) mg/dL Calcium 9.2 D (8.4-10.2) mg/dL Total Bilirubin 0.3 (0.0-1.0) mg/dL AST 81 H (5-31) U/L ALT 26 (0-31) U/L Alkaline Phosphatase 75 (39-117) U/L Troponin I High Sens < 2.7 (<3.5-17.0) ng/L Total Protein 6.5 (6.5-8.0) g/dL Albumin 3.7 (3.5-5.0) g/dL Influenza Type A (PCR) NEGATIVE (Negative) Influenza Type B (PCR) NEGATIVE (Negative) RSV RNA Qual (PCR) NEGATIVE (Negative) SARS-CoV-2 RNA (RT-PCR) NEGATIVE (Negative) Independent Interpretation I performed an independent interpretation of an: EKG and Plain X-Ray Interpretation: cxr without focal infiltrate or effusion ekg with sinus rhythm and sinus arrythmia, HR 77 beats per minute, normal ND interval, normal QTc, no ST segment elevations or depressions Radiology Impression Discussion of test interpretation with radiology: I have reviewed the radiologist's reading. Radiologist Impression: XR/XR chest 2V IMPRESSION: Normal chest. Lungs clear. Independent Historian Clinical information obtained from an independent historian. History obtained from or confirmed by: EMS External Record Review External record reviewed: Outpatient record, Prior outpatient labs and Prior outpatient radiology Tests considered The following testing was considered but not selected: CTA considered but low suspicion for PE, perc negative Prescription Management I considered prescription management with: Pain Medication Chronic Conditions Patient?s care impacted by: Other (asthma) Critical Care Time Critical Care Time Critical Care Time: No Discharge Plan Discharge Clinical Impression: Atypical chest pain Patient Disposition: Home, Self-Care Instructions: Noncardiac Chest Pain (ED), Chest Wall Pain (ED) Additional Instructions: your lab workup, chest x-ray, EKG were all reassuring today your pain is likely muscular take the prescribed anti-inflammatory medication 2 times per day for the next 3-4 days regularly, then as needed. take with food given your asthma and shortness of breath, recommend following up with Pulmonology for further evaluation and treatment. call for an appointment, name and number below continue your breathing treatments at home rest and drink plenty of fluids Follow up with your PCP If you develop new or worsening symptoms call 911 or come back to the ER for further evaluation. Prescriptions: New naproxen 500 mg tablet,delayed release (DR/EC) 500 mg PO BID Qty: 14 0RF No Action epinephrine [EpiPen 2-Jorge] 0.3 mg/0.3 mL auto-injector 0.3 mg IM Q20M PRN (Reason: anaphylaxis) Qty: 2 0RF Rx Instructions: for 3 doses diphenhydramine HCl [Benadryl] 25 mg capsule 25 mg PO Q6H PRN (Reason: allergic reaction) Qty: 30 0RF prednisone 20 mg tablet 40 mg PO DAILY Qty: 10 0RF famotidine [Pepcid] 20 mg tablet 20 mg PO DAILY Qty: 14 0RF montelukast [Singulair] 10 mg tablet 10 mg PO BEDTIME Qty: 7 0RF cetirizine 10 mg capsule 10 mg PO DAILY PRN (Reason: allergy symptoms) Qty: 14 0RF hydroxyzine HCl 25 mg tablet 25 mg PO TID PRN (Reason: itching) Qty: 20 0RF naproxen 500 mg tablet 500 mg PO BID PRN (Reason: pain) Qty: 30 0RF ibuprofen 600 mg tablet 600 mg PO TID PRN (Reason: fever or pain) Qty: 20 0RF tramadol 50 mg tablet 50 mg PO Q6H PRN (Reason: pain) Qty: 20 0RF prednisone 20 mg tablet 40 mg PO DAILY Qty: 10 0RF cefuroxime axetil 500 mg tablet 500 mg PO BID 7 Days Qty: 14 0RF albuterol sulfate 90 mcg/actuation HFA aerosol inhaler 2 puff inhalation Q6H PRN (Reason: shortness of breath or wheezing) Qty: 8.5 0RF benzonatate 200 mg capsule 200 mg PO TID PRN (Reason: cough) Qty: 20 0RF Referrals: [facility] [Provider Group] [facility] [Primary Care Provider] - Stand Alone Forms: Work/School Release Print Language: Setswana
[2024-07-09 08:02] VITALS: BP 106/64; PULSE 68; RESP 16; TEMP 36.7; O2SAT 98
[2024-07-09 08:09] VITALS: BP 106/64; PULSE 68; RESP 16; TEMP 36.7; O2SAT 98
== END 2024-07-09 08:10 | disposition home or self-care (01) ==
PROVIDERS: Emergency Provider Emergency Medicine
DX: R07.89 Other chest pain (principal); R06.02 Shortness of breath; R05.9 Cough, unspecified; Z03.818 Encounter for observation for suspected exposure to other biological agents ruled out
CPT/HCPCS: 0241U; 36415; 71046; 80053; 84484; 85025; 93005; 96365; 96366; 99284; 99285; J3480

== ENCOUNTER → 2024-07-09 00:58 | Outpatient (BNV) | payer MEDICAID, SELFPAY | PROVIDERS: Emergency Provider Emergency Medicine; Visit Provider Internal Medicine Cardiovascular Disease | DX: R07.9 Chest pain, unspecified (principal) | CPT/HCPCS: 93010 ==

== ENCOUNTER 2025-01-21 10:13 | Emergency (ER) | payer SELFPAY ==
[2025-01-21 10:57] VITALS: BP 104/60; PULSE 88; RESP 16; TEMP 36.8; O2SAT 98; BMI 34.7
--- NOTE | 2025-01-21 11:04 | ED.URI ---
HPI - URI/Sore Throat General Chief Complaint: Upper Respiratory Symptoms Stated Complaint: tonsil pain Time Seen by Provider: 01/21/25 13:04 Source: patient and RN notes reviewed Mode of arrival: ambulatory Limitations: no limitations History of Present Illness ED Provider: Veronique Arias pA-C HPI Narrative: Patient reports to the emergency department today for evaluation of sore throat that she has had over the past month. She sought medical attention at a local urgent care who tested her for strep and it was negative. She still however did take an antibiotic and it has made no difference. She continues to have this discomfort especially with swallowing. She is denying any difficulty with eating or drinking but it can be painful. She is tolerating p.o. fluids and voiding regularly. She is denying any coughing nausea or vomiting she without any body aches joint pain or rashes. She does not feel short of breath no dizziness headaches and no ear pain denies any throat trauma. No concern for STIs. No symptoms. Tried [id number] Cepacol very transiently helps MD elicited complaint: sore throat Related Data Previous Rx's ?Medication ?Instructions ?Recorded diphenhydramine HCl 25 mg capsule 25 mg PO Q6H PRN allergic reaction 09/23/20 (Benadryl) #30 caps epinephrine 0.3 mg/0.3 mL 0.3 mg (0.3 mL) IM Q20M PRN 09/23/20 injection, auto-injector (EpiPen anaphylaxis #2 ea 2-Jorge) prednisone 20 mg tablet 40 mg (2 x 20 mg) PO DAILY #10 tabs 09/23/20 famotidine 20 mg tablet (Pepcid) 20 mg PO DAILY #14 tabs 09/24/20 montelukast 10 mg tablet 10 mg PO BEDTIME #7 tabs 09/24/20 (Singulair) cetirizine 10 mg capsule 10 mg PO DAILY PRN allergy 09/26/20 symptoms #14 caps hydroxyzine HCl 25 mg tablet 25 mg PO TID PRN itching #20 tabs 09/26/20 naproxen 500 mg tablet 500 mg PO BID PRN pain #30 tabs 07/09/22 albuterol sulfate 90 mcg/actuation 2 puff inhalation Q6H PRN 04/22/24 aerosol inhaler shortness of breath or wheezing #8.5 grams benzonatate 200 mg capsule 200 mg PO TID PRN cough #20 caps 04/22/24 cefuroxime axetil 500 mg tablet 500 mg PO BID 7 days #14 tabs 04/22/24 prednisone 20 mg tablet 40 mg (2 x 20 mg) PO DAILY #10 tabs 04/22/24 ibuprofen 600 mg tablet 600 mg PO TID PRN fever or pain 05/29/24 #20 tabs tramadol 50 mg tablet 50 mg PO Q6H PRN pain #20 tabs 06/03/24 naproxen 500 mg tablet,delayed 500 mg PO BID #14 tabs 07/09/24 release lidocaine HCl 2 % mucosal solution 1 appl mucous membrane QID PRN 01/21/25 (Lidocaine Viscous) pain #100 mL Allergies Allergy/AdvReac Type Severity Reaction Status Date / Time morphine Allergy Difficulty Verified 01/21/25 11:00 Breathing Review of Systems Review of Systems: Yes all other systems are reviewed and are negative PMFSH Past Medical History Attestation statement: The following information was validated with the patient. Source: old records reviewed and nursing notes reviewed Medical History Asthma Social History Social History Alcohol intake: never Substance Use Type: Marijuana Advance Directives: No Advance Directives Information Provided: No Do you have a plan to hurt others: No Plan Physical Exam Vital Signs: Vital Signs: Last Vital Signs Temp 98.3 F 01/21/25 13:16 Pulse 88 01/21/25 13:16 Resp 16 01/21/25 13:16 BP 104/60 01/21/25 13:16 Pulse Ox 98 01/21/25 13:16 O2 Del Method Room Air 01/21/25 13:16 BMI result Body Mass Index 34.7 General: Appears in no acute distress, appears well nourished body habitus is obese, appears stated age. No septic or ill-appearing. Vitals reviewed normal, PMH/Social and Surgical hx reviewed including allergies and current medications. - reviewed for prior visits here and not red as it does not pertain to similar cc. Head: Normocephalic, no obvious trauma or skin lesions noted. Eyes: EOMI ENMT: moist oral mucosa, uvula is midline no trismus she does have tonsillar exudate without any edema or erythema. Diffuse lymphadenopathy both of the anterior and posterior cervical chains. All nontender, Neck: trachea midline Cardiovascular: peripheral perfusion normal, Regular heart rate Respiratory: no respiratory distress Abdomen: nondistended Extremities: warm and moving without difficulty Psych: Cooperative Neuro: Alert and oriented. Const: General: healthy appearing Course Course Course Narrative: 24-year-old female here with complaints of a sore throat x1 month treated about a month ago with amoxicillin for 10 days no improvement. On physical exam looks like she has tonsillitis but no trismus and uvula is midline. She has diffuse lymphadenopathy will order a mono strep and GC of the throat otherwise is not looks systemically ill and no fevers. Veronique Arias PA-C 11:06 am 01/21/2025 RME, will defer full ROS and PE to main provider Medical Decision Making Medical Decision Making [facility] Narrative: The patient's presentation and physical examination are consistent with viral pharyngitis, and there is no evidence of bacterial infection; therefore, oral antibiotics are not indicated. Other potential ENT etiologies, such as bacterial tonsillitis or peritonsillar abscess, are deemed unlikely based on the absence of significant findings such as exudates, severe tonsillar swelling, or unilateral throat pain. Imaging studies are not necessary as the clinical evaluation is sufficient to confirm the diagnosis of viral pharyngitis.There is also no evidence today of AOM/AOE. Lungs are c CXR is not indicated. Patient appears well hydrated and able to tolerate PO fluids. Discharged to home in stable condition. 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 Lab Data [facility] Lab Attestation statement: I reviewed the patient's lab results. Labs: Lab Results 01/21/25 Range/Units 11:16 Throat N gonorr RNA TMA Cancelled Monoscreen Negative (Negative) S. pyogenes GrpA HAN Negative (Negative) Tests considered The following testing was considered but not selected: Would have considered imaging had patient had any coughing or respiratory pathology to warrant. Considered gonorrhea testing of the throat but patient declined this. Would have considered CT of the neck had patient has shown any concern for retropharyngeal or peritonsillar abscess. Prescription Management I considered prescription management with: Pain Medication and Antibiotic No antibiotics as there was no bacterial etiology but did provide medicine for pain relief Chronic Conditions Patient?s care impacted by: Other (Obesity) Discharge Plan Discharge Clinical Impression: Acute tonsillitis, Acute pharyngitis Patient Disposition: Home, Self-Care Instructions: Tonsillitis (ED) Additional Instructions: You likely have viral pharyngitis/ tonsillitis. .?? Your rapid strep was negative. Your mono test was negative. We discussed the potential for gonorrhea but you have did for this testing. Given this is a reoccurrence recommend following up outpatient with english language learner tutor. You may take Tylenol and/or Motrin as needed. Salt water gargles may help reduce pain and draw out the infection. Over the counter lozenges can also be helpful. Warm tea with honey can be helpful You may use an over the counter chloraseptic spray to help with the sore throat. DO NOT consume any sharp food or food at the extremes of temperature after using this spray as it will numb your throat. Drink plenty of fluids. If you develop any worsening symptoms, trouble swallowing, fever, pain opening the jaw, neck stiffness, or any other new, concerning symptoms please return. Prescriptions: New lidocaine HCl [Lidocaine Viscous] 2 % solution 1 appl mucous membrane QID PRN (Reason: pain) Qty: 100 0RF Rx Instructions: may gargle and spit, or swallow No Action epinephrine [EpiPen 2-Jorge] 0.3 mg/0.3 mL auto-injector 0.3 mg IM Q20M PRN (Reason: anaphylaxis) Qty: 2 0RF Rx Instructions: for 3 doses diphenhydramine HCl [Benadryl] 25 mg capsule 25 mg PO Q6H PRN (Reason: allergic reaction) Qty: 30 0RF prednisone 20 mg tablet 40 mg PO DAILY Qty: 10 0RF famotidine [Pepcid] 20 mg tablet 20 mg PO DAILY Qty: 14 0RF montelukast [Singulair] 10 mg tablet 10 mg PO BEDTIME Qty: 7 0RF cetirizine 10 mg capsule 10 mg PO DAILY PRN (Reason: allergy symptoms) Qty: 14 0RF hydroxyzine HCl 25 mg tablet 25 mg PO TID PRN (Reason: itching) Qty: 20 0RF naproxen 500 mg tablet 500 mg PO BID PRN (Reason: pain) Qty: 30 0RF ibuprofen 600 mg tablet 600 mg PO TID PRN (Reason: fever or pain) Qty: 20 0RF tramadol 50 mg tablet 50 mg PO Q6H PRN (Reason: pain) Qty: 20 0RF prednisone 20 mg tablet 40 mg PO DAILY Qty: 10 0RF cefuroxime axetil 500 mg tablet 500 mg PO BID 7 Days Qty: 14 0RF albuterol sulfate 90 mcg/actuation HFA aerosol inhaler 2 puff inhalation Q6H PRN (Reason: shortness of breath or wheezing) Qty: 8.5 0RF benzonatate 200 mg capsule 200 mg PO TID PRN (Reason: cough) Qty: 20 0RF naproxen 500 mg tablet,delayed release (DR/EC) 500 mg PO BID Qty: 14 0RF Referrals: [facility] [Provider Group, Ear, Nose, Throat] - 1 week Referral Note: recurrent tonsillitis Clinical Impression: Acute tonsillitis Interventions: ED Discharge Assessment Last Done: 01/21/25 13:16 Discharge Date/Time: 01/21/25 13:16 Print Language: Armenian
[2025-01-21 11:45] LABS: Monotest Negative (Negative)
[2025-01-21 11:57] LABS: IDNOW Serial# 58CA691E
[2025-01-21 11:58] LABS: Strep A Nucleic Acid Negative (Negative)
[2025-01-21 13:16] VITALS: BP 104/60; PULSE 88; RESP 16; TEMP 36.8; O2SAT 98
--- OUTSIDE RECORDS SUMMARY | 2025-01-21 15:04 | XMS_ITS | Encounter Summary ---
Author Organization [employer] Address [address] [facility] [address] [place] [address] Care Team Providers Care Toolroom Helper Name Role Phone Fannie Mixon [facility] Primary Care Provider [phone] Encounter Details Date Type Department Care Team (Late st Contact Info) Description 01/21/2025 Orders Only GENERIC EXTERNAL DATA DEPARTMENT Provider, Generic External Data Social History Tobacco Use Types Packs/Day Years Used Date Smoking Tobacco: Never Smokeless Tobacco: Never Alcohol Use Standard Drinks/Week Comments Not Currently 0 (1 standard drink = 0.6 oz pur e alcohol) Alcohol Answer Date Recorded Frequency of Alcohol Consumption Not on file 12/27/2023 Average Number of Drinks Not on file 024 Frequency of Binge Drinking Not on file 11/29 Score 0 12/27/2023 Depression Answer Date Recorded Patient Health Questionnaire-9 Score 0 01/29/2024 Patient Health Questionnaire-9 Score 0 01/29/2024 Last PHQ-9: Questionnaire Data Not on file 0 01/29/2024 Housing Stability Answer Date Recorded What is your housing situation today? I have zahra corrigan 12/27/[address] you li ve. Do you have problems with any of the following? None of the above 12/27/2023 Food Insecurity Answer Date Recorded Within the past 12 months, y ou worried that your food would run out before you got money to buy more: Never True 12/27/2023 Within the past 12 months,th e food you bought just didn't last and you didn't have enough money to get more: Never True Transportation Answer Date Recorded In the past 12 months, has l ack of transportation kept you from medical appts, meetings, work or from getting things needed for daily living? No 12/27/2023 Utilities Answer Date Recorded In the past 12 months, has t he electric, gas, oil or water company threatened to shut off services in your home? No 12/27/2023 Depression Answer Date Recorded Patient Health Questionnaire-2 Score 0 01/29/2024 Internet Access Answer Date Recorded Internet Access Q1 Yes 07/19/2024 Internet Access Q2 Not on file 07/19/2024 Comments No Sex and Gender Information Value Date Recorded Sex Assigned at Female 05/30/2022 10:15 AM EDT Legal Sex Female 10:15 AM EDT Gender Identity Female 05/30/2022 10:15 AM EDT Sexual Orientation Straight 05/30/2022 10 :15 AM EDT documented as of this encounter Plan of Treatment Not on file documented as of this encounter Procedures Procedure Name Priority Date/Time Associated Diagnosis Comments STREP A NUCLEIC ACID Routine 01/21/2025 11:16 AM EDT MONONUCLEOSIS TEST, QUALITATIVE Routine 01/21/2025 11:16 AM EDT documented in this encounter Results * Strep A Nucleic Acid (01/21/2025 11:16 AM EDT) [facility]NOW SERIAL# [id number] [facility] Strep A Nucleic Acid Negative Negative [facility] Comment:All test results mus t be correlated with clinical findings.This test has not been evaluated for monitoring treatment ofinfection.Additional follow-up testing using the culture method isrequired if the result is negative and clinical symptomspersist, or in the event of an acute rheumatic feveroutbreak. 01/21/2025 11:1 6 AM EDT 01/21/2025 11:21 AM EDT us Generic External Data Provider LAB MICROBIOLOGY - GENERAL ORDERABLES Final Result [facility] [address] [place] [phone] * Mononucleosis Test, Qualitative (01/21/2025 11:16 AM EDT) Monotest Negative Negative [facility] 01/21/2025 11:1 6 AM EDT 01/21/2025 11:21 AM EDT us Generic External Data Provider LAB BLOOD ORDERAB LES Final Result [facility] [address] [place] [address] [phone] documented in this encounter Visit Diagnoses Not on filedocumented in this encounter Additional Health Concerns Assessment Noted Time PHQ-9 Depression Total Score: 0 01/29/20 24 12:13 PM EDT documented as of this encounter Care Teams Toolroom Helper Relationship Specialty Start Date End Date Fannie Mixon FNP [address] [place] [id number] PCP - General Family Medicine 10/06/23 documented as of this encounter
== END 2025-01-21 13:16 | disposition home or self-care (01) ==
PROVIDERS: Physician Assistant Medical; Emergency Provider Emergency Medicine
DX: J03.90 Acute tonsillitis, unspecified (principal); J02.9 Acute pharyngitis, unspecified
CPT/HCPCS: 86308; 87591; 87651; 99282; 99283

== ENCOUNTER 2025-07-04 19:45 | Emergency (ER) | payer OTHER, SELFPAY ==
--- NOTE | ~2025-07-04 | XR_ITS ---
CLINICAL HISTORY: pain, injury Three views of the left foot. COMPARISON: None provided. FINDINGS: No ankle joint effusion. Normal tarsometatarsal alignment. Tarsals, metatarsals and phalanges appear intact. IMPRESSION: 1. No radiographic evidence of acute injury to the left foot. This document has been electronically signed by: Med Warner MD on 07/04/2025 20:52:03
[2025-07-04 20:06] VITALS: BP 101/51; PULSE 95; RESP 16; TEMP 36.6; O2SAT 95; BMI 27.5
--- NOTE | 2025-07-04 20:12 | ED.GENADULT ---
HPI - General Adult General Chief complaint: Extremity Injury, Lower Stated complaint: Injury Source: patient Mode of arrival: ambulatory Limitations: no limitations History of Present Illness ED Provider: Dr. Ragini Dinero HPI narrative: Patient comes to the emergency room complaining of foot pain. Patient states that she hit her 5th left toe on the corner of her crib. Patient complaining of toe pain. Related Data Previous Rx's ?Medication ?Instructions ?Recorded diphenhydramine HCl 25 mg capsule 25 mg PO Q6H PRN allergic reaction 09/23/20 (Benadryl) #30 caps epinephrine 0.3 mg/0.3 mL 0.3 mg (0.3 mL) IM Q20M PRN 09/23/20 injection, auto-injector (EpiPen anaphylaxis #2 ea 2-Jorge) prednisone 20 mg tablet 40 mg (2 x 20 mg) PO DAILY #10 tabs 09/23/20 famotidine 20 mg tablet (Pepcid) 20 mg PO DAILY #14 tabs 09/24/20 montelukast 10 mg tablet 10 mg PO BEDTIME #7 tabs 09/24/20 (Singulair) cetirizine 10 mg capsule 10 mg PO DAILY PRN allergy 09/26/20 symptoms #14 caps hydroxyzine HCl 25 mg tablet 25 mg PO TID PRN itching #20 tabs 09/26/20 naproxen 500 mg tablet 500 mg PO BID PRN pain #30 tabs 07/09/22 albuterol sulfate 90 mcg/actuation 2 puff inhalation Q6H PRN 04/22/24 aerosol inhaler shortness of breath or wheezing #8.5 grams benzonatate 200 mg capsule 200 mg PO TID PRN cough #20 caps 04/22/24 cefuroxime axetil 500 mg tablet 500 mg PO BID 7 days #14 tabs 04/22/24 prednisone 20 mg tablet 40 mg (2 x 20 mg) PO DAILY #10 tabs 04/22/24 ibuprofen 600 mg tablet 600 mg PO TID PRN fever or pain 05/29/24 #20 tabs tramadol 50 mg tablet 50 mg PO Q6H PRN pain #20 tabs 06/03/24 naproxen 500 mg tablet,delayed 500 mg PO BID #14 tabs 07/09/24 release lidocaine HCl 2 % mucosal solution 1 appl mucous membrane QID PRN 01/21/25 (Lidocaine Viscous) pain #100 mL Allergies Allergy/AdvReac Type Severity Reaction Status Date / Time morphine Allergy Difficulty Verified 07/04/25 20:07 Breathing Review of Systems Review of Systems: Constitutional : No Weight loss, No Fever, No Chills, No Night Sweats, No Fatigue, No Malaise ENT/Mouth : No Hearing loss, No Ear Pain, No Nasal Congestion, No Sinus Pain, No Hoarseness, No sore throat, No Rhinorrhea, No Swallowing Difficulty Eyes: No Eye Pain, No Swelling, No Redness, No Foreign Body, No Discharge, No Vision Changes Cardiovascular : No Chest Pain, No SOB, No Dyspnea on Exertion, No Orthopnea, No Edema, No Palpitations Respiratory : No Cough, No Sputum, No Wheezing, No Smoke Exposure, No Dyspnea Gastrointestinal : No Nausea, No Vomiting, No Diarrhea, No Constipation, No abdominal Pain, No Hematochezia, No Melena Genitourinary : no irregular bleeding, No Dysuria, No Urinary Frequency, No Hematuria, No Urinary Incontinence, No Urgency, No Flank Pain, No Urinary Flow Changes, No Hesitancy Musculoskeletal : Complaining of toe pain on the 5th toe No Myalgias, No Joint Swelling Skin : No Skin Lesions, No rash Neuro : No Weakness, No Numbness, No Paresthesias, No Loss of Consciousness, No Dizziness, No Headache Psych : No Anxiety/Panic, No Depression, No SI/HI/AH/VH, No Social Issues, Heme/Lymph: No Bruising, No Bleeding,No Lymphadenopathy Endocrine : No Polyuria, No Polydipsia, No Temperature Intolerance [facility] Past Medical History Medical History Asthma Social History Social History Alcohol intake: never Substance Use Type: Marijuana Advance Directives: No Advance Directives Information Provided: No Do you have a plan to hurt others: No Plan Physical Exam ED Exam Exam: Appearance: Alert. Oriented X3. No acute distress. Eyes: Pupils equal, round and reactive to light. ENT: Pharynx normal. Neck: Normal inspection. Neck supple. No lymph nodes noted. No crepitus CVS: Normal heart rate and rhythm. Pulses normal. Normal S1 and S2 Respiratory: No respiratory distress. Breath sounds normal. No Wheezing. No rales Abdomen: Soft and nontender. No rigidity. No distention. Skin: Complaining of 5th toe pain, toe pain, contusion Extremities: No lower extremity edema. No Lacerations. No Rash Neuro: Oriented X 3. No motor deficit. No sensory deficit. Moving all extremities. No slurred speech. CN 2 through 12 grossly intact Psych: calm, cooperative, normal affect Vital Signs: Vital Signs - 24 hr 07/04/25 20:06 Temperature 97.9 F Pulse Rate 95 Respiratory Rate 16 Blood Pressure 101/51 L Pulse Oximetry 95 Oxygen Delivery Method Room Air BMI result Body Mass Index 27.5 Course Course Course Narrative: Rapid medical examination performed in triage by Moriah Barrios PA-C: Patient is a 24 year old assigned female at presenting to the emergency department with left 5th toe pain. Detailed physical exam and review of systems are deferred to the brokerage coordinator. Imaging ordered. Patient placed back in the waiting room pending room availability and results. Medical Decision Making Medical Decision Making MDM Narrative: X-rays of the toes did not show any acute abnormality. Patient has a toe contusion Radiology Impression Discussion of test interpretation with radiology: I have reviewed the radiologist's reading. Radiologist Impression: No ankle joint effusion. Normal tarsometatarsal alignment. Tarsals, metatarsals and phalanges appear intact. IMPRESSION: 1. No radiographic evidence of acute injury to the left foot. Discharge Plan Discharge Clinical Impression: Contusion of foot Patient Disposition: Home, Self-Care Instructions: Foot Contusion (ED) Additional Instructions: Your x-rays did not show any acute events of any fracture or injury to your foot Please follow-up with your primary care physician tomorrow. If you have any worsening or new symptoms, please return to the emergency room or call 911 Prescriptions: No Action epinephrine [EpiPen 2-Jorge] 0.3 mg/0.3 mL auto-injector 0.3 mg IM Q20M PRN (Reason: anaphylaxis) Qty: 2 0RF Rx Instructions: for 3 doses diphenhydramine HCl [Benadryl] 25 mg capsule 25 mg PO Q6H PRN (Reason: allergic reaction) Qty: 30 0RF prednisone 20 mg tablet 40 mg PO DAILY Qty: 10 0RF famotidine [Pepcid] 20 mg tablet 20 mg PO DAILY Qty: 14 0RF montelukast [Singulair] 10 mg tablet 10 mg PO BEDTIME Qty: 7 0RF cetirizine 10 mg capsule 10 mg PO DAILY PRN (Reason: allergy symptoms) Qty: 14 0RF hydroxyzine HCl 25 mg tablet 25 mg PO TID PRN (Reason: itching) Qty: 20 0RF naproxen 500 mg tablet 500 mg PO BID PRN (Reason: pain) Qty: 30 0RF ibuprofen 600 mg tablet 600 mg PO TID PRN (Reason: fever or pain) Qty: 20 0RF tramadol 50 mg tablet 50 mg PO Q6H PRN (Reason: pain) Qty: 20 0RF lidocaine HCl [Lidocaine Viscous] 2 % solution 1 appl mucous membrane QID PRN (Reason: pain) Qty: 100 0RF Rx Instructions: may gargle and spit, or swallow prednisone 20 mg tablet 40 mg PO DAILY Qty: 10 0RF cefuroxime axetil 500 mg tablet 500 mg PO BID 7 Days Qty: 14 0RF albuterol sulfate 90 mcg/actuation HFA aerosol inhaler 2 puff inhalation Q6H PRN (Reason: shortness of breath or wheezing) Qty: 8.5 0RF benzonatate 200 mg capsule 200 mg PO TID PRN (Reason: cough) Qty: 20 0RF naproxen 500 mg tablet,delayed release (DR/EC) 500 mg PO BID Qty: 14 0RF Print Language: Austrian
--- OUTSIDE RECORDS SUMMARY | 2025-07-04 20:46 | XMS_ITS | Clinical Summary ---
Author Organization [employer] Address [address] [place] [address] Care Team Providers Care Director Trial Name Role Phone Fannie Mixon [employer] [facility] Primary Care Provider [phone] Allergies Active Allergy Reactions Criticality Noted Date Comments Latex 05/22/2024 Metronidazole 09/25/2020 Other reaction(s): Hives / Skin Rash Medications * This document contains information received from the source organization and may not represent a complete record from that organization. Vit-Fe Fumarate-FA ( Vitamins) 28-0.8 MG tablet Take 1 tablet by mouth in the morning. 3 Active escitalopram (Lexapro) 10 MG tablet Take 1.5 tablets by mouth Once per day. Active propranolol (Inderal) 20 MG tabletIndications: Migraine with aura and without status migrainosus, not intractable Take 1 tablet by oral route once daily. If tolerating well OK to increase to twice daily 90 tablet 11 4 Active albuterol (Ventolin HFA) 108 (90 Base) MCG/ACT inhaler Inhale 2 puffs Every 4-6 hours as needed for wheezing. 18 g 1 4 Active acetaminophen (Tylenol) 500 MG tablet Take 2 tablets (1,000 mg) by mouth every 6 (six) hours if needed for moderate pain or fever for up to 25 doses. 40 tablet 4 Active ondansetron ODT (Zofran-ODT) 4 MG disintegrating tablet Take 1 tablet by mouth every 8 (eight) hours if needed for nausea or vomiting. 4 Active Narcan 4 MG/0.1ML nasal spray Administer 4 mg into affected nostril(s). 1 sprays = 4 mg, Naris, Left, Once, PRN To reverse opioid overdose, may repeat every 2 to 3 minutes until patient responds, use one spray in one nostril. if an additional dose is needed, alternate nostril, Active Hospital, Clinic, or Other Facility Administered Medication Ordered Dose Route Frequency Start Date End Date Status lidocaine 2 % gelIndications:Encounter for IUD insertion UR As needed 05/22/2024 Active ibuprofen tablet 800 mgIndications:Encounter for IUD insertion 800 mg PO Once 05/22/2024 Active Active Problems Problem Noted Date Diagnosed Date Family history of malignant neoplasm of colon Depression with anxiety 12/27/2023 Overview (01/29/2024): followed by psychiatry in [facility]. On OP waitlist Nexplanon insertion 10/15/2023 Migraine without aura 02/21/2022 Anemia 03/17/2017 Mild persistent asthma 07/26/2016 Overview (01/29/2024): Albuterol PRN Well controlled Allergic rhinitis 12/30/2014 Resolved Problems Problem Noted Date Diagnosed Date Resolved Date Hyperemesis gravidarum 05/05/202312/26 Acute pain of right knee 08/18/2022 Right lumbar pain 08/18/2022 12/27/2023 Overweight 12/15/2014 12/27/2023 Immunizations Immunization Administration Dates Next Due DTaP 04/08/2003, 0,05/27/1999,04/08,02/04/1999 HPV, Quadrivalent 12/28/2012,04/29/2010,01/30/20 09 Hep A, ped/adol, 2 dose 12/30/2014,04/29/2010 Hep B, Adolescent or Pediatric 09/23/1999,1998,1998 Hib (HbOC) 03/28/2000, 9,04/08/1999,02/04 IPV 04/08/2003, 0,04/08/1999,02/04 Influenza injectable quadriv alent IIV4 with preservative 10/13/2015 Influenza injectable quadriv alent preservative free 05/22/2023 Influenza, IIV3, injectable 08/09/2019,0 10/13/2015,04/29/2010,04/23,08/13/2002,07/09/2002,06/15/2001 MMR 04/08/2003,12/24/1999 Meningococcal MCV4P [id number]-135 12/30/2014 PPD Test 05/12/2021 Pfizer Covid-19 Vaccine 12+ Bivalent 08/10/2022 Pneumococcal Conjugate PCV 7 03/07/2001,03/28/20 00 Rabies, intramuscular 04/12/2017 Td (adult), 5 Lf tetanus tox oid, preservative free, adsorbed 04/12/2017 Tdap 07/20/2023,11/13/2019,04/29/2010 Varicella 01/29/2009,03/28/2000 Family History Medical History Relation Name Comments Diabetes type II Maternal Grandmother Stroke Maternal Grandmother Lupus Mother Migraines Mother Heart attack Paternal Grandmother Colon cancer Sister Seizures Sister Relation Name Status Comments Maternal Grandmother Mother Paternal Grandmother Sister Social History Tobacco Use Types Packs/Day Years Used Date Smoking Tobacco: Never Smokeless Tobacco: Never Tobacco Cessation:Counseling Given: Not Answered Alcohol Use Standard Drinks/Week Comments Not Currently [...] Orientation Straight 05/30/2022 10 :15 AM EDT Last Filed Vital Signs Vital Sign Reading Time Taken Comments Blood Pressure 101/67 07/22/2024 10:26 AM EST Pulse 105 07/22/2024 10:26 AM EST Temperature 36.8 C (98.2 F) 07/22/2024 10:26 AM EST Respiratory Rate 18 07/22/2024 10:26 AM EST Oxygen Saturation 99% 07/22/2024 10:26 AM EST Inhaled Oxygen Concentration - - Weight 96.7 kg (213 lb 3.2 oz) 07/22/2024 10:26 AM EST Height 162.6 cm (5' 4 ) 07/03/2024 11:48 AM EST Body Mass Index 36.6 07/03/2024 11:48 AM EST Plan of Treatment Health Maintenance Due Date Last Done Comments HIV Screening 1998 Lipid Panel 1998 Disability Screening 1998 Alcohol/Substance Use Screening 2010 Hepatitis C Screening 2016 Pneumococcal Vaccine: Pediatrics (0 to 5 Years) and At-Risk Patients (6 to 49) Years (1 of 2 - PCV) 2017 03/07/2001, 03/28/2000 SDOH Screening 12/26/2024 12/27/2023 Depression Screening 01/28/2025 01/29/2024, 01/29/20 24 COVID-19 Vaccine ( season) 2025 03/27/2024, 08/10/2022, 12/19/2020, Additional history exists Influenza Vaccine (#1) 2025 , 08/09/2019, 10/13/2015, Additional history exists Family Planning (PISQ) 07/03/2025 07/03/2024 Tobacco Screening 07/22/2025 07/22/2024 Pap Smear 12/03/2026 12/04/2023 DTaP/Tdap/Td Vaccines (10 - Td or Tdap) 07/20/2033 07/20/2023, 11/13/2019, 04/12/2017, Additional history exists Zoster Vaccines (1 of 2) 2048 RSV Patients and Patients Aged 60 years or older (1 - 1-dose 75+ series) 2073 Hepatitis B Vaccines Completed 09/23/1999, 01/07/1999, 1998 HIB Vaccines Completed 03/28/2000, 05/01, 04/08/1999, Additional history exists IPV Vaccines Completed 04/08/2003, 11/29, 04/08/1999, Additional history exists HPV Vaccines Completed 12/28/2012, 04/02, 01/29/2009 Hepatitis A Vaccines Completed 12/30/2014, 04/29/20 10 Meningococcal Vaccine Completed 12/30/2014 Meningococcal B Vaccine Aged Out No l onger eligible based on patient's age to complete this topic RSV under 20 months Aged Out No longe r eligible based on patient's age to complete this topic Rotavirus Vaccines Aged Out No longer eligible based on patient's age to complete this topic Procedures Procedure Name Priority Date/Time Associated Diagnosis Comments PAP SMEAR Routine 12/04/2023 12:00 AM EDT from Last 3 Months or Most Recently Relevant to Health Maintenance Results * Pap Smear (12/04/2023 12:00 AM EDT) Swab us Historical Provider MD LAB CYTOLOGY ORDERABLES F inal Result [facility] [address] [place] [address] from Last 3 Months or Most Recently Relevant to Health Maintenance [place] [address] [place] [address] C3 Care Teams Director Trial Relationship Specialty Start Date End Date Fannie Mixon FNP [address] [place] [phone] PCP - General Family Medicine 10/06/23
--- OUTSIDE RECORDS SUMMARY | 2025-07-04 20:46 | XMS_ITS | Encounter Summary ---
Author Organization [employer] Address [address] [facility] [address] [place] [address] Care Team Providers Care Customer Support Manager Name Role Phone Ward [facility] Primary Care Provider [phone] Encounter Details Date Type Department Care Team (Late st Contact Info) Description 01/29/2024 Orders Only [facility] [address] [place], [place] [id number] Ward [facility] [address] [place] [address] Migraine with aura and without status migrainosus, not intractable (Primary Dx) Social History Tobacco Use Types Packs/Day Years Used Date Smoking Tobacco: Never Smokeless Tobacco: Never Alcohol Answer Date Recorded Frequency of Alcohol [...] Recorded Patient Health Questionnaire-2 Score 0 01/29/2024 Comments No Sex and Gender Information Value Date Recorded Sex Assigned at Female 05/30/2022 10:15 AM EDT Legal Sex Female 10:15 AM EDT Gender Identity Female 05/30/2022 10:15 AM EDT Sexual Orientation Straight 05/30/2022 10 :15 AM EDT documented as of this encounter Functional Status * Over the past 2 weeks, how often have you been bothered by any of the following problems? Question Answer Date of Assessment Author Patient Health Questionnaire-2 Score 0 01/29/2024 12:13 PM EDT Lu Matthew MA * Over the past 2 weeks, how often have you been bothered by any of the following problems? Question Answer Date of Assessment Author Little interest or pleasure in doing things Not at all 01/29/2024 12:13 PM EDT Lu Mattson MA Feeling down, depressed, or hopeless Not at all 01/29/2024 12:13 PM EDT Lu Mattson MA Trouble falling or staying asleep, or sleeping too much Not at all 01/29/2024 12:13 PM EDT Lu Pineda MA Feeling tired or having little energy Not at all 01/29/2024 12:13 PM EDT Lu Mattson MA Poor appetite or overeating Not at all 01/29/2024 12 :13 PM EDT Lu Mattson MA Feeling bad about yourself - or that you are a failure or have let yourself or your family down Not at all 01/29/2024 12:13 PM EDT Lu Mattson MA Trouble concentrating on things, such as reading the newspaper or watching television Not at all 01/29/2024 12:13 PM EDT Lu Mattson MA Moving or speaking so slowly that other people could have noticed? Or the opposite - being so fidgety or restless that you have been moving around a lot more than usual. Not at all 01/29/2024 12:13 PM EDT Lu Ortega MA Thoughts that you would be better off or hurting yourself in some way Not at all 01/29/2024 12:13 PM EDT Lu Mattson MA Patient Health Questionnaire-9 Score 0 01/29/2024 12:13 PM EDT Lu Matthew MA documented as of this encounter Plan of Treatment Not on file documented as of this encounter Visit Diagnoses Diagnosis Migraine with aura and without status migrainosus, not intractable- Primary documented in this encounter Additional Health Concerns Assessment Noted Time PHQ-9 Depression Total Score: 0 01/29/20 12:13 PM EDT documented as of this encounter Care Teams Customer Support Manager Relationship Specialty Start Date End Date Fannie Mixon FNP [address] [place] [phone] PCP - General Family Medicine 10/06/23 documented as of this encounter
--- OUTSIDE RECORDS SUMMARY | 2025-07-04 20:46 | XMS_ITS | Encounter Summary ---
Author Organization [employer] Address [address] [place] [address] Care Team Providers Care Railcar Brake Operator Name Role Phone Fannie Mixon [employer] Primary Care Provider Encounter Details Date Type Department Care Team (Late st Contact Info) Description 04/18/2024 Orders Only [facility] [address] [place] [address] Constance Topete LPN Social History Tobacco Use Types Packs/Day Years [...] Procedure Name Priority Date/Time Associated Diagnosis Comments XR CHEST 1 VIEW Routine 04/22/2024 3:11 AM EDT documented in this encounter Results * XR Chest 1 View (04/22/2024 3:11 AM EDT) Anatomical Region Laterality Modality Chest Radiographic Yamilex ging 04/22/2024 3:11 AM EDT Narrative 04/22/2024 3:39 AM EDT [place] [address] XRay Report Signed Patient: Pawel Mcdermott MR#: [id number] : 2000 Acct:[id number] Age/Sex: 23 / F ADM Date: 04/22/24 Loc: .ED Attending Dr: Ordering Physician: Tyler Hemphill MD Date of Service: 04/22/24 Procedure(s): XR chest 1V Accession Number(s): [id number] cc: Jihan SierraP; Tyler Hemphill MD EXAMINATION: XR CHEST CLINICAL INFORMATION: Cough. COMPARISON: March 13, 2018. TECHNIQUE: Frontal view of the chest was obtained. FINDINGS: No significant abnormality is noted involving the heart, lungs, mediastinum, bony thorax or soft tissues. XR/XR chest 1V IMPRESSION: Unremarkable examination. Electronically signed by: Juan Jose Rosales MD 04/22/2024 03:36 AM EDT Dictated By: Juan Jose Rosales MD Signed By: <Electronically signed by Juan Jose Rosales MD in OV> 04/22/24 0336 DD/ 0311 TD/TT: 04/22/24 0322 Track Oiler: Procedure Note Donbartolometer, Image - 04/22/[address] [address] XRay Report Signed Patient: Pawel McdermottMR#: [id number] : 2000Acct:[id number] Age/Sex: 23 / FADM Date: 04/22/24 Loc: HO.ED Attending Dr: Ordering Physician: Tyler Hemphill MD Date of Service: 04/22/24 Procedure(s): XR chest 1V Accession Number(s): [id number] cc: Jihan Sierra; Tyler Hemphill MD EXAMINATION: XR CHEST CLINICAL INFORMATION: Cough. COMPARISON: March 13, 2018. TECHNIQUE: Frontal view of the chest was obtained. FINDINGS: No significant abnormality is noted involving the heart, lungs, mediastinum, bony thorax or soft tissues. XR/XR chest 1V IMPRESSION: Unremarkable examination. Electronically signed by: Juan Jose Rosales MD 04/22/2024 03:36 AM EDT Dictated By: Juan Jose Rosales MD Signed By: <Electronically signed by Juan Jose Rosales MD in OV> 04/22/24 0336 DD/ TD/TT: 04/22/24321 Track Oiler: [facility] External Provider IMG XR PROCEDURES Edited Result - Final documented in this encounter Visit Diagnoses Not on filedocumented in this encounter Additional Health Concerns Assessment Noted Time PHQ-9 Depression Total Score: 0 01/29/20 24 12:13 PM EDT documented as of this encounter Care Teams Railcar Brake Operator Relationship Specialty Start Date End Date Fannie Mixon FNP [address] [place] [id number] PCP - General Family Medicine 10/06/23 documented as of this encounter
[2025-07-04 21:45] VITALS: BP 101/51; PULSE 95; RESP 16; TEMP 36.6; O2SAT 95
== END 2025-07-04 21:46 | disposition home or self-care (01) ==
PROVIDERS: Emergency Provider Emergency Medicine
DX: S90.32XA Contusion of left foot, initial encounter (principal); M79.672 Pain in left foot; Y29.XXXA Contact with blunt object, undetermined intent, initial encounter; Y93.9 Activity, unspecified; Y92.9 Unspecified place or not applicable; Y99.8 Other external cause status
CPT/HCPCS: 73630; 99282; 99283

== ENCOUNTER → 2025-07-04 20:13 | Outpatient (BNV) | payer SELFPAY | PROVIDERS: Visit Provider Radiology Diagnostic Radiology | DX: M79.672 Pain in left foot (principal) | CPT/HCPCS: 73630 ==